=== PATIENT | female | born 1965 | race Hispanic/Latino ===

== ENCOUNTER 2017-06-15 01:28 | Emergency (ER) | payer SELFPAY ==
[2017-06-15] MEDS ORDERED: IBUPROFEN 400 MG TAB ONE (02:02)
[2017-06-15 02:29] LABS: Urine Bacteria >50 /HPF (<20); Urine Culture Reflex Order NOT NEEDED; Urine RBC TNTC /HPF (NONE SEEN)
--- NOTE | 2017-06-15 02:35 | EDPHYS ---
Physician Documentation [facility] Name: Aimee Quintana Age: 52 yrs Sex: Female : 1965 Arrival Date: 06/15/2017 Time: 01:32 Bed 13 Private MD: ED Physician Alverto Turner HPI: 06/15 02:31 This 52 yrs old Female presents to ER via Ambulatory with complaints of Pain ma2 With Urination. 02:31 Onset: The symptoms/episode began/occurred gradually, 1 day(s) ago. Severity of ma2 symptoms: At their worst the symptoms were moderate in the emergency department the symptoms are unchanged. The patient has experienced similar episodes in the past. The patient has not recently seen a physician. 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 - Social history:: Smoking status: Patient/guardian denies using tobacco. - Family history:: not pertinent. ROS: 02:31 Constitutional: Negative for fever, chills, and weight loss, Eyes: Negative for injury, ma2 pain, redness, and discharge, ENT: Negative for injury, pain, and discharge, Neck: Negative for injury, pain, and swelling, Cardiovascular: Negative for chest pain, palpitations, and edema, Respiratory: Negative for shortness of breath, cough, wheezing, and pleuritic chest pain, Back: Negative for injury and pain, MS/Extremity: Negative for injury and deformity, Skin: Negative for injury, rash, and discoloration, Neuro: Negative for headache, weakness, numbness, tingling, and seizure, Psych: Negative for depression, anxiety, suicide ideation, homicidal ideation, and hallucinations, Allergy/Immunology: Negative for hives, rash, and allergies, Endocrine: Negative for neck swelling, polydipsia, polyuria, polyphagia, and marked weight changes, Hematologic/Lymphatic: Negative for swollen nodes, abnormal bleeding, and unusual bruising. Exam: 02:31 Constitutional: This is a well developed, well nourished patient who is awake, alert, ma2 and in no acute distress. Head/Face: Normocephalic, atraumatic. Chest/axilla: Normal chest wall appearance and motion. Nontender with no deformity. No lesions are appreciated. Cardiovascular: Regular rate and rhythm with a normal S1 and S2. No gallops, murmurs, or rubs. Normal PMI, no JVD. No pulse deficits. Respiratory: Lungs have equal breath sounds bilaterally, clear to auscultation and percussion. No rales, rhonchi or wheezes noted. No increased work of breathing, no retractions or nasal flaring. Abdomen/GI: Soft, non-tender, with normal bowel sounds. No distension or tympany. No guarding or rebound. No evidence of tenderness throughout. Vital Signs: 01:56 BP 155 / 79; Pulse 67; Resp 18; Temp 97.6(O); Pulse Ox 97% on R/A; Weight 111.58 kg; tl2 Height 5 ft. 4 in. (162.56 cm); Pain 6/10; 02:34 BP 124 / 60; Pulse 63; Resp 18; Pulse Ox 98% on R/A; tl2 01:56 Body Mass Index 42.23 (111.58 kg, 162.56 cm) tl2 MDM: 01:41 Patient medically screened. ma2 02:31 Differential Diagnosis sepsis, UTI unlikely pyelonephritis. Data reviewed: vital signs, tx2 nurses notes, lab test result(s). Counseling: I had a detailed discussion with the patient and/or guardian regarding: the historical points, exam findings, and any diagnostic results supporting the discharge/admit diagnosis, the presence of at least one elevated blood pressure reading (>120/80) during this emergency department visit, the need for outpatient follow up. Response to treatment: the patient's symptoms have mildly improved after treatment. 06/15 02:00 Order name: Urine Microscopic Only; Complete Time: 02:33 tl2 06/15 02:00 Order name: Urine Culture 2 06/15 02:00 Order name: Urine Dipstick-Ancillary (obtain specimen); Complete Time: 02:03 tl2 06/15 02:15 Order name: Urine Dipstick--Ancillary (enter results) rg2 Administered Medications: 02:02 Drug: Ibuprofen 400 mg Route: PO; tl1 02:44 Follow up: Response: No adverse reaction; Pain is decreased tl2 02:44 Drug: Macrobid 100 mg Route: PO; tl2 02:44 Follow up: Response: No adverse reaction; Medication administered at discharge. tl2 Disposition: 06/15/17 02:34 Discharged to Home. Impression: Urinary tract infection, site not specified. - Condition is Stable. - Discharge Instructions: Urinary Tract Infection, [id number]. - Prescriptions for Tylenol- Codeine #3 300-30 mg Oral Tablet - take 2 tablet by ORAL route every 6 hours As needed; 30 tablet. Macrobid 100 mg Oral Capsule - take 1 capsule by ORAL route every 12 hours for 10 days; 20 capsule. - Medication Reconciliation Form, Thank You Letter, Antibiotic Education, Prescription Opioid Use form. - Follow up: Private Physician; When: Tomorrow; Reason: Continuance of care. - Problem is new. - Symptoms are unchanged. Signatures: Dispatcher [employer] EDMS Brittany Peña RN RN tl1 Yelitza Ramírez RN RN tl2 Alverto Turner MD MD tx2
--- NOTE | 2017-06-15 02:35 | ER ---
Nurse's Notes [facility] Name: Aimee Quintana Age: 52 yrs Sex: Female : 1965 Arrival Date: 06/15/2017 Time: 01:32 Bed 13 Private MD: Diagnosis: Urinary tract infection, site not specified Presentation: 06/15 01:53 Presenting complaint: Patient states: I started having burning with urination today and tl2 lower abdominal pain on and off. Reports nausea. Denies fever or vomiting. Transition of care: patient was not received from another setting of care. Onset of symptoms was June 15, 2017. Care prior to arrival: None. 01:53 Method Of Arrival: Ambulatory tl2 01:53 Acuity: TIANNA 4 tl2 Triage Assessment: 01:56 General: Appears in no apparent distress. uncomfortable, Behavior is calm, cooperative, tl2 appropriate for age. Pain: Complains of pain in suprapubic area Pain does not radiate. Pain currently is 6 out of 10 on a pain scale. Quality of pain is described as crampy, Pain began 1 day ago. Is intermittent. Neuro: Level of Consciousness is awake, alert, obeys commands, Oriented to person, place, time, situation. Cardiovascular: Denies chest pain. Respiratory: Airway is patent Respiratory effort is even, unlabored, Respiratory pattern is regular, symmetrical. GI: Reports nausea. : Reports burning with urination. Derm: Skin is pink, warm \T\ dry. 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 - Social history:: Smoking status: Patient/guardian denies using tobacco. - Family history:: not pertinent. Screenin:58 Abuse screen: Denies threats or abuse. Nutritional screening: No deficits noted. tl2 Tuberculosis screening: No symptoms or risk factors identified. Fall Risk None identified. Assessment: 01:58 General: see triage assessment. tl2 02:34 Reassessment: Patient appears in no apparent distress at this time. Patient and/or tl2 family updated on plan of care and expected duration. Pain level reassessed. Patient is alert, oriented x 3, equal unlabored respirations, skin warm/dry/pink. 02:45 Reassessment: Patient appears in no apparent distress at this time. Patient and/or tl2 family updated on plan of care and expected duration. Pain level reassessed. Patient is alert, oriented x 3, equal unlabored respirations, skin warm/dry/pink. pt verbalized understanding of discharge instructions, need for follow up and prescription usage. Vital Signs: 01:56 BP 155 / 79; Pulse 67; Resp 18; Temp 97.6(O); Pulse Ox 97% on R/A; Weight 111.58 kg; tl2 Height 5 ft. 4 in. (162.56 cm); Pain 6/10; 02:34 BP 124 / 60; Pulse 63; Resp 18; Pulse Ox 98% on R/A; tl2 01:56 Body Mass Index 42.23 (111.58 kg, 162.56 cm) tl2 ED Course: 01:32 Patient arrived in ED. do 01:41 Alverto Turner MD is Attending Physician. ma2 01:53 Yelitza Ramírez, KRISTY is Primary Nurse. tl2 01:54 Triage completed. tl2 01:56 Arm band placed on right wrist. tl2 01:58 Patient has correct armband on for positive identification. Bed in low position. Call tl2 light in reach. Side rails up X 1. 01:58 No provider procedures requiring assistance completed. tl2 02:45 Patient did not have IV access during this emergency room visit. tl2 Administered Medications: 02:02 Drug: Ibuprofen 400 mg Route: PO; tl1 02:44 Follow up: Response: No adverse reaction; Pain is decreased tl2 02:44 Drug: Macrobid 100 mg Route: PO; tl2 02:44 Follow up: Response: No adverse reaction; Medication administered at discharge. tl2 Outcome: 02:34 Discharge ordered by . ma2 02:45 Discharged to home ambulatory, with family. tl2 02:45 Condition: stable 02:45 Discharge instructions given to patient, Instructed on discharge instructions, follow up and referral plans. no driving heavy equipment, medication usage, Demonstrated understanding of instructions, follow-up care, medications, Prescriptions given X 2. 02:46 Patient left the ED. tl2 Signatures: Brittany Peña RN RN tl1 Maria Elena Ly Taylor, RN RN tl2 Alverto Turner MD MD ma2
[2017-06-15] MEDS ORDERED: NITROFURAN MACRO 100 MG CAP PO ONE (02:40)
[2017-06-15 02:58] VITALS: TEMP 97.6
[2017-06-15 02:59] VITALS: BP 124/60; O2SAT 98
[2017-06-15 04:49] LABS: Urine Blood 3+ (NEG); Urine Glucose NEGATIVE (NEG); Urine Protein 1+ (NEG); Urine Specific Gravity >1.030 (1.005-1.030); Urine pH 5.5 (5.0-7.0)
== END 2017-06-15 02:46 | disposition home or self-care (01) ==
LOC: ER 01:28
DX: N39.0 Urinary tract infection, site not specified (principal); I10 Essential (primary) hypertension; Z88.8 Allergy status to other drugs, medicaments and biological substances
CPT/HCPCS: 81003; 81015; 87077; 87086; 87088; 87186; 99283

== ENCOUNTER 2017-08-31 18:17 | Emergency (ER) | payer SELFPAY ==
--- NOTE | 2017-08-31 19:22 | RAD REPORT ---
EXAM DESCRIPTION: CT - Head Brain Wo Cont - 08/31/2017 7:09 pm CLINICAL HISTORY: Headache, blurred vision, near syncope COMPARISON: None. TECHNIQUE: Axial 5 mm thick images of the head were obtained without IV contrast. All CT scans are performed using dose optimization technique as appropriate and may include automated exposure control or mA/KV adjustment according to patient size. FINDINGS: No intracranial hemorrhage, mass, edema or shift of mid-line structures. No acute infarcti on changes seen. No abnormal extra-axial fluid collections. Ventricles are normal. Mastoid air cells and visualized portions of the paranasal sinuses are clear. No acute bony findings. IMPRESSION: Negative non-contrast CT head examination.
[2017-08-31 20:05] LABS: Absolute Lymphocytes (CBC) 3.5 K/uL (0.7-4.9); Absolute Monocytes 0.8 K/uL (0.1-1.3); Absolute Neutrophil 6.5 K/uL (1.8-8.0); Basophils % 0.9 % (0-1.3); Eosinophils % 1.7 % (0-4.4); Hematocrit 42.7 % (36.0-45.0); Lymphocytes % 31.4 % (15.3-44.8); MCH 28.3 pg (27.0-35.0); MCV 84.5 fL (80-100); MPV 8.4 fL (7.6-11.3); Monocytes % 7.4 % (3.3-12.3); RBC Red Blood Cell Count 5.05 M/uL (3.86-4.86)
[2017-08-31 20:18] LABS: BUN Blood Urea Nitrogen 12 mg/dL (7-18); Bicarbonate 31 mmol/L (21-32); Glucose Level 91 mg/dL (74-106); Potassium 3.9 mmol/L (3.5-5.1); Sodium Level 141 mmol/L (136-145)
[2017-08-31 20:29] LABS: Urine Blood NEGATIVE (NEG); Urine Glucose NEGATIVE (NEG); Urine Protein NEGATIVE (NEG)
--- NOTE | 2017-08-31 21:07 | RAD REPORT ---
EXAM DESCRIPTION: CT - Head angio - 08/31/2017 8:44 pm CLINICAL HISTORY: Blurred vision, nausea, headache COMPARISON: CT head August 31 TECHNIQUE: During dynamic enhancement using nonionic IV contrast, axial 1 millimeter thick images of the head were obtained. Sagittal and coronal reformatted images were performed using maximum intensi ty projection algorithm. FINDINGS: No aneurysm or vascular malformation is identified. No stenoses seen. Very little atherosc lerotic calcifications are present in the internal carotid arteries and no calcifications are seen ne ar the origin of the ophthalmic arteries. No vasculitis findings are evident. Patient has normal vari ant anatomy with very small or absent A1 segment of the anterior cerebral artery. Patient has persist ent origin supply to the right posterior cerebral artery from a dominant posterior communicatin g artery. No basilar stenosis. Major venous sinuses are patent. IMPRESSION: CT angiography shows no aneurysm, vascular malformation or significant vascular finding.
--- NOTE | 2017-08-31 21:20 | ER ---
Nurse's Notes [facility] Name: Aimee uQintana Age: 52 yrs Sex: Female : 1965 Arrival Date: 08/31/2017 Time: 18:20 Bed 16 Private MD: None, None Diagnosis: Acute Headache Presentation: 08/31 18:30 Presenting complaint: Patient states: "End of June I got a real bad headache just aj1 above my ear. Today I was in [facility] and I got another one, it was about 3:00. This time it made my eye blurry and I felt like I had to faint but I didn't. So I went home and I've been getting little pains there like a headache and then they go away. I just wanted to check and make sure everything is okay" Reports that she told her doctor about the headaches she got in June, but was told that it was nothing. Denies blurred vision and headache at this time states "my head just feels a little weird". Transition of care: patient was not received from another setting of care. Onset of symptoms was August 31, 2017 at 15:00. Risk Assessment: Do you want to hurt yourself or someone else? Patient reports no desire to harm self or others. Initial Sepsis Screen: Does the patient meet any 2 criteria? No. Patient's initial sepsis screen is negative. Does the patient have a suspected source of infection? No. Patient's initial sepsis screen is negative. Care prior to arrival: None. 18:30 Method Of Arrival: Ambulatory aj1 18:30 Acuity: TIANNA 3 aj1 Triage Assessment: 18:35 Headache History: Denies prior headaches. General: Appears in no apparent distress. aj1 uncomfortable, Behavior is calm, cooperative, agitated. Pain: Complains of pain in right occipital area Pain does not radiate. Pain currently is 0 out of 10 on a pain scale. at worst was 9 out of 10 on a pain scale. Pain began 4 hours ago. Also complains of dizziness. Neuro: Level of Consciousness is awake, alert, obeys commands, Oriented to person, place, time, situation, Moves all extremities. Full function Gait is steady, Speech is normal, Facial symmetry appears normal, Pupils are PERRLA, Reports blurred vision dizziness, headache. 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 - Social history:: Smoking status: Patient/guardian denies using tobacco. - Ebola Screening: : Patient denies travel to an Ebola-affected area in the 21 days before illness onset. Screenin:00 Abuse screen: Denies threats or abuse. Denies injuries from another. Nutritional rv screening: No deficits noted. Tuberculosis screening: No symptoms or risk factors identified. Fall Risk None identified. Assessment: 19:06 General: Appears in no apparent distress. comfortable, Behavior is calm, cooperative. rv Pain: Complains of pain in top of head, forehead, right druze and left druze. Neuro: Level of Consciousness is awake, alert, obeys commands, Oriented to person, place, time, situation. Cardiovascular: Capillary refill < 3 seconds. Respiratory: Airway is patent. GI: No signs and/or symptoms were reported involving the gastrointestinal system. : No signs and/or symptoms were reported regarding the genitourinary system. EENT: No signs and/or symptoms were reported regarding the EENT system. Derm: Skin is intact. 19:07 Reassessment: on the way to CT scan. rv 19:45 Reassessment: Patient appears in no apparent distress at this time. Patient and/or rv family updated on plan of care and expected duration. Pain level reassessed. Patient is alert, oriented x 3, equal unlabored respirations, skin warm/dry/pink. patient came back from CT scan. awaiting result. 21:43 Reassessment: PT D/C HOME AMBULATORY WITH FAMILY, DX WITH HEADACHE. rv Vital Signs: 18:35 BP 158 / 81; Pulse 61; Resp 18; Temp 97.8(O); Pulse Ox 100% on R/A; Weight 114.76 kg aj1 (R); Height 5 ft. 2 in. (157.48 cm); Pain 0/10; 21:05 BP 151 / 80; Pulse 70; Resp 16; Pulse Ox 98% on R/A; rv 21:30 BP 145 / 64; Pulse 65; Resp 16; Pulse Ox 99% ; rv 18:35 Body Mass Index 46.27 (114.76 kg, 157.48 cm) aj1 ED Course: 18:20 Patient arrived in ED. sb2 18:20 None, None is Private Physician. sb2 18:35 Triage completed. aj1 18:35 Arm band placed on. aj1 18:47 Floyd Peña PA is PHCP. jmm 18:47 Dennis Andrade MD is Attending Physician. jmm 19:00 Patient has correct armband on for positive identification. Bed in low position. Call rv light in reach. Side rails up X2. Adult w/ patient. 19:08 CT completed. Patient moved to CT via wheelchair. Patient moved back from CT. cw1 19:09 CT Head Brain wo Cont In Process Unspecified. EDMS 19:20 Jeff Armstrong, KRISTY is Primary Nurse. bp 19:45 Initial lab(s) drawn, by nc, sent to lab. Inserted saline lock: 20 gauge in right cc antecubital area, using aseptic technique. Blood collected. 19:50 Urine collected: clean catch specimen, clear. cc 20:01 Radiology exam delayed due to lab results not completed at this time. (BUN/Creatinine). sj 20:43 CT completed. Patient moved to CT via wheelchair. Patient moved back from CT. cw1 20:45 Head angio In Process Unspecified. EDMS 21:19 John Hui MD is Referral Physician. jmm 21:42 No provider procedures requiring assistance completed. IV discontinued, intact, rv bleeding controlled, No redness/swelling at site. Pressure dressing applied. Administered Medications: No medications were administered Outcome: 21:19 Discharge ordered by . jmm 21:44 Discharged to home ambulatory, with family. rv 21:44 Condition: stable 21:44 Discharge instructions given to patient, Instructed on discharge instructions, follow up and referral plans. Demonstrated understanding of instructions, follow-up care. 21:44 Patient left the ED. rv Signatures: Dispatcher [employer] EDMS Shasha Toribio RN RN aj MicFloyd smith PA PA jmm Jones, Susan sj Woodley, Crystal cw1 Rena Tomlinson Brian, KRISTY RN bp Kyra Irene sb2 Brian Christensen RN RN rv
--- NOTE | 2017-08-31 21:20 | EDPHYS ---
Physician Documentation [facility] Name: Aimee Quintana Age: 52 yrs Sex: Female : 1965 Arrival Date: 08/31/2017 Time: 18:20 Bed 16 Private MD: None, None ED Physician Dennis Andrade HPI: 08/31 18:57 This 52 yrs old Female presents to ER via Ambulatory with complaints of jmm Headache, Blurred Vision. 18:57 The patient complains of pain to the right temporal area. The patient describes the jmm headache as intermittent, throbbing. Onset: The symptoms/episode began/occurred acutely, 3.5 hour(s) ago. This is a 52 year old female with a history of htn that presents to the ED with right sided headache beginning at 3 pm today. The headache was acute onset. The patient states she had blurred vision to both eyes. Denies weakness. Patient now has mild intermittent episode of pain. Patient states she had a similar episode this past June. Patient denies fever or neck pain. 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 - Social history:: Smoking status: Patient/guardian denies using tobacco. - Ebola Screening: : Patient denies travel to an Ebola-affected area in the 21 days before illness onset. ROS: 18:57 Constitutional: Negative for fever. jmm 18:57 Neuro: Positive for headache, visual changes. 18:57 All other systems are negative. Exam: 18:57 Head/Face: atraumatic. jmm 18:57 Constitutional: The patient appears in no acute distress, alert, awake. 18:57 Cardiovascular: Rate: normal, Rhythm: regular. 18:57 Respiratory: the patient does not display signs of respiratory distress, Respirations: normal, Breath sounds: are clear throughout. 18:57 Musculoskeletal/extremity: ROM: intact in all extremities. 18:57 Skin: Appearance: Color: normal in color. 18:57 Neuro: Orientation: is normal, Mentation: is normal, Memory: is normal, Cranial nerves: extraocular movements are intact, Nystagmus is absent. Speech is clear and appropriate. Tongue strength is normal, Cerebellar function: normal finger to nose testing, Motor: is normal, Gait: is steady. 18:57 Psych: Behavior/mood is pleasant, cooperative. Vital Signs: 18:35 BP 158 / 81; Pulse 61; Resp 18; Temp 97.8(O); Pulse Ox 100% on R/A; Weight 114.76 kg aj1 (R); Height 5 ft. 2 in. (157.48 cm); Pain 0/10; 21:05 BP 151 / 80; Pulse 70; Resp 16; Pulse Ox 98% on R/A; rv 21:30 BP 145 / 64; Pulse 65; Resp 16; Pulse Ox 99% ; rv 18:35 Body Mass Index 46.27 (114.76 kg, 157.48 cm) aj1 MDM: 18:56 Patient medically screened. [facility] 21:17 Data reviewed: vital signs, nurses notes. Data reviewed: radiologic studies, CT scan. [facility] Counseling: I had a detailed discussion with the patient and/or guardian regarding: the historical points, exam findings, and any diagnostic results supporting the discharge/admit diagnosis, lab results, radiology results, the need for outpatient follow up, to return to the emergency department if symptoms worsen or persist or if there are any questions or concerns that arise at home. ED course: Care was discussed with Dr. Hernández. 21:18 ED course: Patient is alert and non toxic in appearance, no focal neuro deficits are [facility] appreciated on discharge. Patient is encouraged to follow up with Neurology for further evaluation. Family given strict return precautions. . 08/31 19:38 Order name: CBC with Diff; Complete Time: 20:12 [facility] 08/31 19:38 Order name: BMP; Complete Time: 20:30 [facility] 08/31 18:48 Order name: CT Head Brain wo Cont; Complete Time: 19:29 [facility] 08/31 19:46 Order name: Head angio; Complete Time: 21:11 [facility] 08/31 20:06 Order name: Urine Dipstick--Ancillary (enter results); Complete Time: 20:30 08/31 20:06 Order name: Urine --Ancillary (enter results); Complete Time: 20:30 08/31 19:38 Order name: Saline Lock; Complete Time: 20:01 [facility] 08/31 19:38 Order name: Urine Test (obtain specimen); Complete Time: 20: [facility] Administered Medications: No medications were administered Disposition: 08/31/17 21:19 Discharged to Home. Impression: Acute Headache. - Condition is Stable. - Discharge Instructions: General Headache Without Cause. - Medication Reconciliation Form, Thank You Letter, Antibiotic Education, Prescription Opioid Use form. - Follow up: John Hui MD; When: 2 - 3 days; Reason: Continuance of care. - Notes: Please follow up with Neurology for further evaluation of your headache. Return to the ED if you develop increased pain, weakness or any other concerning symptoms. Addendum: 09/04/2017 07:01 Co-signature as Attending Physician, Dennis Andrade MD. r n Signatures: Dispatcher [employer] EDMS Shasha Toribio RN RN aj1 Floyd Peña PA PA Dennis High MD MD rn Vicente, Ronaldo, RN RN rv Corrections: (The following items were deleted from the chart) 08/31 21:44 21:19 08/31/2017 21:19 Discharged to Home. Impression: Acute Headache. Condition is rv Stable. Forms are Medication Reconciliation Form, Thank You Letter, Antibiotic Education, Prescription Opioid Use. Follow up: John Hui; When: 2 - 3 days; Reason: Continuance of care. [facility]
[2017-08-31 21:48] VITALS: TEMP 97.8
[2017-08-31 21:50] VITALS: BP 145/64; O2SAT 99
== END 2017-08-31 21:44 | disposition home or self-care (01) ==
LOC: ER 18:17
DX: R51 Headache (principal); I10 Essential (primary) hypertension; Z88.8 Allergy status to other drugs, medicaments and biological substances
CPT/HCPCS: 36415; 70450; 70496; 80048; 81003; 81025; 85025; 99284; Q9967

== ENCOUNTER 2017-09-14 11:41 | Emergency (ER) | payer SELFPAY ==
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
[2017-09-14 14:10] VITALS: BP 148/92; TEMP 97.4; O2SAT 97
== END 2017-09-14 14:07 | disposition home or self-care (01) ==
LOC: ER 11:41
DX: M25.512 Pain in left shoulder (principal); I10 Essential (primary) hypertension; Z88.8 Allergy status to other drugs, medicaments and biological substances
CPT/HCPCS: 99283

== ENCOUNTER 2018-06-29 00:51 | Emergency (ER) | payer SELFPAY ==
[2018-06-29] MEDS ORDERED: DIPHENHYDRAMINE 25 MG TAB/CAP ONE (02:16)
[2018-06-29] MEDS ORDERED: FAMOTIDINE 20 MG TAB ONE (02:17)
[2018-06-29] MEDS ORDERED: predniSONE 20 MG TAB ONE (02:17)
--- NOTE | 2018-06-29 02:22 | EDPHYS ---
Physician Documentation [facility] Name: Aimee Quintana Age: 53 yrs Sex: Female : 1965 Arrival Date: 06/29/2018 Time: 00:54 Bed 15 Private MD: ED Physician Aamir Hernández HPI: 06/29 02:18 This 53 yrs old Female presents to ER via Ambulatory with complaints of Rash. pm1 02:18 The patient's rash thought to be caused by an unknown cause. The rash is located on the pm1 lower back and chin and lateral aspect of right thigh. The rash can be described as raised. Onset: The symptoms/episode began/occurred 2 day(s) ago. Associated signs and symptoms: Pertinent positives: itching, Pertinent negatives: burning sensation, difficulty breathing, fever, swelling of lips, swelling of throat, swelling of tongue, vomiting. Severity of symptoms: in the emergency department the symptoms are worse. Treatment given at home: none. The patient has not experienced similar symptoms in the past. The patient has not recently seen a physician. Historical: - Allergies: 00:56 Hydrochlorothiazide; la1 - Home Meds: 00:56 carvedilol 6.25 mg Oral tab 1 tab 2 times per day [Active]; enalapril maleate 20 mg la1 Oral tab 1 tab once daily [Active]; verapamil 120 mg Oral C24P 1 cap once daily [Active]; - PMHx: 00:56 Hypertension; la1 - PSHx: 00:56 Cholecystectomy; bladder lift; partial hysterectomy; la1 - Immunization history:: Adult Immunizations up to date. - Social history:: Smoking status: Patient/guardian denies using tobacco. - Ebola Screening: : No symptoms or risks identified at this time. ROS: 02:18 Constitutional: Negative for fever, chills, and weight loss, Eyes: Negative for injury, pm1 pain, redness, and discharge, ENT: Negative for injury, pain, and discharge, Neck: Negative for injury, pain, and swelling, Cardiovascular: Negative for chest pain, palpitations, and edema, Respiratory: Negative for shortness of breath, cough, wheezing, and pleuritic chest pain, Abdomen/GI: Negative for abdominal pain, nausea, vomiting, diarrhea, and constipation, Back: Negative for injury and pain, : Negative for injury, bleeding, discharge, and swelling, MS/Extremity: Negative for injury and deformity. 02:18 Neuro: Negative for headache, weakness, numbness, tingling, and seizure. 02:18 Skin: Positive for rash, of the chin and right leg and lumbar area. Exam: 02:18 Constitutional: This is a well developed, well nourished patient who is awake, alert, pm1 and in no acute distress. Head/Face: Normocephalic, atraumatic. Eyes: Pupils equal round and reactive to light, extra-ocular motions intact. Lids and lashes normal. Conjunctiva and sclera are non-icteric and not injected. Cornea within normal limits. Periorbital areas with no swelling, redness, or edema. ENT: Nares patent. No nasal discharge, no septal abnormalities noted. Tympanic membranes are normal and external auditory canals are clear. Oropharynx with no redness, swelling, or masses, exudates, or evidence of obstruction, uvula midline. Mucous membranes moist. Neck: Trachea midline, no thyromegaly or masses palpated, and no cervical lymphadenopathy. Supple, full range of motion without nuchal rigidity, or vertebral point tenderness. No Meningismus. Chest/axilla: Normal chest wall appearance and motion. Nontender with no deformity. No lesions are appreciated. Cardiovascular: Regular rate and rhythm with a normal S1 and S2. No gallops, murmurs, or rubs. Normal PMI, no JVD. No pulse deficits. Respiratory: Lungs have equal breath sounds bilaterally, clear to auscultation and percussion. No rales, rhonchi or wheezes noted. No increased work of breathing, no retractions or nasal flaring. Abdomen/GI: Soft, non-tender, with normal bowel sounds. No distension or tympany. No guarding or rebound. No evidence of tenderness throughout. Back: No spinal tenderness. No costovertebral tenderness. Full range of motion. 02:18 MS/ Extremity: Pulses equal, no cyanosis. Neurovascular intact. Full, normal range of motion. 02:18 Skin: Appearance: normal except for affected area, consistent with urticaria, on the chin and lateral aspect of right thigh and lumbar area. 02:18 Neuro: Orientation: is normal, Motor: is normal, moves all fours. Vital Signs: 00:57 BP 159 / 71; Pulse 55; Resp 14; Temp 97.5; Pulse Ox 100% on R/A; Weight 116.57 kg; la1 Height 5 ft. 4 in. (162.56 cm); 02:20 BP 145 / 86; Pulse 58; Resp 16; Temp 98.6(A); Pulse Ox 97% on R/A; oe 00:57 Body Mass Index 44.11 (116.57 kg, 162.56 cm) la1 MDM: 01:09 Patient medically screened. pavithra 02:09 Data reviewed: vital signs. Data interpreted: Pulse oximetry: on room air is 100 %. pm1 Interpretation: normal. Counseling: I had a detailed discussion with the patient and/or guardian regarding: the historical points, exam findings, and any diagnostic results supporting the discharge/admit diagnosis, the need for outpatient follow up, to return to the emergency department if symptoms worsen or persist or if there are any questions or concerns that arise at home. Administered Medications: 02:09 Drug: Benadryl 25 mg Route: PO; aa1 02:33 Follow up: Response: No adverse reaction; Medication administered at discharge. aa1 02:09 Drug: predniSONE 60 mg Route: PO; aa1 02:32 Follow up: Response: No adverse reaction; Medication administered at discharge. aa1 02:11 Drug: Pepcid 20 mg Route: PO; aa1 02:33 Follow up: Response: No adverse reaction; Medication administered at discharge. aa1 Disposition: 06/29/18 02:22 Discharged to Home. Impression: Rash and other nonspecific skin eruption. - Condition is Stable. - Discharge Instructions: Rash. - Prescriptions for Benadryl 25 mg Oral Capsule - take 1 capsule by ORAL route every 6 hours As needed; 30 tablet. Pepcid 20 mg Oral Tablet - take 1 tablet by ORAL route every 12 hours for 10 days; 20 tablet. Medrol (Ace) 4 mg Oral Tablets, Dose Pack - take 1 tablet by ORAL route as directed - follow package instructions; 1 packet. - Medication Reconciliation Form, Thank You Letter, Antibiotic Education, Prescription Opioid Use form. - Follow up: Emergency Department; When: As needed; Reason: Worsening of condition. Follow up: Private Physician; When: 2 - 3 days; Reason: Recheck today's complaints, Continuance of care, Re-evaluation by your physician. - Problem is new. - Symptoms have improved. Addendum: 07/01/2018 11:02 Co-signature as Attending Physician, Aamir Hernández MD I agree with the assessment and c mcduffie plan of care. Signatures: Angie Shannon, RN RN aa1 Aamir Hernández MD MD cha Attema, Lee RN RN la1 Keyon Diamond, SCROLL ASSEMBLER SCROLL ASSEMBLER pm1 Corrections: (The following items were deleted from the chart) 06/29 02:34 02:22 06/29/2018 02:22 Discharged to Home. Impression: Rash and other nonspecific skin aa1 eruption. Condition is Stable. Forms are Medication Reconciliation Form, Thank You Letter, Antibiotic Education, Prescription Opioid Use. Follow up: Emergency Department; When: As needed; Reason: Worsening of condition. Follow up: Private Physician; When: 2 - 3 days; Reason: Recheck today's complaints, Continuance of care, Re-evaluation by your physician. Problem is new. Symptoms have improved. pm1
--- NOTE | 2018-06-29 02:22 | ER ---
Nurse's Notes [facility] Name: Aimee Quintana Age: 53 yrs Sex: Female : 1965 Arrival Date: 06/29/2018 Time: 00:54 Bed 15 Private MD: Diagnosis: Rash and other nonspecific skin eruption Presentation: 06/29 00:56 Presenting complaint: Patient states: I have some bumps on my chin, legs, and lower la1 back. I think I scratched one on my leg too much and it might be infected. Transition of care: patient was not received from another setting of care. Onset of symptoms was June 29, 2018. Risk Assessment: Do you want to hurt yourself or someone else? Patient reports no desire to harm self or others. Initial Sepsis Screen: Does the patient meet any 2 criteria? No. Patient's initial sepsis screen is negative. Does the patient have a suspected source of infection? No. Patient's initial sepsis screen is negative. Care prior to arrival: None. 00:56 Method Of Arrival: Ambulatory la1 00:56 Acuity: TIANNA 5 la1 Historical: - Allergies: 00:56 Hydrochlorothiazide; la1 - Home Meds: 00:56 carvedilol 6.25 mg Oral tab 1 tab 2 times per day [Active]; enalapril maleate 20 mg la1 Oral tab 1 tab once daily [Active]; verapamil 120 mg Oral C24P 1 cap once daily [Active]; - PMHx: 00:56 Hypertension; la1 - PSHx: 00:56 Cholecystectomy; bladder lift; partial hysterectomy; la1 - Immunization history:: Adult Immunizations up to date. - Social history:: Smoking status: Patient/guardian denies using tobacco. - Ebola Screening: : No symptoms or risks identified at this time. Screenin:20 Abuse screen: Denies threats or abuse. Denies injuries from another. Nutritional aa1 screening: No deficits noted. Tuberculosis screening: No symptoms or risk factors identified. Fall Risk None identified. Assessment: 01:20 General: Appears in no apparent distress. comfortable, Behavior is calm, cooperative, aa1 appropriate for age. Pain: Denies pain. Neuro: Level of Consciousness is awake, alert, obeys commands, Oriented to person, place, time, situation, Moves all extremities. Full function Gait is steady. Respiratory: Airway is patent Respiratory effort is even, unlabored, Respiratory pattern is regular, symmetrical. GI: No signs and/or symptoms were reported involving the gastrointestinal system. : No signs and/or symptoms were reported regarding the genitourinary system. EENT: Derm: Skin is intact, is healthy with good turgor, Skin is pink, warm \T\ dry. Rash noted that is macular, itchy, red, on lumbar area and lateral aspect of right thigh. Musculoskeletal: Circulation, motion, and sensation intact. Capillary refill < 3 seconds. 02:33 Reassessment: Patient appears in no apparent distress at this time. Patient is alert, aa1 oriented x 3, equal unlabored respirations, skin warm/dry/pink. Discussed d/c \T\ f/u instructions with pt \T\ family. Denies questions or concerns at this time. Amb to lobby with steady gait. Vital Signs: 00:57 BP 159 / 71; Pulse 55; Resp 14; Temp 97.5; Pulse Ox 100% on R/A; Weight 116.57 kg; la1 Height 5 ft. 4 in. (162.56 cm); 02:20 BP 145 / 86; Pulse 58; Resp 16; Temp 98.6(A); Pulse Ox 97% on R/A; oe 00:57 Body Mass Index 44.11 (116.57 kg, 162.56 cm) la1 ED Course: 00:54 Patient arrived in ED. mr 00:56 Arm band placed on left wrist. la1 00:57 Triage completed. la1 01:04 Keyon Diamond NP is PHCP. pm1 01:04 Aamir Hernández MD is Attending Physician. pm1 01:20 Patient has correct armband on for positive identification. Bed in low position. Call aa1 light in reach. Pulse ox on. NIBP on. 01:20 No provider procedures requiring assistance completed. Patient did not have IV access aa1 during this emergency room visit. 02:09 Angie Shannon, KRISTY is Primary Nurse. aa1 Administered Medications: 02:09 Drug: Benadryl 25 mg Route: PO; aa1 02:33 Follow up: Response: No adverse reaction; Medication administered at discharge. aa1 02:09 Drug: predniSONE 60 mg Route: PO; aa1 02:32 Follow up: Response: No adverse reaction; Medication administered at discharge. aa1 02:11 Drug: Pepcid 20 mg Route: PO; aa1 02:33 Follow up: Response: No adverse reaction; Medication administered at discharge. aa1 Outcome: 02:22 Discharge ordered by MD. pm1 02:33 Discharged to home ambulatory, with family. aa1 02:33 Condition: good 02:33 Discharge instructions given to patient, family, Instructed on discharge instructions, follow up and referral plans. medication usage, Demonstrated understanding of instructions, follow-up care, medications, Prescriptions given X 3. 02:34 Patient left the ED. aa1 Signatures: Angie Shannon RN RN aa1 Gisel Stacy Lee, RN RN la1 Keyon Diamond, VINICIUS REAGENT TENDER pm1 Woody Bender
[2018-06-29 02:40] VITALS: BP 145/86; TEMP 98.6; O2SAT 97
== END 2018-06-29 02:34 | disposition home or self-care (01) ==
LOC: ER 00:51
DX: R21 Rash and other nonspecific skin eruption (principal); I10 Essential (primary) hypertension; Z88.8 Allergy status to other drugs, medicaments and biological substances
CPT/HCPCS: J7512

== ENCOUNTER 2019-01-20 14:37 | Emergency (ER) | payer SELFPAY ==
[2019-01-20] MEDS ORDERED: ALBUTEROL 2.5 MG/3 ML NEB SOL ONE (15:32)
[2019-01-20] MEDS ORDERED: CEFTRIAXONE 1000 MG/VIAL ONE (15:33)
[2019-01-20] MEDS ORDERED: WATER FOR INJ,STERILE 10 ML ONE (15:33)
[2019-01-20] MEDS ORDERED: HYDROCODONE/CHLORPHEN 5 ML/OSYR ONE (15:33)
--- NOTE | 2019-01-20 16:45 | EDPHYS ---
Physician Documentation [facility] Name: Aimee Quintana Age: 53 yrs Sex: Female : 1965 Arrival Date: 01/20/2019 Time: 14:41 Bed 27 Private MD: ED Physician Dennis Andrade HPI: 01/20 16:07 This 53 yrs old Female presents to ER via Ambulatory with complaints of Sore pm1 Throat, Cough, Congestion. 16:07 The patient presents with sore throat. The patient describes throat pain as constant, pm1 scratchy. 16:07 Onset: The symptoms/episode began/occurred 3 day(s) ago. Severity of symptoms: in the pm1 emergency department the symptoms are actually worse. Modifying factors: Patient's oral intake status: good The patient has had contact with sick grand son and daughter. Associated signs and symptoms: Pertinent positives: cough, earache, flu-like symptoms, Sore throat Pertinent negatives diarrhea, fever, shortness of breath, vomiting. The patient has not experienced similar symptoms in the past. The patient has not recently seen a physician. [facility]: 14:48 LMP N/A - Hysterectomy hb Historical: - Allergies: 14:50 Hydrochlorothiazide; hb - Home Meds: 14:50 carvedilol 6.25 mg Oral tab 1 tab 2 times per day [Active]; enalapril maleate 20 mg hb Oral tab 1 tab once daily [Active]; verapamil 120 mg Oral C24P 1 cap once daily [Active]; Vitamin D Oral [Active]; - PMHx: 14:50 Hypertension; hb - PSHx: 14:50 Cholecystectomy; bladder lift; partial hysterectomy; hb - Immunization history:: Adult Immunizations up to date. - Social history:: Smoking status: Patient/guardian denies using tobacco. - Ebola Screening: : No symptoms or risks identified at this time. ROS: 16:07 Constitutional: Negative for fever, chills, and weight loss, Eyes: Negative for injury, pm1 pain, redness, and discharge. 16:07 Neck: Negative for injury, pain, and swelling, Cardiovascular: Negative for chest pain, palpitations, and edema. 16:07 Abdomen/GI: Negative for abdominal pain, nausea, vomiting, diarrhea, and constipation, Back: Negative for injury and pain, MS/Extremity: Negative for injury and deformity, Skin: Negative for injury, rash, and discoloration, Neuro: Negative for headache, weakness, numbness, tingling, and seizure. 16:07 ENT: Positive for ear pain, sore throat, Negative for drainage from ear(s), difficulty swallowing, difficulty handling secretions, hoarseness. 16:07 Respiratory: Positive for cough, Negative for shortness of breath, sputum production, wheezing. Exam: 16:07 Constitutional: This is a well developed, well nourished patient who is awake, alert, pm1 and in no acute distress. Head/Face: Normocephalic, atraumatic. Eyes: Pupils equal round and reactive to light, extra-ocular motions intact. Lids and lashes normal. Conjunctiva and sclera are non-icteric and not injected. Cornea within normal limits. Periorbital areas with no swelling, redness, or edema. ENT: Nares patent. No nasal discharge, no septal abnormalities noted. Tympanic membranes are normal and external auditory canals are clear. Oropharynx with no redness, swelling, or masses, exudates, or evidence of obstruction, uvula midline. Mucous membranes moist. Neck: Trachea midline, no thyromegaly or masses palpated, and no cervical lymphadenopathy. Supple, full range of motion without nuchal rigidity, or vertebral point tenderness. No Meningismus. Chest/axilla: Normal chest wall appearance and motion. Nontender with no deformity. No lesions are appreciated. Cardiovascular: Regular rate and rhythm with a normal S1 and S2. No gallops, murmurs, or rubs. Normal PMI, no JVD. No pulse deficits. Respiratory: Lungs have equal breath sounds bilaterally, clear to auscultation and percussion. No rales, rhonchi or wheezes noted. No increased work of breathing, no retractions or nasal flaring. Abdomen/GI: Soft, non-tender, with normal bowel sounds. No distension or tympany. No guarding or rebound. No evidence of tenderness throughout. Back: No spinal tenderness. No costovertebral tenderness. Full range of motion. Skin: Warm, dry with normal turgor. Normal color with no rashes, no lesions, and no evidence of cellulitis. MS/ Extremity: Pulses equal, no cyanosis. Neurovascular intact. Full, normal range of motion. 16:07 Neuro: Orientation: is normal, Motor: is normal, moves all fours, Sensation: is normal, no obvious gross deficits. Vital Signs: 14:48 BP 166 / 74; Pulse 66; Resp 18; Temp 97.9(TE); Pulse Ox 97% on R/A; Weight 117.93 kg; hb Height 5 ft. 5 in. (165.10 cm); Pain 8/10; 16:12 BP 107 / 61; Pulse 87; Resp 17; Pulse Ox 99% on R/A; tw2 14:48 Body Mass Index 43.26 (117.93 kg, 165.10 cm) hb MDM: 15:05 Patient medically screened. pm1 16:42 Data reviewed: vital signs. Data interpreted: Pulse oximetry: on room air is 99 %. pm1 Interpretation: normal. Counseling: I had a detailed discussion with the patient and/or guardian regarding: the historical points, exam findings, and any diagnostic results supporting the discharge/admit diagnosis, lab results, radiology results, the need for outpatient follow up, to return to the emergency department if symptoms worsen or persist or if there are any questions or concerns that arise at home. 01/20 15:26 Order name: Flu; Complete Time: 16:41 pm1 01/20 15:26 Order name: Strep; Complete Time: 16:41 pm1 01/20 15:26 Order name: Chest Pa And Lat (2 Views) XRAY pm1 01/20 16:23 Order name: Throat Culture EDMS Administered Medications: 14:00 Drug: Albuterol 2.5 mg Route: Inhalation; tw2 14:02 Drug: Tussionex Pennkinetic ER 5 ml Route: PO; tw2 16:53 Follow up: Response: No adverse reaction tw2 14:03 Drug: Rocephin (cefTRIAXone) 1 grams Route: IM; Site: right deltoid; tw2 16:53 Follow up: Response: No adverse reaction tw2 Disposition: 21:23 Co-signature as Attending Physician, Dennis Andrade MD. rn Disposition: 01/20/19 16:44 Discharged to Home. Impression: Otitis media, unspecified, left ear, Acute pharyngitis. - Condition is Stable. - Discharge Instructions: Otitis Media, Adult, Pharyngitis, Cough, Adult. - Prescriptions for Zithromax Z- Ace 250 mg Oral Tablet - take 1 tablet by ORAL route as directed for 5 days Day 1 - take two (2) tablets one time. Day 2, 3, 4 , 5 take one (1) tablet once daily.; 6 tablet. Guaifenesin AC 10- 100 mg/5 mL Oral Liquid - take 10 milliliter by ORAL route every 4 hours As needed; 240 milliliter. - Medication Reconciliation Form, Thank You Letter, Antibiotic Education, Prescription Opioid Use, Work release form, Family Work Release form. - Follow up: Emergency Department; When: As needed; Reason: Worsening of condition. Follow up: Private Physician; When: 2 - 3 days; Reason: Recheck today's complaints, Continuance of care, Re-evaluation by your physician. - Problem is new. - Symptoms have improved. Signatures: Dispatcher [employer] EDMS Dennis Andrade MD MD rn Marinas, Patrick, DIAGNOSTIC RADIOLOGIC TECHNOLOGIST DIAGNOSTIC RADIOLOGIC TECHNOLOGIST pm1 Becky Nguyen RN RN Camila Roy RN RN tw2 Corrections: (The following items were deleted from the chart) 16:53 16:44 01/20/2019 16:44 Discharged to Home. Impression: Otitis media, unspecified, left tw2 ear; Acute pharyngitis. Condition is Stable. Forms are Medication Reconciliation Form, Thank You Letter, Antibiotic Education, Prescription Opioid Use. Follow up: Emergency Department; When: As needed; Reason: Worsening of condition. Follow up: Private Physician; When: 2 - 3 days; Reason: Recheck today's complaints, Continuance of care, Re-evaluation by your physician. Problem is new. Symptoms have improved. pm1
--- NOTE | 2019-01-20 16:45 | ER ---
Nurse's Notes [facility] Name: Aimee Quintana Age: 53 yrs Sex: Female : 1965 Arrival Date: 01/20/2019 Time: 14:41 Bed 27 Private MD: Diagnosis: Otitis media, unspecified, left ear;Acute pharyngitis Presentation: 01/20 14:47 Presenting complaint: Cough, body aches, sore throat, chills, and sinus congestion x 3 hb days. Transition of care: patient was not received from another setting of care. Onset of symptoms was January 18, 2019. Risk Assessment: Do you want to hurt yourself or someone else? Patient reports no desire to harm self or others. Initial Sepsis Screen: Does the patient meet any 2 criteria? No. Patient's initial sepsis screen is negative. Does the patient have a suspected source of infection? No. Patient's initial sepsis screen is negative. Care prior to arrival: None. 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 - Social history:: Smoking status: Patient/guardian denies using tobacco. - Ebola Screening: : No symptoms or risks identified at this time. Screenin:52 Abuse screen: Denies threats or abuse. Nutritional screening: No deficits noted. tw2 Tuberculosis screening: No symptoms or risk factors identified. Fall Risk None identified. Assessment: 14:52 General: Appears in no apparent distress. obese, Behavior is calm, cooperative, tw2 appropriate for age. Pain: Complains of pain in uvula, left aspect of posterior pharynx and right aspect of posterior pharynx. Neuro: Level of Consciousness is awake, alert, obeys commands, Oriented to person, place, time, situation. Cardiovascular: Patient's skin is warm and dry. Respiratory: Reports cough that is non-productive, Airway is patent Respiratory effort is even, unlabored, Respiratory pattern is regular, symmetrical, Breath sounds are clear bilaterally. GI: No signs and/or symptoms were reported involving the gastrointestinal system. : No signs and/or symptoms were reported regarding the genitourinary system. EENT: Throat is reddened. Derm: No signs and/or symptoms reported regarding the dermatologic system. Musculoskeletal: No signs and/or symptoms reported regarding the musculoskeletal system. Musculoskeletal: Range of motion: intact in all extremities. 16:12 Reassessment: Patient appears in no apparent distress at this time. No changes from tw2 previously documented assessment. Patient and/or family updated on plan of care and expected duration. Pain level reassessed. Patient is alert, oriented x 3, equal unlabored respirations, skin warm/dry/pink. 16:52 Reassessment: Patient appears in no apparent distress at this time. No changes from tw2 previously documented assessment. Patient and/or family updated on plan of care and expected duration. Pain level reassessed. Patient is alert, oriented x 3, equal unlabored respirations, skin warm/dry/pink. Vital Signs: 14:48 BP 166 / 74; Pulse 66; Resp 18; Temp 97.9(TE); Pulse Ox 97% on R/A; Weight 117.93 kg; hb Height 5 ft. 5 in. (165.10 cm); Pain 8/10; 16:12 BP 107 / 61; Pulse 87; Resp 17; Pulse Ox 99% on R/A; tw2 14:48 Body Mass Index 43.26 (117.93 kg, 165.10 cm) hb ED Course: 14:41 Patient arrived in ED. mr 14:48 Triage completed. hb 14:48 Arm band placed on. hb 14:51 Camila Roy, KRISTY is Primary Nurse. tw2 14:51 Bed in low position. tw2 15:05 Keyon Diamond NP is PHCP. pm1 15:05 Dennis Andrade MD is Attending Physician. pm1 15:40 Chest Pa And Lat (2 Views) XRAY In Process Unspecified. EDMS 16:52 No provider procedures requiring assistance completed. Patient did not have IV access tw2 during this emergency room visit. Administered Medications: 14:00 Drug: Albuterol 2.5 mg Route: Inhalation; tw2 14:02 Drug: Tussionex Pennkinetic ER 5 ml Route: PO; tw2 16:53 Follow up: Response: No adverse reaction tw2 14:03 Drug: Rocephin (cefTRIAXone) 1 grams Route: IM; Site: right deltoid; tw2 16:53 Follow up: Response: No adverse reaction tw2 Outcome: 16:44 Discharge ordered by MD. pm1 16:52 Discharged to home ambulatory, with family. tw2 16:52 Condition: stable 16:52 Discharge instructions given to patient, family, Instructed on discharge instructions, follow up and referral plans. medication usage, Demonstrated understanding of instructions, follow-up care, medications, Prescriptions given X 2. 16:53 Patient left the ED. tw2 Signatures: Dispatcher [employer] EDGisel ThompsonKeyon, TECHNICAL COORDINATOR TECHNICAL COORDINATOR pm1 Becky Nguyen RN RN Camila Roy RN RN tw2 Corrections: (The following items were deleted from the chart) 14:50 14:48 BP 180 / 74; Pulse 66bpm; Resp 18bpm; Pulse Ox 97% RA; Temp 97.9F Temporal; hb 117.93 kg; Height 5 ft. 5 in.; BMI: 43.2; Pain 8/10; hb
--- NOTE | 2019-01-20 16:59 | RAD REPORT ---
EXAM DESCRIPTION: RAD - Chest Pa And Lat (2 Views) - 01/20/2019 3:46 pm CLINICAL HISTORY: COUGH COMPARISON: November 2014 TECHNIQUE: PA and lateral views of the chest were obtained. FINDINGS: The lungs are clear. Heart size is normal and central vasculature is within normal limit s. No pleural effusion or pneumothorax seen. No acute bony finding noted. No aortic abnormality. IMPRESSION: No acute cardiopulmonary process. No significant change from comparison.
== END 2019-01-20 16:53 | disposition home or self-care (01) ==
LOC: ER 14:37
DX: H66.90 Otitis media, unspecified, unspecified ear (principal); J02.9 Acute pharyngitis, unspecified; Z88.8 Allergy status to other drugs, medicaments and biological substances; I10 Essential (primary) hypertension
CPT/HCPCS: 71046; 87070; 87081; 87804; 96372; 99284

== ENCOUNTER 2019-12-04 10:58 | Emergency (ER) | payer SELFPAY ==
[2019-12-04 12:04] LABS: Absolute Lymphocytes (CBC) 2.8 K/uL (0.7-4.9); Basophils % 1.2 % (0-1.3); Hematocrit 42.4 % (36.0-45.0); Lymphocytes % 33.7 % (15.3-44.8); MPV 8.8 fL (7.6-11.3); RBC Red Blood Cell Count 5.04 M/uL (3.86-4.86)
[2019-12-04 12:20] LABS: BUN Blood Urea Nitrogen 14 mg/dL (7-18); Bicarbonate 25 mmol/L (21-32); Glucose Level 102 mg/dL (74-106); NT PRO-BNP 81 pg/mL (<125); Sodium Level 142 mmol/L (136-145)
--- NOTE | 2019-12-04 12:25 | RAD REPORT ---
EXAM DESCRIPTION: RAD - Knee Left 3 View - 12/04/2019 12:00 pm CLINICAL HISTORY: PAIN COMPARISON: Knee Left 3 view dated 02/12/2015 FINDINGS: No fracture, dislocation or periosteal reaction.Trace amount of joint fluid present. Media l compartment is slightly narrowed similar to comparison. No soft tissue abnormality. IMPRESSION: Trace amount of joint effusion with no acute bone finding. Clinical concerns for internal derangement or occult bony injury could be further assessed with MR im aging.
--- NOTE | 2019-12-04 13:06 | ER ---
Nurse's Notes [facility] Name: Aimee Quintana Age: 54 yrs Sex: Female : 1965 Arrival Date: 12/04/2019 Time: 11:10 Bed 2 Private MD: Diagnosis: Pain in left knee Presentation: 12/03 11:29 Chief complaint: Patient states: left knee pain, swelling since October, was seen by her iw PCP started on ibuprofen and cyclobenzaprine and not getting better, swelling radiates up to thigh, also has swelling to right arm, intermittently. Coronavirus screen: At this time, the client does not indicate any symptoms associated with coronavirus-19. Ebola Screen: Patient negative for fever greater than or equal to 101.5 degrees Fahrenheit, and additional compatible Ebola Virus Disease symptoms Patient denies exposure to infectious person. Patient denies travel to an Ebola-affected area in the 21 days before illness onset. No symptoms or risks identified at this time. Initial Sepsis Screen: Does the patient meet any 2 criteria? No. Patient's initial sepsis screen is negative. Does the patient have a suspected source of infection? No. Patient's initial sepsis screen is negative. Risk Assessment: Do you want to hurt yourself or someone else? Patient reports no desire to harm self or others. 11:29 Method Of Arrival: Wheelchair 11:29 Acuity: TIANNA 3 iw Historical: - Allergies: 11:34 Hydrochlorothiazide; iw - Home Meds: 11:34 verapamil 120 mg Oral C24P 1 cap once daily [Active]; enalapril maleate 20 mg Oral tab iw 1 tab once daily [Active]; Vitamin D Oral daily [Active]; - PMHx: 11:34 Hypertension; iw - Family history:: not pertinent. - Hospitalizations: : No recent hospitalization is reported. Screenin:35 Abuse screen: Denies threats or abuse. Nutritional screening: No deficits noted. aa5 Tuberculosis screening: No symptoms or risk factors identified. Fall Risk None identified. Assessment: 11:35 General: Appears comfortable, Behavior is calm, cooperative. Pain: Complains of pain in aa5 left knee Pain currently is 9 out of 10 on a pain scale. Quality of pain is described as sharp, Is continuous, Aggravated by increased activity, weight bearing. Neuro: Level of Consciousness is awake, alert, obeys commands, Oriented to person, place, time, situation. Cardiovascular: Patient's skin is warm and dry. Respiratory: Airway is patent Respiratory effort is even, unlabored, Respiratory pattern is regular, symmetrical. GI: Abdomen is round. : No deficits noted. EENT: No deficits noted. Derm: Skin is pink, warm \T\ dry. Musculoskeletal: Range of motion: intact in all extremities, Reports pain in left knee. 11:45 Reassessment: Patient is alert, oriented x 3, equal unlabored respirations, skin aa5 warm/dry/pink. Awaiting US . 13:20 Reassessment: Patient is alert, oriented x 3, equal unlabored respirations, skin aa5 warm/dry/pink. Awaiting for Dr. Andrade to speak to pt before d/c home . 13:40 Reassessment: Patient is alert, oriented x 3, equal unlabored respirations, skin aa5 warm/dry/pink. Vital Signs: 11:29 Pulse 78; Resp 18; Temp 97.2; Pulse Ox 100% on R/A; Weight 117.93 kg; Height 5 ft. 3 iw in. (160.02 cm); Pain 9/10; 11:30 BP 130 / 90; aa5 11:45 BP 134 / 61; Pulse 70; Resp 16 S; Pulse Ox 99% on R/A; aa5 13:20 BP 122 / 70; Pulse 72; Resp 18 S; Pulse Ox 98% on R/A; Pain 8/10; aa5 11:29 Body Mass Index 46.06 (117.93 kg, 160.02 cm) ED Course: 11:10 Patient arrived in ED. ag5 11:22 Dennis Andrade MD is Attending Physician. rn 11:34 Triage completed. iw 11:34 Arm band placed on. iw 11:35 Patient has correct armband on for positive identification. Bed in low position. Call aa5 light in reach. Side rails up X 1. Pulse ox on. NIBP on. 11:46 Arely Schroeder, RN is Primary Nurse. [facility] 11:56 Basic Metabolic Panel Sent. 5 11:56 CBC with Automated Diff Sent. 5 11:56 Basic Metabolic Panel Sent. [facility] 11:56 CBC with Diff [address]. [facility] 11:56 Initial lab(s) drawn, by me, sent to lab. Inserted saline lock: 22 gauge in right mh5 forearm, using aseptic technique. Blood collected. 12:01 XRAY Knee LEFT 3 view In Process Unspecified. EDMS 12:59 Extremity Venous Uni Ltd US In Process Unspecified. EDMS 13:25 No provider procedures requiring assistance completed. aa5 13:34 IV discontinued, Pressure dressing applied. mh5 Administered Medications: No medications were administered Outcome: 13:06 Discharge ordered by . rn 13:40 Discharged to home ambulatory. aa5 13:40 Condition: stable 13:40 Discharge instructions given to patient, Instructed on discharge instructions, follow up and referral plans. Demonstrated understanding of instructions, follow-up care. 13:45 Patient left the ED. iw Signatures: Dispatcher [employer] Dianna Zepeda RN RN iw Nieto, Roman, MD MD rn Calderon, Audri, RN RN Jennifer Cabrera 5 Shay, Delmi 5
--- NOTE | 2019-12-04 13:06 | EDPHYS ---
Physician Documentation [facility] Name: Aimee Quintana Age: 54 yrs Sex: Female : 1965 Arrival Date: 12/04/2019 Time: 11:10 Bed 2 Private MD: ED Physician Dennis Andrade HPI: 12/03 12:40 This 54 yrs old Female presents to ER via Wheelchair with complaints of Leg rn Pain, Leg Swelling. 12:40 The patient presents with pain. The complaints affect the left knee. Onset: The rn symptoms/episode began/occurred 1 month(s) ago. Modifying factors: The symptoms are alleviated by nothing. the symptoms are aggravated by movement, weight bearing, bending knee. Severity of symptoms: At their worst the symptoms were moderate, in the emergency department the symptoms are unchanged. The patient has experienced similar episodes in the past. Reports left knee pain for atleast 1 month, no trauma, no fever, no redness or warmth. Seen by pcp today, patient did not agree with diagnosis of arthritis so came here for evaluation.. Historical: - Allergies: 11:34 Hydrochlorothiazide; iw - Home Meds: 11:34 verapamil 120 mg Oral C24P 1 cap once daily [Active]; enalapril maleate 20 mg Oral tab iw 1 tab once daily [Active]; Vitamin D Oral daily [Active]; - PMHx: 11:34 Hypertension; iw - Family history:: not pertinent. - Hospitalizations: : No recent hospitalization is reported. ROS: 12:40 Constitutional: Negative for fever, chills, and weight loss, Eyes: Negative for injury, rn pain, redness, and discharge, Neck: Negative for injury, pain, and swelling, Cardiovascular: Negative for chest pain, palpitations, and edema, Respiratory: Negative for shortness of breath, cough, wheezing, and pleuritic chest pain, Abdomen/GI: Negative for abdominal pain, nausea, vomiting, diarrhea, and constipation, MS/Extremity: Negative for deformity Skin: Negative for injury, rash, and discoloration, Neuro: Negative for headache, weakness, numbness, tingling, and seizure. Exam: 12:40 Constitutional: This is a well developed, well nourished patient who is awake, alert, rn and in no acute distress. Head/Face: Normocephalic, atraumatic. Cardiovascular: Regular rate and rhythm. No pulse deficits. Skin: Warm, dry MS/ Extremity: Pulses equal, no cyanosis. Neurovascular intact. Full, normal range of motion. No erythema/warmth around left knee. Neuro: Awake and alert, GCS 15 Vital Signs: 11:29 Pulse 78; Resp 18; Temp 97.2; Pulse Ox 100% on R/A; Weight 117.93 kg; Height 5 ft. 3 iw in. (160.02 cm); Pain 9/10; 11:30 BP 130 / 90; aa5 11:45 BP 134 / 61; Pulse 70; Resp 16 S; Pulse Ox 99% on R/A; aa5 13:20 BP 122 / 70; Pulse 72; Resp 18 S; Pulse Ox 98% on R/A; Pain 8/10; aa5 11:29 Body Mass Index 46.06 (117.93 kg, 160.02 cm) iw MDM: 11:22 Patient medically screened. rn 13:05 Differential diagnosis: arthritis, DVT, strain, internal derangement. Data reviewed: rn vital signs, nurses notes, lab test result(s), radiologic studies, plain films, ultrasound, and as a result, I will discharge patient. Counseling: I had a detailed discussion with the patient and/or guardian regarding: the historical points, exam findings, and any diagnostic results supporting the discharge/admit diagnosis, lab results, radiology results, the need for outpatient follow up, to return to the emergency department if symptoms worsen or persist or if there are any questions or concerns that arise at home. Special discussion: I discussed with the patient/guardian in detail that at this point there is no indication for admission to the hospital. It is understood, however, that if the symptoms persist or worsen the patient needs to return immediately for re-evaluation. Further emergent ED testing is not indicated at this point in time. I discussed with the patient/guardian in detail the need to arrange with the PCP or specialist further outpatient testing, MRI, rheumatology testing. 12/03 11:35 Order name: CBC with Diff rn 12/03 11:35 Order name: Basic Metabolic Panel rn 12/03 11:35 Order name: XRAY Knee LEFT 3 view; Complete Time: 13:03 rn 12/03 11:35 Order name: BNP; Complete Time: 13: rn 12/03 11:36 Order name: CBC with Automated Diff; Complete Time: 13:03 EDID 12/03 11:36 Order name: Basic Metabolic Panel; Complete Time: 13:03 EDID 12/03 11:35 Order name: Extremity Venous Uni Ltd US rn 12/03 11:35 Order name: IV Start; Complete Time: 11:56 rn Administered Medications: No medications were administered Disposition: 12/04/19 13:06 Discharged to Home. Impression: Pain in left knee. - Condition is Stable. - Discharge Instructions: Arthritis, Knee Pain. - Medication Reconciliation Form, Thank You Letter, Antibiotic Education, Prescription Opioid Use form. - Follow up: Private Physician; When: As needed; Reason: Recheck today's complaints, Re-evaluation by your physician. - Problem is an ongoing problem. - Symptoms are unchanged. Signatures: Dispatcher [employer] Dianna Zepeda RN RN iw Nieto, Roman, MD MD help desk intern: (The following items were deleted from the chart) 13:45 13:06 12/04/2019 13:06 Discharged to Home. Impression: Pain in left knee. Condition is iw Stable. Forms are Medication Reconciliation Form, Thank You Letter, Antibiotic Education, Prescription Opioid Use. Follow up: Private Physician; When: As needed; Reason: Recheck today's complaints, Re-evaluation by your physician. Problem is an ongoing problem. Symptoms are unchanged. rn
--- NOTE | 2019-12-04 13:15 | RAD REPORT ---
EXAM DESCRIPTION: USExtremity Venous Uni Ltd12/04/2019 12:58 pm CLINICAL HISTORY: left leg pain COMPARISON: 2009 FINDINGS: Left common femoral, superficial femoral, popliteal and posterior tibial veins are compre ssible and demonstrate augmentation. Doppler demonstrates good flow. IMPRESSION: No evidence of deep venous thrombosis involving the left lower extremity.
[2019-12-04 13:58] VITALS: TEMP 97.2; O2SAT 100
[2019-12-04 14:03] VITALS: BP 130/90
== END 2019-12-04 13:45 | disposition home or self-care (01) ==
LOC: ER 10:58
DX: M25.562 Pain in left knee (principal); I10 Essential (primary) hypertension; Z88.8 Allergy status to other drugs, medicaments and biological substances
CPT/HCPCS: 36415; 80048; 83880; 85025; 93971; 99284

== ENCOUNTER 2020-08-20 03:43 | Emergency (ER) | payer SELFPAY ==
[2020-08-20 05:36] LABS: Urine Blood Negative (Negative); Urine Glucose Negative (Negative); Urine Protein Negative (Negative)
--- NOTE | 2020-08-20 05:58 | EDPHYS ---
Physician Documentation [facility] Name: Aimee Quintana Age: 55 yrs Sex: Female : 1965 Arrival Date: 08/20/2020 Time: 03:52 Bed 2 Private MD: ED Physician Jagdish Edwards HPI: 08/20 05:37 This 55 yrs old Female presents to ER via Ambulatory with complaints of UTI mh7 Symptoms. 05:37 The patient presents with urinary symptoms, dysuria. mh7 05:38 Onset: The symptoms/episode began/occurred 3 day(s) ago. Modifying factors: The mh7 symptoms are alleviated by nothing, the symptoms are aggravated by nothing. Associated signs and symptoms: Pertinent positives: dysuria, vaginal discharge, Pertinent negatives: constipation, cramping, diarrhea, dyspareunia, fever, hematuria, nausea, urinary frequency, vaginal bleeding, vomiting. Severity of symptoms: At their worst the symptoms were mild, 2 day(s) ago, in the emergency department the symptoms are unchanged. The patient has experienced similar episodes in the past, multiple times. Historical: - Allergies: 04:18 Hydrochlorothiazide; bb - Home Meds: 04:18 carvedilol 6.25 mg Oral tab 1 tab 2 times per day [Active]; verapamil 120 mg Oral C24P bb 1 cap once daily [Active]; Metoprolol Tartrate Oral [Active]; - PMHx: 04:18 Hypertension; bb - PSHx: 04:18 Cholecystectomy; Hysterectomy; bb - Immunization history:: Adult Immunizations unknown. - Social history:: Smoking status: unknown Patient uses alcohol, but reports only rare drinking. ROS: 05:38 Constitutional: Negative for fever, chills, and weight loss, Eyes: Negative for injury, mh7 pain, redness, and discharge, ENT: Negative for injury, pain, and discharge, Neck: Negative for injury, pain, and swelling, Cardiovascular: Negative for chest pain, palpitations, and edema, Respiratory: Negative for shortness of breath, cough, wheezing, and pleuritic chest pain, Abdomen/GI: Negative for abdominal pain, nausea, vomiting, diarrhea, and constipation, Back: Negative for injury and pain, MS/Extremity: Negative for injury and deformity. 05:38 Neuro: Negative for headache, weakness, numbness, tingling, and seizure, Psych: Negative for depression, anxiety, suicide ideation, homicidal ideation, and hallucinations, Allergy/Immunology: Negative for hives, rash, and allergies, Endocrine: Negative for neck swelling, polydipsia, polyuria, polyphagia, and marked weight changes, Hematologic/Lymphatic: Negative for swollen nodes, abnormal bleeding, and unusual bruising. 05:38 Skin: Positive for itching. Exam: 05:38 Constitutional: This is a well developed, well nourished patient who is awake, alert, mh7 and in no acute distress. Head/Face: Normocephalic, atraumatic. Eyes: Pupils equal round and reactive to light, extra-ocular motions intact. Lids and lashes normal. Conjunctiva and sclera are non-icteric and not injected. Cornea within normal limits. Periorbital areas with no swelling, redness, or edema. Neck: Trachea midline, no thyromegaly or masses palpated, and no cervical lymphadenopathy. Supple, full range of motion without nuchal rigidity, or vertebral point tenderness. No Meningismus. Chest/axilla: Normal chest wall appearance and motion. Nontender with no deformity. No lesions are appreciated. Cardiovascular: Regular rate and rhythm with a normal S1 and S2. No gallops, murmurs, or rubs. Normal PMI, no JVD. No pulse deficits. Respiratory: Lungs have equal breath sounds bilaterally, clear to auscultation and percussion. No rales, rhonchi or wheezes noted. No increased work of breathing, no retractions or nasal flaring. Abdomen/GI: Soft, non-tender, with normal bowel sounds. No distension or tympany. No guarding or rebound. No evidence of tenderness throughout. Back: No spinal tenderness. No costovertebral tenderness. Full range of motion. Skin: Warm, dry with normal turgor. Normal color with no rashes, no lesions, and no evidence of cellulitis. MS/ Extremity: Pulses equal, no cyanosis. Neurovascular intact. Full, normal range of motion. Neuro: Awake and alert, GCS 15, oriented to person, place, time, and situation. Cranial nerves II-XII grossly intact. Motor strength 5/5 in all extremities. Sensory grossly intact. Cerebellar exam normal. Normal gait. Psych: Awake, alert, with orientation to person, place and time. Behavior, mood, and affect are within normal limits. 05:38 : CVA tenderness, is absent, Pelvic Exam: The exam is refused by the [facility] patient/guardian. The risks and consequences are understood by the patient, Bladder: is normal. Vital Signs: 04:11 BP 183 / 85; Pulse 70; Resp 20; Temp 97.8; Pulse Ox 98% on R/A; Weight 79.83 kg (R); tt3 Height 5 ft. 4 in. (162.56 cm) (R); Pain 8/10; 05:42 BP 154 / 83; Pulse 75; Resp 18; Pulse Ox 100% on R/A; ak2 04:11 Body Mass Index 30.21 (79.83 kg, 162.56 cm) tt3 MDM: 05:55 Differential diagnosis: urinary tract infection, vaginosis, Pruritis. Data reviewed: [facility] vital signs, nurses notes, lab test result(s), urinalysis. Data interpreted: Pulse oximetry: on room air is 100 %. Interpretation: normal. Counseling: I had a detailed discussion with the patient and/or guardian regarding: the historical points, exam findings, and any diagnostic results supporting the discharge/admit diagnosis, the presence of at least one elevated blood pressure reading (>120/80) during this emergency department visit, lab results, the need for outpatient follow up, to return to the emergency department if symptoms worsen or persist or if there are any questions or concerns that arise at home. Response to treatment: the patient's symptoms have markedly improved after treatment. 05:57 Patient medically screened. [facility] 08/20 05:35 Order name: Urine Dipstick-Ancillary; Complete Time: 05:41 EDIN 08/20 04:35 Order name: Urine Dipstick-Ancillary (obtain specimen) [facility] Administered Medications: No medications were administered Disposition: 08/20/20 05:57 Discharged to Home. Impression: Dysuria, Pruritus. - Condition is Stable. - Discharge Instructions: Dysuria, Pruritus. - Prescriptions for Benadryl 25 mg Oral Capsule - take 1 capsule by ORAL route every 6 hours As needed; 30 tablet. Pyridium 200 mg Oral Tablet - take 1 tablet by ORAL route every 8 hours for 2 days; 6 tablet. - Medication Reconciliation Form, Thank You Letter, Antibiotic Education, Prescription Opioid Use form. - Follow up: Private Physician; When: 1 - 2 days; Reason: Worsening of condition, Recheck today's complaints, Continuance of care, Re-evaluation by your physician. Follow up: Monie Dukes MD; When: 1 - 2 days; Reason: Worsening of condition, Recheck today's complaints. - Problem is an ongoing problem. - Symptoms have improved. Signatures: Dispatcher [employer] EDMS Suzi Kelley RN RN Jagdish Gonzalez MD MD 7 Keith Bryant ak2 Corrections: (The following items were deleted from the chart) 06:00 05:57 08/20/2020 05:57 Discharged to Home. Impression: Dysuria; Pruritus. Condition is ak2 Stable. Forms are Medication Reconciliation Form, Thank You Letter, Antibiotic Education, Prescription Opioid Use. Follow up: Private Physician; When: 1 - 2 days; Reason: Worsening of condition, Recheck today's complaints, Continuance of care, Re-evaluation by your physician. Follow up: Monie Dukes; When: 1 - 2 days; Reason: Worsening of condition, Recheck today's complaints. Problem is an ongoing problem. Symptoms have improved. mh7
--- NOTE | 2020-08-20 05:58 | ER ---
Nurse's Notes [facility] Name: Aimee Quintana Age: 55 yrs Sex: Female : 1965 Arrival Date: 08/20/2020 Time: 03:52 Bed 2 Private MD: Diagnosis: Dysuria;Pruritus Presentation: 08/20 04:15 Chief complaint: Patient states: her back is itching and she is still having symptoms bb of a UTI with burning and discharge. Coronavirus screen: At this time, the client does not indicate any symptoms associated with coronavirus-19. Ebola Screen: No symptoms or risks identified at this time. Initial Sepsis Screen: Does the patient meet any 2 criteria? No. Patient's initial sepsis screen is negative. Does the patient have a suspected source of infection? No. Patient's initial sepsis screen is negative. Risk Assessment: Do you want to hurt yourself or someone else? Patient reports no desire to harm self or others. Onset of symptoms was August 20, 2020. 04:15 Method Of Arrival: Ambulatory bb 04:15 Acuity: TIANNA 4 bb Triage Assessment: 04:46 General: Appears in no apparent distress. Behavior is calm, cooperative. Pain: Denies ak2 pain. Historical: - Allergies: 04:18 Hydrochlorothiazide; bb - Home Meds: 04:18 carvedilol 6.25 mg Oral tab 1 tab 2 times per day [Active]; verapamil 120 mg Oral C24P bb 1 cap once daily [Active]; Metoprolol Tartrate Oral [Active]; - PMHx: 04:18 Hypertension; bb - PSHx: 04:18 Cholecystectomy; Hysterectomy; bb - Immunization history:: Adult Immunizations unknown. - Social history:: Smoking status: unknown Patient uses alcohol, but reports only rare drinking. Screenin:46 Abuse screen: Denies threats or abuse. Denies injuries from another. Nutritional ak2 screening: No deficits noted. Tuberculosis screening: No symptoms or risk factors identified. Fall Risk None identified. Vital Signs: 04:11 BP 183 / 85; Pulse 70; Resp 20; Temp 97.8; Pulse Ox 98% on R/A; Weight 79.83 kg (R); tt3 Height 5 ft. 4 in. (162.56 cm) (R); Pain 8/10; 05:42 BP 154 / 83; Pulse 75; Resp 18; Pulse Ox 100% on R/A; ak2 04:11 Body Mass Index 30.21 (79.83 kg, 162.56 cm) tt3 ED Course: 03:52 Patient arrived in ED. bb 04:00 Jagdish Edwards MD is Attending Physician. [facility] 04:16 Triage completed. bb 04:18 Arm band placed on Patient placed in an exam room, on a stretcher, on pulse oximetry. bb 04:40 Keith Bryant is Primary Nurse. ak2 04:46 Patient has correct armband on for positive identification. ak2 04:46 No provider procedures requiring assistance completed. Patient did not have IV access ak2 during this emergency room visit. 05:56 Monie Dukes MD is Referral Physician. 7 Administered Medications: No medications were administered Outcome: 05:57 Discharge ordered by . 7 06:00 Discharged to home ambulatory. ak2 06:00 Condition: good 06:00 Discharge instructions given to patient, Prescriptions given X 06:00 Patient left the ED. ak2 Signatures: Suzi Kelley, RN RN Jagdish Gonzalez MD MD [facility] James Vazquez tt3 Keith Bryant ak2
[2020-08-20 06:10] VITALS: TEMP 97.8
[2020-08-20 06:12] VITALS: BP 154/83; O2SAT 100
== END 2020-08-20 06:00 | disposition home or self-care (01) ==
LOC: ER 03:43
DX: L29.9 Pruritus, unspecified (principal); I10 Essential (primary) hypertension; Z88.8 Allergy status to other drugs, medicaments and biological substances
CPT/HCPCS: 81003; 99283

== ENCOUNTER 2020-11-15 11:10 | Emergency (ER) | payer SELFPAY ==
--- NOTE | 2020-11-15 12:05 | ER ---
Nurse's Notes [facility] Name: Aimee Quintana Age: 55 yrs Sex: Female : 1965 Arrival Date: 11/15/2020 Time: 11:13 Bed Waiting Private MD: Diagnosis: Otalgia Presentation: 11/15 11:45 Chief complaint: Patient states: "I've been having left ear pain that goes all the way aa5 to my throat and up to my left congregation". Pt denies sore throat, denies cough. Pt reports she was prescribed ear drops using telemedicine. Coronavirus screen: At this time, the client does not indicate any symptoms associated with coronavirus-19. Ebola Screen: Patient negative for fever greater than or equal to 101.5 degrees Fahrenheit, and additional compatible Ebola Virus Disease symptoms. Initial Sepsis Screen: Does the patient meet any 2 criteria? No. Patient's initial sepsis screen is negative. Does the patient have a suspected source of infection? No. Patient's initial sepsis screen is negative. Risk Assessment: Do you want to hurt yourself or someone else? Patient reports no desire to harm self or others. 11:45 Method Of Arrival: Ambulatory aa5 11:45 Acuity: TIANNA 4 aa5 11:45 Onset of symptoms was November 2020. aa5 Historical: - Allergies: 11:47 hydrochlorothiazide; aa5 - Home Meds: 11:47 verapamil 120 mg Oral C24P 1 cap once daily [Active]; carvedilol 6.25 mg Oral tab 1 tab aa5 2 times per day [Active]; enalapril maleate 20 mg Oral tab 1 tab once daily [Active]; Vitamin C Oral [Active]; - PMHx: 11:47 Hypertension; aa5 - Immunization history:: Client reports having NOT received the Covid vaccine. - Social history:: Smoking status: Patient denies any tobacco usage or history of. Vital Signs: 11:45 BP 157 / 72; Pulse 72; Resp 18 S; Temp 97.2(TE); Pulse Ox 97% on R/A; Weight 122.47 kg aa5 (R); Height 5 ft. 6 in. (167.64 cm) (R); 11:45 Body Mass Index 43.58 (122.47 kg, 167.64 cm) aa5 ED Course: 11:13 Patient arrived in ED. as 11:45 Arm band placed on. aa5 11:46 Triage completed. aa5 11:52 Ranjeet Bauman PA is PHCP. jr8 11:52 Aamir Hernández MD is Attending Physician. jr8 Administered Medications: No medications were administered Outcome: 12:05 Discharge ordered by . jr8 13:14 Patient left the ED. aa5 Signatures: Vicky Bertrand Audri, RN RN aa5 Ranjeet Bauman PA PA jr8
--- NOTE | 2020-11-15 12:05 | EDPHYS ---
Physician Documentation [facility] Name: Aimee Quintana Age: 55 yrs Sex: Female : 1965 Arrival Date: 11/15/2020 Time: 11:13 Bed Waiting Private MD: Aamir Trujillo HPI: 11/15 11:59 This 55 yrs old Female presents to ER via Ambulatory with complaints of Ear jr8 Pain. 11:59 The patient presents with pain. The complaints affect the left ear and left jaw. Onset: jr8 The symptoms/episode began/occurred gradually, 1 week(s) ago. Modifying factors: The symptoms are alleviated by nothing, the symptoms are aggravated by nothing. Associated signs and symptoms: The patient has no apparent associated signs or symptoms. Severity of symptoms: At their worst the symptoms were moderate in the emergency department the symptoms are unchanged. The patient has not experienced similar symptoms in the past. The patient has been recently seen by a physician:. 55-year-old female presented emergency room for follow-up for further continuation of your pain on the left side. Stated that it radiates to the jaw and preauricular region. Is been going on for a week. Had a telemedicine consult and was given eardrops last week. Still continues with pain but denies any other symptoms at this time.. Historical: - Allergies: 11:47 hydrochlorothiazide; aa5 - Home Meds: 11:47 verapamil 120 mg Oral C24P 1 cap once daily [Active]; carvedilol 6.25 mg Oral tab 1 tab aa5 2 times per day [Active]; enalapril maleate 20 mg Oral tab 1 tab once daily [Active]; Vitamin C Oral [Active]; - PMHx: 11:47 Hypertension; aa5 - Immunization history:: Client reports having NOT received the Covid vaccine. - Social history:: Smoking status: Patient denies any tobacco usage or history of. ROS: 11:59 Eyes: Negative for injury, pain, redness, and discharge, Neck: Negative for injury, jr8 pain, and swelling, Cardiovascular: Negative for chest pain, palpitations, and edema, Respiratory: Negative for shortness of breath, cough, wheezing, and pleuritic chest pain, Abdomen/GI: Negative for abdominal pain, nausea, vomiting, diarrhea, and constipation, Back: Negative for injury and pain, MS/Extremity: Negative for injury and deformity, Skin: Negative for injury, rash, and discoloration, Neuro: Negative for headache, weakness, numbness, tingling, and seizure. 11:59 ENT: Positive for ear pain. Exam: 11:59 Constitutional: This is a well developed, well nourished patient who is awake, alert, jr8 and in no acute distress. Head/Face: Normocephalic, atraumatic. Eyes: Pupils equal round and reactive to light, extra-ocular motions intact. Lids and lashes normal. Conjunctiva and sclera are non-icteric and not injected. Cornea within normal limits. Periorbital areas with no swelling, redness, or edema. Neck: Trachea midline, no thyromegaly or masses palpated, and no cervical lymphadenopathy. Supple, full range of motion without nuchal rigidity, or vertebral point tenderness. No Meningismus. Cardiovascular: Regular rate and rhythm with a normal S1 and S2. No gallops, murmurs, or rubs. Normal PMI, no JVD. No pulse deficits. Respiratory: Lungs have equal breath sounds bilaterally, clear to auscultation and percussion. No rales, rhonchi or wheezes noted. No increased work of breathing, no retractions or nasal flaring. Abdomen/GI: Soft, non-tender, with normal bowel sounds. No distension or tympany. No guarding or rebound. No evidence of tenderness throughout. Skin: Warm, dry with normal turgor. Normal color with no rashes, no lesions, and no evidence of cellulitis. MS/ Extremity: Pulses equal, no cyanosis. Neurovascular intact. Full, normal range of motion. Neuro: Awake and alert, GCS 15, oriented to person, place, time, and situation. Cranial nerves II-XII grossly intact. Motor strength 5/5 in all extremities. Sensory grossly intact. Cerebellar exam normal. Normal gait. 11:59 ENT: External ear(s): are unremarkable, Ear canal(s): are normal, clear, TM's: are normal, no evidence of bulging, no dullness, no erythema, no fluid levels, no hemotympanum, no rupture, normal bony landmarks, normal mobility, Nose: External nose: no obvious acute abnormality, Nasal septum: is midline, Nasal mucosa: moist, Turbinates: are normal, Mouth: Lips: moist, Oral mucosa: pink and intact, moist, Gums: pink, Tongue: is moist, Posterior pharynx: Airway: patent, Tonsils: are normal in appearance, Uvula: midline, non-edematous, no erythema, swelling, is not appreciated, erythema, is not appreciated. Vital Signs: 11:45 BP 157 / 72; Pulse 72; Resp 18 S; Temp 97.2(TE); Pulse Ox 97% on R/A; Weight 122.47 kg aa5 (R); Height 5 ft. 6 in. (167.64 cm) (R); 11:45 Body Mass Index 43.58 (122.47 kg, 167.64 cm) aa5 MDM: 11:59 Data reviewed: vital signs, nurses notes, and as a result, I will discharge patient. jr8 Data interpreted: Pulse oximetry: on room air is 97 %. Interpretation: normal. Counseling: I had a detailed discussion with the patient and/or guardian regarding: the historical points, exam findings, and any diagnostic results supporting the discharge/admit diagnosis, the need for outpatient follow up, a family practitioner, to return to the emergency department if symptoms worsen or persist or if there are any questions or concerns that arise at home. 12:05 Patient medically screened. jr8 Administered Medications: No medications were administered Disposition: 11/16 06:39 Co-signature as Attending Physician, Aamir Hernández MD I agree with the assessment and pavithra plan of care. Disposition Summary: 11/15/20 12:05 Discharge Ordered Location: Home jr Problem: new jr8 Symptoms: are unchanged jr8 Condition: Stable jr8 Diagnosis - Otalgia jr8 Followup: jr8 - With: Private Physician - When: 2 - 3 days - Reason: Recheck today's complaints, Continuance of care, Re-evaluation by your physician Discharge Instructions: - Discharge Summary Sheet jr8 - Acute Pain, Adult jr8 Forms: - Medication Reconciliation Form jr8 - Thank You Letter jr8 - Antibiotic Education jr8 - Prescription Opioid Use jr8 Prescriptions: - Ibuprofen 800 mg Oral Tablet - take 1 tablet by ORAL route every 12 hours As needed take with food; 20 tablet; jr8 Refills: 0, Product Selection Permitted - Medrol (Ace) 4 mg Oral Tablets, Dose Pack - take 1 tablet by ORAL route as directed - follow package instructions; 1 jr8 packet; Refills: 0, Product Selection Permitted Signatures: Aamir Hernández MD MD cha Calderon, Audri, RN RN aa5 Ranjeet Bauman PA PA jr8
[2020-11-15 13:17] VITALS: BP 157/72; TEMP 97.2; O2SAT 97
== END 2020-11-15 13:14 | disposition home or self-care (01) ==
LOC: ER 11:10
DX: H92.02 Otalgia, left ear (principal); I10 Essential (primary) hypertension; Z88.8 Allergy status to other drugs, medicaments and biological substances
CPT/HCPCS: 99281

== ENCOUNTER 2021-08-21 23:33 | Emergency (ER) | payer SELFPAY ==
--- OUTSIDE RECORDS SUMMARY | 2021-08-21 23:36 | XMS REPORT | Continuity of Care Document ---
:1965 Author Organization [facility] t Address [address] [place] [id number] Care Team Providers Name Role Phone Unavailable Unavailable Unavailable Problems This patient has no known problems. Allergies, Adverse Reactions, Alerts This patient has no known allergies or adverse reactions. Medications This patient has no known medications. Procedures This patient has no known procedures. Results Test Description Test Time Test Comments Results Result Comments Source COMPREHENSIVE METABOLIC PANEL 2021-07-24 00:00:23 Test Item Value Reference Range Interpretation Comme nts GLUCOSE (test code = 2217) 95 MG/DL 70-99 BUN (test code = 2208) 10 MG/DL 6-20 CREATININE (test code = 0.48 MG/DL 0.60-1.30 L 2213) eGFR (2020 CKD-EPI) (test 110 ML/MIN/1.73 >60 code = 73270) CALC BUN/CREAT (test code = 21 RATIO 6-28 2234) SODIUM (test code = 2231) 143 MEQ/L 133-146 POTASSIUM (test code = 4.8 MEQ/L 3.5-5.4 2227) CHLORIDE (test code = 2215) 108 MEQ/L 95-107 H CARBON DIOXIDE (test code = 23 MEQ/L 19-31 2205) CALCIUM (test code = 2209) 9.3 MG/DL 8.5-10.5 PROTEIN, TOTAL (test code = 7.1 G/DL 6.1-8.3 2228) ALBUMIN (test code = 2201) 4.4 G/DL 3.5-5.2 CALC GLOBULIN (test code = 2.7 G/DL 1.9-3.7 2239) CALC A/G RATIO (test code = 1.6 RATIO 1.0-2.6 2233) BILIRUBIN, TOTAL (test code 0.2 MG/DL See_Comment [Automated message] The = 2206) system which ge nerated this result transmit laury reference range: <=1.2. T he reference range was not u sed to interpret this result as normal/abnormal . ALKALINE PHOSPHATASE (test 131 U/L 40-136 code = 2204) AST (test code = 2218) 30 U/L 9-40 ALT (test code = 2219) 43 U/L 5-40 H UNLESS OTHERWISE INDICATED, ALL TESTING PERFORMED [facility]. [address] [place] [id number] DIRECTOR CAREER SERVICES: KRISTINE MIR M.D. CLIA NUMBER [id number] [facility] ACCREDITATION N O. [id number] COMPREHENSIVE METABOLIC [id number] 06:31:28 Test Item Value Reference Range Interpretation Comments GLUCOSE (test code = 106 MG/DL 70-99 H 2216) BUN (test code = 16 MG/DL 6-20 2207) CREATININE (test 0.57 MG/DL 0.60-1.30 L code = 221) eGFR (2020 CKD-EPI) 106 >60 (test code = 57060) ML/MIN/1.73 CALC BUN/CREAT (test 28 RATIO 6-28 code = 2235) SODIUM (test code = 140 MEQ/L 916-130 4430) POTASSIUM (test code 4.7 MEQ/L 3.5-5.4 = 2227) CHLORIDE (test code 104 MEQ/L 95-107 = 2214) CARBON DIOXIDE (test 24 MEQ/L 19-31 code = 2206) CALCIUM (test code = 9.9 MG/DL 8.5-10.5 2208) PROTEIN, TOTAL (test 7.5 G/DL 6.1-8.3 code = 2229) ALBUMIN (test code = 4.6 G/DL 3.5-5.2 2200) CALC GLOBULIN (test 2.9 G/DL 1.9-3.7 code = 2240) CALC A/G RATIO (test 1.6 RATIO 1.0-2.6 code = 2234) BILIRUBIN, TOTAL 0.3 MG/DL See_Comment [Automated message] (test code = 2207) The syste m which generated this result transmitted ref erence range: <=1.2. T he reference range was not used to int erpret this result as normal/abnormal . ALKALINE PHOSPHATASE 126 U/L 40-136 (test code = 2204) AST (test code = 36 U/L 2217) ALT (test code = 46 U/L 5-40 H UNLE SS 2218) OTHERWISE INDIC ATED, ALL TESTING PER [facility] [place] [address] [place] [address] LABORATORY DIRE CTOR: KRISTINE LOGAN M.D. CLIA NUMBER [id number] [employer] ACCREDITATION N O. [id number]
[2021-08-22] MEDS ORDERED: METHYLPREDNISOLONE 125 MG INJ ONE (01:52)
[2021-08-22] MEDS ORDERED: levoFLOXacin 250 MG TAB ONE (01:53)
[2021-08-22] MEDS ORDERED: ONDANSETRON 4 MG/2 ML VIAL ONE (01:53)
[2021-08-22] MEDS ORDERED: MORPHINE 4 MG/ML SYR ONE (01:53)
[2021-08-22 04:17] LABS: Absolute Lymphocytes (CBC) 2.1 K/uL (0.7-4.9); Hematocrit 40.9 % (36.0-45.0); Lymphocytes % 27.5 % (15.3-44.8); MPV 8.3 fL (7.6-11.3); RBC Red Blood Cell Count 4.78 M/uL (3.86-4.86)
[2021-08-22 04:41] LABS: Potassium 4.2 mmol/L (3.5-5.1)
--- NOTE | 2021-08-22 05:52 | EDPHYS ---
Physician Documentation [facility] Name: Aimee Quintana Age: 56 yrs Sex: Female : 1965 Arrival Date: 08/21/2021 Time: 23:35 Bed 8 Private MD: ED Physician Stephen Mas HPI: 08/22 23:49 This 56 yrs old Female presents to ER via Ambulatory with complaints of kdr Allergic Reaction. 23:50 Patient has pain and swelling to the left side of her face for the last few days. She kdr was seen by another physician who prescribed eardrops and antibiotics (amoxicillin). Patient is concerned that she may be having allergic reaction to the amoxicillin as the swelling seems to have increased.. Onset: The symptoms/episode began/occurred gradually, 3 day(s) ago. Severity of symptoms: At their worst the symptoms were mild moderate just prior to arrival, in the emergency department the symptoms are unchanged. The patient has not experienced similar symptoms in the past. The patient has been recently seen by a physician: the patient's primary care provider. Historical: - Allergies: 08/21 23:44 hydrochlorothiazide; ld1 - PMHx: 23:44 Hypertension; ld1 - PSHx: 23:44 None; ld1 - Immunization history:: Adult Immunizations up to date, Client reports having NOT received the Covid vaccine. - Social history:: Smoking status: Patient denies any tobacco usage or history of. Patient/guardian denies using alcohol. ROS: 08/22 23:50 Constitutional: Negative for fever, chills, and weight loss, Eyes: Negative for injury, kdr pain, redness, and discharge, Neck: Negative for injury, pain, and swelling, Cardiovascular: Negative for chest pain, palpitations, and edema, Respiratory: Negative for shortness of breath, cough, wheezing, and pleuritic chest pain, Abdomen/GI: Negative for abdominal pain, nausea, vomiting, diarrhea, and constipation, Back: Negative for injury and pain, : Negative for injury, bleeding, discharge, and swelling, MS/Extremity: Negative for injury and deformity, Skin: Negative for injury, rash, and discoloration, Neuro: Negative for headache, weakness, numbness, tingling, and seizure activity. Psych: Negative for depression, anxiety, suicide ideation, homicidal ideation, and hallucinations, Allergy/Immunology: Negative for hives, rash, and allergies, Endocrine: Negative for neck swelling, polydipsia, polyuria, polyphagia, and marked weight changes, Hematologic/Lymphatic: Negative for swollen nodes, abnormal bleeding, and unusual bruising. ENT: Positive for Lower facial pain and swelling. Exam: 23:50 Constitutional: This is a well developed, well nourished patient who is awake, alert, kdr and in no acute distress. Eyes: Pupils equal round and reactive to light, extra-ocular motions intact. Lids and lashes normal. Conjunctiva and sclera are non-icteric and not injected. Cornea within normal limits. Periorbital areas with no swelling, redness, or edema. Neck: Trachea midline, no thyromegaly or masses palpated, and no cervical lymphadenopathy. Supple, full range of motion without nuchal rigidity, or vertebral point tenderness. No Meningismus. Chest/axilla: Normal chest wall appearance and motion. Nontender with no deformity. No lesions are appreciated. Cardiovascular: Regular rate and rhythm with a normal S1 and S2. No gallops, murmurs, or rubs. Normal PMI, no JVD. No pulse deficits. Respiratory: Lungs have equal breath sounds bilaterally, clear to auscultation and percussion. No rales, rhonchi or wheezes noted. No increased work of breathing, no retractions or nasal flaring. Abdomen/GI: Soft, non-tender, with normal bowel sounds. No distension or tympany. No guarding or rebound. No evidence of tenderness throughout. Back: No spinal tenderness. No costovertebral tenderness. Full range of motion. MS/ Extremity: Pulses equal, no cyanosis. Neurovascular intact. Full, normal range of motion. Neuro: Awake and alert, GCS 15, oriented to person, place, time, and situation. Cranial nerves II-XII grossly intact. Motor strength 5/5 in all extremities. Sensory grossly intact. Cerebellar exam normal. Normal gait. Psych: Awake, alert, with orientation to person, place and time. Behavior, mood, and affect are within normal limits. 23:50 ENT: Patient had pain and swelling to her left lateral mandibular gum area. Several small pointing fluctuant abscesses were noted to the lateral aspect of her gums. These were released with some pus material flowing from them and blood there. It would appear from exam that the patient likely has several periodontal abscesses. Vital Signs: 08/21 23:41 BP 178 / 95; Pulse 63; Resp 18; Temp 98.2(TE); Pulse Ox 100% on R/A; Weight 122.47 kg; ld1 Height 5 ft. 4 in. (162.56 cm); Pain 10/10; 08/22 02:45 BP 173 / 74; Pulse 63; Resp 17; Pulse Ox 100% on R/A; ll3 04:30 BP 143 / 68; Pulse 69; Pulse Ox 97% ; ll3 05:45 BP 139 / 73; Pulse 66; Resp 17; Pulse Ox 100% ; ll3 08/21 23:41 Body Mass Index 46.34 (122.47 kg, 162.56 cm) ld1 MDM: 05:51 Patient medically screened. kdr 23:50 Data reviewed: vital signs, lab test result(s), radiologic studies. Counseling: I had a kdr detailed discussion with the patient and/or guardian regarding: the historical points, exam findings, and any diagnostic results supporting the discharge/admit diagnosis, lab results, radiology results, the need for outpatient follow up. 08/22 01:27 Order name: CBC with Diff; Complete Time: 05:49 kdr 08/22 01:27 Order name: Chem 7; Complete Time: 05:49 kdr 08/22 01:27 Order name: CT Soft Tissue Neck W/contr kdr 08/22 04:34 Order name: CREATININE WHOLE BLOOD; Complete Time: 05:49 EDMS Administered Medications: 02:00 Drug: LevaQUIN (levofloxacin) 500 mg Route: PO; ll3 02:35 Follow up: Response: No adverse reaction ll3 02:30 Drug: Zofran (Ondansetron) 4 mg Route: IVP; Site: left wrist; ll3 06:30 Follow up: Response: No adverse reaction ll3 02:33 Drug: morphine 4 mg Route: IVP; Infused Over: 4 mins; Site: left wrist; ll3 06:30 Follow up: Response: No adverse reaction ll3 02:36 Drug: SOLU-Medrol (methylPrednisoLONE) 125 mg Route: IVP; Site: left wrist; ll3 06:30 Follow up: Response: No adverse reaction ll3 06:30 Drug: Clindamycin 300 mg Route: PO; ll3 06:30 Follow up: Response: Medication administered at discharge. ll3 Disposition Summary: 08/22/21 05:51 Discharge Ordered Location: Home kdr Problem: an ongoing problem kdr Symptoms: have improved kdr Condition: Stable kdr Diagnosis - Dental Abscess kdr Followup: kdr - With: Private Physician - When: 2 - 3 days - Reason: If symptoms return, Further diagnostic work-up, Recheck today's complaints, Continuance of care, Re-evaluation by your physician Discharge Instructions: - Discharge Summary Sheet kdr - Dental Abscess, [id number] kdr Forms: - Medication Reconciliation Form kdr - Thank You Letter kdr - Antibiotic Education kdr Prescriptions: - Clindamycin HCl 300 mg Oral Capsule - take 1 capsule by ORAL route every 6 hours for 10 days; 40 capsule; Refills: 0, kdr Product Selection Permitted - Tylenol-Codeine #3 300 mg-30 mg Oral - take 1 tablet by ORAL route every 4-6 hours As needed; 12 tablet; Refills: 0, kdr Product Selection Permitted Signatures: Dispatcher [employer] Stephen Estrella MD MD kdr Oanh Armstrong RN RN ld1 Santhosh Sanders RN RN ll3 Corrections: (The following items were deleted from the chart) 08/21 23:44 23:44 PSHx: Unable to Obtain; ld1 ld1
--- NOTE | 2021-08-22 05:52 | ER ---
Nurse's Notes [facility] Name: Aimee Quintana Age: 56 yrs Sex: Female : 1965 Arrival Date: 08/21/2021 Time: 23:35 Bed 8 Private MD: Diagnosis: Dental Abscess Presentation: 08/21 23:41 Chief complaint: Patient states: Trouble swallowing, SpO2 100% RA. Left sided facial ld1 pain, swollen gums. Pt reports possible allergic reaction to amoxicillin for left sided ear infection. Coronavirus screen: At this time, the client does not indicate any symptoms associated with coronavirus-19. Ebola Screen: No symptoms or risks identified at this time. Onset: The symptoms/episode began/occurred gradually. Anaphylaxis evaluation, no signs or symptoms of anaphylaxis were noted. Initial Sepsis Screen: Does the patient meet any 2 criteria? No. Patient's initial sepsis screen is negative. Does the patient have a suspected source of infection? No. Patient's initial sepsis screen is negative. Risk Assessment: Do you want to hurt yourself or someone else? Patient reports no desire to harm self or others. Onset of symptoms was August 21, 2021. 23:41 Method Of Arrival: Ambulatory ld1 23:41 Acuity: TIANNA 3 ld1 Triage Assessment: 23:44 General: Appears in no apparent distress. uncomfortable, Behavior is calm, cooperative, ld1 appropriate for age. Pain: Complains of pain in left ear, left cheek and left jaw Pain does not radiate. Pain currently is 10 out of 10 on a pain scale. EENT: Throat is clear Reports difficulty swallowing since this morning. Neuro: Level of Consciousness is awake, alert, obeys commands, Oriented to person, place, time, situation. Cardiovascular: Capillary refill < 3 seconds Patient's skin is warm and dry. Respiratory: Airway is patent Respiratory effort is even, unlabored. GI: Abdomen is round obese. Historical: - Allergies: 23:44 hydrochlorothiazide; ld1 - PMHx: 23:44 Hypertension; ld1 - PSHx: 23:44 None; ld1 - Immunization history:: Adult Immunizations up to date, Client reports having NOT received the Covid vaccine. - Social history:: Smoking status: Patient denies any tobacco usage or history of. Patient/guardian denies using alcohol. Screenin/21 04:50 Abuse screen: Denies threats or abuse. Nutritional screening: No deficits noted. ll3 Tuberculosis screening: No symptoms or risk factors identified. Fall Risk No fall in past 12 months (0 pts). No secondary diagnosis (0 pts). IV access (20 points). Ambulatory Aid- None/Bed Rest/Nurse Assist (0 pts). Gait- Normal/Bed Rest/Wheelchair (0 pts) Mental Status- Oriented to own ability (0 pts). Total Angulo Fall Scale indicates No Risk (0-24 pts). Assessment: 00:44 General: Appears uncomfortable, Behavior is calm, cooperative. Pain: Complains of pain ll3 in face and left jaw and left cheek and left ear Pain currently is 10 out of 10 on a pain scale. Neuro: Level of Consciousness is awake, alert, obeys commands, Oriented to person, place, time, situation. Respiratory: Airway is patent Breath sounds are clear bilaterally. EENT: Reports pain in face and left jaw and left cheek and left ear. Derm: Skin is pink, warm \T\ dry. 02:46 Reassessment: Patient and/or family updated on plan of care and expected duration. Pain ll3 level reassessed. Patient is alert, oriented x 3, equal unlabored respirations, skin warm/dry/pink. 04:48 Reassessment: No changes from previously documented assessment. Patient and/or family ll3 updated on plan of care and expected duration. Pain level reassessed. Patient is alert, oriented x 3, equal unlabored respirations, skin warm/dry/pink. 05:45 Reassessment: No changes from previously documented assessment. Patient and/or family ll3 updated on plan of care and expected duration. Pain level reassessed. Patient is alert, oriented x 3, equal unlabored respirations, skin warm/dry/pink. Vital Signs: 08/21 23:41 BP 178 / 95; Pulse 63; Resp 18; Temp 98.2(TE); Pulse Ox 100% on R/A; Weight 122.47 kg; ld1 Height 5 ft. 4 in. (162.56 cm); Pain 12/11; 08/22 02:45 BP 173 / 74; Pulse 63; Resp 17; Pulse Ox 100% on R/A; ll3 04:30 BP 143 / 68; Pulse 69; Pulse Ox 97% ; ll3 05:45 BP 139 / 73; Pulse 66; Resp 17; Pulse Ox 100% ; ll3 08/21 23:41 Body Mass Index 46.34 (122.47 kg, 162.56 cm) ld1 ED Course: 08/21 23:35 Patient arrived in ED. ag3 23:44 Triage completed. ld1 23:44 Arm band placed on right wrist. ld1 08/22 01:01 Stephen Mas MD is Attending Physician. kdr 02:24 Inserted saline lock: 22 gauge in left wrist, using aseptic technique. Blood collected. oe 02:45 Santhosh Sanders, RN is Primary Nurse. ll3 04:24 CT Soft Tissue Neck W/contr In Process Unspecified. EDMS 04:50 Patient has correct armband on for positive identification. Bed in low position. Call ll3 light in reach. Side rails up X 1. 06:31 No provider procedures requiring assistance completed. IV discontinued, intact, ll3 bleeding controlled, No redness/swelling at site. Pressure dressing applied. Administered Medications: 02:00 Drug: LevaQUIN (levofloxacin) 500 mg Route: PO; ll3 02:35 Follow up: Response: No adverse reaction ll3 02:30 Drug: Zofran (Ondansetron) 4 mg Route: IVP; Site: left wrist; ll3 06:30 Follow up: Response: No adverse reaction ll3 02:33 Drug: morphine 4 mg Route: IVP; Infused Over: 4 mins; Site: left wrist; ll3 06:30 Follow up: Response: No adverse reaction ll3 02:36 Drug: SOLU-Medrol (methylPrednisoLONE) 125 mg Route: IVP; Site: left wrist; ll3 06:30 Follow up: Response: No adverse reaction ll3 06:30 Drug: Clindamycin 300 mg Route: PO; ll3 06:30 Follow up: Response: Medication administered at discharge. ll3 Medication: 04:50 VIS not applicable for this client. ll3 Outcome: 05:51 Discharge ordered by . kdr 06:31 Discharged to home ambulatory, with family. ll3 06:31 Condition: stable 06:31 Discharge instructions given to patient, family, Instructed on discharge instructions, follow up and referral plans. medication usage, Demonstrated understanding of instructions, follow-up care, medications, Prescriptions given X 2. 06:31 Patient left the ED. ll3 Signatures: Dispatcher [employer] EDMS Stephen Mas MD MD kdr Espinosa, Orlando oe Gomez, Alice 3 Oanh Armstrogn RN RN ld1 Santhosh Sanders RN RN ll3 Corrections: (The following items were deleted from the chart) 08/21 23:44 23:44 PSHx: Unable to Obtain; ld1 ld1
[2021-08-22 06:38] VITALS: TEMP 98.2
[2021-08-22 06:46] VITALS: BP 139/73; O2SAT 100
--- NOTE | 2021-08-22 14:01 | RAD REPORT ---
EXAM DESCRIPTION: CT - Soft Tissue Neck W/Contr - 08/22/2021 6:38 am COMPARISON: None. CLINICAL HISTORY: HS MAIN Soft tissue swelling, infection suspected, neck xray done TECHNIQUE: Axial CT images are obtained from the skull base through the thoracic inlet with intraven ous contrast. Multiplanar reformats were performed. Automated exposure control was utilized on the ex am as a dose lowering technique. FINDINGS: Larynx, supraglottic, glottic, infraglottic airways: The larynx and the entire cervical ai rway are unremarkable. Nasopharynx, oropharynx, parotid glands, submandibular glands and tongue: The soft tissues of the kristy opharynx and oropharynx are normal. The parotid and both submandibular glands are normal. Inherent mu scles of the tongue and lingual tonsils are normal. Lymph nodes: No pathologically enlarged lymph nodes. Thyroid: Normal. Vascular: Unremarkable. Cervical esophagus: Normal. Musculoskeletal: Periapical lucencies are present at the right frontal incisor and left second premol ar. Visualized upper thorax and mediastinum: The visualized portions of the lung apices and upper mediast inum are normal. Visualized structures of the skull base: Visualized portions of the skull base, mastoid air cells, mi ddle ear, and paranasal sinuses are normal. IMPRESSION: 1. No acute findings of the neck. 2. 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 Electronically signed by: Kar Nelson MD 08/22/2021 5:43 AM CDT Due to temporary technical issues with the PACS/Fluency reporting system, reports are being signed by the in house radiologists without. review as a courtesy to insure prompt reporting. The interpreting radiologist is fully responsible for the content of the report
== END 2021-08-22 06:31 | disposition home or self-care (01) ==
LOC: ER 23:33
DX: K04.7 Periapical abscess without sinus (principal); I10 Essential (primary) hypertension; Z88.8 Allergy status to other drugs, medicaments and biological substances
CPT/HCPCS: 36415; 70491; 80048; 82565; 85025; 96374; 96375; 99284; J2405; J2930; Q9967

== ENCOUNTER 2023-06-21 17:51 | Emergency (ER) | payer SELFPAY ==
--- OUTSIDE RECORDS SUMMARY | 2023-06-21 17:56 | XMS REPORT | Continuity of Care Document ---
Author Name Unknown Address [address] [facility] [address] [place] [address] [facility] Address [address] [facility] [address] [place] [address] Care Team Providers Care Print Controller Name Role Phone Eden Ferris Primary Care Physician [phone] AP BARAJAS Attending Clinician Unavailable Payers Payer Name Policy Type Policy Number Effective Date Expirati on Date Source [employer] [facility]: JAY O ATT[employer]NEY [employer]ER 94 ON 9 [id number] 2022 00:00:00 Allergies, Adverse Reactions, Alerts Allergy Name Allergy Type Status Severity Reaction(s) Onset Date Inactive Date Treating Clinician Comments Source [place] - Intraven ous Propensi ty to adverse reaction to drug Active -17 00:00: 00 n Propensi ty to adverse reaction to drug Active 5-16 00:00: 00 hydroCHL OROthiaz sridhar - Oral Propensi ty to adverse reaction to drug Active -19 00:00: 00 Predniso ne Propensi ty to adverse reaction to drug Active 6-30 00:00: 00 Hydrochl orothiaz sridhar Propensi ty to adverse reaction to drug Active 06-01 00:00: 00 Medications Ordered Medication Name Filled Medication Name Start Date Stop Date Current Medication? Ordering Clinician Indication Dosage Frequency Signature (SIG) Comments Components Source TAKE ONE (1) TABLET(S) BY MOUTH ONCE A DAY. 9-28 00:00: 00 No TAKE ONE (1) TABLET(S) BY MOUTH ONCE A DAY. 8-17 00:00: 00 No 10 ofloxacin 0.3 % ear drops 0 6-17 00:00: 00 No 4% amoxicillin 875 mg-michaelvinicioarchie m clavulanate 125 mg tablet -17 00:00: 00 No 1mg carvedilol 12.5 mg tablet 0 5-16 00:00: 00 No 1mg Dose Unknown 5-16 00:00: 00 No verapamil ER (SR) 120 mg tablet,exte nded release -16 00:00: 00 No 1mg verapamil ER (SR) 120 mg tablet,exte nded release 4-15 00:00: 00 No 1mg enalapril maleate 20 mg tablet 4-15 00:00: 00 No 1mg carvedilol 12.5 mg tablet 4-15 00:00: 00 No 1mg carvedilol 12.5 mg tablet 0 1-20 00:00: 00 No 1mg Dose Unknown 1-20 00:00: 00 No verapamil ER (SR) 120 mg tablet,exte nded release 1-20 00:00: 00 No 1mg carvedilol 12.5 mg tablet 2020-03 0-19 00:00: 00 No 1mg verapamil ER (SR) 120 mg tablet,exte nded release 2020-03 0-19 00:00: 00 No 1mg enalapril maleate 20 mg tablet 2020-03 0-19 00:00: 00 No 1mg Singulair 10 mg tablet -20 00:00: 00 No 1mg carvedilol 12.5 mg tablet -20 00:00: 00 No 1mg ibuprofen 600 mg tablet -20 00:00: 00 No 1mg verapamil ER (SR) 120 mg tablet,exte nded release -20 00:00: 00 No 1mg enalapril maleate 20 mg tablet -20 00:00: 00 No 1mg neomycin-po lymyxin-hyd rocort 3.5 mg-10,000 unit/mL-1 % ear drops,susp - 00:00: 00 No 4mg/mL- unit/mL -% carvedilol 12.5 mg tablet 8 00:00: 00 No 1mg enalapril maleate 20 mg tablet 8 00:00: 00 No 1mg verapamil ER (SR) 120 mg tablet,exte nded release 8 00:00: 00 No 1mg Bactrim DS 800 mg-160 mg tablet 5-07 00:00: 00 No 1mg Augmentin 875 mg-125 mg tablet 4-04 00:00: 00 No 1mg Macrobid 100 mg capsule 3-30 00:00: 00 No 1mg carvedilol 12.5 mg tablet 2 00:00: 00 No 1mg verapamil ER (SR) 120 mg tablet,exte nded release 2 00:00: 00 No 1mg enalapril maleate 20 mg tablet 2 00:00: 00 No 1mg Bactrim DS 800 mg-160 mg tablet 1-19 00:00: 00 No 1mg ibuprofen 600 mg tablet 11-01 00:00: 00 No 1mg cyclobenzap rine 10 mg tablet 11-01 00:00: 00 No 1mg carvedilol 12.5 mg tablet 10-26 00:00: 00 No 1mg verapamil ER (SR) 120 mg tablet,exte nded release 8 00:00: 00 No 1mg enalapril maleate 20 mg tablet 10-26 00:00: 00 No 1mg permethrin 5 % topical cream 2 00:00: 00 No 1% carvedilol 12.5 mg tablet 2 00:00: 00 No 1mg verapamil ER (SR) 120 mg tablet,exte nded release 2 00:00: 00 No 1mg enalapril maleate 20 mg tablet 2 00:00: 00 No 1mg carvedilol 12.5 mg tablet 8- 00:00: 00 No 1mg enalapril maleate 20 mg tablet 10-27 00:00: 00 No 1mg verapamil ER (SR) 120 mg tablet,exte nded release 10-27 00:00: 00 No 1mg amoxicillin 875 mg-potassiu m clavulanate 125 mg tablet 10-02 00:00: 00 No 1mg promethazin e-DM 6.25 mg-15 mg/5 mL oral syrup 10-02 00:00: 00 No 10mg/5 mL carvedilol 12.5 mg tablet 09-29 00:00: 00 No 1mg enalapril maleate 20 mg tablet 09-29 00:00: 00 No 1mg verapamil ER (SR) 120 mg tablet,exte nded release 09-29 00:00: 00 No 1mg carvedilol 12.5 mg tablet 08-26 00:00: 00 No 1mg verapamil ER (SR) 120 mg tablet,exte nded release 08-26 00:00: 00 No 1mg enalapril maleate 20 mg tablet 08-26 00:00: 00 No 1mg carvedilol 12.5 mg tablet 2017-03 00:00: 00 No 1mg verapamil ER (SR) 120 mg tablet,exte nded release 2017-03 00:00: 00 No 1mg enalapril maleate 20 mg tablet 2017-03 00:00: 00 No 1mg carvedilol 12.5 mg tablet 2017-03 00:00: 00 No 1mg verapamil ER (SR) 120 mg tablet,exte nded release 2017-03 00:00: 00 No 1mg enalapril maleate 20 mg tablet 2017-03 00:00: 00 No 1mg carvedilol 6.25 mg tablet 11-26 00:00: 00 No 1mg enalapril maleate 20 mg tablet 11-26 00:00: 00 No 1mg verapamil ER (SR) 120 mg tablet,exte nded release 11-26 00:00: 00 No 1mg carvedilol 6.25 mg tablet 10-28 00:00: 00 No 1mg enalapril maleate 20 mg tablet 10-28 00:00: 00 No 1mg verapamil ER (SR) 120 mg tablet,exte nded release 10-28 00:00: 00 No 1mg carvedilol 6.25 mg tablet 09-02 00:00: 00 No 1mg verapamil ER (SR) 120 mg tablet,exte nded release 09-02 00:00: 00 No 1mg enalapril maleate 20 mg tablet 09-02 00:00: 00 No 1mg carvedilol 6.25 mg tablet 07-31 00:00: 00 No 1mg enalapril maleate 20 mg tablet 07-31 00:00: 00 No 1mg verapamil ER (SR) 120 mg tablet,exte nded release 07-31 00:00: 00 No 1mg cyclobenzap rine 5 mg tablet 07-10 00:00: 00 No 12mg carvedilol 6.25 mg tablet 06-24 00:00: 00 No 1mg verapamil ER (SR) 120 mg tablet,exte nded release 06-24 00:00: 00 No 1mg enalapril maleate 20 mg tablet 06-24 00:00: 00 No 1mg amoxicillin 875 mg tablet 06-14 00:00: 00 No 1mg carvedilol 6.25 mg tablet 04-01 00:00: 00 No 1mg enalapril maleate 20 mg tablet 04-01 00:00: 00 No 1mg verapamil ER (SR) 120 mg tablet,exte nded release 04-01 00:00: 00 No 1mg fluticasone 50 mcg/actuati on nasal spray,suspe nsion 2016-03 00:00: 00 No 2mcg/ac tuation azithromyci n 250 mg tablet 2016-03 00:00: 00 No mg carvedilol 6.25 mg tablet 2016-03 00:00: 00 No 1mg enalapril maleate 20 mg tablet 2016-03 00:00: 00 No 1mg verapamil ER (SR) 120 mg tablet,exte nded release 2016-03 00:00: 00 No 1mg naproxen 500 mg tablet 2016-03 00:00: 00 No 1mg Robaxin 500 mg tablet 2016-03 00:00: 00 No 1mg Caladryl 1 %-8 % lotion 09-06 00:00: 00 No 1% Caladryl 1 %-8 % lotion 08-31 00:00: 00 No 1% carvedilol 6.25 mg tablet 08-31 00:00: 00 No 1mg verapamil ER (SR) 120 mg tablet,exte nded release 08-31 00:00: 00 No 1mg enalapril maleate 20 mg tablet 08-31 00:00: 00 No 1mg Vistaril 25 mg capsule 08-31 00:00: 00 No 1mg ciprofloxac in 500 mg tablet 07-09 00:00: 00 No 1mg cyclobenzap rine 10 mg tablet 07-09 00:00: 00 No 1mg enalapril maleate 20 mg tablet 06-01 00:00: 00 No 1mg verapamil ER (SR) 120 mg tablet,exte nded release 06-01 00:00: 00 No 1mg carvedilol 6.25 mg tablet 06-01 00:00: 00 No 1mg Vital Signs Vital Name Observation Time Observation Value Comments S ource BP Systolic 2021-08-18 15:40:00 138 mm[Hg] BP Diastolic 2021-08-18 15:40:00 83 mm[Hg] Weight Measured 2021-08-18 15:40:00 268.60 pounds Height Measured 2021-08-18 15:40:00 64.00 inches Body Temperature 2021-08-18 15:40:00 98.30 degrees Heart Rate 2021-08-18 15:40:00 58.00 /min Respiratory Rate 2021-08-18 15:40:00 18.00 /min BP Systolic 2021-07-17 10:37:00 142 mm[Hg] BP Diastolic 2021-07-17 10:37:00 84 mm[Hg] Weight Measured 2021-07-17 10:37:00 274.00 pounds Height Measured 2021-07-17 10:37:00 64.00 inches Body Temperature 2021-07-17 10:37:00 98.30 degrees Heart Rate 2021-07-17 10:37:00 62.00 /min Respiratory Rate 2021-07-17 10:37:00 18.00 /min BP Systolic 2021-03-23 10:22:00 208 mm[Hg] BP Diastolic 2021-03-23 10:22:00 98 mm[Hg] Weight Measured 2021-03-23 10:22:00 272.60 pounds Height Measured 2021-03-23 10:22:00 64.00 inches Body Temperature 2021-03-23 10:22:00 98.30 degrees Heart Rate 2021-03-23 10:22:00 70.00 /min Respiratory Rate 2021-03-23 10:22:00 BP Systolic 2020-12-15 15:16:00 140 mm[Hg] BP Diastolic 2020-12-15 15:16:00 66 mm[Hg] Weight Measured 2020-12-15 15:16:00 274.00 pounds Height Measured 2020-12-15 15:16:00 64.00 inches Body Temperature 2020-12-15 15:16:00 Heart Rate 2020-12-15 15:16:00 Respiratory Rate 2020-12-15 15:16:00 BP Systolic 2020-11-21 13:28:00 140 mm[Hg] BP Diastolic 2020-11-21 13:28:00 89 mm[Hg] Weight Measured 2020-11-21 13:28:00 272.60 pounds Height Measured 2020-11-21 13:28:00 64.00 inches Body Temperature 2020-11-21 13:28:00 98.20 degrees Heart Rate 2020-11-21 13:28:00 70.00 /min Respiratory Rate 2020-11-21 13:28:00 BP Systolic 2020-07-08 15:40:00 124 mm[Hg] BP Diastolic 2020-07-08 15:40:00 76 mm[Hg] Weight Measured 2020-07-08 15:40:00 268.60 pounds Height Measured 2020-07-08 15:40:00 64.00 inches Body Temperature 2020-07-08 15:40:00 98.20 degrees Heart Rate 2020-07-08 15:40:00 70.00 /min Respiratory Rate 2020-07-08 15:40:00 17.00 /min BP Systolic 2020-05-31 16:07:00 143 mm[Hg] BP Diastolic 2020-05-31 16:07:00 79 mm[Hg] Weight Measured 2020-05-31 16:07:00 264.60 pounds Height Measured 2020-05-31 16:07:00 64.00 inches Body Temperature 2020-05-31 16:07:00 98.70 degrees Heart Rate 2020-05-31 16:07:00 79.00 /min Respiratory Rate 2020-05-31 16:07:00 16.00 /min BP Systolic 2020-04-25 09:29:00 136 mm[Hg] BP Diastolic 2020-04-25 09:29:00 76 mm[Hg] Weight Measured 2020-04-25 09:29:00 268.00 pounds Height Measured 2020-04-25 09:29:00 64.00 inches Body Temperature 2020-04-25 09:29:00 98.10 degrees Heart Rate 2020-04-25 09:29:00 67.00 /min Respiratory Rate 2020-04-25 09:29:00 16.00 /min BP Systolic 2019-11-03 16:58:00 139 mm[Hg] BP Diastolic 2019-11-03 16:58:00 80 mm[Hg] Weight Measured 2019-11-03 16:58:00 267.20 pounds Height Measured 2019-11-03 16:58:00 64.00 inches Body Temperature 2019-11-03 16:58:00 97.00 degrees Heart Rate 2019-11-03 16:58:00 62.00 /min Respiratory Rate 2019-11-03 16:58:00 16.00 /min BP Systolic 2019-11-02 10:17:00 BP Diastolic 2019-11-02 10:17:00 Weight Measured 2019-11-02 10:17:00 256.60 pounds Height Measured 2019-11-02 10:17:00 64.00 inches Body Temperature 2019-11-02 10:17:00 Heart Rate 2019-11-02 10:17:00 Respiratory Rate 2019-11-02 10:17:00 Plan of Care Planned Activity Planned Date Details Comments Source Goal Plan of Care Note [code = 83505-0] Goal Plan of Care Note [code = 66275-3] Goal Plan of Care Note [code = 54864-3] Goal Plan of Care Note [code = 30404-3] Goal Plan of Care Note [code = 41612-3] Goal Plan of Care Note [code = 36364-8] Goal Plan of Care Note [code = 02994-4] Goal Plan of Care Note [code = 84939-4] Goal Plan of Care Note [code = 12360-2] Goal Plan of Care Note [code = 91310-9] Goal Plan of Care Note [code = 38409-9] Goal Plan of Care Note [code = 35851-0] Goal Plan of Care Note [code = 60778-1] Goal Plan of Care Note [code = 90763-2] Goal Plan of Care Note [code = 43638-8] Goal Plan of Care Note [code = 27406-7] Goal Plan of Care Note [code = 69498-0] Goal Plan of Care Note [code = 96559-3] Goal Plan of Care Note [code = 04031-2] Encounters Start Date/Time End Date/Time Encounter Type Admission Type Attending [facility] Facility Care Department Encounter ID Source 2023-04-19 16:40:16 2023-04-19 16:40:16 Outpatient SFA SFA [id number] Daren F Vipin 2023-01-14 14:33:09 2023-01-14 14:33:09 Outpatient SFA SFA [id number] Daren Gwendolyn Vipin 2022-12-11 14:59:37 2022-12-11 14:59:37 Outpatient SFA SFA [id number] Daren Gwendolyn Vipin 2022-11-08 14:00:00 2022-11-08 14:00:00 Outpatient AP BARAJAS [id number] Norma Grimes 2022-10-15 15:59:45 2022-10-15 15:59:45 Outpatient SFA SFA [id number] Daren Lew 2022-07-26 14:50:34 2022-07-26 14:50:34 Outpatient SFA SFA 0525 Daren Lew 2022-07-12 16:21:33 2022-07-12 16:21:33 Outpatient SFA SFA 0511 Daren Lew 2022-05-11 09:13:08 2022-05-11 09:13:08 Outpatient SFA SFA [id number] Daren Lew 2022-01-15 17:07:22 2022-01-15 17:07:22 Outpatient SFA SFA [id number] Daren Lew 2021-10-20 00:00:00 2021-10-20 00:00:00 Outpatient Visit [id number] Results Test Description Test Time Test Comments Results Result Co mments Source LIPID [id number] 04:55:15* Test Item Value Reference Range Interpretation Comme nts CHOLESTEROL (test code = 2210) 192 MG/DL <200 TRIGLYCERIDES (test code = 2232) 352 MG/DL <150 H HDL CHOLESTEROL (test code = 2220) 50 MG/DL >39 CALC LDL CHOL (test code = 2237) 95 MG/DL <100 NOTE: CALCULATED LDL IS BASED ON HORACE-LAGNE METHOD WHICHINCLUDES ADJUSTABLE TRIGLYCERIDE:VLDL CHOLESTEROL RATIO.THIS FACTOR VARIES BY MEASURED TRIGLYCERIDE AND NON-HDLCHOLESTEROL CONCENTRATIONS WITH INCREASED CALCULATED LDL SEENIN HIGHER TRIGLYCERIDE OR LOWER NON-HDL SPECIMENS. FOR MOREINFORMATION, SEE CLIENT ANNOUNCEMENT AT [email or web address] RISK RATIO LDL/HDL (test code = 2238) 1.90 RATIO <3.22 HEMOGLOBIN [id number] 03:34:22* Test Item Value Reference Range Interpretation Comme nts HEMOGLOBIN A1c (test code = 05267) 6.2 % 4.2-5.6 H [employer] GUIDELINES FOR HGB A1C: PREDIABETES/INCREASED RISK . . . . . . . 5.7-6.4% DIAGNOSIS OF DIABETES . . . . . . . . . >=6.5% WITH CONFIRMATION OR APPROPRIATE SYMPTOMS NOTE: ASSAY MAY BE AFFECTED BY HEMOGLOBINOPATHIES (SICKLE CELL ANEMIA, S-C DISEASE, OTHERS) OR ARTIFICIALLY LOWERED BY DECREASED RED CELL SURVIVAL (HEMOLYTIC ANEMIAS, BLOOD LOSS, ETC.). CONSIDER ALTERNATE TESTING OR LABORATORY CONSULTATION. UNLESS OTHERWISE INDICATED, ALL TESTING PERFORMED AT [facility] [address] [place] [address] [employer] OBJECTS DEVELOPER: CASSANDRA GUERRA M.D. [facility] NUMBER [id number] [facility] [place]. [id number] COMPREHENSIVE METABOLIC [id number] 00:00:23* Test Item Value Reference Range Interpretation Comme nts GLUCOSE (test code = 2217) 95 MG/DL 70-99 BUN (test code = 2207) 10 MG/DL 6-20 CREATININE (test code = 2214) 0.48 MG/DL 0.60-1.30 L eGFR (2020 CKD-EPI) (test code = 91509) 110 ML/MIN/1.73 >60 CALC BUN/CREAT (test code = 2235) 21 RATIO 6-28 SODIUM (test code = 2231) 143 MEQ/L 133-146 POTASSIUM (test code = 2228) 4.8 MEQ/L 3.5-5.4 CHLORIDE (test code = 2215) 108 MEQ/L 95-107 H CARBON DIOXIDE (test code = 2206) 23 MEQ/L 19-31 CALCIUM (test code = 2209) 9.3 MG/DL 8.5-10.5 PROTEIN, TOTAL (test code = 222) 7.1 G/DL 6.1-8.3 ALBUMIN (test code = 2201) 4.4 G/DL 3.5-5.2 CALC GLOBULIN (test code = 2240) 2.7 G/DL 1.9-3.7 CALC A/G RATIO (test code = 2234) 1.6 RATIO 1.0-2.6 BILIRUBIN, TOTAL (test code = 2207) 0.2 MG/DL See_Comment [Automated me ssage] The system which generated this result transmitted reference range: <=1.2. The reference range was not used to interpret this result as normal/abnormal. ALKALINE PHOSPHATASE (test code = 2204) 131 U/L 40-136 AST (test code = 2218) 30 U/L 9-40 ALT (test code = 2219) 43 U/L 5-40 H UNLESS OTHERWISE INDICATED, ALL TESTING PERFORMED [facility] [address] [place] [address] BUSINESS OBJECTS DEVELOPER: Veena CHENGIA NUMBER [id number] [facility] [place]. [id number] COMPREHENSIVE METABOLIC [id number] 00:00:00* Test Item Value Reference Range Interpretation Comme nts GLUCOSE (test code = 2217) 95 MG/DL BUN (test code = 2208) 10 MG/DL CREATININE (test code = 2214) 0.48 MG/DL eGFR (2020 CKD-EPI) (test code = 42924) 110 ML/MIN/1.73 CALC BUN/CREAT (test code = 2235) 21 RATIO SODIUM (test code = 2231) 143 MEQ/L POTASSIUM (test code = 2228) 4.8 MEQ/L CHLORIDE (test code = 2215) 108 MEQ/L CARBON DIOXIDE (test code = 2206) 23 MEQ/L CALCIUM (test code = 2209) 9.3 MG/DL PROTEIN, TOTAL (test code = 2229) 7.1 G/DL ALBUMIN (test code = 2201) 4.4 G/DL CALC GLOBULIN (test code = 2240) 2.7 G/DL CALC A/G RATIO (test code = 2234) 1.6 RATIO BILIRUBIN, TOTAL (test code = 2207) 0.2 MG/DL ALKALINE PHOSPHATASE (test code = 2204) 131 U/L AST (test code = 2218) 30 U/L ALT (test code = 2219) 43 U/L COMPREHENSIVE METABOLIC [id number] 00:00:00* Test Item Value Reference Range Interpretation Comme nts GLUCOSE (test code = 2217) 95 MG/DL BUN (test code = 2208) 10 MG/DL CREATININE (test code = 2214) 0.48 MG/DL eGFR (2020 CKD-EPI) (test code = 93577) 110 ML/MIN/1.73 CALC BUN/CREAT (test code = 2235) 21 RATIO SODIUM (test code = 2231) 143 MEQ/L POTASSIUM (test code = 2228) 4.8 MEQ/L CHLORIDE (test code = 2215) 108 MEQ/L CARBON DIOXIDE (test code = 2206) 23 MEQ/L CALCIUM (test code = 2209) 9.3 MG/DL PROTEIN, TOTAL (test code = 2229) 7.1 G/DL ALBUMIN (test code = 2201) 4.4 G/DL CALC GLOBULIN (test code = 2240) 2.7 G/DL CALC A/G RATIO (test code = 2234) 1.6 RATIO BILIRUBIN, TOTAL (test code = 2207) 0.2 MG/DL ALKALINE PHOSPHATASE (test code = 220) 131 U/L AST (test code = 2218) 30 U/L ALT (test code = 2219) 43 U/L COMPREHENSIVE METABOLIC [id number] 06:31:28* Test Item Value Reference Range Interpretation Comme nts GLUCOSE (test code = 221) 106 MG/DL 70-99 H BUN (test code = 2207) 16 MG/DL 6-20 CREATININE (test code = 221) 0.57 MG/DL 0.60-1.30 L eGFR (2020 CKD-EPI) (test code = 86480) 106 ML/MIN/1.73 >60 CALC BUN/CREAT (test code = 2235) 28 RATIO 6-28 SODIUM (test code = 2231) 140 MEQ/L 133-146 POTASSIUM (test code = 2228) 4.7 MEQ/L 3.5-5.4 CHLORIDE (test code = 2215) 104 MEQ/L 95-107 CARBON DIOXIDE (test code = 2206) 24 MEQ/L 19-31 CALCIUM (test code = 2209) 9.9 MG/DL 8.5-10.5 PROTEIN, TOTAL (test code = 222) 7.5 G/DL 6.1-8.3 ALBUMIN (test code = 2201) 4.6 G/DL 3.5-5.2 CALC GLOBULIN (test code = 2240) 2.9 G/DL 1.9-3.7 CALC A/G RATIO (test code = 2234) 1.6 RATIO 1.0-2.6 BILIRUBIN, TOTAL (test code = 2207) 0.3 MG/DL See_Comment [Automated me ssage] The system which generated this result transmitted reference range: <=1.2. The reference range was not used to interpret this result as normal/abnormal. ALKALINE PHOSPHATASE (test code = 2204) 126 U/L 40-136 AST (test code = 2218) 36 U/L 9-40 ALT (test code = 2219) 46 U/L 5-40 H UNLESS OTHERWISE INDICATED, ALL TESTING PERFORMED [facility] [address] [place] [address] BUSINESS OBJECTS DEVELOPER: KRISTINE MIR M.D. CLIA NUMBER [id number] [facility] [place]. [id number] COMPREHENSIVE METABOLIC [id number] 00:00:00* Test Item Value Reference Range Interpretation Comme nts GLUCOSE (test code = 2217) 106 MG/DL BUN (test code = 2208) 16 MG/DL CREATININE (test code = 2214) 0.57 MG/DL eGFR (2020 CKD-EPI) (test code = 10285) 106 ML/MIN/1.73 CALC BUN/CREAT (test code = 2235) 28 RATIO SODIUM (test code = 2231) 140 MEQ/L POTASSIUM (test code = 2228) 4.7 MEQ/L CHLORIDE (test code = 2215) 104 MEQ/L CARBON DIOXIDE (test code = 2206) 24 MEQ/L CALCIUM (test code = 2209) 9.9 MG/DL PROTEIN, TOTAL (test code = 2229) 7.5 G/DL ALBUMIN (test code = 2201) 4.6 G/DL CALC GLOBULIN (test code = 2240) 2.9 G/DL CALC A/G RATIO (test code = 2234) 1.6 RATIO BILIRUBIN, TOTAL (test code = 2207) 0.3 MG/DL ALKALINE PHOSPHATASE (test code = 2204) 126 U/L AST (test code = 2218) 36 U/L ALT (test code = 2219) 46 U/L COMPREHENSIVE METABOLIC [id number] 00:00:00* Test Item Value Reference Range Interpretation Comme nts GLUCOSE (test code = 2217) 106 MG/DL BUN (test code = 2208) 16 MG/DL CREATININE (test code = 2214) 0.57 MG/DL eGFR (2020 CKD-EPI) (test code = 14002) 106 ML/MIN/1.73 CALC BUN/CREAT (test code = 2235) 28 RATIO SODIUM (test code = 2231) 140 MEQ/L POTASSIUM (test code = 2228) 4.7 MEQ/L CHLORIDE (test code = 2215) 104 MEQ/L CARBON DIOXIDE (test code = 2206) 24 MEQ/L CALCIUM (test code = 2209) 9.9 MG/DL PROTEIN, TOTAL (test code = 2229) 7.5 G/DL ALBUMIN (test code = 2201) 4.6 G/DL CALC GLOBULIN (test code = 2240) 2.9 G/DL CALC A/G RATIO (test code = 2234) 1.6 RATIO BILIRUBIN, TOTAL (test code = 2207) 0.3 MG/DL ALKALINE PHOSPHATASE (test code = 2204) 126 U/L AST (test code = 2218) 36 U/L ALT (test code = 2219) 46 U/L CBC W/AUTO [id number] 00:00:00* Test Item Value Reference Range Interpretation Comme nts WBC (test code = 1001) 8.2 K/UL RBC (test code = 1002) 5.02 M/UL HEMOGLOBIN (test code = 1003) 14.3 G/DL HEMATOCRIT (test code = 1004) 42.4 % MCV (test code = 1005) 84.5 fL MCH (test code = 1006) 28.5 PG MCHC (test code = 1007) 33.7 G/DL RDW (test code = 1038) 13.0 % NEUTROPHILS (test code = 1008) 55.2 % LYMPHOCYTES (test code = 1010) 33.9 % MONOCYTES (test code = 1011) 7.7 % EOSINOPHILS (test code = 1012) 2.1 % BASOPHILS (test code = 1013) 0.7 % IMMATURE GRANULOCYTES (test code = 1036) 0.4 % NUCLEATED RBCS (test code = 1065) 0.0 /100WBC'S PLATELET COUNT (test code = 1015) 239 K/UL ABSOLUTE NEUTROPHILS (test c ode = 1066) 4.51 K/UL ABSOLUTE LYMPHOCYTES (test c ode = 1067) 2.77 K/UL ABSOLUTE MONOCYTES (test cod e = 1068) 0.63 K/UL ABSOLUTE EOSINOPHILS (test c ode = 1040) 0.17 K/UL ABSOLUTE BASOPHILS (test cod e = 1069) 0.06 K/UL ABS IMMATURE GRANULOCYTES (t est code = 1020) 0.03 K/UL ABS NUCLEATED RBCS (test cod e = 81948) 0.00 K/UL CBC W/AUTO [id number] 00:00:00* Test Item Value Reference Range Interpretation Comme nts WBC (test code = 1001) 8.2 K/UL RBC (test code = 1002) 5.02 M/UL HEMOGLOBIN (test code = 1003) 14.3 G/DL HEMATOCRIT (test code = 1004) 42.4 % MCV (test code = 1005) 84.5 fL MCH (test code = 1006) 28.5 PG MCHC (test code = 1007) 33.7 G/DL RDW (test code = 1038) 13.0 % NEUTROPHILS (test code = 1008) 55.2 % LYMPHOCYTES (test code = 1010) 33.9 % MONOCYTES (test code = 1011) 7.7 % EOSINOPHILS (test code = 1012) 2.1 % BASOPHILS (test code = 1013) 0.7 % IMMATURE GRANULOCYTES (test code = 1036) 0.4 % NUCLEATED RBCS (test code = 1065) 0.0 /100WBC'S PLATELET COUNT (test code = 1015) 239 K/UL ABSOLUTE NEUTROPHILS (test c ode = 1066) 4.51 K/UL ABSOLUTE LYMPHOCYTES (test c ode = 1067) 2.77 K/UL ABSOLUTE MONOCYTES (test cod e = 1068) 0.63 K/UL ABSOLUTE EOSINOPHILS (test c ode = 1040) 0.17 K/UL ABSOLUTE BASOPHILS (test cod e = 1069) 0.06 K/UL ABS IMMATURE GRANULOCYTES (t est code = 1020) 0.03 K/UL ABS NUCLEATED RBCS (test cod e = 72134) 0.00 K/UL CBC W/AUTO [id number] 00:00:00* Test Item Value Reference Range Interpretation Comme nts WBC (test code = 1001) 8.2 K/UL RBC (test code = 1002) 5.02 M/UL HEMOGLOBIN (test code = 1003) 14.3 G/DL HEMATOCRIT (test code = 1004) 42.4 % MCV (test code = 1005) 84.5 fL MCH (test code = 1006) 28.5 PG MCHC (test code = 1007) 33.7 G/DL RDW (test code = 1038) 13.0 % NEUTROPHILS (test code = 1008) 55.2 % LYMPHOCYTES (test code = 1010) 33.9 % MONOCYTES (test code = 1011) 7.7 % EOSINOPHILS (test code = 1012) 2.1 % BASOPHILS (test code = 1013) 0.7 % IMMATURE GRANULOCYTES (test code = 1036) 0.4 % NUCLEATED RBCS (test code = 1065) 0.0 /100WBC'S PLATELET COUNT (test code = 1015) 239 K/UL ABSOLUTE NEUTROPHILS (test c ode = 1066) 4.51 K/UL ABSOLUTE LYMPHOCYTES (test c ode = 1067) 2.77 K/UL ABSOLUTE MONOCYTES (test cod e = 1068) 0.63 K/UL ABSOLUTE EOSINOPHILS (test c ode = 1040) 0.17 K/UL ABSOLUTE BASOPHILS (test cod e = 1069) 0.06 K/UL ABS IMMATURE GRANULOCYTES (t est code = 1020) 0.03 K/UL ABS NUCLEATED RBCS (test cod e = 55576) 0.00 K/UL COMPREHENSIVE METABOLIC [id number] 00:00:00* Test Item Value Reference Range Interpretation Comme nts GLUCOSE (test code = 2217) 102 MG/DL BUN (test code = 2208) 14 MG/DL CREATININE (test code = 2214) 0.60 MG/DL eGFR AMER. (test cod e = 31774) 118 ML/MIN/1.73 eGFR NON- AMER. (test code = 34582) 102 ML/MIN/1.73 CALC BUN/CREAT (test code = 2235) 23 RATIO SODIUM (test code = 2231) 141 MEQ/L POTASSIUM (test code = 2228) 4.1 MEQ/L CHLORIDE (test code = 2215) 105 MEQ/L CARBON DIOXIDE (test code = 2206) 23 MEQ/L CALCIUM (test code = 2209) 10.2 MG/DL PROTEIN, TOTAL (test code = 2229) 7.2 G/DL ALBUMIN (test code = 2201) 4.5 G/DL CALC GLOBULIN (test code = 2240) 2.7 G/DL CALC A/G RATIO (test code = 2234) 1.7 RATIO BILIRUBIN, TOTAL (test code = 2207) 0.2 MG/DL ALKALINE PHOSPHATASE (test code = 2204) 125 U/L AST (test code = 2218) 30 U/L ALT (test code = 2219) 38 U/L COMPREHENSIVE METABOLIC [id number] 00:00:00* Test Item Value Reference Range Interpretation Comme nts GLUCOSE (test code = 2217) 102 MG/DL BUN (test code = 2208) 14 MG/DL CREATININE (test code = 2214) 0.60 MG/DL eGFR AMER. (test cod e = 06458) 118 ML/MIN/1.73 eGFR NON- AMER. (test code = 20891) 102 ML/MIN/1.73 CALC BUN/CREAT (test code = 2235) 23 RATIO SODIUM (test code = 2231) 141 MEQ/L POTASSIUM (test code = 2228) 4.1 MEQ/L CHLORIDE (test code = 2215) 105 MEQ/L CARBON DIOXIDE (test code = 2206) 23 MEQ/L CALCIUM (test code = 2209) 10.2 MG/DL PROTEIN, TOTAL (test code = 2229) 7.2 G/DL ALBUMIN (test code = 2201) 4.5 G/DL CALC GLOBULIN (test code = 2240) 2.7 G/DL CALC A/G RATIO (test code = 2234) 1.7 RATIO BILIRUBIN, TOTAL (test code = 2207) 0.2 MG/DL ALKALINE PHOSPHATASE (test code = 2204) 125 U/L AST (test code = 2218) 30 U/L ALT (test code = 2219) 38 U/L CULTURE, [id number] 00:00:00* Test Item Value Reference Range Interpretation Comme nts CULTURE, URINE (test code = 14879) SPECIMEN NUMBER: [id number] CULTURE, [id number] 00:00:00* Test Item Value Reference Range Interpretation Comme nts CULTURE, URINE (test code = 69561) SPECIMEN NUMBER: [id number] VAGINAL PATHOGENS DNA [id number] 00:00:00* Test Item Value Reference Range Interpretation Comme nts SPENCER SPECIES (test code = ) NEGATIVE G. VAGINALIS (test code = 69832) NEGATIVE T. VAGINALIS (test code = 04581) NEGATIVE VAGINAL PATHOGENS DNA [id number] 00:00:00* Test Item Value Reference Range Interpretation Comme nts SPENCER SPECIES (test code = 68841) NEGATIVE G. VAGINALIS (test code = 56200) NEGATIVE T. VAGINALIS (test code = 85657) NEGATIVE COMPREHENSIVE METABOLIC [id number] 00:00:00* Test Item Value Reference Range Interpretation Comme nts GLUCOSE (test code = 2217) 106 MG/DL BUN (test code = 2208) 16 MG/DL CREATININE (test code = 2214) 0.62 MG/DL eGFR AMER. (test cod e = 05622) 118 ML/MIN/1.73 eGFR NON- AMER. (test code = 41938) 102 ML/MIN/1.73 CALC BUN/CREAT (test code = 2235) 26 RATIO SODIUM (test code = 2231) 139 MEQ/L POTASSIUM (test code = 2228) 4.7 MEQ/L CHLORIDE (test code = 2215) 105 MEQ/L CARBON DIOXIDE (test code = 2206) 25 MEQ/L CALCIUM (test code = 2209) 9.6 MG/DL PROTEIN, TOTAL (test code = 2229) 7.2 G/DL ALBUMIN (test code = 2201) 4.3 G/DL CALC GLOBULIN (test code = 2240) 2.9 G/DL CALC A/G RATIO (test code = 2234) 1.5 RATIO BILIRUBIN, TOTAL (test code = 2207) 0.3 MG/DL ALKALINE PHOSPHATASE (test code = 2204) 110 U/L AST (test code = 2218) 35 U/L ALT (test code = 2219) 44 U/L COMPREHENSIVE METABOLIC [id number] 00:00:00* Test Item Value Reference Range Interpretation Comme nts GLUCOSE (test code = 2217) 106 MG/DL BUN (test code = 2208) 16 MG/DL CREATININE (test code = 2214) 0.62 MG/DL eGFR AMER. (test cod e = 32241) 118 ML/MIN/1.73 eGFR NON- AMER. (test code = 95523) 102 ML/MIN/1.73 CALC BUN/CREAT (test code = 2235) 26 RATIO SODIUM (test code = 2231) 139 MEQ/L POTASSIUM (test code = 2228) 4.7 MEQ/L CHLORIDE (test code = 2215) 105 MEQ/L CARBON DIOXIDE (test code = 2206) 25 MEQ/L CALCIUM (test code = 2209) 9.6 MG/DL PROTEIN, TOTAL (test code = 2229) 7.2 G/DL ALBUMIN (test code = 2201) 4.3 G/DL CALC GLOBULIN (test code = 2240) 2.9 G/DL CALC A/G RATIO (test code = 2234) 1.5 RATIO BILIRUBIN, TOTAL (test code = 2207) 0.3 MG/DL ALKALINE PHOSPHATASE (test code = 2204) 110 U/L AST (test code = 2218) 35 U/L ALT (test code = 2219) 44 U/L LIPID [id number] 00:00:00* Test Item Value Reference Range Interpretation Comme nts CHOLESTEROL (test code = 2210) 169 MG/DL TRIGLYCERIDES (test code = 2232) 136 MG/DL HDL CHOLESTEROL (test code = 2220) 59 MG/DL CALC LDL CHOL (test code = 2237) 87 MG/DL RISK RATIO LDL/HDL (test cod e = 2238) 1.47 RATIO LIPID [id number] 00:00:00* Test Item Value Reference Range Interpretation Comme nts CHOLESTEROL (test code = 2210) 169 MG/DL TRIGLYCERIDES (test code = 2232) 136 MG/DL HDL CHOLESTEROL (test code = 2220) 59 MG/DL CALC LDL CHOL (test code = 2237) 87 MG/DL RISK RATIO LDL/HDL (test cod e = 2238) 1.47 RATIO HEMOGLOBIN [id number] 00:00:00* Test Item Value Reference Range Interpretation Comme nts HEMOGLOBIN A1c (test code = 94128) 6.0 % HEMOGLOBIN [id number] 00:00:00* Test Item Value Reference Range Interpretation Comme nts HEMOGLOBIN A1c (test code = 69175) 6.0 % HEMOGLOBIN [id number] 00:00:00* Test Item Value Reference Range Interpretation Comme nts HEMOGLOBIN A1c (test code = 86458) 6.0 % HEMOGLOBIN [id number] 00:00:00* Test Item Value Reference Range Interpretation Comme nts HEMOGLOBIN A1c (test code = 24237) 5.8 % HEMOGLOBIN [id number] 00:00:00* Test Item Value Reference Range Interpretation Comme nts HEMOGLOBIN A1c (test code = 72542) 5.8 % HEMOGLOBIN [id number] 00:00:00* Test Item Value Reference Range Interpretation Comme nts HEMOGLOBIN A1c (test code = 71587) 5.8 % LIPID [id number] 00:00:00* Test Item Value Reference Range Interpretation Comme nts CHOLESTEROL (test code = 2210) 175 MG/DL TRIGLYCERIDES (test code = 2232) 135 MG/DL HDL CHOLESTEROL (test code = 2220) 54 MG/DL CALC LDL CHOL (test code = 2237) 94 MG/DL RISK RATIO LDL/HDL (test cod e = 2238) 1.74 RATIO LIPID [id number] 00:00:00* Test Item Value Reference Range Interpretation Comme nts CHOLESTEROL (test code = 2210) 175 MG/DL TRIGLYCERIDES (test code = 2232) 135 MG/DL HDL CHOLESTEROL (test code = 2220) 54 MG/DL CALC LDL CHOL (test code = 2237) 94 MG/DL RISK RATIO LDL/HDL (test cod e = 2238) 1.74 RATIO COMPREHENSIVE METABOLIC [id number] 00:00:00* Test Item Value Reference Range Interpretation Comme nts GLUCOSE (test code = 2217) 140 MG/DL BUN (test code = 2208) 14 MG/DL CREATININE (test code = 2214) 0.62 MG/DL eGFR AMER. (test cod e = 07415) 118 ML/MIN/1.73 eGFR NON- AMER. (test code = 29147) 102 ML/MIN/1.73 CALC BUN/CREAT (test code = 2235) 23 RATIO SODIUM (test code = 2231) 140 MEQ/L POTASSIUM (test code = 2228) 4.2 MEQ/L CHLORIDE (test code = 2215) 103 MEQ/L CARBON DIOXIDE (test code = 2206) 26 MEQ/L CALCIUM (test code = 2209) 9.2 MG/DL PROTEIN, TOTAL (test code = 2229) 7.0 G/DL ALBUMIN (test code = 2201) 4.4 G/DL CALC GLOBULIN (test code = 2240) 2.6 G/DL CALC A/G RATIO (test code = 2234) 1.7 RATIO BILIRUBIN, TOTAL (test code = 2207) 0.3 MG/DL ALKALINE PHOSPHATASE (test code = 2204) 113 U/L AST (test code = 2218) 22 U/L ALT (test code = 2219) 27 U/L COMPREHENSIVE METABOLIC [id number] 00:00:00* Test Item Value Reference Range Interpretation Comme nts GLUCOSE (test code = 2217) 140 MG/DL BUN (test code = 2208) 14 MG/DL CREATININE (test code = 2214) 0.62 MG/DL eGFR AMER. (test cod e = 24643) 118 ML/MIN/1.73 eGFR NON- AMER. (test code = 54262) 102 ML/MIN/1.73 CALC BUN/CREAT (test code = 2235) 23 RATIO SODIUM (test code = 2231) 140 MEQ/L POTASSIUM (test code = 2228) 4.2 MEQ/L CHLORIDE (test code = 2215) 103 MEQ/L CARBON DIOXIDE (test code = 2206) 26 MEQ/L CALCIUM (test code = 2209) 9.2 MG/DL PROTEIN, TOTAL (test code = 2229) 7.0 G/DL ALBUMIN (test code = 2201) 4.4 G/DL CALC GLOBULIN (test code = 2240) 2.6 G/DL CALC A/G RATIO (test code = 2234) 1.7 RATIO BILIRUBIN, TOTAL (test code = 2207) 0.3 MG/DL ALKALINE PHOSPHATASE (test code = 2204) 113 U/L AST (test code = 2218) 22 U/L ALT (test code = 2219) 27 U/L COMPREHENSIVE METABOLIC [id number] 00:00:00* Test Item Value Reference Range Interpretation Comme nts GLUCOSE (test code = 2217) 126 MG/DL BUN (test code = 2208) 12 MG/DL CREATININE (test code = 2214) 0.56 MG/DL eGFR AMER. (test cod e = 42747) 123 ML/MIN/1.73 eGFR NON- AMER. (test code = 99897) 106 ML/MIN/1.73 CALC BUN/CREAT (test code = 2235) 21 RATIO SODIUM (test code = 2231) 143 MEQ/L POTASSIUM (test code = 2228) 4.9 MEQ/L CHLORIDE (test code = 2215) 103 MEQ/L CARBON DIOXIDE (test code = 2206) 30 MEQ/L CALCIUM (test code = 2209) 9.9 MG/DL PROTEIN, TOTAL (test code = 2229) 7.6 G/DL ALBUMIN (test code = 2201) 4.4 G/DL CALC GLOBULIN (test code = 2240) 3.2 G/DL CALC A/G RATIO (test code = 2234) 1.4 RATIO BILIRUBIN, TOTAL (test code = 2207) 0.3 MG/DL ALKALINE PHOSPHATASE (test code = 2204) 101 U/L AST (test code = 2218) 27 U/L ALT (test code = 2219) 37 U/L COMPREHENSIVE METABOLIC [id number] 00:00:00* Test Item Value Reference Range Interpretation Comme nts GLUCOSE (test code = 2217) 126 MG/DL BUN (test code = 2208) 12 MG/DL CREATININE (test code = 2214) 0.56 MG/DL eGFR AMER. (test cod e = 15316) 123 ML/MIN/1.73 eGFR NON- AMER. (test code = 94915) 106 ML/MIN/1.73 CALC BUN/CREAT (test code = 2235) 21 RATIO SODIUM (test code = 2231) 143 MEQ/L POTASSIUM (test code = 2228) 4.9 MEQ/L CHLORIDE (test code = 2215) 103 MEQ/L CARBON DIOXIDE (test code = 2206) 30 MEQ/L CALCIUM (test code = 2209) 9.9 MG/DL PROTEIN, TOTAL (test code = 2229) 7.6 G/DL ALBUMIN (test code = 2201) 4.4 G/DL CALC GLOBULIN (test code = 2240) 3.2 G/DL CALC A/G RATIO (test code = 2234) 1.4 RATIO BILIRUBIN, TOTAL (test code = 2207) 0.3 MG/DL ALKALINE PHOSPHATASE (test code = 2204) 101 U/L AST (test code = 2218) 27 U/L ALT (test code = 2219) 37 U/L LIPID [id number] 00:00:00* Test Item Value Reference Range Interpretation Comme nts CHOLESTEROL (test code = 2210) 185 MG/DL TRIGLYCERIDES (test code = 2232) 228 MG/DL HDL CHOLESTEROL (test code = 2220) 58 MG/DL CALC LDL CHOL (test code = 2237) 81 MG/DL RISK RATIO LDL/HDL (test cod e = 2238) 1.40 RATIO LIPID [id number] 00:00:00* Test Item Value Reference Range Interpretation Comme nts CHOLESTEROL (test code = 2210) 185 MG/DL TRIGLYCERIDES (test code = 2232) 228 MG/DL HDL CHOLESTEROL (test code = 2220) 58 MG/DL CALC LDL CHOL (test code = 2237) 81 MG/DL RISK RATIO LDL/HDL (test cod e = 2238) 1.40 RATIO COMPREHENSIVE METABOLIC [id number] 00:00:00* Test Item Value Reference Range Interpretation Comme nts GLUCOSE (test code = 2217) 98 MG/DL BUN (test code = 2208) 13 MG/DL CREATININE (test code = 2214) 0.69 MG/DL eGFR AMER. (test cod e = 05500) 116 ML/MIN/1.73 eGFR NON- AMER. (test code = 21186) 100 ML/MIN/1.73 CALC BUN/CREAT (test code = 2235) 19 RATIO SODIUM (test code = 2231) 141 MEQ/L POTASSIUM (test code = 2228) 4.3 MEQ/L CHLORIDE (test code = 2215) 103 MEQ/L CARBON DIOXIDE (test code = 2206) 24 MEQ/L CALCIUM (test code = 2209) 9.6 MG/DL PROTEIN, TOTAL (test code = 2229) 7.3 G/DL ALBUMIN (test code = 2201) 4.5 G/DL CALC GLOBULIN (test code = 2240) 2.8 G/DL CALC A/G RATIO (test code = 2234) 1.6 RATIO BILIRUBIN, TOTAL (test code = 2207) 0.2 MG/DL ALKALINE PHOSPHATASE (test code = 2204) 97 U/L AST (test code = 2218) 39 U/L ALT (test code = 2219) 44 U/L COMPREHENSIVE METABOLIC [id number] 00:00:00* Test Item Value Reference Range Interpretation Comme nts GLUCOSE (test code = 2217) 98 MG/DL BUN (test code = 2208) 13 MG/DL CREATININE (test code = 2214) 0.69 MG/DL eGFR AMER. (test cod e = 98200) 116 ML/MIN/1.73 eGFR NON- AMER. (test code = 14056) 100 ML/MIN/1.73 CALC BUN/CREAT (test code = 2235) 19 RATIO SODIUM (test code = 2231) 141 MEQ/L POTASSIUM (test code = 2228) 4.3 MEQ/L CHLORIDE (test code = 2215) 103 MEQ/L CARBON DIOXIDE (test code = 2206) 24 MEQ/L CALCIUM (test code = 2209) 9.6 MG/DL PROTEIN, TOTAL (test code = 2229) 7.3 G/DL ALBUMIN (test code = 2201) 4.5 G/DL CALC GLOBULIN (test code = 2240) 2.8 G/DL CALC A/G RATIO (test code = 2234) 1.6 RATIO BILIRUBIN, TOTAL (test code = 2207) 0.2 MG/DL ALKALINE PHOSPHATASE (test code = 2204) 97 U/L AST (test code = 2218) 39 U/L ALT (test code = 2219) 44 U/L COMPREHENSIVE METABOLIC [id number] 00:00:00* Test Item Value Reference Range Interpretation Comme nts GLUCOSE (test code = 2217) 113 MG/DL BUN (test code = 2208) 14 MG/DL CREATININE (test code = 2214) 0.63 MG/DL eGFR AMER. (test cod e = 23450) 120 ML/MIN/1.73 eGFR NON- AMER. (test code = 78302) 103 ML/MIN/1.73 CALC BUN/CREAT (test code = 2235) 22 RATIO SODIUM (test code = 2231) 143 MEQ/L POTASSIUM (test code = 2228) 4.2 MEQ/L CHLORIDE (test code = 2215) 104 MEQ/L CARBON DIOXIDE (test code = 2206) 24 MEQ/L CALCIUM (test code = 2209) 9.7 MG/DL PROTEIN, TOTAL (test code = 2229) 6.8 G/DL ALBUMIN (test code = 2201) 4.3 G/DL CALC GLOBULIN (test code = 2240) 2.5 G/DL CALC A/G RATIO (test code = 2234) 1.7 RATIO BILIRUBIN, TOTAL (test code = 2207) 0.3 MG/DL ALKALINE PHOSPHATASE (test code = 2204) 90 U/L AST (test code = 2218) 43 U/L ALT (test code = 2219) 69 U/L COMPREHENSIVE METABOLIC [id number] 00:00:00* Test Item Value Reference Range Interpretation Comme nts GLUCOSE (test code = 2217) 113 MG/DL BUN (test code = 2208) 14 MG/DL CREATININE (test code = 2214) 0.63 MG/DL eGFR AMER. (test cod e = 89011) 120 ML/MIN/1.73 eGFR NON- AMER. (test code = 42962) 103 ML/MIN/1.73 CALC BUN/CREAT (test code = 2235) 22 RATIO SODIUM (test code = 2231) 143 MEQ/L POTASSIUM (test code = 2228) 4.2 MEQ/L CHLORIDE (test code = 2215) 104 MEQ/L CARBON DIOXIDE (test code = 2206) 24 MEQ/L CALCIUM (test code = 2209) 9.7 MG/DL PROTEIN, TOTAL (test code = 2229) 6.8 G/DL ALBUMIN (test code = 2201) 4.3 G/DL CALC GLOBULIN (test code = 2240) 2.5 G/DL CALC A/G RATIO (test code = 2234) 1.7 RATIO BILIRUBIN, TOTAL (test code = 2207) 0.3 MG/DL ALKALINE PHOSPHATASE (test code = 2204) 90 U/L AST (test code = 2218) 43 U/L ALT (test code = 2219) 69 U/L VITAMIN D, 25 [id number] 00:00:00* Test Item Value Reference Range Interpretation Comme [facility] VITAMIN D, 25 OH (test code = 4958) 11 NG/ML VITAMIN D, 25 [id number] 00:00:00* Test Item Value Reference Range Interpretation Comme [facility] VITAMIN D, 25 OH (test code = 4958) 11 NG/ML HEMOGLOBIN [id number] 00:00:00* Test Item Value Reference Range Interpretation Comme [facility] HEMOGLOBIN A1c (test code = 99059) 6.0 % HEMOGLOBIN [id number] 00:00:00* Test Item Value Reference Range Interpretation Comme [facility] HEMOGLOBIN A1c (test code = 63432) 6.0 % HEMOGLOBIN [id number] 00:00:00* Test Item Value Reference Range Interpretation Comme [facility] HEMOGLOBIN A1c (test code = 43983) 6.0 % VITAMIN [id number] 00:00:00* Test Item Value Reference Range Interpretation Comme [facility] VITAMIN B-12 (test code = 2840) 288 PG/ML COMPREHENSIVE METABOLIC [id number] 00:00:00* Test Item Value Reference Range Interpretation Comme nts GLUCOSE (test code = 7) 97 MG/DL BUN (test code = 2208) 12 MG/DL CREATININE (test code = 2214) 0.57 MG/DL eGFR AMER. (test cod e = 55346) 124 ML/MIN/1.73 eGFR NON- AMER. (test code = 62054) 107 ML/MIN/1.73 CALC BUN/CREAT (test code = 2235) 21 RATIO SODIUM (test code = 2231) 140 MEQ/L POTASSIUM (test code = 2228) 4.7 MEQ/L CHLORIDE (test code = 2215) 98 MEQ/L CARBON DIOXIDE (test code = 2206) 17 MEQ/L CALCIUM (test code = 2209) 10.0 MG/DL PROTEIN, TOTAL (test code = 2229) 7.4 G/DL ALBUMIN (test code = 2201) 4.8 G/DL CALC GLOBULIN (test code = 2240) 2.6 G/DL CALC A/G RATIO (test code = 2234) 1.8 RATIO BILIRUBIN, TOTAL (test code = 2207) 0.3 MG/DL ALKALINE PHOSPHATASE (test code = 2204) 114 U/L AST (test code = 2218) 30 U/L ALT (test code = 2219) 34 U/L COMPREHENSIVE METABOLIC [id number] 00:00:00* Test Item Value Reference Range Interpretation Comme nts GLUCOSE (test code = 2217) 97 MG/DL BUN (test code = 2208) 12 MG/DL CREATININE (test code = 2214) 0.57 MG/DL eGFR AMER. (test cod e = 60803) 124 ML/MIN/1.73 eGFR NON- AMER. (test code = 67249) 107 ML/MIN/1.73 CALC BUN/CREAT (test code = 2235) 21 RATIO SODIUM (test code = 2231) 140 MEQ/L POTASSIUM (test code = 2228) 4.7 MEQ/L CHLORIDE (test code = 2215) 98 MEQ/L CARBON DIOXIDE (test code = 2206) 17 MEQ/L CALCIUM (test code = 2209) 10.0 MG/DL PROTEIN, TOTAL (test code = 2229) 7.4 G/DL ALBUMIN (test code = 2201) 4.8 G/DL CALC GLOBULIN (test code = 2240) 2.6 G/DL CALC A/G RATIO (test code = 2234) 1.8 RATIO BILIRUBIN, TOTAL (test code = 2207) 0.3 MG/DL ALKALINE PHOSPHATASE (test code = 2204) 114 U/L AST (test code = 2218) 30 U/L ALT (test code = 2219) 34 U/L LIPID [id number] 00:00:00* Test Item Value Reference Range Interpretation Comme nts CHOLESTEROL (test code = 2210) 183 MG/DL TRIGLYCERIDES (test code = 2232) 151 MG/DL HDL CHOLESTEROL (test code = 2220) 56 MG/DL CALC LDL CHOL (test code = 2237) 97 MG/DL RISK RATIO LDL/HDL (test cod e = 2238) 1.73 RATIO LIPID [id number] 00:00:00* Test Item Value Reference Range Interpretation Comme nts CHOLESTEROL (test code = 2210) 183 MG/DL TRIGLYCERIDES (test code = 2232) 151 MG/DL HDL CHOLESTEROL (test code = 2220) 56 MG/DL CALC LDL CHOL (test code = 2237) 97 MG/DL RISK RATIO LDL/HDL (test cod e = 2238) 1.73 RATIO [id number] 00:00:00* Test Item Value Reference Range Interpretation Comme nts TSH (test code = 2821) 1.16 UIU/ML [id number] 00:00:00* Test Item Value Reference Range Interpretation Comme nts TSH (test code = 2821) 1.16 UIU/ML [id number] 00:00:00* Test Item Value Reference Range Interpretation Comme nts TSH (test code = 2821) 1.16 UIU/ML VITAMIN [id number] 00:00:00* Test Item Value Reference Range Interpretation Comme nts VITAMIN B-12 (test code = 2840) 288 PG/ML VITAMIN [id number] 00:00:00* Test Item Value Reference Range Interpretation Comme nts VITAMIN B-12 (test code = 2840) 288 PG/ML CBC W/AUTO [id number] 00:00:00* Test Item Value Reference Range Interpretation Comme nts WBC (test code = 1001) 7.9 K/UL RBC (test code = 1002) 4.92 M/UL HEMOGLOBIN (test code = 1003) 13.8 G/DL HEMATOCRIT (test code = 1004) 41.2 % MCV (test code = 1005) 83.7 fL MCH (test code = 1006) 28.0 PG MCHC (test code = 1007) 33.5 G/DL RDW (test code = 1038) 13.8 % NEUTROPHILS (test code = 1008) 48.0 % LYMPHOCYTES (test code = 1010) 40.8 % MONOCYTES (test code = 1011) 8.6 % EOSINOPHILS (test code = 1012) 1.6 % BASOPHILS (test code = 1013) 1.0 % PLATELET COUNT (test code = 1015) 319 K/UL CBC W/AUTO [id number] 00:00:00* Test Item Value Reference Range Interpretation Comme nts WBC (test code = 1001) 7.9 K/UL RBC (test code = 1002) 4.92 M/UL HEMOGLOBIN (test code = 1003) 13.8 G/DL HEMATOCRIT (test code = 1004) 41.2 % MCV (test code = 1005) 83.7 fL MCH (test code = 1006) 28.0 PG MCHC (test code = 1007) 33.5 G/DL RDW (test code = 1038) 13.8 % NEUTROPHILS (test code = 1008) 48.0 % LYMPHOCYTES (test code = 1010) 40.8 % MONOCYTES (test code = 1011) 8.6 % EOSINOPHILS (test code = 1012) 1.6 % BASOPHILS (test code = 1013) 1.0 % PLATELET COUNT (test code = 1015) 319 K/UL CBC W/AUTO [id number] 00:00:00* Test Item Value Reference Range Interpretation Comme nts WBC (test code = 1001) 7.9 K/UL RBC (test code = 1002) 4.92 M/UL HEMOGLOBIN (test code = 1003) 13.8 G/DL HEMATOCRIT (test code = 1004) 41.2 % MCV (test code = 1005) 83.7 fL MCH (test code = 1006) 28.0 PG MCHC (test code = 1007) 33.5 G/DL RDW (test code = 1038) 13.8 % NEUTROPHILS (test code = 1008) 48.0 % LYMPHOCYTES (test code = 1010) 40.8 % MONOCYTES (test code = 1011) 8.6 % EOSINOPHILS (test code = 1012) 1.6 % BASOPHILS (test code = 1013) 1.0 % PLATELET COUNT (test code = 1015) 319 K/UL
[2023-06-21] MEDS ORDERED: KETOROLAC 30 MG/ML INJ ONE (18:28)
--- NOTE | 2023-06-21 19:11 | RAD REPORT ---
EXAM DESCRIPTION: RAD - Foot Left 3 View - 06/21/2023 6:53 pm CLINICAL HISTORY: Left Foot pain FINDINGS: No fracture or dislocation is seen. Hallux valgus and hammertoe deformities. Large plantar calcaneal spur
--- NOTE | 2023-06-21 19:19 | ER ---
Nurse's Notes [facility] Name: Aimee Quintana Age: 58 yrs Sex: Female : 1965 Arrival Date: 06/21/2023 Time: 17:51 Bed DX1 Private MD: Diagnosis: Pain in left foot;Calcaneal spur, left foot Presentation: 06/20 17:59 Chief complaint: Patient states: L foot pain and swelling for 1 week. No trauma or ll1 falls. New job for 2 weeks. Coronavirus screen: Client denies travel out of the [place] in the last 14 days. At this time, the client does not indicate any symptoms associated with coronavirus-19. Ebola Screen: Patient denies travel to an Ebola-affected area in the 21 days before illness onset. Initial Sepsis Screen: Does the patient meet any 2 criteria? No. Patient's initial sepsis screen is negative. Does the patient have a suspected source of infection? No. Patient's initial sepsis screen is negative. Risk Assessment: Do you want to hurt yourself or someone else? Patient reports no desire to harm self or others. Onset of symptoms was June 14, 2023. 17:59 Method Of Arrival: Ambulatory ll1 17:59 Acuity: TIANNA 4 ll1 Triage Assessment: 18:00 General: Appears uncomfortable, Behavior is calm, cooperative, appropriate for age. ll1 Pain: Complains of pain in left foot Pain currently is 9 out of 10 on a pain scale. Quality of pain is described as aching. Musculoskeletal: Circulation, motion, and sensation intact. Capillary refill < 3 seconds, Reports pain in left foot. Historical: - Allergies: 17:53 hydrochlorothiazide; ll1 - PMHx: 17:53 Hypertension; ll1 - Immunization history:: Adult Immunizations up to date. - Infectious Disease History:: Denies. - Social history:: Smoking status: Patient denies any tobacco usage or history of. - Family history:: not pertinent. Screenin:31 [facility] ED Fall Risk Assessment (Adult) History of falling in the last 3 months, me1 including since admission No falls in past 3 months (0 pts) Confusion or Disorientation No (0 pts) Intoxicated or Sedated No (0 pts) Impaired Gait No (0 pts) Mobility Assist Device Used No (0 pt) Altered Elimination No (0 pt) Score/Fall Risk Level 0 - 2 = Low Risk Maintained a safe environment, Provided non-skid footwear, Hourly rounding (assess needs \T\ fall precautionary measures) done. Abuse screen: Denies threats or abuse. Nutritional screening: No deficits noted. Tuberculosis screening: No symptoms or risk factors identified. Assessment: 18:31 General: Appears uncomfortable, well groomed, well developed, well nourished, Behavior me1 is calm, cooperative, appropriate for age, Reports c/o left lateral foot pain and swelling for one week. Pain is worse today. Started a new job where she is on her feet 2 weeks ago. Pain: Complains of pain in left foot Pain does not radiate. Pain currently is 8 out of 10 on a pain scale. Quality of pain is described as sharp, Pain began 1 week ago Is continuous. Neuro: Level of Consciousness is awake, alert, obeys commands, Oriented to person, place, time, situation, Appropriate for age. Cardiovascular: Capillary refill < 3 seconds Patient's skin is warm and dry. Respiratory: Airway is patent Respiratory effort is even, unlabored, Respiratory pattern is regular, symmetrical. GI: No signs and/or symptoms were reported involving the gastrointestinal system. : No signs and/or symptoms were reported regarding the genitourinary system. EENT: No signs and/or symptoms were reported regarding the EENT system. Derm: Skin is intact, is healthy with good turgor, Skin is pink, warm \T\ dry. Musculoskeletal: Reports pain in left foot since one week ago. Vital Signs: 17:59 BP 164 / 72; Pulse 72; Resp 18; Temp 97.4; Pulse Ox 98% ; Weight 112.49 kg; Height 5 ll1 ft. 5 in. ; Pain 9/10; 18:50 Pain 2/10; me1 19:28 BP 154 / 68; Pulse 69; Resp 17; Temp 98.4; Pulse Ox 98% ; Pain 2/10; me1 17:59 Body Mass Index 41.27 (112.49 kg, 165.1 cm) ll1 17:59 Pain Scale: Adult ll1 18:50 Pain Scale: Adult me1 19:28 Pain Scale: Adult me1 ED Course: 17:52 Patient arrived in ED. rg4 17:53 Arm band placed on. ll1 17:55 Kieran Palmer MD is Attending Physician. rt 18:00 Triage completed. ll1 18:27 Lisa Rodríguez, RN is Primary Nurse. me1 18:31 Patient has correct armband on for positive identification. Bed in low position. Call me1 light in reach. Side rails up X2. Provided Education on: POC. Verbalized understanding. . 18:31 No provider procedures requiring assistance completed. me1 18:55 Foot Left 3 View XRAY In Process Unspecified. EDMS 19:29 IV discontinued, intact, bleeding controlled, No redness/swelling at site. Pressure me1 dressing applied. Administered Medications: 18:31 Drug: Ketorolac IM 15 mg IM once Route: IM; Site: left deltoid; me1 18:50 Follow up: Pain 2/10 Adult; Response: No adverse reaction; Pain is decreased me1 Medication: 18:31 VIS not applicable for this client. me1 Outcome: 19:18 Discharge ordered by MD. rt 19:29 Discharged to home ambulatory, me1 19:29 Condition: stable 19:29 Discharge instructions given to patient, Instructed on discharge instructions, follow up and referral plans. Demonstrated understanding of instructions, follow-up care, 19:30 Patient left the ED. me1 Signatures: Dispatcher [employer] Nuvia Momin rg4 Saud Ramos, RN RN 1 Kieran Palmer MD MD rt Lisa Rodríguez, RN RN me1
--- NOTE | 2023-06-21 19:19 | EDPHYS ---
Physician Documentation [facility] Name: Aimee Quintana Age: 58 yrs Sex: Female : 1965 Arrival Date: 06/21/2023 Time: 17:51 Bed DX1 Private MD: ED Physician Kieran Palmer HPI: 06/20 19:20 This 58 yrs old Female presents to ER via Ambulatory with complaints of Foot rt Pain. 19:20 Patient presents to the ED with left foot pain, swelling for about 1 week. 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 She states that she has some pain that radiates proximally but denies any other leg swelling. Denies other acute complaints at this time, symptoms are mild in severity, aching nature, no other aggravating or alleviating factors.. Historical: - Allergies: 17:53 hydrochlorothiazide; ll1 - PMHx: 17:53 Hypertension; ll1 - Immunization history:: Adult Immunizations up to date. - Infectious Disease History:: Denies. - Social history:: Smoking status: Patient denies any tobacco usage or history of. - Family history:: not pertinent. ROS: 19:20 Constitutional: Negative for fever, chills, and weight loss, Cardiovascular: Negative rt for chest pain, palpitations, and edema, Respiratory: Negative for shortness of breath, cough, wheezing, and pleuritic chest pain, Abdomen/GI: Negative for abdominal pain, nausea, vomiting, diarrhea, and constipation, Skin: Negative for injury, rash, and discoloration, Neuro: Negative for headache, weakness, numbness, tingling, and seizure, 19:20 MS/extremity: Positive for pain, swelling, Exam: 19:20 Constitutional: This is a well developed, well nourished patient who is awake, alert, rt and in no acute distress. Head/Face: Normocephalic, atraumatic. Chest/axilla: Normal chest wall appearance and motion. Nontender with no deformity. No lesions are appreciated. Cardiovascular: Regular rate and rhythm with a normal S1 and S2. No gallops, murmurs, or rubs. Normal PMI, no JVD. No pulse deficits. Respiratory: Lungs have equal breath sounds bilaterally, clear to auscultation and percussion. No rales, rhonchi or wheezes noted. No increased work of breathing, no retractions or nasal flaring. Abdomen/GI: Soft, non-tender, with normal bowel sounds. No distension or tympany. No guarding or rebound. No evidence of tenderness throughout. Neuro: Awake and alert, GCS 15, oriented to person, place, time, and situation. Cranial nerves II-XII grossly intact. Motor strength 5/5 in all extremities. Sensory grossly intact. Cerebellar exam normal. Normal gait. 19:20 Musculoskeletal/extremity: Mild tenderness and swelling overlying the fourth metatarsal, no proximal swelling, no overlying skin changes, pulses, motor, sensation intact. Vital Signs: 17:59 BP 164 / 72; Pulse 72; Resp 18; Temp 97.4; Pulse Ox 98% ; Weight 112.49 kg; Height 5 ll1 ft. 5 in. ; Pain 9/10; 18:50 Pain 2/10; me1 19:28 BP 154 / 68; Pulse 69; Resp 17; Temp 98.4; Pulse Ox 98% ; Pain 2/10; me1 17:59 Body Mass Index 41.27 (112.49 kg, 165.1 cm) ll1 17:59 Pain Scale: Adult ll1 18:50 Pain Scale: Adult me1 19:28 Pain Scale: Adult me1 MDM: 17:59 Patient medically screened. rt 19:20 Differential diagnosis: Bone spurs, fracture, plantar fasciitis, musculoskeletal pain. rt Data reviewed: vital signs, nurses notes, radiologic studies. I considered the following discharge prescriptions or medication management in the emergency department Medications were administered in the Emergency Department. See MAR. Test considered but Not performed: Ultrasound DVT considered, patient has no calf tenderness, popliteal fossa tenderness, no proximal swelling. Clinically, do not suspect that the patient has a DVT and ultrasound is not needed. Discussed this with patient who is in agreement.. Care significantly affected by the following chronic conditions: Hypertension. Counseling: I had a detailed discussion with the patient and/or guardian regarding the historical points, exam findings, and any diagnostic results supporting the discharge/admit diagnosis, radiology results, the need for outpatient follow up, to return to the emergency department if symptoms worsen or persist or if there are any questions or concerns that arise at home. Response to treatment: the patient's symptoms have markedly improved after treatment. 06/20 18:03 Order name: Foot Left 3 View XRAY; Complete Time: 19:11 rt 06/20 19:17 Order name: Orthopedic shoe; Complete Time: 19:29 rt Administered Medications: 18:31 Drug: Ketorolac IM 15 mg IM once Route: IM; Site: left deltoid; me1 18:50 Follow up: Pain 04/13 Adult; Response: No adverse reaction; Pain is decreased me1 Disposition Summary: 06/21/23 19:18 Discharge Ordered Notes: Location: Home rt Problem: new rt Symptoms: have improved rt Condition: Stable rt Diagnosis - Pain in left foot rt - Calcaneal spur, left foot rt Followup: rt - With: Private Physician - When: 5 - 6 days - Reason: Discharge Instructions: - Discharge Summary Sheet rt - Heel Spur rt - Foot Pain rt Forms: - Medication Reconciliation Form rt - Thank You Letter rt - Antibiotic Education rt - Prescription Opioid Use rt - Patient Portal Instructions rt - Leadership Thank You Letter rt Signatures: Dispatcher [employer] Saud Abdi RN RN ll1 Kieran Palmer MD MD rt Lisa Rodríguez RN RN me1
[2023-06-21 19:57] VITALS: BP 154/68; TEMP 98.4; O2SAT 98
== END 2023-06-21 19:30 | disposition home or self-care (01) ==
LOC: ER 17:51
DX: M77.32 Calcaneal spur, left foot (principal)
CPT/HCPCS: 96372; 99284

== ENCOUNTER 2024-02-04 09:24 | Emergency (ER) | payer SELFPAY ==
--- OUTSIDE RECORDS SUMMARY | 2024-02-04 09:33 | XMS REPORT | Continuity of Care Document ---
Author Name Unknown Address [address] [facility] [place] [address] [facility] thconnect Address [address] [facility] [place] [address] Care Team Providers Care Resist Coater Developer Name Role Phone DAREN Snow [facility], [facility] Physician Unavailable TAWANA JARA Attending Clinician UnavailJOSEPH Coreas Attending Clinician Unavailable JOSEPH MARIN Attending Clinician Unavailable JARROD GONZALEZ Attending Clinician UnavailJARROD Allen Attending Clinician UnavailJANI Santana Attending Clinician UnavailJANI Boles Attending Clinician PHYLLIS Bermudez Attending Clinician Unavailable PHYLLIS FARAH Attending Clinician Unavailable Phyllis Willson Attending Clinician [phone] Joseph Marin MD Attending Clinician [phone] Tawana Jara MD K.HYaakov Attending Clinician [phone] AP BARAJAS Attending Clinician Unavailable TAWANA JARA Admitting Clinician Mulugeta rashid Payers Payer Name Policy Type Policy Number Effective Date Expirati on Date Source [facility] [id number] 2023 00:00:00 [employer] [employer] 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 Morbid obesity Morbid obesity Disease Active 07-17 00:00: 00 [facility] Essential hypertensi on, benign Essential hypertensi on, benign Disease Active 07-17 00:00: 00 [facility] 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 Had hyst [facility] Depression Depression Disease Resolve d 07-17 00:00: 00 2014-12-27 00:00:00 2014-12-27 12:29:23 [facility] Excessive or frequent menstruati on Excessive or frequent menstruati on Disease Resolve d 10-11 00:00: 00 2014-12-27 00:00:00 2014-12-27 12:28:58 [facility] Allergies, Adverse Reactions, Alerts Allergy Name Allergy Type Status Severity Reaction(s) Onset Date Inactive Date Treating Clinician Comments Source [place] - Intraven ous Propensi ty to adverse reaction to drug Active 07-18 00:00: 00 Daren Lew n Propensi ty to adverse reaction to drug Active 07-17 00:00: 00 Daren Lew hydroCHL OROthiaz mitzi - Oral Propensi ty to adverse reaction to drug Active -19 00:00: 00 Daren Lew Predniso ne Propensi ty to adverse reaction to drug Inactiv e 08-31 00:00: 00 Daren Lew Hydrochl orothiaz mitzi Propensi ty to adverse reaction to drug Inactiv e 06-01 00:00: 00 Daren Lew Hydrochl orothiaz mitzi Propensi ty to adverse reaction s Active Swelling 07-14 00:00: 00 [facility] HYDROCHL OROTHIAZ MITZI DRUG INGREDI Active SOB 07-14 00:00: 00 [facility] Social History Social Habit Start Date Stop Date Quantity Comments [facility] intake 2023-11-14 00:00:00 2023-11-14 00:00:00 Current non-drinker of alcohol (finding) [facility] History of Social function 2023-11-14 00:00:00 2023-11-14 00:00:00 [facility] Tobacco use and exposure 2013-07-14 00:00:00 2013-07-14 00:00:00 Smokeless tobacco non-user [facility] Sex assigned at 1965 00:00:00 1965 00:00:00 [facility] Smoking Status Start Date Stop Date Source Never smoked tobacco [facility] Medications Ordered Medication Name Filled Medication Name Start Date Stop Date Current Medication? Ordering Clinician Indication Dosage Frequency Signature (SIG) Comments Components Source methocarbam oL (ROBAXIN) tablet 500 mg 2023-03 01:45: 00 01-23 03:09 :00 No 500mg 500 mg, Oral, ONCE, 1 dose, On [facility] 01/23/24 at 1945, [facility] HYDROcodone -acetaminop hen (NORCO 5) tablet 1 tablet 2023-03 01:45: 00 01-23 03:08 :00 No 1{tbl} 1 tablet, Oral, ONCE, 1 dose, On [facility] 01/23/24 at 1945, [facility] predniSONE (DELTASONE) tablet 10 mg 2023-03 01:45: 00 01-23 03:09 :00 No 10mg 10 mg, Oral, ONCE, 1 dose, On [facility] 01/23/24 at 1945, [facility] methocarbam oL 500 mg tablet 2023-03 00:00: 00 Yes [id number] 1000mg Take 2 tablets by mouth 2 (two) times daily as needed (muscle spasms). [facility] traMADoL 50 mg tablet 2023-03 00:00: 00 01-30 05:59 :00 Yes [id number] 100mg Take 2 tablets by mouth every 8 (eight) hours as needed for Pain (scale 7-10) for up to 7 days. Indication s: acute pain [facility] predniSONE 50 mg tablet 2023-03 00:00: 00 01-28 05:59 :00 Yes [id number] 50mg Take 1 tablet by mouth in the morning for [address] [facility] apixaban (ELIQUIS) 5 mg tablet 2023-03 00:00: 00 04-29 05:59 :00 Yes 1358 5mg Take 1 tablet by mouth in the morning and 1 tablet in the evening. Do all this for 120 days. Indication s: atrial fibrillati on [facility] rivaroxaban (XARELTO) 15 mg tablet 2023-03 00:00: 00 12-29 00:00 :00 No 1358 15mg Take 1 tablet by mouth in the morning. Indication s: atrial fibrillati on [facility] carvediloL 12.5 mg tablet 11-27 00:00: 00 Yes 12.5mg Take 1 tablet by mouth in the morning and 1 tablet in the evening. Take with meals. [facility] fish,bora,f lax oils-om3,6, 9no1 (OMEGA 3-6-9) 1,200 mg Cap 11-13 15:26: 05 Yes 500mg Take [address] [facility] cetirizine HCl (CETIRIZINE ORAL) 11-13 15:22: 37 Yes 120mg Take by mouth. [facility] enalapril (VASOTEC) 5 mg tablet 11-13 15:22: 37 Yes 20mg Take 4 tablets by mouth in the morning. [facility] carvedilol (COREG) 6.25 mg tablet 11-13 15:10: 38 11-27 00:00 :00 No 6.25mg Take 1 tablet by mouth in the morning and 1 tablet in the evening. Take with meals. [facility] Vitamin D3 25 mcg (1,000 unit) tablet 2024-0 6-20 00:00: 00 Yes 1(1,000 unit) Daren Lew diclofenac 1 % topical gel 08-18 00:00: 00 Yes 1% Daren Lew verapamil ER (SR) 120 mg tablet,exte nded release 08-18 00:00: 00 Yes 1mg Daren Lew carvedilol 6.25 mg tablet 08-18 00:00: 00 Yes 1mg Daren Lew enalapril maleate 20 mg tablet 08-18 00:00: 00 Yes 1mg Daren Lew verapamil ER (SR) 120 mg tablet,exte nded release 07-04 00:00: 00 Yes 1mg Daren Lew carvedilol 6.25 mg tablet - 00:00: 00 Yes 1mg Daren Lew enalapril maleate 20 mg tablet 07-04 00:00: 00 Yes 1mg Daren Lew TAKE 1 TABLET BY MOUTH DAILY. -18 00:00: 00 Yes 625 Daren Lew 1 CAP EVERY 8 HOURS NEEDED FOR COUGH -16 00:00: 00 07-07 00:00 :00 No 200 Daren Lew TAKE 1 TABLET DAILY. -16 00:00: 00 07-07 00:00 :00 No 625 Daren Lew TAKE 10 ML EVERY 4-6 HOURS NEEDED -16 00:00: 00 07-07 00:00 :00 No [id number] Daren Lew VERAPAMIL ER [id number] -12 00:00: 00 Yes 120 Daren Lew VERAPAMIL ER [id number] 2022-03- 00:00: 00 Yes 120 Daren Lew ENALAPRIL 20MG 2022-03- 00:00: 00 Yes [id number] Daren Lew CARVEDILOL 12.5MG 2022-03 00:00: 00 Yes [id number] Daren Lew TAKE 1 TABLET DAILY. 2022-03 00:00: 00 07-07 00:00 :00 No 10 Daren Lew TAKE 1 TABLET DAILY. 2023-1 1-13 00:00: 00 07-07 00:00 :00 No 75 Daren Lew TAKE 1 CAPSULE EVERY 6 HOURS DAILY. 2022-03 0- 00:00: 00 07-07 00:00 :00 No 300 Daren Lew TAKE 1 TABLET 3 TIMES DAILY WITH FOOD NEEDED. 2022-03 0- 00:00: 00 07-07 00:00 :00 No 800 Daren Lew AMOXICILLIN 875MG 11-26 00:00: 00 Yes Daren Lew TRAMADOL HCL 50MG 11-26 00:00: 00 Yes Daren Lew TAKE ONE (1) TABLET(S) BY MOUTH EVERY EIGHT HOURS NEEDED. 11-25 00:00: 00 Yes Daren Lew TAKE ONE (1) TABLET(S) BY MOUTH EVERY TWELVE HOURS FOR 10 DAYS. 11-25 00:00: 00 Yes Daren Lew CARVEDILOL 12.5MG 10-15 00:00: 00 Yes Daren Lew VERAPAMIL ER [id number] 10-15 00:00: 00 Yes [id number] Daren Lew ENALAPRIL 20MG 10-15 00:00: 00 Yes Daren Lew APPLY SPARINGLY TO AFFECTED AREA(S) TWICE DAILY 07-26 00:00: 00 07-07 00:00 :00 No 2 Daren Lew TAKE 1 TABLET TWICE DAILY. 07-12 00:00: 00 07-07 00:00 :00 No 125 Daren Lew TAKE 1 TABLET TWICE DAILY WITH FOOD. - 00:00: 00 07-07 00:00 :00 No [id number] Daren Lew TAKE 1 TABLET BID NEEDED 3- 00:00: 00 07-07 00:00 :00 No 600 Daren Lew TAKE ONE (1) TABLET(S) BY MOUTH ONCE A DAY. 2-15 00:00: 00 Yes Daren Lew TAKE ONE (1) TABLET(S) BY MOUTH EVERY MORNING. 2-15 00:00: 00 Yes Daren Lew TAKE ONE (1) TABLET(S) BY MOUTH TWICE A DAY. 2021-03 00:00: 00 Yes Daren Lew TAKE ONE (1) TABLET(S) BY MOUTH DAILY IN THE MORNING. 2021-03 00:00: 00 Yes 20 Daren Lew TAKE 1 TABLET DAILY. 2021-03 00:00: 00 07-07 00:00 :00 No 120 Daren Lew TAKE ONE (1) TABLET(S) BY MOUTH TWICE A DAY. 2021-03 00:00: 00 Yes Daren Lew TAKE ONE (1) TABLET(S) BY MOUTH EVERY EIGHT HOURS NEEDED. 2021-03 00:00: 00 Yes Daren Lew TAKE ONE (1) TABLET(S) BY MOUTH ONCE A DAY. 11-29 00:00: 00 Yes Daren Lew TAKE ONE (1) TABLET(S) BY MOUTH ONCE A DAY. 11-29 00:00: 00 No TAKE ONE (1) TABLET(S) BY MOUTH ONCE A DAY. 10-18 00:00: 00 Yes 10 Daren Lew TAKE ONE (1) TABLET(S) BY MOUTH ONCE A DAY. 10-18 00:00: 00 No 10 TAKE ONE (1) TABLET(S) BY MOUTH EVERY FOUR TO SIX HOURS NEEDED FOR PAIN. 08-22 00:00: 00 Yes Daren Lew TAKE ONE (1) CAPSULE(S) BY MOUTH EVERY SIX HOURS FOR 10 DAYS. 08-22 00:00: 00 Yes Daren Lew ofloxacin 0.3 % ear drops 08-18 00:00: 00 Yes 4% Daren Lew amoxicillin 875 mg-potassiu m clavulanate 125 mg tablet 08-18 00:00: 00 Yes 1mg Daren Lew ofloxacin 0.3 % ear drops 08-18 00:00: 00 No 4% amoxicillin 875 mg-potassiu m clavulanate 125 mg tablet 17 00:00: 00 No 1mg carvedilol 12.5 mg tablet 5-16 00:00: 00 Yes 1mg Daren Lew enalapril maleate 20 mg tablet 0 5-16 00:00: 00 Yes 1mg Daren Lew verapamil ER (SR) 120 mg tablet,exte nded release 0 -16 00:00: 00 Yes 1mg Daren Lew carvedilol 12.5 mg tablet 0 5-16 00:00: 00 No 1mg Dose Unknown 0 -16 00:00: 00 No verapamil ER (SR) 120 mg tablet,exte nded release 0 -16 00:00: 00 No 1mg carvedilol 12.5 mg tablet 0 -15 00:00: 00 Yes 1mg Daren Lew verapamil ER (SR) 120 mg tablet,exte nded release 0 -15 00:00: 00 Yes 1mg Daren Lew enalapril maleate 20 mg tablet 0 -15 00:00: 00 Yes 1mg Daren Lew verapamil ER (SR) 120 mg tablet,exte nded release 0 4-15 00:00: 00 No 1mg enalapril maleate 20 mg tablet 0 4-15 00:00: 00 No 1mg carvedilol 12.5 mg tablet 0 4-15 00:00: 00 No 1mg carvedilol 12.5 mg tablet 0 1-20 00:00: 00 Yes 1mg Daren Lew enalapril maleate 20 mg tablet 0 1-20 00:00: 00 Yes 1mg Daren Lew verapamil ER (SR) 120 mg tablet,exte nded release 0 1-20 00:00: 00 Yes 1mg Daren Lew carvedilol 12.5 mg tablet 0 1-20 00:00: 00 No 1mg Dose Unknown 0 1-20 00:00: 00 No verapamil ER (SR) 120 mg tablet,exte nded release 0 1-20 00:00: 00 No 1mg carvedilol 12.5 mg tablet 1 0-19 00:00: 00 Yes 1mg Daren Lew verapamil ER (SR) 120 mg tablet,exte nded release 2020-03 00:00: 00 Yes 1mg Daren eLw enalapril maleate 20 mg tablet 2020-03 00:00: 00 Yes 1mg Daren Lew carvedilol 12.5 mg tablet 2020-03 00:00: 00 No 1mg verapamil ER (SR) 120 mg tablet,exte nded release 2020-03 00:00: 00 No 1mg enalapril maleate 20 mg tablet 2020-03 00:00: 00 No 1mg Singulair 10 mg tablet 11-21 00:00: 00 Yes 1mg Daren Lew carvedilol 12.5 mg tablet 11-21 00:00: 00 Yes 1mg Daren Lew ibuprofen 600 mg tablet 11-21 00:00: 00 Yes 1mg Daren Lew verapamil ER (SR) 120 mg tablet,exte nded release 11-21 00:00: 00 Yes 1mg Daren Lew enalapril maleate 20 mg tablet 11-21 00:00: 00 Yes 1mg Daren Lew Singulair 10 mg tablet 11-21 00:00: 00 No 1mg carvedilol 12.5 mg tablet 11-21 00:00: 00 No 1mg ibuprofen 600 mg tablet 11-21 00:00: 00 No 1mg verapamil ER (SR) 120 mg tablet,exte nded release 11-21 00:00: 00 No 1mg enalapril maleate 20 mg tablet 11-21 00:00: 00 No 1mg neomycin-po lymyxin-hyd rocort 3.5 mg-10,000 unit/mL-1 % ear drops,susp 11-11 00:00: 00 Yes 4mg/mL- unit/mL -% Daren Lew neomycin-po lymyxin-hyd rocort 3.5 mg-10,000 unit/mL-1 % ear drops,susp 11-11 00:00: 00 No 4mg/mL- unit/mL -% carvedilol 12.5 mg tablet 10-26 00:00: 00 Yes 1mg Daren Lew enalapril maleate 20 mg tablet 0 8 00:00: 00 Yes 1mg Daren Lew verapamil ER (SR) 120 mg tablet,exte nded release 8 00:00: 00 Yes 1mg Daren Lew carvedilol 12.5 mg tablet 8 00:00: 00 No 1mg enalapril maleate 20 mg tablet 8 00:00: 00 No 1mg verapamil ER (SR) 120 mg tablet,exte nded release 8 00:00: 00 No 1mg Bactrim DS 800 mg-160 mg tablet 5 00:00: 00 Yes 1mg Daren Lew Bactrim DS 800 mg-160 mg tablet 5 00:00: 00 No 1mg Augmentin 875 mg-125 mg tablet 4- 00:00: 00 Yes 1mg Daren Lew Augmentin 875 mg-125 mg tablet 4- 00:00: 00 No 1mg Macrobid 100 mg capsule 3-30 00:00: 00 Yes 1mg Daren Lew Macrobid 100 mg capsule 3-30 00:00: 00 No 1mg carvedilol 12.5 mg tablet 2- 00:00: 00 Yes 1mg Daren Lew verapamil ER (SR) 120 mg tablet,exte nded release 2- 00:00: 00 Yes 1mg Daren Lew enalapril maleate 20 mg tablet 2- 00:00: 00 Yes 1mg Daren Lew carvedilol 12.5 mg tablet 2- 00:00: 00 No 1mg verapamil ER (SR) 120 mg tablet,exte nded release 2- 00:00: 00 No 1mg enalapril maleate 20 mg tablet 0 2-22 00:00: 00 No 1mg Bactrim DS 800 mg-160 mg tablet 0 1-19 00:00: 00 Yes 1mg Daren Lew Bactrim DS 800 mg-160 mg tablet 1 00:00: 00 No 1mg ibuprofen 600 mg tablet 11-01 00:00: 00 Yes 1mg Daren Lew cyclobenzap rine 10 mg tablet 11-01 00:00: 00 Yes 1mg Daren Lew ibuprofen 600 mg tablet 11-01 00:00: 00 No 1mg cyclobenzap rine 10 mg tablet 11-01 00:00: 00 No 1mg carvedilol 12.5 mg tablet 10-26 00:00: 00 Yes 1mg Daren Lew verapamil ER (SR) 120 mg tablet,exte nded release 10-26 00:00: 00 Yes 1mg Daren Lew enalapril maleate 20 mg tablet 10-26 00:00: 00 Yes 1mg Daren Lew carvedilol 12.5 mg tablet 10-26 00:00: 00 No 1mg verapamil ER (SR) 120 mg tablet,exte nded release 10-26 00:00: 00 No 1mg enalapril maleate 20 mg tablet 10-26 00:00: 00 No 1mg permethrin 5 % topical cream 2 00:00: 00 Yes 1% Daren Lew carvedilol 12.5 mg tablet 2 00:00: 00 Yes 1mg Daren Lew verapamil ER (SR) 120 mg tablet,exte nded release 2 00:00: 00 Yes 1mg Daren Lew enalapril maleate 20 mg tablet 2 00:00: 00 Yes 1mg Daren Lew permethrin 5 % topical cream 217 00:00: 00 No 1% carvedilol 12.5 mg tablet 2 00:00: 00 No 1mg verapamil ER (SR) 120 mg tablet,exte nded release 2 00:00: 00 No 1mg enalapril maleate 20 mg tablet 217 00:00: 00 No 1mg carvedilol 12.5 mg tablet 10-27 00:00: 00 Yes 1mg Daren Lew enalapril maleate 20 mg tablet 10-27 00:00: 00 Yes 1mg Daren Lew verapamil ER (SR) 120 mg tablet,exte nded release 10-27 00:00: 00 Yes 1mg Daren Lew carvedilol 12.5 mg tablet 10-27 00:00: 00 No 1mg enalapril maleate 20 mg tablet 10-27 00:00: 00 No 1mg verapamil ER (SR) 120 mg tablet,exte nded release 10-27 00:00: 00 No 1mg amoxicillin 875 mg-potassiu m clavulanate 125 mg tablet 10-02 00:00: 00 Yes 1mg Daren Lew promethazin e-DM 6.25 mg-15 mg/5 mL oral syrup 10-02 00:00: 00 Yes 10mg/5 mL Daren Lew amoxicillin 875 mg-potassiu m clavulanate 125 mg tablet 10-02 00:00: 00 No 1mg promethazin e-DM 6.25 mg-15 mg/5 mL oral syrup 10-02 00:00: 00 No 10mg/5 mL carvedilol 12.5 mg tablet 09-29 00:00: 00 Yes 1mg Daren Lew enalapril maleate 20 mg tablet 09-29 00:00: 00 Yes 1mg Daren Lew verapamil ER (SR) 120 mg tablet,exte nded release 09-29 00:00: 00 Yes 1mg Daren Lew carvedilol 12.5 mg tablet 09-29 00:00: 00 No 1mg enalapril maleate 20 mg tablet 09-29 00:00: 00 No 1mg verapamil ER (SR) 120 mg tablet,exte nded release 09-29 00:00: 00 No 1mg carvedilol 12.5 mg tablet 08-26 00:00: 00 Yes 1mg Daren Lew verapamil ER (SR) 120 mg tablet,exte nded release 08-26 00:00: 00 Yes 1mg Daren Lew enalapril maleate 20 mg tablet 08-26 00:00: 00 Yes 1mg Daren Lew carvedilol 12.5 mg tablet 08-26 00:00: 00 No 1mg verapamil ER (SR) 120 mg tablet,exte nded release 08-26 00:00: 00 No 1mg enalapril maleate 20 mg tablet 08-26 00:00: 00 No 1mg carvedilol 12.5 mg tablet 2017-03 00:00: 00 Yes 1mg Daren Lew verapamil ER (SR) 120 mg tablet,exte nded release 2017-03 00:00: 00 Yes 1mg Daren Lew enalapril maleate 20 mg tablet 2017-03 00:00: 00 Yes 1mg Daren Lew carvedilol 12.5 mg tablet 2017-03 00:00: 00 No 1mg verapamil ER (SR) 120 mg tablet,exte nded release 2017-03 00:00: 00 No 1mg enalapril maleate 20 mg tablet 2017-03 00:00: 00 No 1mg carvedilol 12.5 mg tablet 2017-03 00:00: 00 Yes 1mg Daren Lew verapamil ER (SR) 120 mg tablet,exte nded release 2017-03 00:00: 00 Yes 1mg Daren Lew enalapril maleate 20 mg tablet 2017-03 00:00: 00 Yes 1mg Daren Lew carvedilol 12.5 mg tablet 2017-03 00:00: 00 No 1mg verapamil ER (SR) 120 mg tablet,exte nded release 2017-03 00:00: 00 No 1mg enalapril maleate 20 mg tablet 2017-03 00:00: 00 No 1mg carvedilol 6.25 mg tablet 11-26 00:00: 00 Yes 1mg Daren Lew enalapril maleate 20 mg tablet 11-26 00:00: 00 Yes 1mg Daren Lew verapamil ER (SR) 120 mg tablet,exte nded release 11-26 00:00: 00 Yes 1mg Daren Lew carvedilol 6.25 mg tablet 11-26 00:00: 00 No 1mg enalapril maleate 20 mg tablet 11-26 00:00: 00 No 1mg verapamil ER (SR) 120 mg tablet,exte nded release 11-26 00:00: 00 No 1mg carvedilol 6.25 mg tablet 10-28 00:00: 00 Yes 1mg Daren Lew enalapril maleate 20 mg tablet 10-28 00:00: 00 Yes 1mg Daren Lew verapamil ER (SR) 120 mg tablet,exte nded release 10-28 00:00: 00 Yes 1mg Daren Lew carvedilol 6.25 mg tablet 10-28 00:00: 00 No 1mg enalapril maleate 20 mg tablet 10-28 00:00: 00 No 1mg verapamil ER (SR) 120 mg tablet,exte nded release 10-28 00:00: 00 No 1mg carvedilol 6.25 mg tablet 09-02 00:00: 00 Yes 1mg Daren Lew verapamil ER (SR) 120 mg tablet,exte nded release 09-02 00:00: 00 Yes 1mg Daren Lew enalapril maleate 20 mg tablet 09-02 00:00: 00 Yes 1mg Daren Lew carvedilol 6.25 mg tablet 09-02 00:00: 00 No 1mg verapamil ER (SR) 120 mg tablet,exte nded release 09-02 00:00: 00 No 1mg enalapril maleate 20 mg tablet 09-02 00:00: 00 No 1mg carvedilol 6.25 mg tablet 07-31 00:00: 00 Yes 1mg Daren Lew enalapril maleate 20 mg tablet 07-31 00:00: 00 Yes 1mg Daren Lew verapamil ER (SR) 120 mg tablet,exte nded release 07-31 00:00: 00 Yes 1mg Daren Lew carvedilol 6.25 mg tablet 07-31 00:00: 00 No 1mg enalapril maleate 20 mg tablet 07-31 00:00: 00 No 1mg verapamil ER (SR) 120 mg tablet,exte nded release 07-31 00:00: 00 No 1mg cyclobenzap rine 5 mg tablet 07-10 00:00: 00 Yes 12mg Daren Lew cyclobenzap rine 5 mg tablet 07-10 00:00: 00 No 12mg carvedilol 6.25 mg tablet 06-24 00:00: 00 Yes 1mg Daren Lew verapamil ER (SR) 120 mg tablet,exte nded release 06-24 00:00: 00 Yes 1mg Daren Lew enalapril maleate 20 mg tablet 06-24 00:00: 00 Yes 1mg Daren Lew carvedilol 6.25 mg tablet 06-24 00:00: 00 No 1mg verapamil ER (SR) 120 mg tablet,exte nded release 06-24 00:00: 00 No 1mg enalapril maleate 20 mg tablet 06-24 00:00: 00 No 1mg amoxicillin 875 mg tablet 06-14 00:00: 00 Yes 1mg Daren Lew amoxicillin 875 mg tablet 06-14 00:00: 00 No 1mg carvedilol 6.25 mg tablet 04-01 00:00: 00 Yes 1mg Daren Lew enalapril maleate 20 mg tablet 04-01 00:00: 00 Yes 1mg Daren Lew verapamil ER (SR) 120 mg tablet,exte nded release 04-01 00:00: 00 Yes 1mg Daren Lew carvedilol 6.25 mg tablet 04-01 00:00: 00 No 1mg enalapril maleate 20 mg tablet 04-01 00:00: 00 No 1mg verapamil ER (SR) 120 mg tablet,exte nded release 04-01 00:00: 00 No 1mg fluticasone 50 mcg/actuati on nasal spray,suspe nsion 2016-03 00:00: 00 Yes 2mcg/ac tuation Daren Lew fluticasone 50 mcg/actuati on nasal spray,suspe nsion 2016-03 00:00: 00 No 2mcg/ac tuation azithromyci n 250 mg tablet 2016-03 00:00: 00 Yes mg Daren Lew azithromyci n 250 mg tablet 2016-03 00:00: 00 No mg carvedilol 6.25 mg tablet 2016-03 00:00: 00 Yes 1mg Daren Lew enalapril maleate 20 mg tablet 2016-03 00:00: 00 Yes 1mg Daren Lew verapamil ER (SR) 120 mg tablet,exte nded release 2016-03 00:00: 00 Yes 1mg Daren Lew carvedilol 6.25 mg tablet 2016-03 00:00: 00 No 1mg enalapril maleate 20 mg tablet 2016-03 00:00: 00 No 1mg verapamil ER (SR) 120 mg tablet,exte nded release 2016-03 00:00: 00 No 1mg naproxen 500 mg tablet 2016-03 00:00: 00 Yes 1mg Daren Lew Robaxin 500 mg tablet 2016-03 00:00: 00 Yes 1mg Daren Lew naproxen 500 mg tablet 2016-03 00:00: 00 No 1mg Robaxin 500 mg tablet 2016-03 00:00: 00 No 1mg Caladryl 1 %-8 % lotion 09-06 00:00: 00 Yes 1% Daren Lew Caladryl 1 %-8 % lotion 09-06 00:00: 00 No 1% Caladryl 1 %-8 % lotion 08-31 00:00: 00 Yes 1% Daren Lew carvedilol 6.25 mg tablet 08-31 00:00: 00 Yes 1mg Daren Lew verapamil ER (SR) 120 mg tablet,exte nded release 08-31 00:00: 00 Yes 1mg Daren Lew enalapril maleate 20 mg tablet 08-31 00:00: 00 Yes 1mg Daren Lew Vistaril 25 mg capsule 08-31 00:00: 00 Yes 1mg Daren Lew Caladryl 1 %-8 % lotion 08-31 00:00: 00 No 1% carvedilol 6.25 mg tablet 08-31 00:00: 00 No 1mg verapamil ER (SR) 120 mg tablet,exte nded release 08-31 00:00: 00 No 1mg enalapril maleate 20 mg tablet 08-31 00:00: 00 No 1mg Vistaril 25 mg capsule 08-31 00:00: 00 No 1mg predniSONE 20 mg tablet 08-22 00:00: 00 Yes 40 mg PO QD x 5 days, then20 mg PO QD x 5 days, then10 mg PO QD x [address] [facility] diphenhydrA MINE (BENADRYL) 25 mg capsule 08-22 00:00: 00 12-03 00:00 :00 No 25mg Take 1 capsule by mouth every 6 (six) hours as needed for Itching or Allergies for up to [address] [facility] ciprofloxac in 500 mg tablet 07-09 00:00: 00 Yes 1mg Daren Lew cyclobenzap rine 10 mg tablet 07-09 00:00: 00 Yes 1mg Daren Lew ciprofloxac in 500 mg tablet 07-09 00:00: 00 No 1mg cyclobenzap rine 10 mg tablet 07-09 00:00: 00 No 1mg carvedilol 6.25 mg tablet 06-01 00:00: 00 Yes 1mg Daren Lew enalapril maleate 20 mg tablet 06-01 00:00: 00 Yes 1mg Daren Lew verapamil ER (SR) 120 mg tablet,exte nded release 06-01 00:00: 00 Yes 1mg Daren Lew enalapril maleate 20 mg tablet 06-01 00:00: 00 No 1mg verapamil ER (SR) 120 mg tablet,exte nded release 06-01 00:00: 00 No 1mg carvedilol 6.25 mg tablet 2016-0 06-01 00:00: 00 No 1mg Immunizations Ordered Immunization Name Filled Immunization Name Date Status Comments Source TDAP 2013-07-14 00:00:00 Completed [facility] TDAP 2013-07-14 00:00:00 Completed [facility] TDAP Unknown Completed [facility] TDAP Unknown Completed [facility] TDAP Unknown Completed [facility] TDAP Unknown Completed [facility] Vital Signs Vital Name Observation Time Observation Value Comments S ource Systolic blood pressure 2024-01-24 03:10:00 154 mm[Hg] [facility] Diastolic blood pressure 2024-01-24 03:10:00 89 mm[Hg] [facility] Heart rate 2024-01-24 03:10:00 65 /min Unive [facility] Body temperature 2024-01-24 03:10:00 36.56 Day [facility] Respiratory rate 2024-01-24 03:10:00 18 /min [facility] Oxygen saturation in Arterial blood by Pulse oximetry 2024-01-24 03:10:00 98 /min [facility] Body height 2024-01-24 01:04:00 165.1 cm [facility] Body weight 2024-01-24 01:04:00 113.399 kg [facility] BMI 2024-01-24 01:04:00 41.60 kg/m2 [facility] Systolic blood pressure 2023-12-04 13:38:00 148 mm[Hg] [facility] Diastolic blood pressure 2023-12-04 13:38:00 79 mm[Hg] [facility] Heart rate 2023-12-04 13:38:00 62 /min Unive [facility] Oxygen saturation in Arterial blood by Pulse oximetry 2023-12-04 13:38:00 95 /min [facility] Body temperature 2023-12-04 13:32:00 36.17 Day [facility] Respiratory rate 2023-12-04 13:32:00 20 /min [facility] Body height 2023-12-04 13:32:00 165.1 cm [facility] Body weight 2023-12-04 13:32:00 111.585 kg [facility] BMI 2023-12-04 13:32:00 40.94 kg/m2 [facility] Systolic blood pressure 2023-11-14 20:26:00 128 mm[Hg] [place] [facility] Diastolic blood pressure 2023-11-14 20:26:00 69 mm[Hg] [place] [facility] Heart rate 2023-11-14 20:26:00 67 /min [place] [facility] Res[facility] rate 2023-11-14 20:26:00 18 /min [facility] Body height 2023-11-14 20:26:00 165.1 cm [facility] Body weight 2023-11-14 20:26:00 110.859 kg [facility] BMI 2023-11-14 20:26:00 40.67 kg/m2 [facility] Oxygen saturation in Arterial blood by Pulse oximetry 2023-11-14 20:26:00 91 /min [place] [facility] BP Systolic 2023-10-15 10:51:00 145 mm[Hg] Step hen F Vipin BP Diastolic 2023-10-15 10:51:00 73 mm[Hg] Deangelo phen F Vipin Weight Measured 2023-10-15 10:51:00 Daren F Vipin Height Measured 2023-10-15 10:51:00 64.00 inches Daren F Vipin Body Temperature 2023-10-15 10:51:00 Daren F Vipin Heart Rate 2023-10-15 10:51:00 Sangeeta en F Vipin Respiratory Rate 2023-10-15 10:51:00 Daren F Vipin BP Systolic 2023-08-19 11:47:00 141 mm[Hg] Step hen F Vipin BP Diastolic 2023-08-19 11:47:00 67 mm[Hg] Deangelo phen F Vipin Weight Measured 2023-08-19 11:47:00 245.40 pounds Daren F Vipin Height Measured 2023-08-19 11:47:00 64.00 inches Daren F Vipin Body Temperature 2023-08-19 11:47:00 97.90 degrees Daren F Vipin Heart Rate 2023-08-19 11:47:00 59.00 /min Sange[place] en F Vipin Respiratory Rate 2023-08-19 11:47:00 16.00 /min Daren F Vipin BP Systolic 2023-04-19 16:45:00 128 mm[Hg] Step hen F Vipin BP Diastolic 2023-04-19 16:45:00 81 mm[Hg] Deangelo phen F Vipin Weight Measured 2023-04-19 16:45:00 253.00 pounds Daren F Vipin Height Measured 2023-04-19 16:45:00 64.00 inches Daren F Vipin Body Temperature 2023-04-19 16:45:00 98.10 degrees Daren F Vipin Heart Rate 2023-04-19 16:45:00 55.00 /min Sange[place] en F Vipin Respiratory Rate 2023-04-19 16:45:00 18.00 /min Daren F Vipin BP Systolic 2023-01-14 14:36:00 149 mm[Hg] Step hen F Vipin BP Diastolic 2023-01-14 14:36:00 84 mm[Hg] Deangelo phen F Vipin Weight Measured 2023-01-14 14:36:00 254.00 pounds Daren F Vipin Height Measured 2023-01-14 14:36:00 64.00 inches Daren F Vipin Body Temperature 2023-01-14 14:36:00 98.00 degrees Daren F Vipin Heart Rate 2023-01-14 14:36:00 65.00 /min S[place] en F Vipin Respiratory Rate 2023-01-14 14:36:00 18.00 /min Daren F Vipin BP Systolic 2022-10-15 16:21:00 140 mm[Hg] Step hen F Vipin BP Diastolic 2022-10-15 16:21:00 84 mm[Hg] Deangelo phen F Vipin Weight Measured 2022-10-15 16:21:00 258.00 pounds Daren F Vipin Height Measured 2022-10-15 16:21:00 64.00 inches Daren F Vipin Body Temperature 2022-10-15 16:21:00 98.00 degrees Daren F Vipin Heart Rate 2022-10-15 16:21:00 54.00 /min Sange[place] en F Vipin Respiratory Rate 2022-10-15 16:21:00 16.00 /min Daren F Vipin BP Systolic 2022-07-26 14:53:00 130 mm[Hg] Step hen F Vipin BP Diastolic 2022-07-26 14:53:00 80 mm[Hg] Deangelo phen F Vipin Weight Measured 2022-07-26 14:53:00 264.20 pounds Daren F Vipin Height Measured 2022-07-26 14:53:00 64.00 inches Daren F Vipin Body Temperature 2022-07-26 14:53:00 97.80 degrees Daren F Vipin Heart Rate 2022-07-26 14:53:00 55.00 /min S[place] en F Vipin Respiratory Rate 2022-07-26 14:53:00 Daren F Vipin BP Systolic 2022-07-12 16:30:00 125 mm[Hg] Step hen F Vipin BP Diastolic 2022-07-12 16:30:00 73 mm[Hg] Deangelo phen F Vipin Weight Measured 2022-07-12 16:30:00 267.40 pounds Daren F Vipin Height Measured 2022-07-12 16:30:00 64.00 inches Daren F Vipin Body Temperature 2022-07-12 16:30:00 98.10 degrees Daren F Vipin Heart Rate 2022-07-12 16:30:00 54.00 /min Sange[place] en F Vipin Respiratory Rate 2022-07-12 16:30:00 Daren F Vipin BP Systolic 2022-05-11 09:21:00 180 mm[Hg] Step hen F Vipin BP Diastolic 2022-05-11 09:21:00 94 mm[Hg] Deangelo phen F Vipin Weight Measured 2022-05-11 09:21:00 266.60 pounds Daren F Vipin Height Measured 2022-05-11 09:21:00 64.00 inches Daren F Vipin Body Temperature 2022-05-11 09:21:00 98.30 degrees Daren F Vipin Heart Rate 2022-05-11 09:21:00 71.00 /min [place]ange[place] en F Vipin Respiratory Rate 2022-05-11 09:21:00 18.00 /min Daren F Vipin BP Systolic 2022-01-15 17:15:00 142 mm[Hg] Step hen F Vipin BP Diastolic 2022-01-15 17:15:00 81 mm[Hg] Deangelo phen F Vipin Weight Measured 2022-01-15 17:15:00 262.60 pounds Daren F Vipin Height Measured 2022-01-15 17:15:00 64.00 inches Daren F Vipin Body Temperature 2022-01-15 17:15:00 98.20 degrees Daren F Vipin Heart Rate 2022-01-15 17:15:00 60.00 /min [place] en F Vipin Respiratory Rate 2022-01-15 17:15:00 18.00 /min Daren F Vipin BP Systolic 2021-08-18 15:40:00 138 mm[Hg] Step hen F Vipin BP Diastolic 2021-08-18 15:40:00 83 mm[Hg] Deangelo phen F Vipin Weight Measured 2021-08-18 15:40:00 268.60 pounds Daren F Vipin Height Measured 2021-08-18 15:40:00 64.00 inches Daren F Vipin Body Temperature 2021-08-18 15:40:00 98.30 degrees Daren F Vipin Heart Rate 2021-08-18 15:40:00 58.00 /min [place] en F Vipin Respiratory Rate 2021-08-18 15:40:00 18.00 /min Daren F Vipin BP Systolic 2021-07-17 10:37:00 142 mm[Hg] Step hen F Vipin BP Diastolic 2021-07-17 10:37:00 84 mm[Hg] Deangelo phen F Vipin Weight Measured 2021-07-17 10:37:00 274.00 pounds Daren F Vipin Height Measured 2021-07-17 10:37:00 64.00 inches Daren F Vipin Body Temperature 2021-07-17 10:37:00 98.30 degrees Daren F Vipin Heart Rate 2021-07-17 10:37:00 62.00 /min [place] en F Vipin Respiratory Rate 2021-07-17 10:37:00 18.00 /min Daren F Vipin BP Systolic 2021-03-23 10:22:00 208 mm[Hg] BP [...] Rate 2019-11-02 10:17:00 Respiratory Rate 2019-11-02 10:17:00 Procedures Procedure Date / Time Performed Performing Clinicia n Source HB ECG ROUTINE & RHYTHM STRIP 2023-11-14 20:20:13 Tawana Jara [facility] Plan of Care Planned Activity Planned Date Details Comments Source Goal Plan of Care Note [code = 94559-7] Goal Plan of Care Note [code = 42735-5] Goal Plan of Care Note [code = 38670-7] Goal Plan of Care Note [code = 83838-1] Goal Plan of Care Note [code = 15102-5] Goal Plan of Care Note [code = 99916-0] Goal Plan of Care Note [code = 47382-6] Goal Plan of Care Note [code = 28601-9] Goal Plan of Care Note [code = 40926-0] Goal Plan of Care Note [code = 02228-6] Goal Plan of Care Note [code = 98464-2] Goal Plan of Care Note [code = 42891-7] Goal Plan of Care Note [code = 43778-8] Goal Plan of Care Note [code = 31359-9] Goal Plan of Care Note [code = 71600-2] Goal Plan of Care Note [code = 40341-0] Goal Plan of Care Note [code = 44929-7] Goal Plan of Care Note [code = 74304-8] Goal Plan of Care Note [code = 36612-9] Encounters Start Date/Time End Date/Time Encounter Type Admission Type Attending [facility] Facility Care Department Encounter ID Source 2024-02-11 09:30:00 2024-02-11 09:30:00 Outpatient JANI HASKINS CRAIG [facility] [id number] [facility] 2024-01-23 19:08:00 2024-01-23 21:21:00 Emergency PHYLLIS NAM ERICCA [facility] E[facility] [id number] [facility] 2024-01-23 19:08:00 2024-01-23 21:21:00 Emergency Phyllis Farah [facility] [id number] 350.1.13.10 4.2.7.2.[id number] [facility] 2023-12-31 10:00:00 2023-12-31 10:00:00 Outpatient TAWANA WELDON [facility] [id number] [facility] 2023-12-30 00:00:00 2023-12-31 08:58:47 Telephone Joseph Marin [facility] [id number] 350.1.13.10 4.2.7.2.[id number] [facility] 2023-12-26 00:00:00 2023-12-30 09:11:49 Telephone Joseph Marin [facility] 1.2840.114 350.1.13.10 4.2.7.2.[id number] [facility] 2023-12-23 13:48:56 2023-12-23 13:48:56 Outpatient SFA [facility] [id number] Daren Snow Vipin 2023-12-20 11:15:22 2023-12-20 11:15:22 Outpatient SFA [facility] [id number] Daren Snow Vipin 2023-12-19 00:00:00 2023-12-19 09:06:37 Telephone Tawana Jara [facility] 1..840.114 350.1.13.10 4.2.7.2.[id number] [facility] 2023-12-04 09:00:00 2023-12-04 09:29:52 Outpatient R ZION JOSEPH ANDERSON ZION [facility] [id number] [facility] 2023-12-04 09:00:00 2023-12-04 09:29:52 Office Visit Zion Anderson [facility] 1.2.840.114 350.1.13.10 4.2.7.2.[id number] [facility] 2023-11-28 00:00:00 2023-11-28 12:25:34 Telephone Tawana JaraHYaakov [facility] 1..840.114 350.1.13.10 4.2.7.2.[id number] [facility] 2023-11-25 07:49:07 2023-11-25 23:59:00 Outpatient R TAWANA JARA [facility] [id number] [facility] 2023-11-25 07:49:07 2023-11-25 23:59:00 Hospital En[facility] 1.2.840.114 350.1.13.10 4.2.7.2.[id number] [facility] 2023-11-25 00:00:00 2023-11-25 00:00:00 Outpatient Visit SFA [id number] Daren Lew 2023-11-14 16:00:00 2023-11-14 23:59:00 Outpatient R JRAADARION GAMBOASEBASTIAN [facility] [id number] [facility] 2023-11-14 16:00:00 2023-11-14 23:59:00 Hospital Encounter Darion Jarasebastian YoliYaakov [facility] 1.2.840.114 350.1.13.10 4.2.7.2.[id number] [facility] 2023-11-14 15:30:00 2023-11-14 16:48:44 Office Visit JaraDarionsebastian YoliYaakov [facility] 1.2.840.114 350.1.13.10 4.2.7.2.[id number] [facility] 2023-10-15 11:18:22 2023-10-15 11:18:22 Outpatient SFA [facility] [id number] Daren Lew 2023-10-15 00:00:00 2023-10-15 00:00:00 Outpatient Visit SFA [id number] Daren Lew 2023-08-20 11:04:17 2023-08-20 11:04:17 Outpatient SFA [facility] [id number] Daren Lew 2023-08-19 11:38:56 2023-08-19 11:38:56 Outpatient SFA SFA 0617 Daren Lew 2023-08-19 00:00:00 2023-08-19 00:00:00 Outpatient Visit SFA [id number] Daren Lew 2023-07-22 13:04:21 2023-07-22 13:04:21 Outpatient SFA SFA [id number] Daren Lew 2023-04-19 16:40:16 2023-04-19 16:40:16 Outpatient SFA SFA 021 Daren Lew 2023-01-14 14:33:09 2023-01-14 14:33:09 Outpatient SFA SFA [id number] Daren Lew 2022-12-11 14:59:37 2022-12-11 14:59:37 Outpatient SFA SFA 1010 Daren Lew 2022-11-08 14:00:00 2022-11-08 14:00:00 Outpatient AP BARAJAS [id number] Norma Grimes 2022-10-15 15:59:45 2022-10-15 15:59:45 Outpatient SFA SFA 0814 Daren Lew 2022-07-26 14:50:34 2022-07-26 14:50:34 Outpatient SFA SFA 0525 Daren Snow Vipin 2022-07-12 16:21:33 2022-07-12 16:21:33 Outpatient SFA SFA 0511 Daren Snow Vipin 2022-05-11 09:13:08 2022-05-11 09:13:08 Outpatient SFA SFA [id number] Daren Lew 2022-01-15 17:07:22 2022-01-15 17:07:22 Outpatient SFA SFA [id number] Daren Lew 2021-10-20 00:00:00 2021-10-20 00:00:00 Outpatient Visit [id number] Results Test Description Test Time Test Comments Results Result Co mments Source COMPREHENSIVE METABOLIC [id number] 05:04:30* Test Item Value Reference Range Interpretation Comme nts GLUCOSE (test code = 2216) 89 MG/DL 70-99 BUN (test code = 2207) 17 MG/DL 6-20 CREATININE (test code = 2213) 0.55 MG/DL 0.60-1.30 L eGFR (2020 CKD-EPI) (test code = ) 106 ML/MIN/1.73 >60 CALC BUN/CREAT (test code = 2234) 31 RATIO 6-28 H SODIUM (test code = 2230) 138 MEQ/L 133-146 POTASSIUM (test code = 222) 4.4 MEQ/L 3.5-5.4 CHLORIDE (test code = 2214) 102 MEQ/L 95-107 CARBON DIOXIDE (test code = 2205) 23 MEQ/L 19-31 CALCIUM (test code = 2208) 9.8 MG/DL 8.5-10.5 PROTEIN, TOTAL (test code = 2228) 7.1 G/DL 6.1-8.3 ALBUMIN (test code = 2200) 4.4 G/DL 3.5-5.2 CALC GLOBULIN (test code = 2240) 2.7 G/DL 1.9-3.7 CALC A/G RATIO (test code = 2233) 1.6 RATIO 1.0-2.6 BILIRUBIN, TOTAL (test code = 2206) 0.2 MG/DL <=1.2 ALKALINE PHOSPHATASE (test code = 2203) 121 U/L 40-136 AST (test code = 2218) 21 U/L 9-40 ALT (test code = 2219) 20 U/L 5-40 HEMOGLOBIN [id number] 00:00:00* Test Item Value Reference Range Interpretation Comme nts HEMOGLOBIN A1c (test code = 88154) 5.8 % Daren F VipinCOMPREHENSIVE METABOLIC [id number] 00:00:00* Test Item Value Reference Range Interpretation Comme nts GLUCOSE (test code = 2216) 93 MG/DL BUN (test code = 2207) 17 MG/DL CREATININE (test code = 2214) 0.57 MG/DL eGFR (2020 CKD-EPI) (test code = 60328) 105 ML/MIN/1.73 CALC BUN/CREAT (test code = 2235) 30 RATIO SODIUM (test code = 2231) 140 MEQ/L POTASSIUM (test code = 2228) 3.9 MEQ/L CHLORIDE (test code = 2215) 106 MEQ/L CARBON DIOXIDE (test code = 2206) 20 MEQ/L CALCIUM (test code = 2209) 9.4 MG/DL PROTEIN, TOTAL (test code = 2229) 7.0 G/DL ALBUMIN (test code = 220) 4.2 G/DL CALC GLOBULIN (test code = 2240) 2.8 G/DL CALC A/G RATIO (test code = 2234) 1.5 RATIO BILIRUBIN, TOTAL (test code = 7) 0.3 MG/DL ALKALINE PHOSPHATASE (test code = 2203) 113 U/L AST (test code = 2218) 20 U/L ALT (test code = 2219) 20 U/L Daren LewLIPID [id number] 00:00:00* Test Item Value Reference Range Interpretation Comme nts CHOLESTEROL (test code = 2210) 162 MG/DL TRIGLYCERIDES (test code = 2232) 67 MG/DL HDL CHOLESTEROL (test code = 2220) 61 MG/DL CALC LDL CHOL (test code = 2237) 86 MG/DL RISK RATIO LDL/HDL (test cod e = 2238) 1.41 RATIO Daren LewVITAMIN D, 25 [id number] 00:00:00* Test Item Value Reference Range Interpretation Comme nts VITAMIN D, 25 OH (test code = 4958) 25 NG/ML Daren Snow VipinCBC W/AUTO [id number] 00:00:00* Test Item Value Reference Range Interpretation Comme nts WBC (test code = 1001) 6.6 K/UL RBC (test code = 1002) 4.75 M/UL HEMOGLOBIN (test code = 1003) 13.2 G/DL HEMATOCRIT (test code = 1004) 40.4 % MCV (test code = 1005) 85.1 fL MCH (test code = 1006) 27.8 PG MCHC (test code = 1007) 32.7 G/DL RDW (test code = 1038) 13.1 % NEUTROPHILS (test code = 1008) 56.0 % LYMPHOCYTES (test code = 1010) 34.7 % MONOCYTES (test code = 1011) 6.7 % EOSINOPHILS (test code = 1012) 1.7 % BASOPHILS (test code = 1013) 0.6 % IMMATURE GRANULOCYTES (test code = 1036) 0.3 % NUCLEATED RBCS (test code = 1065) 0.0 /100WBC'S PLATELET COUNT (test code = 1015) 220 K/UL ABSOLUTE NEUTROPHILS (test c ode = 1066) 3.68 K/UL ABSOLUTE LYMPHOCYTES (test c ode = 1067) 2.28 K/UL ABSOLUTE MONOCYTES (test cod e = 1068) 0.44 K/UL ABSOLUTE EOSINOPHILS (test c ode = 1040) 0.11 K/UL ABSOLUTE BASOPHILS (test cod e = 1069) 0.04 K/UL ABS IMMATURE GRANULOCYTES (t est code = 1020) 0.02 K/UL ABS NUCLEATED RBCS (test cod e = 63120) 0.00 K/UL Daren Griggs REFLEX AUTOIMMUNE AB [id number] 00:00:00* Test Item Value Reference Range Interpretation Comme nts ANTI-NUCLEAR ANTIBODIES (tom t code = 3506) NEGATIVE EBONY PATTERN (REPORTED TITER) (test code = 11116) SEE BELOW HOMOGENEOUS (test code = 42366) NEGATIVE TITER SPECKLED (test code = 746154) NEGATIVE TITER DENSE FINE SPECKLED (test co de = 12632) NEGATIVE TITER CENTROMERE (test code = 729867) NEGATIVE TITER COARSE SPECKLED (test code = 171723) NEGATIVE TITER DISCRETE NUCLEAR DOTS (test code = 410011) NEGATIVE TITER NUCLEOLAR (test code = 788145) NEGATIVE TITER NUCLEAR MEMBRANE (test code = 579843) NEGATIVE TITER CYTO. RETICULAR (ALPESH) (test code = 726297) NEGATIVE COMMENTS (test code = 019746) NONE METHOD (test code = 06893) (NOTE) Daren LewC-REACTIVE [id number] 00:00:00* Test Item Value Reference Range Interpretation Comme nts C-REACTIVE PROTEIN (test cod e = 3513) <0.3 MG/DL Daren LewCCP [id number] 00:00:00* Test Item Value Reference Range Interpretation Comme nts CCP IgG (test code = 76390) <0.5 U/ML Daren LewRHEUMATOID FACTOR, [id number] 00:00:00* Test Item Value Reference Range Interpretation Comme clarke RHEUMATOID FACTOR, QUANT (te st code = 3502) <10 IU/ML Daren LewSEDIMENTATION [id number] 00:00:00* Test Item Value Reference Range Interpretation Comme clarke SEDIMENTATION RATE (test code = 1017) TEST NOT PERFORMED MM/HOUR Daren LewHEMOGLOBIN [id number] 00:00:00* Test Item Value Reference Range Interpretation Comme clarke HEMOGLOBIN A1c (test code = 18858) 5.8 % Daren LewCOMPREHENSIVE METABOLIC [id number] 00:00:00* Test Item Value Reference Range Interpretation Comme nts GLUCOSE (test code = 2217) 93 MG/DL BUN (test code = 2208) 17 MG/DL CREATININE (test code = 2214) 0.57 MG/DL eGFR (2020 CKD-EPI) (test code = 42088) 105 ML/MIN/1.73 CALC BUN/CREAT (test code = 2235) 30 RATIO SODIUM (test code = 2231) 140 MEQ/L POTASSIUM (test code = 2228) 3.9 MEQ/L CHLORIDE (test code = 2215) 106 MEQ/L CARBON DIOXIDE (test code = 2206) 20 MEQ/L CALCIUM (test code = 2209) 9.4 MG/DL PROTEIN, TOTAL (test code = 2229) 7.0 G/DL ALBUMIN (test code = 2201) 4.2 G/DL CALC GLOBULIN (test code = 2240) 2.8 G/DL CALC A/G RATIO (test code = 2234) 1.5 RATIO BILIRUBIN, TOTAL (test code = 2207) 0.3 MG/DL ALKALINE PHOSPHATASE (test code = 2204) 113 U/L AST (test code = 2218) 20 U/L ALT (test code = 2219) 20 U/L Daren LewLIPID [id number] 00:00:00* Test Item Value Reference Range Interpretation Comme nts CHOLESTEROL (test code = 2210) 162 MG/DL TRIGLYCERIDES (test code = 2232) 67 MG/DL HDL CHOLESTEROL (test code = 2220) 61 MG/DL CALC LDL CHOL (test code = 2237) 86 MG/DL RISK RATIO LDL/HDL (test cod e = 2238) 1.41 RATIO Daren LewVITAMIN D, 25 [id number] 00:00:00* Test Item Value Reference Range Interpretation Comme nts VITAMIN D, 25 OH (test code = 4958) 25 NG/ML Daren LewCBC W/AUTO [id number] 00:00:00* Test Item Value Reference Range Interpretation Comme nts WBC (test code = 1001) 6.6 K/UL RBC (test code = 1002) 4.75 M/UL HEMOGLOBIN (test code = 1003) 13.2 G/DL HEMATOCRIT (test code = 1004) 40.4 % MCV (test code = 1005) 85.1 fL MCH (test code = 1006) 27.8 PG MCHC (test code = 1007) 32.7 G/DL RDW (test code = 1038) 13.1 % NEUTROPHILS (test code = 1008) 56.0 % LYMPHOCYTES (test code = 1010) 34.7 % MONOCYTES (test code = 1011) 6.7 % EOSINOPHILS (test code = 1012) 1.7 % BASOPHILS (test code = 1013) 0.6 % IMMATURE GRANULOCYTES (test code = 1036) 0.3 % NUCLEATED RBCS (test code = 1065) 0.0 /100WBC'S PLATELET COUNT (test code = 1015) 220 K/UL ABSOLUTE NEUTROPHILS (test c ode = 1066) 3.68 K/UL ABSOLUTE LYMPHOCYTES (test c ode = 1067) 2.28 K/UL ABSOLUTE MONOCYTES (test cod e = 1068) 0.44 K/UL ABSOLUTE EOSINOPHILS (test c ode = 1040) 0.11 K/UL ABSOLUTE BASOPHILS (test cod e = 1069) 0.04 K/UL ABS IMMATURE GRANULOCYTES (t est code = 1020) 0.02 K/UL ABS NUCLEATED RBCS (test cod e = 05654) 0.00 K/UL Daren Griggs REFLEX AUTOIMMUNE AB [id number] 00:00:00* Test Item Value Reference Range Interpretation Comme nts ANTI-NUCLEAR ANTIBODIES (tom t code = 3506) NEGATIVE EBONY PATTERN (REPORTED TITER) (test code = 20700) SEE BELOW HOMOGENEOUS (test code = 71424) NEGATIVE TITER SPECKLED (test code = 447695) NEGATIVE TITER DENSE FINE SPECKLED (test co de = 58358) NEGATIVE TITER CENTROMERE (test code = 905458) NEGATIVE TITER COARSE SPECKLED (test code = 134083) NEGATIVE TITER DISCRETE NUCLEAR DOTS (test code = 165877) NEGATIVE TITER NUCLEOLAR (test code = 061777) NEGATIVE TITER NUCLEAR MEMBRANE (test code = 363989) NEGATIVE TITER CYTO. RETICULAR (ALPESH) (test code = 924042) NEGATIVE COMMENTS (test code = 650758) NONE METHOD (test code = 59566) (NOTE) Daren LewC-REACTIVE [id number] 00:00:00* Test Item Value Reference Range Interpretation Comme nts C-REACTIVE PROTEIN (test cod e = 3513) <0.3 MG/DL Daren LewCCP [id number] 00:00:00* Test Item Value Reference Range Interpretation Comme nts CCP IgG (test code = 00442) <0.5 U/ML Daren LewRHEUMATOID FACTOR, [id number] 00:00:00* Test Item Value Reference Range Interpretation Comme nts RHEUMATOID FACTOR, QUANT (te st code = 3502) <10 IU/ML Daren Snow AustinSEDIMENTATION [id number] 00:00:00* Test Item Value Reference Range Interpretation Comme nts SEDIMENTATION RATE (test code = 1017) TEST NOT PERFORMED MM/HOUR Daren LewCOMPREHENSIVE METABOLIC [id number] 04:55:15* Test Item Value Reference Range Interpretation Comme nts GLUCOSE (test code = 2217) 114 MG/DL 70-99 H BUN (test code = 2208) 13 MG/DL 6-20 CREATININE (test code = 2214) 0.58 MG/DL 0.60-1.30 L eGFR (2020 CKD-EPI) (test code = 82524) 105 ML/MIN/1.73 >60 CALC BUN/CREAT (test code = 2235) 22 RATIO 6-28 SODIUM (test code = 2231) 144 MEQ/L 133-146 POTASSIUM (test code = 2228) 4.5 MEQ/L 3.5-5.4 CHLORIDE (test code = 2215) 107 MEQ/L 95-107 CARBON DIOXIDE (test code = 2206) 26 MEQ/L 19-31 CALCIUM (test code = 2208) 9.8 MG/DL 8.5-10.5 PROTEIN, TOTAL (test code = 2228) 7.5 G/DL 6.1-8.3 ALBUMIN (test code = 1) 4.3 G/DL 3.5-5.2 CALC GLOBULIN (test code = 0) 3.2 G/DL 1.9-3.7 CALC A/G RATIO (test code = 2233) 1.3 RATIO 1.0-2.6 BILIRUBIN, TOTAL (test code = 2206) 0.2 MG/DL See_Comment [Automated me ssage] The system which generated this result transmitted reference range: <=1.2. The reference range was not used to interpret this result as normal/abnormal. ALKALINE PHOSPHATASE (test code = 2203) 118 U/L 40-136 AST (test code = 2217) 30 U/L 9-40 ALT (test code = 2218) 35 U/L 5-40 LIPID [id number] 04:55:15* Test Item Value Reference Range Interpretation Comme nts CHOLESTEROL (test code = 0) 192 MG/DL <200 TRIGLYCERIDES (test code = 2) 352 MG/DL <150 H HDL CHOLESTEROL (test code = 2219) 50 MG/DL >39 CALC LDL CHOL (test code = 2236) 95 MG/DL <100 NOTE: CALCULATED LDL IS BASED ON HORACE-LANGE METHOD WHICHINCLUDES ADJUSTABLE TRIGLYCERIDE:VLDL CHOLESTEROL RATIO.THIS FACTOR VARIES BY MEASURED TRIGLYCERIDE AND NON-HDLCHOLESTEROL CONCENTRATIONS WITH INCREASED CALCULATED LDL SEENIN HIGHER TRIGLYCERIDE OR LOWER NON-HDL SPECIMENS. FOR MOREINFORMATION, SEE CLIENT ANNOUNCEMENT AT [email or web address] RISK RATIO LDL/HDL (test code = 2238) 1.90 RATIO <3.22 HEMOGLOBIN [id number] 03:34:22* Test Item Value Reference Range Interpretation Comme nts HEMOGLOBIN A1c (test code = 87036) 6.2 % 4.2-5.6 H [employer] GUIDELINES FOR HGB A1C: [...] INDICATED, ALL TESTING PERFORMED AT [facility] [address] [place] [id number] JOY OPERATOR HELPER: CASSANDRA GUERRA M.D. [place] NUMBER [id number] [facility] [place]. [id number] LIPID [id number] 00:00:00* Test Item Value Reference Range Interpretation Comme nts CHOLESTEROL (test code = 2210) 192 MG/DL TRIGLYCERIDES (test code = 2232) 352 MG/DL HDL CHOLESTEROL (test code = 2220) 50 MG/DL CALC LDL CHOL (test code = 2237) 95 MG/DL RISK RATIO LDL/HDL (test cod e = 2238) 1.90 RATIO Daren LewHEMOGLOBIN [id number] 00:00:00* Test Item Value Reference Range Interpretation Comme nts HEMOGLOBIN A1c (test code = 66148) 6.2 % Daren LewCOMPREHENSIVE METABOLIC [id number] 00:00:00* Test Item Value Reference Range Interpretation Comme nts GLUCOSE (test code = 2217) 114 MG/DL BUN (test code = 2208) 13 MG/DL CREATININE (test code = 2214) 0.58 MG/DL eGFR (2020 CKD-EPI) (test code = 47191) 105 ML/MIN/1.73 CALC BUN/CREAT (test code = 2235) 22 RATIO SODIUM (test code = 2231) 144 MEQ/L POTASSIUM (test code = 2228) 4.5 MEQ/L CHLORIDE (test code = 2215) 107 MEQ/L CARBON DIOXIDE (test code = 2206) 26 MEQ/L CALCIUM (test code = 2209) 9.8 MG/DL PROTEIN, TOTAL (test code = 2229) 7.5 G/DL ALBUMIN (test code = 2201) 4.3 G/DL CALC GLOBULIN (test code = 2240) 3.2 G/DL CALC A/G RATIO (test code = 2234) 1.3 RATIO BILIRUBIN, TOTAL (test code = 2207) 0.2 MG/DL ALKALINE PHOSPHATASE (test code = 2204) 118 U/L AST (test code = 2218) 30 U/L ALT (test code = 2219) 35 U/L Daren LewLIPID [id number] 00:00:00* Test Item Value Reference Range Interpretation Comme nts CHOLESTEROL (test code = 2210) 192 MG/DL TRIGLYCERIDES (test code = 2232) 352 MG/DL HDL CHOLESTEROL (test code = 2220) 50 MG/DL CALC LDL CHOL (test code = 2237) 95 MG/DL RISK RATIO LDL/HDL (test cod e = 2238) 1.90 RATIO Daren LewHEMOGLOBIN [id number] 00:00:00* Test Item Value Reference Range Interpretation Comme nts HEMOGLOBIN A1c (test code = 09528) 6.2 % Daren LewCOMPREHENSIVE METABOLIC [id number] 00:00:00* Test Item Value Reference Range Interpretation Comme nts GLUCOSE (test code = 2217) 114 MG/DL BUN (test code = 2208) 13 MG/DL CREATININE (test code = 2214) 0.58 MG/DL eGFR (2020 CKD-EPI) (test code = 62503) 105 ML/MIN/1.73 CALC BUN/CREAT (test code = 2235) 22 RATIO SODIUM (test code = 2231) 144 MEQ/L POTASSIUM (test code = 2228) 4.5 MEQ/L CHLORIDE (test code = 2215) 107 MEQ/L CARBON DIOXIDE (test code = 2206) 26 MEQ/L CALCIUM (test code = 2209) 9.8 MG/DL PROTEIN, TOTAL (test code = 2229) 7.5 G/DL ALBUMIN (test code = 2201) 4.3 G/DL CALC GLOBULIN (test code = 2240) 3.2 G/DL CALC A/G RATIO (test code = 2234) 1.3 RATIO BILIRUBIN, TOTAL (test code = 2207) 0.2 MG/DL ALKALINE PHOSPHATASE (test code = 2204) 118 U/L AST (test code = 2218) 30 U/L ALT (test code = 2219) 35 U/L Daren LewLIPID [id number] 00:00:00* Test Item Value Reference Range Interpretation Comme nts CHOLESTEROL (test code = 2210) 192 MG/DL TRIGLYCERIDES (test code = 2232) 352 MG/DL HDL CHOLESTEROL (test code = 2220) 50 MG/DL CALC LDL CHOL (test code = 2237) 95 MG/DL RISK RATIO LDL/HDL (test cod e = 2238) 1.90 RATIO Daren LewHEMOGLOBIN [id number] 00:00:00* Test Item Value Reference Range Interpretation Comme clarke HEMOGLOBIN A1c (test code = 66256) 6.2 % Daren LewCOMPREHENSIVE METABOLIC [id number] 00:00:00* Test Item Value Reference Range Interpretation Comme nts GLUCOSE (test code = 2217) 114 MG/DL BUN (test code = 2208) 13 MG/DL CREATININE (test code = 2214) 0.58 MG/DL eGFR (2020 CKD-EPI) (test code = 16638) 105 ML/MIN/1.73 CALC BUN/CREAT (test code = 2235) 22 RATIO SODIUM (test code = 2231) 144 MEQ/L POTASSIUM (test code = 2228) 4.5 MEQ/L CHLORIDE (test code = 2215) 107 MEQ/L CARBON DIOXIDE (test code = 2206) 26 MEQ/L CALCIUM (test code = 2209) 9.8 MG/DL PROTEIN, TOTAL (test code = 2229) 7.5 G/DL ALBUMIN (test code = 2201) 4.3 G/DL CALC GLOBULIN (test code = 2240) 3.2 G/DL CALC A/G RATIO (test code = 2234) 1.3 RATIO BILIRUBIN, TOTAL (test code = 2207) 0.2 MG/DL ALKALINE PHOSPHATASE (test code = 2204) 118 U/L AST (test code = 2218) 30 U/L ALT (test code = 2219) 35 U/L Daren LewTSH, THIRD [id number] 00:00:00* Test Item Value Reference Range Interpretation Comme clarke TSH, THIRD GENERATION (test code = 2821) 1.580 UIU/ML Daren LewCOMPREHENSIVE METABOLIC [id number] 00:00:00* Test Item Value Reference Range Interpretation Comme nts GLUCOSE (test code = 2217) 102 MG/DL BUN (test code = 2208) 14 MG/DL CREATININE (test code = 2214) 0.65 MG/DL eGFR (2020 CKD-EPI) (test code = 54474) 103 ML/MIN/1.73 CALC BUN/CREAT (test code = 2235) 22 RATIO SODIUM (test code = 2231) 142 MEQ/L POTASSIUM (test code = 2228) 5.0 MEQ/L CHLORIDE (test code = 2215) 106 MEQ/L CARBON DIOXIDE (test code = 2206) 22 MEQ/L CALCIUM (test code = 2209) 9.6 MG/DL PROTEIN, TOTAL (test code = 9) 7.4 G/DL ALBUMIN (test code = 2201) 4.4 G/DL CALC GLOBULIN (test code = 2240) 3.0 G/DL CALC A/G RATIO (test code = 2234) 1.5 RATIO BILIRUBIN, TOTAL (test code = 2206) <0.2 MG/DL ALKALINE PHOSPHATASE (test code = 2203) 123 U/L AST (test code = 2217) 26 U/L ALT (test code = 2218) 29 U/L Daren Gwendolyn VipinVITAMIN D, 25 [id number] 00:00:00* Test Item Value Reference Range Interpretation Comme [facility] VITAMIN D, 25 OH (test code = 4958) 25 NG/ML Daren LewVITAMIN [id number] 00:00:00* Test Item Value Reference Range Interpretation Comme [facility] VITAMIN B-12 (test code = 2840) 263 PG/ML Daren Snow VipinCBC W/AUTO DIFF WITH PLATELETS [ADDED]2022-01-17 00:00:00* Test Item Value Reference Range Interpretation Comme [facility] WBC (test code = 1001) 7.2 K/UL RBC (test code = 1002) 5.16 M/UL HEMOGLOBIN (test code = 1003) 14.1 G/DL HEMATOCRIT (test code = 1004) 43.8 % MCV (test code = 1005) 84.9 fL MCH (test code = 1006) 27.3 PG MCHC (test code = 1007) 32.2 G/DL RDW (test code = 1038) 12.8 % NEUTROPHILS (test code = 1008) 49.6 % LYMPHOCYTES (test code = 1010) 38.2 % MONOCYTES (test code = 1011) 9.4 % EOSINOPHILS (test code = 1012) 1.9 % BASOPHILS (test code = 1013) 0.8 % IMMATURE GRANULOCYTES (test code = 1036) 0.1 % NUCLEATED RBCS (test code = 1065) 0.0 /100WBC'S PLATELET COUNT (test code = 1015) 257 K/UL ABSOLUTE NEUTROPHILS (test c ode = 1066) 3.56 K/UL ABSOLUTE LYMPHOCYTES (test c ode = 1067) 2.75 K/UL ABSOLUTE MONOCYTES (test cod e = 1068) 0.68 K/UL ABSOLUTE EOSINOPHILS (test c ode = 1040) 0.14 K/UL ABSOLUTE BASOPHILS (test cod e = 1069) 0.06 K/UL ABS IMMATURE GRANULOCYTES (t est code = 1020) 0.01 K/UL ABS NUCLEATED RBCS (test cod e = 79813) 0.00 K/UL Daren LewLIPID [id number] 00:00:00* Test Item Value Reference Range Interpretation Comme nts CHOLESTEROL (test code = 2210) 168 MG/DL TRIGLYCERIDES (test code = 2232) 125 MG/DL HDL CHOLESTEROL (test code = 2220) 56 MG/DL CALC LDL CHOL (test code = 2237) 89 MG/DL RISK RATIO LDL/HDL (test cod e = 2238) 1.59 RATIO Daren LewTSH, THIRD [id number] 00:00:00* Test Item Value Reference Range Interpretation Comme nts TSH, THIRD GENERATION (test code = 2821) 1.580 UIU/ML Daren LewCOMPREHENSIVE METABOLIC [id number] 00:00:00* Test Item Value Reference Range Interpretation Comme nts GLUCOSE (test code = 2217) 102 MG/DL BUN (test code = 2208) 14 MG/DL CREATININE (test code = 2214) 0.65 MG/DL eGFR (2020 CKD-EPI) (test code = 22064) 103 ML/MIN/1.73 CALC BUN/CREAT (test code = 2235) 22 RATIO SODIUM (test code = 2231) 142 MEQ/L POTASSIUM (test code = 2228) 5.0 MEQ/L CHLORIDE (test code = 2215) 106 MEQ/L CARBON DIOXIDE (test code = 2206) 22 MEQ/L CALCIUM (test code = 2209) 9.6 MG/DL PROTEIN, TOTAL (test code = 2229) 7.4 G/DL ALBUMIN (test code = 2201) 4.4 G/DL CALC GLOBULIN (test code = 2240) 3.0 G/DL CALC A/G RATIO (test code = 2234) 1.5 RATIO BILIRUBIN, TOTAL (test code = 2207) <0.2 MG/DL ALKALINE PHOSPHATASE (test code = 2204) 123 U/L AST (test code = 2218) 26 U/L ALT (test code = 2219) 29 U/L Daren LewVITAMIN D, 25 [id number] 00:00:00* Test Item Value Reference Range Interpretation Comme [facility] VITAMIN D, 25 OH (test code = 4958) 25 NG/ML Daren LewVITAMIN [id number] 00:00:00* Test Item Value Reference Range Interpretation Comme [facility] VITAMIN B-12 (test code = 2840) 263 PG/ML Daren LewCBC W/AUTO DIFF WITH PLATELETS [ADDED]2022-01-17 00:00:00* Test Item Value Reference Range Interpretation Comme nts WBC (test code = 1001) 7.2 K/UL RBC (test code = 1002) 5.16 M/UL HEMOGLOBIN (test code = 1003) 14.1 G/DL HEMATOCRIT (test code = 1004) 43.8 % MCV (test code = 1005) 84.9 fL MCH (test code = 1006) 27.3 PG MCHC (test code = 1007) 32.2 G/DL RDW (test code = 1038) 12.8 % NEUTROPHILS (test code = 1008) 49.6 % LYMPHOCYTES (test code = 1010) 38.2 % MONOCYTES (test code = 1011) 9.4 % EOSINOPHILS (test code = 1012) 1.9 % BASOPHILS (test code = 1013) 0.8 % IMMATURE GRANULOCYTES (test code = 1036) 0.1 % NUCLEATED RBCS (test code = 1065) 0.0 /100WBC'S PLATELET COUNT (test code = 1015) 257 K/UL ABSOLUTE NEUTROPHILS (test c ode = 1066) 3.56 K/UL ABSOLUTE LYMPHOCYTES (test c ode = 1067) 2.75 K/UL ABSOLUTE MONOCYTES (test cod e = 1068) 0.68 K/UL ABSOLUTE EOSINOPHILS (test c ode = 1040) 0.14 K/UL ABSOLUTE BASOPHILS (test cod e = 1069) 0.06 K/UL ABS IMMATURE GRANULOCYTES (t est code = 1020) 0.01 K/UL ABS NUCLEATED RBCS (test cod e = 44962) 0.00 K/UL Daren LewLIPID [id number] 00:00:00* Test Item Value Reference Range Interpretation Comme nts CHOLESTEROL (test code = 2210) 168 MG/DL TRIGLYCERIDES (test code = 2232) 125 MG/DL HDL CHOLESTEROL (test code = 2220) 56 MG/DL CALC LDL CHOL (test code = 2237) 89 MG/DL RISK RATIO LDL/HDL (test cod e = 2238) 1.59 RATIO Daren LewTSH, THIRD [id number] 00:00:00* Test Item Value Reference Range Interpretation Comme nts TSH, THIRD GENERATION (test code = 2821) 1.580 UIU/ML Daren LewCOMPREHENSIVE METABOLIC [id number] 00:00:00* Test Item Value Reference Range Interpretation Comme nts GLUCOSE (test code = 2217) 102 MG/DL BUN (test code = 2208) 14 MG/DL CREATININE (test code = 2214) 0.65 MG/DL eGFR (2020 CKD-EPI) (test code = 43273) 103 ML/MIN/1.73 CALC BUN/CREAT (test code = 2235) 22 RATIO SODIUM (test code = 2231) 142 MEQ/L POTASSIUM (test code = 2228) 5.0 MEQ/L CHLORIDE (test code = 2215) 106 MEQ/L CARBON DIOXIDE (test code = 2206) 22 MEQ/L CALCIUM (test code = 2209) 9.6 MG/DL PROTEIN, TOTAL (test code = 2229) 7.4 G/DL ALBUMIN (test code = 2201) 4.4 G/DL CALC GLOBULIN (test code = 2240) 3.0 G/DL CALC A/G RATIO (test code = 2234) 1.5 RATIO BILIRUBIN, TOTAL (test code = 2207) <0.2 MG/DL ALKALINE PHOSPHATASE (test code = 2204) 123 U/L AST (test code = 2218) 26 U/L ALT (test code = 2219) 29 U/L Daren LewVITAMIN D, 25 [id number] 00:00:00* Test Item Value Reference Range Interpretation Comme nts VITAMIN D, 25 OH (test code = 4958) 25 NG/ML Daren LewVITAMIN [id number] 00:00:00* Test Item Value Reference Range Interpretation Comme nts VITAMIN B-12 (test code = 2840) 263 PG/ML Daren LewCBC W/AUTO DIFF WITH PLATELETS [ADDED]2022-01-17 00:00:00* Test Item Value Reference Range Interpretation Comme nts WBC (test code = 1001) 7.2 K/UL RBC (test code = 1002) 5.16 M/UL HEMOGLOBIN (test code = 1003) 14.1 G/DL HEMATOCRIT (test code = 1004) 43.8 % MCV (test code = 1005) 84.9 fL MCH (test code = 1006) 27.3 PG MCHC (test code = 1007) 32.2 G/DL RDW (test code = 1038) 12.8 % NEUTROPHILS (test code = 1008) 49.6 % LYMPHOCYTES (test code = 1010) 38.2 % MONOCYTES (test code = 1011) 9.4 % EOSINOPHILS (test code = 1012) 1.9 % BASOPHILS (test code = 1013) 0.8 % IMMATURE GRANULOCYTES (test code = 1036) 0.1 % NUCLEATED RBCS (test code = 1065) 0.0 /100WBC'S PLATELET COUNT (test code = 1015) 257 K/UL ABSOLUTE NEUTROPHILS (test c ode = 1066) 3.56 K/UL ABSOLUTE LYMPHOCYTES (test c ode = 1067) 2.75 K/UL ABSOLUTE MONOCYTES (test cod e = 1068) 0.68 K/UL ABSOLUTE EOSINOPHILS (test c ode = 1040) 0.14 K/UL ABSOLUTE BASOPHILS (test cod e = 1069) 0.06 K/UL ABS IMMATURE GRANULOCYTES (t est code = 1020) 0.01 K/UL ABS NUCLEATED RBCS (test cod e = 44241) 0.00 K/UL Daren LewLIPID [id number] 00:00:00* Test Item Value Reference Range Interpretation Comme nts CHOLESTEROL (test code = 2210) 168 MG/DL TRIGLYCERIDES (test code = 2232) 125 MG/DL HDL CHOLESTEROL (test code = 2220) 56 MG/DL CALC LDL CHOL (test code = 2237) 89 MG/DL RISK RATIO LDL/HDL (test cod e = 2238) 1.59 RATIO Daren LewCOMPREHENSIVE METABOLIC [id number] 00:00:23* Test Item Value Reference Range Interpretation Comme nts GLUCOSE (test code = 2217) 95 MG/DL 70-99 BUN (test code = 2207) 10 MG/DL 6-20 CREATININE (test code = 2214) 0.48 MG/DL 0.60-1.30 L eGFR (2020 CKD-EPI) (test code = 53588) 110 ML/MIN/1.73 >60 CALC BUN/CREAT (test code = 2235) 21 RATIO 6-28 SODIUM (test code = 223) 143 MEQ/L 133-146 POTASSIUM (test code = 2228) 4.8 MEQ/L 3.5-5.4 CHLORIDE (test code = 5) 108 MEQ/L 95-107 H CARBON DIOXIDE (test code = 2206) 23 MEQ/L 19-31 CALCIUM (test code = 2208) 9.3 MG/DL 8.5-10.5 PROTEIN, TOTAL (test code = 2228) 7.1 G/DL 6.1-8.3 ALBUMIN (test code = 2201) 4.4 G/DL 3.5-5.2 CALC GLOBULIN (test code = 2240) 2.7 G/DL 1.9-3.7 CALC A/G RATIO (test code = 223) 1.6 RATIO 1.0-2.6 BILIRUBIN, TOTAL (test code = 220) 0.2 MG/DL See_Comment [Automated me ssage] The system which generated this result transmitted reference range: <=1.2. The reference range was not used to interpret this result as normal/abnormal. ALKALINE PHOSPHATASE (test code = 2204) 131 U/L 40-136 AST (test code = 2218) 30 U/L 9-40 ALT (test code = 2219) 43 U/L 5-40 H UNLESS OTHERWISE INDICATED, ALL TESTING PERFORMED [facility] [employer] [address] [place] [id number] JOY OPERATOR HELPER: KRISTINE MIR M.D. CLIA NUMBER [id number] [place]. [id number] COMPREHENSIVE METABOLIC [id number] 00:00:00* Test Item Value Reference Range Interpretation Comme nts GLUCOSE (test code = 2217) 95 MG/DL BUN (test code = 2208) 10 MG/DL CREATININE (test code = 2214) 0.48 MG/DL eGFR (2020 CKD-EPI) (test code = 33004) 110 ML/MIN/1.73 CALC BUN/CREAT (test code = [...] ALT (test code = 2219) 43 U/L Daren LewCOMPREHENSIVE METABOLIC [id number] 00:00:00* Test Item Value Reference Range Interpretation Comme nts GLUCOSE (test code = 2217) 95 MG/DL BUN (test code = 2208) 10 MG/DL CREATININE (test code = 2214) 0.48 MG/DL eGFR (2020 CKD-EPI) (test code = 37861) 110 ML/MIN/1.73 CALC BUN/CREAT (test code = [...] ALT (test code = 2219) 43 U/L Daren Snow EurekaCOMPREHENSIVE METABOLIC [id number] 00:00:00* Test Item Value Reference Range Interpretation Comme nts GLUCOSE (test code = 2217) 95 MG/DL BUN (test code = 2208) 10 MG/DL CREATININE (test code = 2214) 0.48 MG/DL eGFR (2020 CKD-EPI) (test code = 13295) 110 ML/MIN/1.73 CALC BUN/CREAT (test code = [...] ALT (test code = 2219) 43 U/L Daren LewCOMPREHENSIVE METABOLIC [id number] 00:00:00* Test Item Value Reference Range Interpretation Comme nts GLUCOSE (test code = 2217) 95 MG/DL BUN (test code = 2208) 10 MG/DL CREATININE (test code = 2214) 0.48 MG/DL eGFR (2020 CKD-EPI) (test code = 09086) 110 ML/MIN/1.73 CALC BUN/CREAT (test code = [...] 1.6 RATIO BILIRUBIN, TOTAL (test code = 220) 0.2 MG/DL ALKALINE PHOSPHATASE (test code = 220) 131 U/L AST (test code = 2218) 30 U/L ALT (test code = 2219) 43 U/L COMPREHENSIVE METABOLIC [id number] 06:31:28* Test Item Value Reference Range Interpretation Comme nts GLUCOSE (test code = 2216) 106 MG/DL 70-99 H BUN (test code = 2207) 16 MG/DL 6-20 CREATININE (test code = 221) 0.57 MG/DL 0.60-1.30 L eGFR (2020 CKD-EPI) (test code = 98199) 106 ML/MIN/1.73 >60 CALC BUN/CREAT (test code = 2235) 28 RATIO 6-28 SODIUM (test code = 223) 140 MEQ/L 133-146 POTASSIUM (test code = 2228) 4.7 MEQ/L 3.5-5.4 CHLORIDE (test code = 2215) 104 MEQ/L 95-107 CARBON DIOXIDE (test code = 2206) 24 MEQ/L 19-31 CALCIUM (test code = 2209) 9.9 MG/DL 8.5-10.5 PROTEIN, TOTAL (test code = 222) 7.5 G/DL 6.1-8.3 ALBUMIN (test code = 220) 4.6 G/DL 3.5-5.2 CALC GLOBULIN (test code = 2240) 2.9 G/DL 1.9-3.7 CALC A/G RATIO (test code = 2234) 1.6 RATIO 1.0-2.6 BILIRUBIN, TOTAL (test code = 220) 0.3 MG/DL See_Comment [Automated me ssage] The system which generated this result transmitted reference range: <=1.2. The reference range was not used to interpret this result as normal/abnormal. ALKALINE PHOSPHATASE (test code = 2204) 126 U/L 40-136 AST (test code = 2218) 36 U/L 9-40 ALT (test code = 2219) 46 U/L 5-40 H UNLESS OTHERWISE INDICATED, ALL TESTING PERFORMED [facility] [address] [place] [address] JOY OPERATOR HELPER: KRISTINE MIR M.D. [place] NUMBER [id number] [facility] [place]. [id number] COMPREHENSIVE METABOLIC [id number] 00:00:00* Test Item Value Reference Range Interpretation Comme nts GLUCOSE (test code = 2217) 106 MG/DL BUN (test code = 2208) 16 MG/DL CREATININE (test code = 2214) 0.57 MG/DL eGFR (2020 CKD-EPI) (test code = 94571) 106 ML/MIN/1.73 CALC BUN/CREAT (test code = [...] ALT (test code = 2219) 46 U/L Daren LewCOMPREHENSIVE METABOLIC [id number] 00:00:00* Test Item Value Reference Range Interpretation Comme nts GLUCOSE (test code = 2217) 106 MG/DL BUN (test code = 2208) 16 MG/DL CREATININE (test code = 2214) 0.57 MG/DL eGFR (2020 CKD-EPI) (test code = 75598) 106 ML/MIN/1.73 CALC BUN/CREAT (test code = [...] ALT (test code = 2219) 46 U/L Daren Snow EurekaCOMPREHENSIVE METABOLIC [id number] 00:00:00* Test Item Value Reference Range Interpretation Comme nts GLUCOSE (test code = 2217) 106 MG/DL BUN (test code = 2208) 16 MG/DL CREATININE (test code = 2214) 0.57 MG/DL eGFR (2020 CKD-EPI) (test code = 62133) 106 ML/MIN/1.73 CALC BUN/CREAT (test code = [...] ALT (test code = 2219) 46 U/L Daren F AustinCOMPREHENSIVE METABOLIC [id number] 00:00:00* Test Item Value Reference Range Interpretation Comme nts GLUCOSE (test code = 2217) 106 MG/DL BUN (test code = 2208) 16 MG/DL CREATININE (test code = 2214) 0.57 MG/DL eGFR (2020 CKD-EPI) (test code = 06233) 106 ML/MIN/1.73 CALC BUN/CREAT (test code = [...] code = 2219) 46 U/L COMPREHENSIVE METABOLIC [id number] 00:00:00* Test Item Value Reference Range Interpretation Comme nts GLUCOSE (test code = 2217) 102 MG/DL BUN (test code = 2208) 14 MG/DL CREATININE (test code = 2214) 0.60 MG/DL eGFR AMER. (test cod e = 20146) 118 ML/MIN/1.73 eGFR NON- AMER. (test code = 45722) 102 ML/MIN/1.73 CALC BUN/CREAT (test code = [...] ALT (test code = 2219) 38 U/L [facility]MEADOW[facility] W/AUTO [id number] 00:00:00* Test Item Value Reference Range Interpretation [...] ABS NUCLEATED RBCS (test cod e = 17363) 0.00 K/UL Daren F AustinCOMPREHENSIVE METABOLIC [id number] 00:00:00* Test Item Value Reference Range Interpretation Comme nts GLUCOSE (test code = 2217) 102 MG/DL BUN (test code = 2208) 14 MG/DL CREATININE (test code = 2214) 0.60 MG/DL eGFR AMER. (test cod e = 91633) 118 ML/MIN/1.73 eGFR NON- AMER. (test code = 07204) 102 ML/MIN/1.73 CALC BUN/CREAT (test code = [...] ALT (test code = 2219) 38 U/L Daren Snow [facility]MEADOWVIEW [facility] W/AUTO [id number] 00:00:00* Test Item Value Reference Range Interpretation [...] ABS NUCLEATED RBCS (test cod e = 18349) 0.00 K/UL Daren LewCOMPREHENSIVE METABOLIC [id number] 00:00:00* Test Item Value Reference Range Interpretation Comme nts GLUCOSE (test code = 2217) 102 MG/DL BUN (test code = 2208) 14 MG/DL CREATININE (test code = 2214) 0.60 MG/DL eGFR AMER. (test cod e = 04764) 118 ML/MIN/1.73 eGFR NON- AMER. (test code = 45718) 102 ML/MIN/1.73 CALC BUN/CREAT (test code = [...] ALT (test code = 2219) 38 U/L Daren LewCBC W/AUTO [id number] 00:00:00* Test Item Value Reference Range Interpretation [...] ABS NUCLEATED RBCS (test cod e = 71017) 0.00 K/UL Daren Snow [facility] W/AUTO [id number] 00:00:00* Test Item Value Reference Range Interpretation [...] ABS NUCLEATED RBCS (test cod e = 02350) 0.00 K/UL COMPREHENSIVE METABOLIC [id number] 00:00:00* Test Item Value Reference Range Interpretation Comme nts GLUCOSE (test code = 2217) 102 MG/DL BUN (test code = 2208) 14 MG/DL CREATININE (test code = 2214) 0.60 MG/DL eGFR AMER. (test cod e = 81097) 118 ML/MIN/1.73 eGFR NON- AMER. (test code = 16319) 102 ML/MIN/1.73 CALC BUN/CREAT (test code = [...] (test code = 2219) 38 U/L CULTURE, [id number] 00:00:00* Test Item Value Reference Range Interpretation Comme nts CULTURE, URINE (test code = 65050) SPECIMEN NUMBER: [id number] Daren Mendoza, [id number] 00:00:00* Test Item Value Reference Range Interpretation Comme nts CULTURE, URINE (test code = 67007) SPECIMEN NUMBER: [id number] Daren HarrisLTCANDY, [id number] 00:00:00* Test Item Value Reference Range Interpretation Comme nts CULTURE, URINE (test code = 47548) SPECIMEN NUMBER: [id number] Daren HarrisLTCANDY, [id number] 00:00:00* Test Item Value Reference Range Interpretation Comme nts CULTURE, URINE (test code = 03498) SPECIMEN NUMBER: [id number] VAGINAL PATHOGENS DNA [id number] 00:00:00* Test Item Value Reference Range Interpretation Comme nts SPENCER SPECIES (test code = ) NEGATIVE G. VAGINALIS (test code = 91739) NEGATIVE T. VAGINALIS (test code = ) NEGATIVE Daren Snow AustinVAGINAL PATHOGENS DNA [id number] 00:00:00* Test Item Value Reference Range Interpretation Comme nts SPENCER SPECIES (test code = ) NEGATIVE G. VAGINALIS (test code = 42635) NEGATIVE T. VAGINALIS (test code = 92450) NEGATIVE Daren F AustinVAGINAL PATHOGENS DNA [id number] 00:00:00* Test Item Value Reference Range Interpretation Comme nts SPENCER SPECIES (test code = 69140) NEGATIVE G. VAGINALIS (test code = 93836) NEGATIVE T. VAGINALIS (test code = 81893) NEGATIVE Daren Snow AustinVAGINAL PATHOGENS DNA [id number] 00:00:00* Test Item Value Reference Range Interpretation Comme nts SPENCER SPECIES (test code = ) NEGATIVE G. VAGINALIS (test code = 72719) NEGATIVE T. VAGINALIS (test code = 48160) NEGATIVE LIPID [id number] 00:00:00* Test Item Value Reference Range Interpretation Comme nts CHOLESTEROL (test code = 2210) 169 MG/DL TRIGLYCERIDES (test code = 2232) 136 MG/DL HDL CHOLESTEROL (test code = 2220) 59 MG/DL CALC LDL CHOL (test code = 2237) 87 MG/DL RISK RATIO LDL/HDL (test cod e = 2238) 1.47 RATIO Daren LewHEMOGLOBIN [id number] 00:00:00* Test Item Value Reference Range Interpretation Comme nts HEMOGLOBIN A1c (test code = 07254) 6.0 % Daren Snow AustinCOMPREHENSIVE METABOLIC [id number] 00:00:00* Test Item Value Reference Range Interpretation Comme nts GLUCOSE (test code = 2217) 106 MG/DL BUN (test code = 2208) 16 MG/DL CREATININE (test code = 2214) 0.62 MG/DL eGFR AMER. (test cod e = 38979) 118 ML/MIN/1.73 eGFR NON- AMER. (test code = 14553) 102 ML/MIN/1.73 CALC BUN/CREAT (test code = [...] 2204) 110 U/L AST (test code = 221) 35 U/L ALT (test code = 2219) 44 U/L Daren Snow AustinLIPID [id number] 00:00:00* Test Item Value Reference Range Interpretation Comme nts CHOLESTEROL (test code = 2210) 169 MG/DL TRIGLYCERIDES (test code = 2232) 136 MG/DL HDL CHOLESTEROL (test code = 2220) 59 MG/DL CALC LDL CHOL (test code = 2237) 87 MG/DL RISK RATIO LDL/HDL (test cod e = 223) 1.47 RATIO Daren LewHEMOGLOBIN [id number] 00:00:00* Test Item Value Reference Range Interpretation Comme nts HEMOGLOBIN A1c (test code = 73286) 6.0 % Daren LewCOMPREHENSIVE METABOLIC [id number] 00:00:00* Test Item Value Reference Range Interpretation Comme nts GLUCOSE (test code = 2217) 106 MG/DL BUN (test code = 2208) 16 MG/DL CREATININE (test code = 2214) 0.62 MG/DL eGFR AMER. (test cod e = 52983) 118 ML/MIN/1.73 eGFR NON- AMER. (test code = 01564) 102 ML/MIN/1.73 CALC BUN/CREAT (test code = [...] ALT (test code = 2219) 44 U/L Daren LewLIPID [id number] 00:00:00* Test Item Value Reference Range Interpretation Comme nts CHOLESTEROL (test code = 2210) 169 MG/DL TRIGLYCERIDES (test code = 2232) 136 MG/DL HDL CHOLESTEROL (test code = 2220) 59 MG/DL CALC LDL CHOL (test code = 2237) 87 MG/DL RISK RATIO LDL/HDL (test cod e = 223) 1.47 RATIO Daren LewHEMOGLOBIN [id number] 00:00:00* Test Item Value Reference Range Interpretation Comme nts HEMOGLOBIN A1c (test code = 61083) 6.0 % Daren LewCOMPREHENSIVE METABOLIC [id number] 00:00:00* Test Item Value Reference Range Interpretation Comme nts GLUCOSE (test code = 2217) 106 MG/DL BUN (test code = 2207) 16 MG/DL CREATININE (test code = 2214) 0.62 MG/DL eGFR AMER. (test cod e = 19758) 118 ML/MIN/1.73 eGFR NON- AMER. (test code = 29248) 102 ML/MIN/1.73 CALC BUN/CREAT (test code = [...] ALT (test code = 2219) 44 U/L Daren LewCOMPREHENSIVE METABOLIC [id number] 00:00:00* Test Item Value Reference Range Interpretation Comme nts GLUCOSE (test code = 2217) 106 MG/DL BUN (test code = 2208) 16 MG/DL CREATININE (test code = 2214) 0.62 MG/DL eGFR AMER. (test cod e = 96500) 118 ML/MIN/1.73 eGFR NON- AMER. (test code = 99686) 102 ML/MIN/1.73 CALC BUN/CREAT (test code = [...] (test code = 2219) 44 U/L LIPID [id number] 00:00:00* Test Item Value Reference Range Interpretation Comme nts CHOLESTEROL (test code = 2210) 169 MG/DL TRIGLYCERIDES (test code = 2232) 136 MG/DL HDL CHOLESTEROL (test code = 2220) 59 MG/DL CALC LDL CHOL (test code = 2237) 87 MG/DL RISK RATIO LDL/HDL (test cod e = 2238) 1.47 RATIO HEMOGLOBIN [id number] 00:00:00* Test Item Value Reference Range Interpretation Comme nts HEMOGLOBIN A1c (test code = 08743) 6.0 % HEMOGLOBIN [id number] 00:00:00* Test Item Value Reference Range Interpretation Comme clarke HEMOGLOBIN A1c (test code = 28182) 5.8 % Daren LewHEMOGLOBIN [id number] 00:00:00* Test Item Value Reference Range Interpretation Comme clarke HEMOGLOBIN A1c (test code = 59251) 5.8 % Daren Snow AustinHEMOGLOBIN [id number] 00:00:00* Test Item Value Reference Range Interpretation Comme nts HEMOGLOBIN A1c (test code = 07774) 5.8 % Daren Snow AustinHEMOGLOBIN [id number] 00:00:00* Test Item Value Reference Range Interpretation Comme nts HEMOGLOBIN A1c (test code = 60211) 5.8 % COMPREHENSIVE METABOLIC [id number] 00:00:00* Test Item Value Reference Range Interpretation Comme nts GLUCOSE (test code = 2217) 140 MG/DL BUN (test code = 2208) 14 MG/DL CREATININE (test code = 2214) 0.62 MG/DL eGFR AMER. (test cod e = 45676) 118 ML/MIN/1.73 eGFR NON- AMER. (test code = 20610) 102 ML/MIN/1.73 CALC BUN/CREAT (test code = [...] ALT (test code = 2219) 27 U/L Daren Snow AustinLIPID [id number] 00:00:00* Test Item Value Reference Range Interpretation Comme nts CHOLESTEROL (test code = 2210) 175 MG/DL TRIGLYCERIDES (test code = 2232) 135 MG/DL HDL CHOLESTEROL (test code = 2220) 54 MG/DL CALC LDL CHOL (test code = 2237) 94 MG/DL RISK RATIO LDL/HDL (test cod e = 2238) 1.74 RATIO Daren LewCOMPREHENSIVE METABOLIC [id number] 00:00:00* Test Item Value Reference Range Interpretation Comme nts GLUCOSE (test code = 2217) 140 MG/DL BUN (test code = 2208) 14 MG/DL CREATININE (test code = 2214) 0.62 MG/DL eGFR AMER. (test cod e = 85504) 118 ML/MIN/1.73 eGFR NON- AMER. (test code = 80420) 102 ML/MIN/1.73 CALC BUN/CREAT (test code = [...] ALT (test code = 2219) 27 U/L Daren Snow AustinLIPID [id number] 00:00:00* Test Item Value Reference Range Interpretation Comme nts CHOLESTEROL (test code = 2210) 175 MG/DL TRIGLYCERIDES (test code = 2232) 135 MG/DL HDL CHOLESTEROL (test code = 2220) 54 MG/DL CALC LDL CHOL (test code = 2237) 94 MG/DL RISK RATIO LDL/HDL (test cod e = 2238) 1.74 RATIO Daren Snow AustinCOMPREHENSIVE METABOLIC [id number] 00:00:00* Test Item Value Reference Range Interpretation Comme nts GLUCOSE (test code = 2217) 140 MG/DL BUN (test code = 2208) 14 MG/DL CREATININE (test code = 2214) 0.62 MG/DL eGFR AMER. (test cod e = 73274) 118 ML/MIN/1.73 eGFR NON- AMER. (test code = 99763) 102 ML/MIN/1.73 CALC BUN/CREAT (test code = [...] ALT (test code = 2219) 27 U/L Daren Snow AustinLIPID [id number] 00:00:00* Test Item Value Reference Range Interpretation Comme nts CHOLESTEROL (test code = 2210) 175 MG/DL TRIGLYCERIDES (test code = 2232) 135 MG/DL HDL CHOLESTEROL (test code = 2220) 54 MG/DL CALC LDL CHOL (test code = 2237) 94 MG/DL RISK RATIO LDL/HDL (test cod e = 2238) 1.74 RATIO Daren F AustinLIPID [id number] 00:00:00* Test Item Value Reference Range Interpretation Comme nts CHOLESTEROL (test code = 2210) 175 MG/DL TRIGLYCERIDES (test code = 2232) 135 MG/DL HDL CHOLESTEROL (test code = 2220) 54 MG/DL CALC LDL CHOL (test code = 2237) 94 MG/DL RISK RATIO LDL/HDL (test cod e = 2238) 1.74 RATIO COMPREHENSIVE METABOLIC [id number] 00:00:00* Test Item Value Reference Range Interpretation Comme nts GLUCOSE (test code = 2217) 140 MG/DL BUN (test code = 2208) 14 MG/DL CREATININE (test code = 2214) 0.62 MG/DL eGFR AMER. (test cod e = 55646) 118 ML/MIN/1.73 eGFR NON- AMER. (test code = 80306) 102 ML/MIN/1.73 CALC BUN/CREAT (test code = 2235) 23 RATIO SODIUM (test code = 2231) 140 MEQ/L POTASSIUM (test code = 2228) 4.2 MEQ/L CHLORIDE (test code = 2215) 103 MEQ/L CARBON DIOXIDE (test code = 2206) 26 MEQ/L CALCIUM (test code = 2209) 9.2 MG/DL PROTEIN, TOTAL (test code = 222) 7.0 G/DL ALBUMIN (test code = 2201) 4.4 G/DL CALC GLOBULIN (test code = 2240) 2.6 G/DL CALC A/G RATIO (test code = 2234) 1.7 RATIO BILIRUBIN, TOTAL (test code = 2207) 0.3 MG/DL ALKALINE PHOSPHATASE (test code = 2204) 113 U/L AST (test code = 2218) 22 U/L ALT (test code = 2219) 27 U/L LIPID [id number] 00:00:00* Test Item Value Reference Range Interpretation Comme nts CHOLESTEROL (test code = 2210) 185 MG/DL TRIGLYCERIDES (test code = 2232) 228 MG/DL HDL CHOLESTEROL (test code = 2220) 58 MG/DL CALC LDL CHOL (test code = 2237) 81 MG/DL RISK RATIO LDL/HDL (test cod e = 2238) 1.40 RATIO Daren F AustinCOMPREHENSIVE METABOLIC [id number] 00:00:00* Test Item Value Reference Range Interpretation Comme nts GLUCOSE (test code = 2217) 126 MG/DL BUN (test code = 2208) 12 MG/DL CREATININE (test code = 2214) 0.56 MG/DL eGFR AMER. (test cod e = 57103) 123 ML/MIN/1.73 eGFR NON- AMER. (test code = 36647) 106 ML/MIN/1.73 CALC BUN/CREAT (test code = [...] ALT (test code = 2219) 37 U/L Daren LewLIPID [id number] 00:00:00* Test Item Value Reference Range Interpretation Comme nts CHOLESTEROL (test code = 2210) 185 MG/DL TRIGLYCERIDES (test code = 2232) 228 MG/DL HDL CHOLESTEROL (test code = 2220) 58 MG/DL CALC LDL CHOL (test code = 2237) 81 MG/DL RISK RATIO LDL/HDL (test cod e = 2238) 1.40 RATIO Daren LewCOMPREHENSIVE METABOLIC [id number] 00:00:00* Test Item Value Reference Range Interpretation Comme nts GLUCOSE (test code = 2217) 126 MG/DL BUN (test code = 2208) 12 MG/DL CREATININE (test code = 2214) 0.56 MG/DL eGFR AMER. (test cod e = 34657) 123 ML/MIN/1.73 eGFR NON- AMER. (test code = 75525) 106 ML/MIN/1.73 CALC BUN/CREAT (test code = [...] ALT (test code = 2219) 37 U/L Daren LewLIPID [id number] 00:00:00* Test Item Value Reference Range Interpretation Comme nts CHOLESTEROL (test code = 2210) 185 MG/DL TRIGLYCERIDES (test code = 2232) 228 MG/DL HDL CHOLESTEROL (test code = 2220) 58 MG/DL CALC LDL CHOL (test code = 2237) 81 MG/DL RISK RATIO LDL/HDL (test cod e = 2238) 1.40 RATIO Daren LewCOMPREHENSIVE METABOLIC [id number] 00:00:00* Test Item Value Reference Range Interpretation Comme nts GLUCOSE (test code = 2217) 126 MG/DL BUN (test code = 2208) 12 MG/DL CREATININE (test code = 2214) 0.56 MG/DL eGFR AMER. (test cod e = 84320) 123 ML/MIN/1.73 eGFR NON- AMER. (test code = 10391) 106 ML/MIN/1.73 CALC BUN/CREAT (test code = [...] ALT (test code = 2219) 37 U/L Daren LewCOMPREHENSIVE METABOLIC [id number] 00:00:00* Test Item Value Reference Range Interpretation Comme nts GLUCOSE (test code = 2217) 126 MG/DL BUN (test code = 2208) 12 MG/DL CREATININE (test code = 2214) 0.56 MG/DL eGFR AMER. (test cod e = 26621) 123 ML/MIN/1.73 eGFR NON- AMER. (test code = 28625) 106 ML/MIN/1.73 CALC BUN/CREAT (test code = [...] (test code = 2219) 37 U/L LIPID [id number] 00:00:00* Test Item Value Reference Range Interpretation Comme nts CHOLESTEROL (test code = 2210) 185 MG/DL TRIGLYCERIDES (test code = 2232) 228 MG/DL HDL CHOLESTEROL (test code = 2220) 58 MG/DL CALC LDL CHOL (test code = 2237) 81 MG/DL RISK RATIO LDL/HDL (test cod e = 2238) 1.40 RATIO COMPREHENSIVE METABOLIC [id number] 00:00:00* Test Item Value Reference Range Interpretation Comme nts GLUCOSE (test code = 2217) 98 MG/DL BUN (test code = 2208) 13 MG/DL CREATININE (test code = 2214) 0.69 MG/DL eGFR AMER. (test cod e = 29583) 116 ML/MIN/1.73 eGFR NON- AMER. (test code = 85259) 100 ML/MIN/1.73 CALC BUN/CREAT (test code = [...] ALT (test code = 2219) 44 U/L Daren Gwendolyn EurekaCOMPREHENSIVE METABOLIC [id number] 00:00:00* Test Item Value Reference Range Interpretation Comme nts GLUCOSE (test code = 2217) 98 MG/DL BUN (test code = 2208) 13 MG/DL CREATININE (test code = 2214) 0.69 MG/DL eGFR AMER. (test cod e = 89873) 116 ML/MIN/1.73 eGFR NON- AMER. (test code = 83069) 100 ML/MIN/1.73 CALC BUN/CREAT (test code = [...] ALT (test code = 2219) 44 U/L Daren F EurekaCOMPREHENSIVE METABOLIC [id number] 00:00:00* Test Item Value Reference Range Interpretation Comme nts GLUCOSE (test code = 2217) 98 MG/DL BUN (test code = 2208) 13 MG/DL CREATININE (test code = 2214) 0.69 MG/DL eGFR AMER. (test cod e = 54512) 116 ML/MIN/1.73 eGFR NON- AMER. (test code = 72817) 100 ML/MIN/1.73 CALC BUN/CREAT (test code = [...] ALT (test code = 2219) 44 U/L Daren Snow EurekaCOMPREHENSIVE METABOLIC [id number] 00:00:00* Test Item Value Reference Range Interpretation Comme nts GLUCOSE (test code = 2217) 98 MG/DL BUN (test code = 2208) 13 MG/DL CREATININE (test code = 2214) 0.69 MG/DL eGFR AMER. (test cod e = 89936) 116 ML/MIN/1.73 eGFR NON- AMER. (test code = 41123) 100 ML/MIN/1.73 CALC BUN/CREAT (test code = [...] code = 2219) 44 U/L COMPREHENSIVE METABOLIC [id number] 00:00:00* Test Item Value Reference Range Interpretation Comme nts GLUCOSE (test code = 2217) 113 MG/DL BUN (test code = 2208) 14 MG/DL CREATININE (test code = 2214) 0.63 MG/DL eGFR AMER. (test cod e = 32341) 120 ML/MIN/1.73 eGFR NON- AMER. (test code = 29004) 103 ML/MIN/1.73 CALC BUN/CREAT (test code = [...] ALT (test code = 2219) 69 U/L Daren F EurekaCOMPREHENSIVE METABOLIC [id number] 00:00:00* Test Item Value Reference Range Interpretation Comme nts GLUCOSE (test code = 2217) 113 MG/DL BUN (test code = 2208) 14 MG/DL CREATININE (test code = 2214) 0.63 MG/DL eGFR AMER. (test cod e = 36140) 120 ML/MIN/1.73 eGFR NON- AMER. (test code = 14518) 103 ML/MIN/1.73 CALC BUN/CREAT (test code = [...] ALT (test code = 2219) 69 U/L [facility] [id number] 00:00:00* Test Item Value Reference Range Interpretation Comme nts GLUCOSE (test code = 2217) 113 MG/DL BUN (test code = 2208) 14 MG/DL CREATININE (test code = 2214) 0.63 MG/DL eGFR AMER. (test cod e = 88192) 120 ML/MIN/1.73 eGFR NON- AMER. (test code = 51395) 103 ML/MIN/1.73 CALC BUN/CREAT (test code = [...] ALT (test code = 2219) 69 U/L Daren F EurekaCOMPREHENSIVE METABOLIC [id number] 00:00:00* Test Item Value Reference Range Interpretation Comme nts GLUCOSE (test code = 2217) 113 MG/DL BUN (test code = 2208) 14 MG/DL CREATININE (test code = 2214) 0.63 MG/DL eGFR AMER. (test cod e = 17876) 120 ML/MIN/1.73 eGFR NON- AMER. (test code = 61411) 103 ML/MIN/1.73 CALC BUN/CREAT (test code = [...] ALT (test code = 2219) 69 U/L HEMOGLOBIN [id number] 00:00:00* Test Item Value Reference Range Interpretation Comme [facility] HEMOGLOBIN A1c (test code = 15881) 6.0 % Daren AustinVITAMIN D, 25 [id number] 00:00:00* Test Item Value Reference Range Interpretation Comme [facility] VITAMIN D, 25 OH (test code = 4958) 11 NG/ML Daren F AustinHEMOGLOBIN [id number] 00:00:00* Test Item Value Reference Range Interpretation Comme [facility] HEMOGLOBIN A1c (test code = 62806) 6.0 % Daren AustinVITAMIN D, 25 [id number] 00:00:00* Test Item Value Reference Range Interpretation Comme [facility] VITAMIN D, 25 OH (test code = 4958) 11 NG/ML Daren F AustinHEMOGLOBIN [id number] 00:00:00* Test Item Value Reference Range Interpretation Comme [facility] HEMOGLOBIN A1c (test code = 44861) 6.0 % Daren LewVITAMIN D, 25 [id number] 00:00:00* Test Item Value Reference Range Interpretation Comme [facility] VITAMIN D, 25 OH (test code = 4958) 11 NG/ML Daren LewHEMOGLOBIN [id number] 00:00:00* Test Item Value Reference Range Interpretation Comme [facility] HEMOGLOBIN A1c (test code = 62425) 6.0 % VITAMIN D, 25 [id number] 00:00:00* Test Item Value Reference Range Interpretation Comme [facility] VITAMIN D, 25 OH (test code = 4958) 11 NG/ML LIPID [id number] 00:00:00* Test Item Value Reference Range Interpretation Comme nts CHOLESTEROL (test code = 2210) 183 MG/DL TRIGLYCERIDES (test code = 2232) 151 MG/DL HDL CHOLESTEROL (test code = 2220) 56 MG/DL CALC LDL CHOL (test code = 2237) 97 MG/DL RISK RATIO LDL/HDL (test cod e = 2238) 1.73 RATIO Daren [id number] 00:00:00* Test Item Value Reference Range Interpretation Comme [facility] TSH (test code = 2821) 1.16 UIU/ML Daren LewVITAMIN [id number] 00:00:00* Test Item Value Reference Range Interpretation Comme [facility] VITAMIN B-12 (test code = 2840) 288 PG/ML Daren LewCOMPREHENSIVE METABOLIC [id number] 00:00:00* Test Item Value Reference Range Interpretation Comme [facility] GLUCOSE (test code = 2217) 97 MG/DL BUN (test code = 2208) 12 MG/DL CREATININE (test code = 2214) 0.57 MG/DL eGFR AMER. (test cod e = 62877) 124 ML/MIN/1.73 eGFR NON- AMER. (test code = 26891) 107 ML/MIN/1.73 CALC BUN/CREAT (test code = [...] ALT (test code = 2219) 34 U/L Daren LewLIPID [id number] 00:00:00* Test Item Value Reference Range Interpretation Comme nts CHOLESTEROL (test code = 2210) 183 MG/DL TRIGLYCERIDES (test code = 2232) 151 MG/DL HDL CHOLESTEROL (test code = 2220) 56 MG/DL CALC LDL CHOL (test code = 2237) 97 MG/DL RISK RATIO LDL/HDL (test cod e = 2238) 1.73 RATIO Daren [id number] 00:00:00* Test Item Value Reference Range Interpretation Comme nts TSH (test code = 2821) 1.16 UIU/ML Daren LewVITAMIN [id number] 00:00:00* Test Item Value Reference Range Interpretation Comme nts VITAMIN B-12 (test code = 2840) 288 PG/ML Daren LewCOMPREHENSIVE METABOLIC [id number] 00:00:00* Test Item Value Reference Range Interpretation Comme nts GLUCOSE (test code = 2217) 97 MG/DL BUN (test code = 2208) 12 MG/DL CREATININE (test code = 2214) 0.57 MG/DL eGFR AMER. (test cod e = 87078) 124 ML/MIN/1.73 eGFR NON- AMER. (test code = 87578) 107 ML/MIN/1.73 CALC BUN/CREAT (test code = [...] ALT (test code = 2219) 34 U/L Daren LewLIPID [id number] 00:00:00* Test Item Value Reference Range Interpretation Comme nts CHOLESTEROL (test code = 2210) 183 MG/DL TRIGLYCERIDES (test code = 2232) 151 MG/DL HDL CHOLESTEROL (test code = 2220) 56 MG/DL CALC LDL CHOL (test code = 2237) 97 MG/DL RISK RATIO LDL/HDL (test cod e = 2238) 1.73 RATIO Daren [id number] 00:00:00* Test Item Value Reference Range Interpretation Comme nts TSH (test code = 2821) 1.16 UIU/ML Daren LewVITAMIN [id number] 00:00:00* Test Item Value Reference Range Interpretation Comme nts VITAMIN B-12 (test code = 2840) 288 PG/ML Daren LewCOMPREHENSIVE METABOLIC [id number] 00:00:00* Test Item Value Reference Range Interpretation Comme nts GLUCOSE (test code = 2217) 97 MG/DL BUN (test code = 2208) 12 MG/DL CREATININE (test code = 2214) 0.57 MG/DL eGFR AMER. (test cod e = 05425) 124 ML/MIN/1.73 eGFR NON- AMER. (test code = 63233) 107 ML/MIN/1.73 CALC BUN/CREAT (test code = [...] ALT (test code = 2219) 34 U/L Daren LewCOMPREHENSIVE METABOLIC [id number] 00:00:00* Test Item Value Reference Range Interpretation Comme nts GLUCOSE (test code = 2217) 97 MG/DL BUN (test code = 2208) 12 MG/DL CREATININE (test code = 2214) 0.57 MG/DL eGFR AMER. (test cod e = 08384) 124 ML/MIN/1.73 eGFR NON- AMER. (test code = 33121) 107 ML/MIN/1.73 CALC BUN/CREAT (test code = [...] (test code = 2219) 34 U/L LIPID [id number] 00:00:00* Test Item Value Reference Range Interpretation Comme nts CHOLESTEROL (test code = 2210) 183 MG/DL TRIGLYCERIDES (test code = 2232) 151 MG/DL HDL CHOLESTEROL (test code = 2220) 56 MG/DL CALC LDL CHOL (test code = 2237) 97 MG/DL RISK RATIO LDL/HDL (test cod e = 2238) 1.73 RATIO [id number] 00:00:00* Test Item Value Reference Range Interpretation Comme nts TSH (test code = 2821) 1.16 UIU/ML VITAMIN [id number] 00:00:00* Test Item Value Reference Range Interpretation Comme nts VITAMIN B-12 (test code = 2840) 288 PG/ML CBC W/AUTO [id number] 00:00:00* Test Item Value Reference Range Interpretation [...] COUNT (test code = 1015) 319 K/UL Daren F AustinCBC W/AUTO [id number] 00:00:00* Test Item Value Reference Range Interpretation [...] COUNT (test code = 1015) 319 K/UL Daren F AustinCBC W/AUTO [id number] 00:00:00* Test Item Value Reference Range Interpretation [...] COUNT (test code = 1015) 319 K/UL Daren Snow [facility] W/AUTO [id number] 00:00:00* Test Item Value Reference Range Interpretation [...] COUNT (test code = 1015) 319 K/UL Notes Date/Time Note Provider Source 2024-01-23 21:19:40 Pt given printed and verbal discharge instructions regarding shoulder strain, & shoulder impingement syndrome. Prescriptions provided Discussed tramadol side affects and to avoid driving/operating machinery/or engaging in activities requiring alertness while taking. Pt verbalized understanding of instructions, pt awake alert oriented, resp reg unlabored, skin w/d, color appropriate for race, moves all ext well,pt encouraged to follow up with pcp and ortho. Advised to seek medical attention for new/prolonged/worsening of symptoms. No adverse reaction to meds given in ER noted upon discharge. Awake, alert oriented, resp reg unlabored, skin w/d, pt leaving amb with steady gait, in no apparent distress. AND MAKEUP DESIGNER Yuliana Lerner RN [facility] 2024-01-23 19:07:51 UA collected in triage and labled placed in the med station. AND MAKEUP DESIGNER [facility] 2024-01-23 19:05:56 C/O right upper arm pain for 2 years. AND MAKEUP DESIGNER Ninoska De La Fuente RN [facility] 2024-01-03 10:21:15 [facility], pharmacy attempted to contact patient X2 to notify her. RX cost is $10. Spoke with patient and notified. Given number to pharmacy, she states she will contact them. NTHT Rabia Sainz RN [facility] 2024-01-02 09:03:00 Attempted to contact patient with no answer, Voicemail left at this time with clinic phone number and instructed patient to return call. 01/01/24: I spoke with pharmacy, states patient was not able to afford RX ($31.15) and they are in the process of getting her approved for medication assistance program. Will route to provider to make him aware. NTHT Rabia Sainz RN [facility] 2023-12-31 10:56:54 Attempted to contact patient with no answer, Voicemail left at this time patient notified RX was sent. Clinic phone number given and instructed patient to return call. Rabia Sainz RN [facility] 2023-12-30 08:33:15 Attempted to contact patient with no answer, Voicemail left at this time with clinic phone number and instructed patient to return call. Rabia Sainz RN [facility] 2023-12-30 08:12:55 Changed it to Eliquis 5 mg bid Joseph Marin MD IM-CLINICAL CARDIAC ELECTROPHYSIOLOGY STAFF [facility] 2023-12-30 08:05:[address] Marin at this time. T [facility] 2023-12-27 10:01:11 Images from the original note were not included. Patient states she started taking Xarelto 2 days ago and experienced dizziness and nausea. States she stopped taking the medication because of the side effects and does not wish to take it anymore. She wants to know if Dr Marin recommends an alternative medication. Her takes generic Plavix and she wants to see if this would be a good option for her. I notified her I would send message to Dr Marin for recommendations. Per [facility] 2023-12-26 13:50:43 Marzena Quintana is a 58 year old female. Pt states that rivaroxaban (XARELTO) 15 mg tablet Is making her feel ill and she wants to know if provider can prescribe her something else. Please advise. Abhishek Jaramillo [facility] 2023-12-19 09:05:00 Images from the original note were not included. Notified patient per DR Jara: Tawana Jara MD P Cardiology Nurse Shows paroxysmal atrial fibrillation. 2% burden noted. Follow-up with me as scheduled. Patient verbal understanding. Patient also stated PCP made changes to medication (Blood thinner) and will not take medication until she does lab work and will have a copy sent to Dr Jara as well. Hayde Avalos MA [facility] 2023-12-04 09:00:00 Addended by: JOSEPH MARIN on: 12/04/2023 10:08 AM Modules accepted: Orders [facility] 2023-11-28 13:50:50 Addended by: JEANETTE HDEZ RN on: 11/28/2023 01:50 PM Modules accepted: Orders Jeanette Hdez RN [facility] 2023-11-28 13:39:31 Images from the original note were not included. Patient was notified of the events/recommendations. She did report that she has been feeling bad intermittently. Was feeling short of breath this morning. She is currently asymptomatic. Discussed ER precautions. Patient confirmed that she has been taking medications as written, however, does adjust medications based upon her BP. For example, this morning BP was 113/80-120/81 and she did not take any medication. Patient education on reasoning for carvedilol in the setting of afib. Patient verbalized understanding. She was strongly encouraged to keep a BP/HR log and call the clinic so that Dr. Jara can make adjustments as necessary. Patient was also given results of echo. Tawana Jara MD to Cardiology Nurse 11/27/23 7:07 PM Note Echo with in acceptable limits. Preserved LVEF. No significant valve diease noted Elevated RVSP noted. Recommend sleep clinic evaluation to rule out sleep apnea Awaiting 30-day event monitor results. Follow-up as planned. [facility] 2023-11-28 13:10:03 Attempted to contact patient. LVM for patient to return call to [phone]. Jeanette Hdez RN [facility] 2023-11-28 12:19:50 Event monitor strips reviewed. Multiple A-fib with RVR episodes noted. Referral to EP placed. Please maira. Please verify that currently on carvedilol 6.25 mg once daily, enalapril 20 mg daily, and verapamil 120 mg daily. Please ask her to increase Coreg 12.5 mg BiD. Continue with rest of meds with no changes. BP Log in 10 days. [facility] 2023-11-28 09:41:36 Images from the original note were not included. Received call from [employer] to report atrial fibrillation with RVR HR 167-180. Auto detected recording. Attempted to contact patient. LVM advising her to call back to the clinic. Jeanette Hdez RN [facility] 2023-11-28 09:38:19 Marzena Quintana is a 58 year old female [employer] calling with serious EKG [facility] 16:00:00 [employer] 30-day event monitor applied to patient. Wear and care explained. Patient verbalized understanding. Patient given instruction on how to return monitor on 12/14/2023 to [employer] . [facility] [id number] 00:00:00 [facility]2024-06-17 00:00:00 [facility]
--- NOTE | 2024-02-04 10:45 | RAD REPORT ---
EXAMINATION: Shoulder Right 2+ Views CLINICAL INDICATION: Female, 58 years old. R shoulder injury RIGHT COMPARISON: No prior exam. FINDINGS: No acute fracture. Ossific density adjacent to the greater tuberosity. No malalignment/dislocation. Mild right AC joint degenerative changes. Other: n/a IMPRESSION: No acute osseous abnormality. Question calcific tendinitis.
--- NOTE | 2024-02-04 10:45 | RAD REPORT ---
EXAM:Scapula Right HISTORY: RUE injury COMPARISON: None IMPRESSION: No right scapular fracture identified. Right shoulder is located.
[2024-02-04] MEDS ORDERED: methocarbamoL 500 MG TAB ONE (10:50)
[2024-02-04] MEDS ORDERED: KETOROLAC 30 MG/ML INJ ONE (10:50)
[2024-02-04] MEDS ORDERED: ACETAMINOPHEN 500 MG TAB ONE (10:50)
--- NOTE | 2024-02-04 11:07 | ER ---
Nurse's Notes [facility] Name: Aimee Quintana Age: 58 yrs Sex: Female : 1965 Arrival Date: 02/04/2024 Time: 09:24 Bed 9 Private MD: Diagnosis: Tenditinitis Presentation: 02/03 09:36 Chief complaint: Patient states: right arm pain that began 1-2 weeks ago, pt reports aa5 being seen in [place] ER and prescribed "pain medicine but not helping". Coronavirus screen: At this time, the client does not indicate any symptoms associated with coronavirus-19. Ebola Screen: Patient denies travel to an Ebola-affected area in the 21 days before illness onset. Initial Sepsis Screen: Does the patient meet any 2 criteria? No. Patient's initial sepsis screen is negative. Does the patient have a suspected source of infection? No. Patient's initial sepsis screen is negative. Risk Assessment: Do you want to hurt yourself or someone else? Patient reports no desire to harm self or others. Onset of symptoms was January 2024. 09:36 Acuity: TIANNA 4 aa5 09:36 Method Of Arrival: Ambulatory aa5 Historical: - Allergies: 09:38 hydrochlorothiazide; aa5 09:38 Prednisone (Upset stomach); aa5 09:38 tramadol (Upset stomach); aa5 - Home Meds: 09:38 Eliquis, verapamil, enalapril, carvedilol [Active]; aa5 - PMHx: 09:38 Hypertension; Atrial fibrillation; aa5 - Immunization history:: Adult Immunizations unknown. - Infectious Disease History:: Denies. - Social history:: Smoking status: Patient denies any tobacco usage or history of. Screenin:24 [facility] ED Fall Risk Assessment (Adult) History of falling in the last 3 months, kb3 including since admission No falls in past 3 months (0 pts) Confusion or Disorientation No (0 pts) Intoxicated or Sedated No (0 pts) Impaired Gait No (0 pts) Mobility Assist Device Used No (0 pt) Altered Elimination No (0 pt) Score/Fall Risk Level 0 - 2 = Low Risk Oriented to surroundings. Abuse screen: Denies threats or abuse. Denies injuries from another. Nutritional screening: No deficits noted. Tuberculosis screening: No symptoms or risk factors identified. Assessment: 09:36 General: Appears uncomfortable, Behavior is calm, cooperative. Pain: Complains of pain aa5 in right scapula Pain radiates to right arm Pain currently is 8 out of 10 on a pain scale. Neuro: Level of Consciousness is awake, alert, obeys commands, Oriented to person, place, time, situation. Cardiovascular: Patient's skin is warm and dry. Respiratory: Airway is patent Respiratory effort is even, unlabored, Respiratory pattern is regular, symmetrical. GI: No signs and/or symptoms were reported involving the gastrointestinal system. : No signs and/or symptoms were reported regarding the genitourinary system. EENT: No signs and/or symptoms were reported regarding the EENT system. Derm: Skin is pink, warm \\T\\ dry. Musculoskeletal: Reports pain in right arm. 10:55 Reassessment: Patient is alert, oriented x 3, equal unlabored respirations, skin aa5 warm/dry/pink. 11:24 Pain: Complains of pain in anterior aspect of right shoulder Pain radiates to right kb3 sternocleidomastoid Pain currently is 3 out of 10 on a pain scale. Quality of pain is described as aching. Vital Signs: 09:36 BP 180 / 90; Pulse 72; Resp 18 S; Temp 97.8(TE); Pulse Ox 100% on R/A; aa5 11:14 BP 133 / 80; Pulse 63; Resp 16; Pulse Ox 100% on R/A; bc6 ED Course: 09:28 Patient arrived in ED. im 09:32 Stephon Kovacs MD is Attending Physician. ec2 09:36 Arm band placed on. aa5 09:38 Triage completed. aa5 10:22 Shoulder Right (2 View) XRAY In Process Unspecified. EDMS 10:22 Scapula Right XRAY In Process Unspecified. EDMS 10:55 Arely Schroeder, KRISTY is Primary Nurse. aa5 11:24 Patient has correct armband on for positive identification. Provided Education on: kb3 Discharge, RICE. 11:24 No provider procedures requiring assistance completed. Patient did not have IV access kb3 during this emergency room visit. Sling applied to right arm. Administered Medications: 10:55 Drug: Ketorolac IM 15 mg IM once Route: IM; Site: right deltoid; aa5 11:23 Follow up: Response: No adverse reaction; Pain is decreased kb3 10:55 Drug: Acetaminophen PO 1000 mg PO once Route: PO; aa5 11:23 Follow up: Response: No adverse reaction; Pain is decreased kb3 10:55 Drug: Methocarbamol PO 500 mg PO once Route: PO; aa5 11:23 Follow up: Response: No adverse reaction; Pain is decreased kb3 Medication: 11:25 VIS not applicable for this client. kb3 Outcome: 11:06 Discharge ordered by . ec2 11:25 Discharged to home ambulatory, kb3 11:25 Condition: stable 11:25 Discharge instructions given to patient, Instructed on discharge instructions, follow up and referral plans. medication usage, Demonstrated understanding of instructions, follow-up care, medications, Prescriptions given X 1, 11:26 Patient left the ED. kb3 Signatures: Dispatcher [employer] Arely Gomez RN RN aa5 Alise Chacon RN RN kb3 Rosalinda Nagel 6 Patricia Veras Edwin, MD MD ec2
--- NOTE | 2024-02-04 11:07 | EDPHYS ---
Physician Documentation [facility] Name: Aimee Quintana Age: 58 yrs Sex: Female : 1965 Arrival Date: 02/04/2024 Time: 09:24 Bed 9 Private MD: ED Physician Stephon Kovacs HPI: 02/03 10:04 This 58 yrs old Female presents to ER via Ambulatory with complaints of Arm ec2 Pain - right. 10:04 Patient arrives today for evaluation of right upper extremity pain. Patient reports ec2 that she has been having pain for the past couple of weeks, states she is having right shoulder and scapula pain. Reports that she had a fall approximately 1 month ago. Reports she been having pain since that time. States that she was seen previously and no underlying cause was determined.. Historical: - Allergies: 09:38 hydrochlorothiazide; aa5 09:38 Prednisone (Upset stomach); aa5 09:38 tramadol (Upset stomach); aa5 - Home Meds: 09:38 Eliquis, verapamil, enalapril, carvedilol [Active]; aa5 - PMHx: 09:38 Hypertension; Atrial fibrillation; aa5 - Immunization history:: Adult Immunizations unknown. - Infectious Disease History:: Denies. - Social history:: Smoking status: Patient denies any tobacco usage or history of. ROS: 10:04 Constitutional: as per hpi ec2 Exam: 10:04 Constitutional: GEN: NAD Head: atraumatic Eyes: EOMI Ears: External ears are ec2 normal. CV: regular rate LUNGS: no respiratory distress ABD: non-distended SKIN: no evidence of rashes MSK: Right upper extremity with TTP to the scapula and good range of motion, intact distal neurovascular status. Vital Signs: 09:36 BP 180 / 90; Pulse 72; Resp 18 S; Temp 97.8(TE); Pulse Ox 100% on R/A; aa5 11:14 BP 133 / 80; Pulse 63; Resp 16; Pulse Ox 100% on R/A; bc6 MDM: 09:57 Medical Screening Exam initiated ec2 10:05 Data reviewed: vital signs, nurses notes. ED course: Patient arrives today for right ec2 upper extremity pain. Examination remarkable for MSK findings as above. Will obtain radiographs of the scapula as well as shoulder. Suspect likely rotator cuff pathology. Doubt fracture or dislocation, doubt DVT.. 10:55 ED course: Imaging shows likely tendinitis, no fracture or acute traumatic pathology ec2 identified. Will discharge home as the patient follow-up with orthopedic surgery. Return precautions given.. 02/03 10:04 Order name: Shoulder Right (2 View) XRAY; Complete Time: 10:55 ec2 02/03 10:04 Order name: Scapula Right XRAY; Complete Time: 10:55 ec2 02/03 11:23 Order name: Sling; Complete Time: 11:23 kb3 Administered Medications: 10:55 Drug: Ketorolac IM 15 mg IM once Route: IM; Site: right deltoid; aa5 11:23 Follow up: Response: No adverse reaction; Pain is decreased kb3 10:55 Drug: Acetaminophen PO 1000 mg PO once Route: PO; aa5 11:23 Follow up: Response: No adverse reaction; Pain is decreased kb3 10:55 Drug: Methocarbamol PO 500 mg PO once Route: PO; aa5 11:23 Follow up: Response: No adverse reaction; Pain is decreased kb3 Disposition Summary: 02/04/24 11:06 Discharge Ordered Notes: Location: Home ec2 Condition: Stable ec2 Diagnosis - Tenditinitis ec2 Followup: ec2 - With: Private Physician - When: - Reason: Re-evaluation by your physician Discharge Instructions: - Discharge Summary Sheet ec2 - Rotator Cuff Tendinitis ec2 Forms: - Medication Reconciliation Form ec2 - Antibiotic Education ec2 - Prescription Opioid Use ec2 - Patient Portal Instructions ec2 - Leadership Thank You Letter ec2 Prescriptions: - Zanaflex 4 mg Oral Tablet - take 1 tablet ORAL route every 8 hours As needed; 20 tablet; Refills: 0, ec2 Product Selection Permitted Signatures: Dispatcher [employer] Arely Gomez RN RN aa5 Alise Chacon RN RN kb3 Stephon Kovacs MD MD ec2
[2024-02-04 11:30] VITALS: TEMP 97.8; O2SAT 100
[2024-02-04 11:31] VITALS: BP 133/80
== END 2024-02-04 11:26 | disposition home or self-care (01) ==
LOC: ER 09:24
DX: M77.9 Enthesopathy, unspecified (principal)
CPT/HCPCS: 73010; 96372; 99284

== ENCOUNTER 2024-02-05 17:24 | Emergency (ER) | payer OTHER, SELFPAY ==
--- OUTSIDE RECORDS SUMMARY | 2024-02-05 17:29 | XMS REPORT | Continuity of Care Document ---
Author Name Unknown Address [address] [facility] [address] [place] [address] [facility] heal[facility] Address [address] [facility]. 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 Role Phone DAREN Snow [facility], [facility] Physician Unavailable TAWANA JARA.HYaakov Attending Clinician UnavailJOSEPH Coreas Attending Clinician Unavailable JOSEPH MARIN Attending Clinician Unavailable JARROD GONZALEZ Attending Clinician UnavailJARROD Allen Attending Clinician UnavailJANI Santana Attending Clinician UnavailJANI Boles Attending Clinician UnavailPHYLLIS Milligan Attending Clinician Unavailable PHYLLIS FARAH Attending Clinician Unavailable Phyllis Willson Attending Clinician [phone] Joseph Marin MD Attending Clinician [phone] Tawana Jara MD K.HYaakov Attending Clinician AP BARAJAS Attending Clinician Unavailable TAWANA JARA.HYaakov Admitting Clinician Mulugeta rashid Payers Payer Name Policy Type Policy Number Effective Date Expirati on Date Source [facility] [id number] 2023 00:00:00 [employer] MP [employer] SIL[employer] 2: JAY HMO WHIP SAWYER 94 ON 9 [id number] 2022 00:00:00 Problems Condition Name Condition Details Condition Category Status Onset Date Resolution Date Last Treatment Date Treating Clinician Comments Source Surveillan ce of previously prescribed contracept cabrera method Surveillan ce of previously prescribed contracept cabrera method Disease Active 03-24 00:00: 00 [facility] Morbid obesity Morbid obesity Disease Active 07-17 00:00: 00 [facility] Essential hypertensi on, benign Essential hypertensi on, benign Disease Active 07-17 00:00: 00 [facility] 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 Had hyst [facility] Depression Depression Disease Resolve d 07-17 00:00: 00 2014-12-27 00:00:00 2014-12-27 12:29:23 [facility] Excessive or frequent menstruati on Excessive or frequent menstruati on Disease Resolve d 10-11 00:00: 00 2014-12-27 00:00:00 2014-12-27 12:28:58 [facility] Allergies, Adverse Reactions, Alerts Allergy Name Allergy [...] reaction s Active Swelling 07-14 00:00: 00 [facility] HYDROCHL OROTHIAZ MITZI DRUG INGREDI Active SOB 07-14 00:00: 00 [facility] Social History Social Habit Start Date Stop Date Quantity Comments Source [facility] intake 2023-11-14 00:00:00 2023-11-14 00:00:00 Current non-drinker of alcohol (finding) [facility] History of Social function 2023-11-14 00:00:00 2023-11-14 00:00:00 [facility] Tobacco use and exposure 2013-07-14 00:00:00 2013-07-14 00:00:00 Smokeless tobacco non-user [facility] Sex assigned at 1965 00:00:00 1965 00:00:00 [facility] Smoking Status Start Date Stop Date Source Never smoked tobacco [facility] Medications Ordered Medication Name Filled Medication Name Start Date Stop Date Current Medication? Ordering Clinician Indication Dosage Frequency Signature (SIG) Comments Components Source methocarbam oL (ROBAXIN) tablet 500 mg 2023-03 01:45: 00 01-23 03:09 :00 No 500mg 500 mg, Oral, ONCE, 1 dose, On [facility] 01/23/24 at 1945, [facility] HYDROcodone -acetaminop hen (NORCO 5) tablet 1 tablet 2023-03 01:45: 00 01-23 03:08 :00 No 1{tbl} 1 tablet, Oral, ONCE, 1 dose, On [facility] 01/23/24 at 1945, [facility] predniSONE (DELTASONE) tablet 10 mg 2023-03 01:45: 00 01-23 03:09 :00 No 10mg 10 mg, Oral, ONCE, 1 dose, On [facility] 01/23/24 at 1945, [facility] methocarbam oL 500 mg tablet 2023-03 00:00: 00 Yes [id number] 1000mg Take 2 tablets by mouth 2 (two) times daily as needed (muscle spasms). [facility] traMADoL 50 mg tablet 2023-03 00:00: 00 01-30 05:59 :00 Yes [id number] 100mg Take 2 tablets by mouth every 8 (eight) hours as needed for Pain (scale 7-10) for up to 7 days. Indication s: acute pain [facility] predniSONE 50 mg tablet 2023-03 00:00: 00 01-28 05:59 :00 Yes [id number] 50mg Take 1 tablet by mouth in the morning for 5 days. [facility] apixaban (ELIQUIS) 5 mg tablet 2023-03 00:00: 00 04-29 05:59 :00 Yes 1358 5mg Take 1 tablet by mouth in the morning and 1 tablet in the evening. Do all this for 120 days. Indication s: atrial fibrillati on [facility] rivaroxaban (XARELTO) 15 mg tablet 2023-03 00:00: 00 12-29 00:00 :00 No 1358 15mg Take 1 tablet by mouth in the morning. Indication s: atrial fibrillati on [facility] carvediloL 12.5 mg tablet 11-27 00:00: 00 Yes 12.5mg Take 1 tablet by mouth in the morning and 1 tablet in the evening. Take with meals. [facility] fish,bora,f lax oils-om3,6, 9no1 (OMEGA 3-6-9) 1,200 mg Cap 11-13 15:26: 05 Yes 500mg Take 500 mg by mouth. [facility] cetirizine HCl (CETIRIZINE ORAL) 11-13 15:22: 37 Yes 120mg Take by mouth. [facility] enalapril (VASOTEC) 5 mg tablet 11-13 15:22: 37 Yes 20mg Take 4 tablets by mouth in the morning. [facility] carvedilol (COREG) 6.25 mg tablet 11-13 15:10: 38 11-27 00:00 :00 No 6.25mg Take 1 tablet by mouth in the morning and 1 tablet in the evening. Take with meals. [facility] Vitamin D3 25 mcg (1,000 unit) tablet 2024-0 6-20 00:00: 00 Yes 1(1,000 unit) Daren Lew diclofenac 1 % topical gel -17 00:00: 00 Yes 1% Daren Lew verapamil ER (SR) 120 mg tablet,exte nded release -17 00:00: 00 Yes 1mg Daren Lew carvedilol 6.25 mg tablet 08-18 00:00: 00 Yes 1mg Daren Lew enalapril maleate 20 mg tablet 08-18 00:00: 00 Yes 1mg Daren Lew verapamil ER (SR) 120 mg tablet,exte nded release - 00:00: 00 Yes 1mg Daren Lew carvedilol [...] -16 00:00: 00 07-07 00:00 :00 No [id number] Daren Lew VERAPAMIL ER [id number] -12 00:00: 00 Yes 120 Daren Lew VERAPAMIL ER [id number] 2022-03- 00:00: 00 Yes 120 Daren Lew ENALAPRIL 20MG 2022-03- 00:00: 00 Yes [id number] Daren Lew CARVEDILOL 12.5MG 2022-03 00:00: 00 Yes [id number] Daren Lew TAKE 1 TABLET DAILY. 2022-03- 00:00: 00 07-07 00:00 :00 No 10 [...] 00:00: 00 Yes Daren Lew VERAPAMIL ER [id number] 10-15 00:00: 00 Yes [id number] Daren Lew ENALAPRIL 20MG - 00:00: 00 Yes Daren Lew APPLY SPARINGLY TO AFFECTED AREA(S) TWICE DAILY 07-26 00:00: 00 07-07 00:00 :00 No 2 Daren Lew TAKE 1 TABLET TWICE DAILY. 07-12 00:00: 00 07-07 00:00 :00 No 125 Daren Lew TAKE 1 TABLET TWICE DAILY WITH FOOD. - 00:00: 00 07-07 00:00 :00 No [id number] Daren Lew TAKE 1 TABLET BID NEEDED - 00:00: 00 07-07 00:00 :00 No 600 [...] 00:00: 00 No 1mg Dose Unknown 0 5-16 00:00: 00 No verapamil ER (SR) 120 mg tablet,exte nded release 0 5-16 00:00: 00 No 1mg carvedilol 12.5 mg tablet 0 4-15 00:00: 00 Yes 1mg Daren Lew verapamil ER (SR) 120 mg tablet,exte nded release -15 00:00: 00 Yes 1mg Daren Lew enalapril maleate 20 mg tablet 0 -15 00:00: 00 Yes 1mg Daren Lew verapamil ER (SR) 120 mg tablet,exte nded release -15 00:00: 00 No 1mg enalapril maleate 20 [...] release 2020-03 00:00: 00 Yes 1mg Daren Lew enalapril maleate 20 mg tablet 2020-03 0 00:00: 00 Yes 1mg Daren Lew carvedilol 12.5 mg tablet 2020-03 00:00: 00 No 1mg verapamil ER (SR) 120 mg tablet,exte nded release 2020-03 0 00:00: 00 No 1mg enalapril maleate 20 [...] Daren Lew enalapril maleate 20 mg tablet 8 00:00: 00 Yes 1mg Daren Lew verapamil ER (SR) 120 mg tablet,exte nded release 8 00:00: 00 Yes 1mg Daren Lew carvedilol 12.5 mg tablet 8 00:00: 00 No 1mg enalapril maleate 20 mg tablet 10-26 00:00: 00 No 1mg verapamil ER (SR) 120 mg tablet,exte nded release 10-26 00:00: 00 No 1mg Bactrim DS 800 mg-160 mg tablet 07-08 00:00: 00 Yes 1mg Daren Lew Bactrim DS 800 mg-160 mg tablet 5 00:00: 00 No 1mg Augmentin 875 mg-125 mg tablet 4- 00:00: 00 Yes 1mg Daren Lew Augmentin 875 mg-125 mg tablet 4- 00:00: 00 No 1mg Macrobid 100 mg capsule 3- 00:00: 00 Yes 1mg Daren Lew Macrobid [...] No 1mg enalapril maleate 20 mg tablet 2- 00:00: 00 No 1mg Bactrim DS 800 mg-160 mg tablet 1-19 00:00: 00 Yes 1mg Daren Lew [...] 2016-03 00:00: 00 Yes 2mcg/ac tuation Daren F Vipin fluticasone 50 mcg/actuati on nasal spray,suspe nsion [...] then10 mg PO QD x 5 dyas [facility] diphenhydrA MINE (BENADRYL) 25 mg capsule 08-22 00:00: 00 12-03 00:00 :00 No 25mg Take 1 capsule by mouth every 6 (six) hours as needed for Itching or Allergies for up to 20 doses. [facility] ciprofloxac in 500 mg tablet 07-09 00:00: [...] 00 No 1mg carvedilol 6.25 mg tablet 2016-06-01 00:00: 00 No 1mg Immunizations Ordered Immunization Name Filled Immunization Name Date Status Comments Source TDAP 2013-07-14 00:00:00 Completed [facility] TDAP 2013-07-14 00:00:00 Completed [facility] TDAP Unknown Completed [facility] TDAP Unknown Completed [facility] TDAP Unknown Completed [facility] TDAP Unknown Completed [facility] Vital Signs Vital Name Observation Time Observation Value Comments S ource Systolic blood pressure 2024-01-24 03:10:00 154 mm[Hg] [facility] Diastolic blood pressure 2024-01-24 03:10:00 89 mm[Hg] [facility] Heart rate 2024-01-24 03:10:00 65 /min Unive [facility] Body temperature 2024-01-24 03:10:00 36.56 Day [facility] Respiratory rate 2024-01-24 03:10:00 18 /min [facility] Oxygen saturation in Arterial blood by Pulse oximetry 2024-01-24 03:10:00 98 /min [facility] Body height 2024-01-24 01:04:00 165.1 cm [facility] Body weight 2024-01-24 01:04:00 113.399 kg [facility] BMI 2024-01-24 01:04:00 41.60 kg/m2 [facility] Systolic blood pressure 2023-12-04 13:38:00 148 mm[Hg] [facility] Diastolic blood pressure 2023-12-04 13:38:00 79 mm[Hg] [facility] Heart rate 2023-12-04 13:38:00 62 /min Unive [facility] Oxygen saturation in Arterial blood by Pulse oximetry 2023-12-04 13:38:00 95 /min [facility] Body temperature 2023-12-04 13:32:00 36.17 Day [facility] Respiratory rate 2023-12-04 13:32:00 20 /min [facility] Body height 2023-12-04 13:32:00 165.1 cm [facility] Body weight 2023-12-04 13:32:00 111.585 kg [facility] BMI 2023-12-04 13:32:00 40.94 kg/m2 [facility] Systolic blood pressure 2023-11-14 20:26:00 128 mm[Hg] [facility] Diastolic blood pressure 2023-11-14 20:26:00 69 mm[Hg] [facility] Heart rate 2023-11-14 20:26:00 67 /min [facility] Respiratory rate 2023-11-14 20:26:00 18 /min [facility] Body height 2023-11-14 20:26:00 165.1 cm [facility] Body weight 2023-11-14 20:26:00 110.859 kg [facility] BMI 2023-11-14 20:26:00 40.67 kg/m2 [facility] Oxygen saturation in Arterial blood by Pulse oximetry 2023-11-14 20:26:00 91 /min [facility] BP Systolic 2023-10-15 10:51:00 145 mm[Hg] Step [...] 2022-05-11 09:21:00 180 mm[Hg] Step hen F Ivpin BP Diastolic 2022-05-11 09:21:00 94 mm[Hg] Deangelo [...] STRIP 2023-11-14 20:20:13 Tawana Jara [facility] Plan of Care Planned Activity Planned Date Details Comments Source Goal Plan of Care Note [code = 97237-3] Goal Plan of Care Note [code = 13053-6] Goal Plan of Care Note [code = 74849-8] Goal Plan of Care Note [code = 16206-5] Goal Plan of Care Note [code = 00482-6] Goal Plan of Care Note [code = 48537-4] Goal Plan of Care Note [code = 28926-8] Goal Plan of Care Note [code = 97314-8] Goal Plan of Care Note [code = 02209-3] Goal Plan of Care Note [code = 53480-1] Goal Plan of Care Note [code = 65892-5] Goal Plan of Care Note [code = 35258-9] Goal Plan of Care Note [code = 41612-8] Goal Plan of Care Note [code = 95063-7] Goal Plan of Care Note [code = 53129-6] Goal Plan of Care Note [code = 22252-8] Goal Plan of Care Note [code = 47895-0] Goal Plan of Care Note [code = 51840-5] Goal Plan of Care Note [code = 65049-1] Encounters Start Date/Time End Date/Time Encounter Type Admission Type Attending [facility] Facility Care Department Encounter ID Source 2024-02-11 09:30:00 2024-02-11 09:30:00 Outpatient JANI HASKINS [facility]RAIG [facility] [id number] [facility] 2024-01-23 19:08:00 2024-01-23 21:21:00 Emergency PHYLLIS NAM [facility] [id number] [facility] 2024-01-23 19:08:00 2024-01-23 21:21:00 Emergency Phyllis Farah [facility] [id number] 350.1.13.10 4.2.7.2.686 [id number] [facility] 2023-12-31 10:00:00 2023-12-31 10:00:00 Outpatient TAWANA WELDON [facility] [id number] [facility] 2023-12-30 00:00:00 2023-12-31 08:58:47 Telephone Joseph Marin [facility] [id number] 350.1.13.10 4.2.7.2.686 [id number] [facility] 2023-12-26 00:00:00 2023-12-30 09:11:49 Telephone Joseph Marin [facility] [id number] 350.1.13.10 4.2.7.2.686 [id number] [facility] 2023-12-23 13:48:56 2023-12-23 13:48:[address] [facility] [id number] Daren Snow [place] 2023-12-20 11:15:22 2023-12-20 11:15:22 Outpatient [facility] [id number] Daren Lew 2023-12-19 00:00:00 2023-12-19 09:06:37 Telephone Tawana Jara [facility] 1..840.114 350.1.13.10 4.2.7.2.686 [id number] [facility] 2023-12-04 09:00:00 2023-12-04 09:29:52 Outpatient R ZION CAROLANN JOSEPH ZION CAROLANN [facility] [id number] [facility] 2023-12-04 09:00:00 2023-12-04 09:29:52 Office Visit [facility] [id number] 350.1.13.10 4.2.7.2.686 [id number] [facility] 2023-11-28 00:00:00 2023-11-28 12:25:34 Telephone Tawana JaraHYaakov [facility] [id number] 350.1.13.10 4.2.7.2.686 [id number] [facility] 2023-11-25 07:49:07 2023-11-25 23:59:00 Outpatient R TAWANA JARA [facility] [id number] [facility] 2023-11-25 07:49:07 2023-11-25 23:59:00 Hospital Encounter Tawana JaraRoderickYaakov [facility] [id number] 350.1.13.10 4.2.7.2.686 [id number] [facility] 2023-11-25 00:00:00 2023-11-25 00:00:00 Outpatient Visit SFA [id number] Daren Lew 2023-11-14 16:00:00 2023-11-14 23:59:00 Outpatient R TAWANA JARA [facility] [id number] [facility] 2023-11-14 16:00:00 2023-11-14 23:59:00 Hospital Encounter Tawana Jara [facility] 1.2.840.114 350.1.13.10 4.2.7.2.686 [id number] [facility] 2023-11-14 15:30:00 2023-11-14 16:48:44 Office Visit Tawana Jara [facility] 1.2.840.114 350.1.13.10 4.2.7.2.686 [id number] [facility] 2023-10-15 11:18:22 2023-10-15 11:18:22 Outpatient SFA [facility] [id number] Daren Lew 2023-10-15 00:00:00 2023-10-15 00:00:00 Outpatient Visit SFA [id number] Daren Lew 2023-08-20 11:04:17 2023-08-20 11:04:17 Outpatient SFA [facility] [id number] Daren Lew 2023-08-19 11:38:56 2023-08-19 11:38:56 Outpatient SFA SFA 0617 Daren Lew 2023-08-19 00:00:00 2023-08-19 00:00:00 Outpatient Visit SFA [id number] Daren Lew 2023-07-22 13:04:21 2023-07-22 13:04:21 Outpatient SFA SFA [id number] Daren Lew 2023-04-19 16:40:16 2023-04-19 16:40:16 Outpatient SFA SFA 021 Daren Lew 2023-01-14 14:33:09 2023-01-14 14:33:09 Outpatient SFA SFA [id number] Daren Lew 2022-12-11 14:59:37 2022-12-11 14:59:37 Outpatient SFA SFA [id number] Daren Lew 2022-11-08 14:00:00 2022-11-08 14:00:00 Outpatient AP BARAJAS [id number] Norma Grimes 2022-10-15 15:59:45 2022-10-15 15:59:45 Outpatient SFA SFA 0814 Daren Lew 2022-07-26 14:50:34 2022-07-26 14:50:34 Outpatient SFA SFA 0525 Daren Lew 2022-07-12 16:21:33 2022-07-12 16:21:33 Outpatient SFA SFA 0511 Daren Lew 2022-05-11 09:13:08 2022-05-11 09:13:08 Outpatient SFA SFA [id number] Daren Lew 2022-01-15 17:07:22 2022-01-15 17:07:22 Outpatient SFA SFA [id number] Daren Lew 2021-10-20 00:00:00 2021-10-20 00:00:00 Outpatient Visit [id number] Results Test Description Test Time Test Comments Results Result Co mments Source COMPREHENSIVE METABOLIC [id number] 05:04:30* Test Item Value Reference Range Interpretation Comme nts GLUCOSE (test code = 2216) 89 MG/DL 70-99 BUN (test code = 2207) 17 MG/DL 6-20 CREATININE (test code = 2213) 0.55 MG/DL 0.60-1.30 L eGFR (2020 CKD-EPI) (test code = 39717) 106 ML/MIN/1.73 >60 CALC BUN/CREAT (test code [...] 7.1 G/DL 6.1-8.3 ALBUMIN (test code = 220) 4.4 G/DL 3.5-5.2 CALC GLOBULIN (test code = 2240) 2.7 G/DL 1.9-3.7 CALC A/G RATIO (test code = 223) 1.6 RATIO 1.0-2.6 BILIRUBIN, TOTAL (test code = 2206) 0.2 MG/DL <=1.2 ALKALINE PHOSPHATASE (test code = 2203) 121 U/L 40-136 AST (test code = 2218) 21 U/L 9-40 ALT (test code = 2219) 20 U/L 5-40 HEMOGLOBIN [id number] 00:00:00* Test Item Value Reference Range Interpretation Comme nts HEMOGLOBIN A1c (test code = 72622) 5.8 % Daren Snow VipinCOMPREHENSIVE METABOLIC [id number] 00:00:00* Test Item Value Reference Range Interpretation Comme nts GLUCOSE (test code = 2216) 93 MG/DL BUN (test code = 2208) 17 MG/DL CREATININE (test code = 2214) 0.57 MG/DL eGFR (2020 CKD-EPI) (test code = 86376) 105 ML/MIN/1.73 CALC BUN/CREAT (test code = [...] code = 2219) 20 U/L Daren LewLIPID [id number] 00:00:00* Test Item Value Reference Range Interpretation Comme nts CHOLESTEROL (test code = 2210) 162 MG/DL TRIGLYCERIDES (test code = 2232) 67 MG/DL HDL CHOLESTEROL (test code = 2220) 61 MG/DL CALC LDL CHOL (test code = 2237) 86 MG/DL RISK RATIO LDL/HDL (test cod e = 2238) 1.41 RATIO Daren LewVITAMIN D, 25 [id number] 00:00:00* Test Item Value Reference Range Interpretation Comme nts VITAMIN D, 25 OH (test code = 4958) 25 NG/ML Daren LewCBC W/AUTO [id number] 00:00:00* Test Item Value Reference Range Interpretation [...] ABS NUCLEATED RBCS (test cod e = 42361) 0.00 K/UL Daren Griggs REFLEX AUTOIMMUNE AB [id number] 00:00:00* Test Item Value Reference Range Interpretation Comme nts ANTI-NUCLEAR ANTIBODIES (tom t code = 3506) NEGATIVE EBONY PATTERN (REPORTED TITER) (test code = 65156) SEE BELOW HOMOGENEOUS (test code = 94831) NEGATIVE TITER SPECKLED (test code = 024993) NEGATIVE TITER DENSE FINE SPECKLED (test co de = 06073) NEGATIVE TITER CENTROMERE (test code = 937530) NEGATIVE TITER COARSE SPECKLED (test code = 065022) NEGATIVE TITER DISCRETE NUCLEAR DOTS (test code = 517691) NEGATIVE TITER NUCLEOLAR (test code = 761233) NEGATIVE TITER NUCLEAR MEMBRANE (test code = 484357) NEGATIVE TITER CYTO. RETICULAR (ALPESH) (test code = 109659) NEGATIVE COMMENTS (test code = 018239) NONE METHOD (test code = 46641) (NOTE) Daren LewC-REACTIVE [id number] 00:00:00* Test Item Value Reference Range Interpretation Comme nts C-REACTIVE PROTEIN (test cod e = 3513) <0.3 MG/DL Daren LewCCP [id number] 00:00:00* Test Item Value Reference Range Interpretation Comme nts CCP IgG (test code = 20550) <0.5 U/ML Daren LewRHEUMATOID FACTOR, [id number] 00:00:00* Test Item Value Reference Range Interpretation Comme clarke RHEUMATOID FACTOR, QUANT (te st code = 3502) <10 IU/ML Daren Snow AustinSEDIMENTATION [id number] 00:00:00* Test Item Value Reference Range Interpretation Comme nts SEDIMENTATION RATE (test code = 1017) TEST NOT PERFORMED MM/HOUR Daren LewHEMOGLOBIN [id number] 00:00:00* Test Item Value Reference Range Interpretation Comme nts HEMOGLOBIN A1c (test code = 30602) 5.8 % Daren LewCOMPREHENSIVE METABOLIC [id number] 00:00:00* Test Item Value Reference Range Interpretation Comme nts GLUCOSE (test code = 2217) 93 MG/DL BUN (test code = 2208) 17 MG/DL CREATININE (test code = 2214) 0.57 MG/DL eGFR (2020 CKD-EPI) (test code = 88131) 105 ML/MIN/1.73 CALC BUN/CREAT (test code = [...] code = 2219) 20 U/L Daren LewLIPID [id number] 00:00:00* Test Item Value Reference Range Interpretation Comme nts CHOLESTEROL (test code = 2210) 162 MG/DL TRIGLYCERIDES (test code = 2232) 67 MG/DL HDL CHOLESTEROL (test code = 2220) 61 MG/DL CALC LDL CHOL (test code = 2237) 86 MG/DL RISK RATIO LDL/HDL (test cod e = 2238) 1.41 RATIO Daren LewVITAMIN D, 25 [id number] 00:00:00* Test Item Value Reference Range Interpretation Comme nts VITAMIN D, 25 OH (test code = 4958) 25 NG/ML Daren LewCBC W/AUTO [id number] 00:00:00* Test Item Value Reference Range Interpretation [...] ABS NUCLEATED RBCS (test cod e = 72598) 0.00 K/UL Daren Griggs REFLEX AUTOIMMUNE AB [id number] 00:00:00* Test Item Value Reference Range Interpretation Comme nts ANTI-NUCLEAR ANTIBODIES (tom t code = 3506) NEGATIVE EBONY PATTERN (REPORTED TITER) (test code = 74898) SEE BELOW HOMOGENEOUS (test code = 39835) NEGATIVE TITER SPECKLED (test code = 186354) NEGATIVE TITER DENSE FINE SPECKLED (test co de = 95366) NEGATIVE TITER CENTROMERE (test code = 646059) NEGATIVE TITER COARSE SPECKLED (test code = 665738) NEGATIVE TITER DISCRETE NUCLEAR DOTS (test code = 492234) NEGATIVE TITER NUCLEOLAR (test code = 036003) NEGATIVE TITER NUCLEAR MEMBRANE (test code = 862504) NEGATIVE TITER CYTO. RETICULAR (ALPESH) (test code = 678575) NEGATIVE COMMENTS (test code = 048623) NONE METHOD (test code = 80036) (NOTE) Daren Snow AustinC-REACTIVE [id number] 00:00:00* Test Item Value Reference Range Interpretation Comme nts C-REACTIVE PROTEIN (test cod e = 3513) <0.3 MG/DL Daren LewCCP [id number] 00:00:00* Test Item Value Reference Range Interpretation Comme nts CCP IgG (test code = 89307) <0.5 U/ML Daren LewRHEUMATOID FACTOR, [id number] 00:00:00* Test Item Value Reference Range Interpretation Comme nts RHEUMATOID FACTOR, QUANT (te st code = 3502) <10 IU/ML Daren Snow AustinSEDIMENTATION [id number] 00:00:00* Test Item Value Reference Range Interpretation Comme nts SEDIMENTATION RATE (test code = 1017) TEST NOT PERFORMED MM/HOUR Daren LewCOMPREHENSIVE METABOLIC [id number] 04:55:15* Test Item Value Reference Range Interpretation Comme nts GLUCOSE (test code = 2217) 114 MG/DL 70-99 H BUN (test code = 2208) 13 MG/DL 6-20 CREATININE (test code = 2214) 0.58 MG/DL 0.60-1.30 L eGFR (2020 CKD-EPI) (test code = 85443) 105 ML/MIN/1.73 >60 CALC BUN/CREAT (test code [...] code = 2218) 35 U/L 5-40 LIPID [id number] 04:55:15* Test Item Value Reference Range Interpretation [...] SPECIMENS. FOR MOREINFORMATION, SEE CLIENT ANNOUNCEMENT AT [email or web address] RATIO LDL/HDL (test code = 2238) 1.90 RATIO <3.22 HEMOGLOBIN [id number] 03:34:22* Test Item Value Reference Range Interpretation Comme nts HEMOGLOBIN A1c (test code = 09662) 6.2 % 4.2-5.6 H [employer] GUIDELINES FOR HGB A1C: [...] INDICATED, ALL TESTING PERFORMED AT [facility] [address] [place] [address] FISHER TROT LINE: CASSANDRA GUERRA M.D. [place] NUMBER [id number] [facility] [place]. [id number] LIPID [id number] 00:00:00* Test Item Value Reference Range Interpretation Comme nts CHOLESTEROL (test code = 2210) 192 MG/DL TRIGLYCERIDES (test code = 2232) 352 MG/DL HDL CHOLESTEROL (test code = 2220) 50 MG/DL CALC LDL CHOL (test code = 2237) 95 MG/DL RISK RATIO LDL/HDL (test cod e = 2238) 1.90 RATIO Daren LewHEMOGLOBIN [id number] 00:00:00* Test Item Value Reference Range Interpretation Comme nts HEMOGLOBIN A1c (test code = 30171) 6.2 % Daren LewCOMPREHENSIVE METABOLIC [id number] 00:00:00* Test Item Value Reference Range Interpretation Comme nts GLUCOSE (test code = 2217) 114 MG/DL BUN (test code = 2208) 13 MG/DL CREATININE (test code = 2214) 0.58 MG/DL eGFR (2020 CKD-EPI) (test code = 61048) 105 ML/MIN/1.73 CALC BUN/CREAT (test code = [...] code = 2219) 35 U/L Daren LewLIPID [id number] 00:00:00* Test Item Value Reference Range Interpretation Comme nts CHOLESTEROL (test code = 2210) 192 MG/DL TRIGLYCERIDES (test code = 2232) 352 MG/DL HDL CHOLESTEROL (test code = 2220) 50 MG/DL CALC LDL CHOL (test code = 2237) 95 MG/DL RISK RATIO LDL/HDL (test cod e = 2238) 1.90 RATIO Daren LewHEMOGLOBIN [id number] 00:00:00* Test Item Value Reference Range Interpretation Comme nts HEMOGLOBIN A1c (test code = 14410) 6.2 % Daren LewCOMPREHENSIVE METABOLIC [id number] 00:00:00* Test Item Value Reference Range Interpretation Comme nts GLUCOSE (test code = 2217) 114 MG/DL BUN (test code = 2208) 13 MG/DL CREATININE (test code = 2214) 0.58 MG/DL eGFR (2020 CKD-EPI) (test code = 42546) 105 ML/MIN/1.73 CALC BUN/CREAT (test code = [...] code = 2219) 35 U/L Daren LewLIPID [id number] 00:00:00* Test Item Value Reference Range Interpretation Comme nts CHOLESTEROL (test code = 2210) 192 MG/DL TRIGLYCERIDES (test code = 2232) 352 MG/DL HDL CHOLESTEROL (test code = 2220) 50 MG/DL CALC LDL CHOL (test code = 2237) 95 MG/DL RISK RATIO LDL/HDL (test cod e = 2238) 1.90 RATIO Daren eLwHEMOGLOBIN [id number] 00:00:00* Test Item Value Reference Range Interpretation Comme nts HEMOGLOBIN A1c (test code = 02961) 6.2 % Daren LewCOMPREHENSIVE METABOLIC [id number] 00:00:00* Test Item Value Reference Range Interpretation Comme nts GLUCOSE (test code = 2217) 114 MG/DL BUN (test code = 2208) 13 MG/DL CREATININE (test code = 2214) 0.58 MG/DL eGFR (2020 CKD-EPI) (test code = 35673) 105 ML/MIN/1.73 CALC BUN/CREAT (test code = [...] = 2219) 35 U/L Daren LewTSH, THIRD [id number] 00:00:00* Test Item Value Reference Range Interpretation Comme nts TSH, THIRD GENERATION (test code = 2821) 1.580 UIU/ML Daren LewCOMPREHENSIVE METABOLIC [id number] 00:00:00* Test Item Value Reference Range Interpretation Comme nts GLUCOSE (test code = 2217) 102 MG/DL BUN (test code = 2208) 14 MG/DL CREATININE (test code = 2214) 0.65 MG/DL eGFR (2020 CKD-EPI) (test code = 70036) 103 ML/MIN/1.73 CALC BUN/CREAT (test code = 223) 22 RATIO SODIUM (test code = 223) 142 MEQ/L POTASSIUM (test code = 2228) 5.0 MEQ/L CHLORIDE (test code = 2215) 106 MEQ/L CARBON DIOXIDE (test code = 220) 22 MEQ/L CALCIUM (test code = 2209) 9.6 MG/DL PROTEIN, TOTAL (test code = 2228) 7.4 G/DL ALBUMIN (test code = 220) 4.4 G/DL CALC GLOBULIN (test code = 2240) 3.0 G/DL CALC A/G RATIO (test code = 223) 1.5 RATIO BILIRUBIN, TOTAL (test code = 2206) <0.2 MG/DL ALKALINE PHOSPHATASE (test code = 2203) 123 U/L AST (test code = 2217) 26 U/L ALT (test code = 2218) 29 U/L Daren Gwendolyn VipinVITAMIN D, 25 [id number] 00:00:00* Test Item Value Reference Range Interpretation Comme [facility] VITAMIN D, 25 OH (test code = 4958) 25 NG/ML Daren Snow VipinVITAMIN [id number] 00:00:00* Test Item Value Reference Range Interpretation Comme [facility] VITAMIN B-12 (test code = 2840) 263 PG/ML Daren Snow VipinCBC W/AUTO DIFF WITH PLATELETS [ADDED][id number] 00:00:00* Test Item Value Reference Range Interpretation Comme [facility] WBC (test code = 1001) 7.2 K/UL [...] ABS NUCLEATED RBCS (test cod e = 22617) 0.00 K/UL Daren LewLIPID [id number] 00:00:00* Test Item Value Reference Range Interpretation Comme nts CHOLESTEROL (test code = 2210) 168 MG/DL TRIGLYCERIDES (test code = 2232) 125 MG/DL HDL CHOLESTEROL (test code = 2220) 56 MG/DL CALC LDL CHOL (test code = 2237) 89 MG/DL RISK RATIO LDL/HDL (test cod e = 2238) 1.59 RATIO Daren LewTSH, THIRD [id number] 00:00:00* Test Item Value Reference Range Interpretation Comme nts TSH, THIRD GENERATION (test code = 2821) 1.580 UIU/ML Daren LewCOMPREHENSIVE METABOLIC [id number] 00:00:00* Test Item Value Reference Range Interpretation Comme nts GLUCOSE (test code = 2217) 102 MG/DL BUN (test code = 2208) 14 MG/DL CREATININE (test code = 2214) 0.65 MG/DL eGFR (2020 CKD-EPI) (test code = 27404) 103 ML/MIN/1.73 CALC BUN/CREAT (test code = [...] 2219) 29 U/L Daren LewVITAMIN D, 25 [id number] 00:00:00* Test Item Value Reference Range Interpretation Comme [facility] VITAMIN D, 25 OH (test code = 4958) 25 NG/ML Daren LewVITAMIN [id number] 00:00:00* Test Item Value Reference Range Interpretation Comme [facility] VITAMIN B-12 (test code = 2840) 263 [...] ABS NUCLEATED RBCS (test cod e = 74784) 0.00 K/UL Daren LewLIPID [id number] 00:00:00* Test Item Value Reference Range Interpretation Comme nts CHOLESTEROL (test code = 2210) 168 MG/DL TRIGLYCERIDES (test code = 2232) 125 MG/DL HDL CHOLESTEROL (test code = 2220) 56 MG/DL CALC LDL CHOL (test code = 2237) 89 MG/DL RISK RATIO LDL/HDL (test cod e = 2238) 1.59 RATIO Daren LewTSH, THIRD [id number] 00:00:00* Test Item Value Reference Range Interpretation Comme nts TSH, THIRD GENERATION (test code = 2821) 1.580 UIU/ML Daren LewCOMPREHENSIVE METABOLIC [id number] 00:00:00* Test Item Value Reference Range Interpretation Comme nts GLUCOSE (test code = 2217) 102 MG/DL BUN (test code = 2208) 14 MG/DL CREATININE (test code = 2214) 0.65 MG/DL eGFR (2020 CKD-EPI) (test code = 23445) 103 ML/MIN/1.73 CALC BUN/CREAT (test code = [...] 2219) 29 U/L Daren LewVITAMIN D, 25 [id number] 00:00:00* Test Item Value Reference Range Interpretation Comme nts VITAMIN D, 25 OH (test code = 4958) 25 NG/ML Daren LewVITAMIN [id number] 00:00:00* Test Item Value Reference Range Interpretation [...] ABS NUCLEATED RBCS (test cod e = 95439) 0.00 K/UL Daren LewLIPID [id number] 00:00:00* Test Item Value Reference Range Interpretation Comme nts CHOLESTEROL (test code = 2210) 168 MG/DL TRIGLYCERIDES (test code = 2232) 125 MG/DL HDL CHOLESTEROL (test code = 2220) 56 MG/DL CALC LDL CHOL (test code = 2237) 89 MG/DL RISK RATIO LDL/HDL (test cod e = 2238) 1.59 RATIO Daren LewCOMPREHENSIVE METABOLIC [id number] 00:00:23* Test Item Value Reference Range Interpretation Comme nts GLUCOSE (test code = 7) 95 MG/DL 70-99 BUN (test code = 2207) 10 MG/DL 6-20 CREATININE (test code = 221) 0.48 MG/DL 0.60-1.30 L eGFR (2020 CKD-EPI) (test code = ) 110 ML/MIN/1.73 >60 CALC BUN/CREAT (test code = 2234) 21 RATIO 6-28 SODIUM (test code = 223) 143 MEQ/L 133-146 POTASSIUM (test code = 2227) 4.8 MEQ/L 3.5-5.4 CHLORIDE (test code = 2214) 108 MEQ/L 95-107 H CARBON DIOXIDE (test code = 2205) 23 [...] normal/abnormal. ALKALINE PHOSPHATASE (test code = 2203) 131 U/L 40-136 AST (test code = 2218) 30 U/L 9-40 ALT (test code = 2219) 43 U/L 5-40 H UNLESS OTHERWISE INDICATED, [facility] TESTING [facility]MED [facility] [address] [place] [address] FISHER TROT LINE: KRISTINE MIR M.D. CLIA NUMBER [id number] [place]. [id number] COMPREHENSIVE METABOLIC [id number] 00:00:00* Test Item Value Reference Range Interpretation Comme nts GLUCOSE (test code = 7) 95 MG/DL BUN (test code = 2208) 10 MG/DL CREATININE (test code = 2214) 0.48 MG/DL eGFR (2020 CKD-EPI) (test code = 55821) 110 ML/MIN/1.73 CALC BUN/CREAT (test code = [...] = 2219) 43 U/L Daren LewCOMPREHENSIVE METABOLIC [id number] 00:00:00* Test Item Value Reference Range Interpretation Comme nts GLUCOSE (test code = 2217) 95 MG/DL BUN (test code = 2208) 10 MG/DL CREATININE (test code = 2214) 0.48 MG/DL eGFR (2020 CKD-EPI) (test code = 55866) 110 ML/MIN/1.73 CALC BUN/CREAT (test code = [...] code = 2219) 43 U/L Daren Snow [place] [id number] 00:00:00* Test Item Value Reference Range Interpretation Comme nts GLUCOSE (test code = 2217) 95 MG/DL BUN (test code = 2208) 10 MG/DL CREATININE (test code = 2214) 0.48 MG/DL eGFR (2020 CKD-EPI) (test code = 68342) 110 ML/MIN/1.73 CALC BUN/CREAT (test code = [...] = 2219) 43 U/L Daren LewCOMPREHENSIVE METABOLIC [id number] 00:00:00* Test Item Value Reference Range Interpretation Comme nts GLUCOSE (test code = 2217) 95 MG/DL BUN (test code = 2208) 10 MG/DL CREATININE (test code = 2214) 0.48 MG/DL eGFR (2020 CKD-EPI) (test code = 96041) 110 ML/MIN/1.73 CALC BUN/CREAT (test code = [...] code = 2219) 43 U/L COMPREHENSIVE METABOLIC [id number] 06:31:28* Test Item Value Reference Range Interpretation Comme nts GLUCOSE (test code = 221) 106 MG/DL 70-99 H BUN (test code = 2207) 16 MG/DL 6-20 CREATININE (test code = 221) 0.57 MG/DL 0.60-1.30 L eGFR (2020 CKD-EPI) (test code = 06670) 106 ML/MIN/1.73 >60 CALC BUN/CREAT (test code [...] H UNLESS OTHERWISE INDICATED, ALL TESTING PERFORMED [facility] [address] [place] [address] FISHER TROT LINE: KRISTINE MIR M.D. [place] NUMBER [id number] [facility] [place]. [id number] COMPREHENSIVE METABOLIC [id number] 00:00:00* Test Item Value Reference Range Interpretation Comme nts GLUCOSE (test code = 2217) 106 MG/DL BUN (test code = 2208) 16 MG/DL CREATININE (test code = 2214) 0.57 MG/DL eGFR (2020 CKD-EPI) (test code = 96529) 106 ML/MIN/1.73 CALC BUN/CREAT (test code = [...] = 2219) 46 U/L Daren LewCOMPREHENSIVE METABOLIC [id number] 00:00:00* Test Item Value Reference Range Interpretation Comme nts GLUCOSE (test code = 2217) 106 MG/DL BUN (test code = 2208) 16 MG/DL CREATININE (test code = 2214) 0.57 MG/DL eGFR (2020 CKD-EPI) (test code = 07872) 106 ML/MIN/1.73 CALC BUN/CREAT (test code = [...] code = 2219) 46 U/L [facility]aren Snow [facility] [id number] 00:00:00* Test Item Value Reference Range Interpretation Comme nts GLUCOSE (test code = 2217) 106 MG/DL BUN (test code = 2208) 16 MG/DL CREATININE (test code = 2214) 0.57 MG/DL eGFR (2020 CKD-EPI) (test code = 10165) 106 ML/MIN/1.73 CALC BUN/CREAT (test code = [...] code = 2219) 46 U/L Daren Snow [place] [id number] 00:00:00* Test Item Value Reference Range Interpretation Comme nts GLUCOSE (test code = 2217) 106 MG/DL BUN (test code = 2208) 16 MG/DL CREATININE (test code = 2214) 0.57 MG/DL eGFR (2020 CKD-EPI) (test code = 44223) 106 ML/MIN/1.73 CALC BUN/CREAT (test code = [...] code = 2219) 46 U/L COMPREHENSIVE METABOLIC [id number] 00:00:00* Test Item Value Reference Range Interpretation Comme nts GLUCOSE (test code = 2217) 102 MG/DL BUN (test code = 2208) 14 MG/DL CREATININE (test code = 2214) 0.60 MG/DL eGFR AMER. (test cod e = 95813) 118 ML/MIN/1.73 eGFR NON- AMER. (test code = 27690) 102 ML/MIN/1.73 CALC BUN/CREAT (test code = [...] (test code = 2219) 38 U/L [facility] [id number] 00:00:00* Test Item Value Reference Range Interpretation [...] ABS NUCLEATED RBCS (test cod e = 13436) 0.00 K/UL Daren F AustinCOMPREHENSIVE METABOLIC [id number] 00:00:00* Test Item Value Reference Range Interpretation Comme nts GLUCOSE (test code = 2217) 102 MG/DL BUN (test code = 2208) 14 MG/DL CREATININE (test code = 2214) 0.60 MG/DL eGFR AMER. (test cod e = 68935) 118 ML/MIN/1.73 eGFR NON- AMER. (test code = 66252) 102 ML/MIN/1.73 CALC BUN/CREAT (test code = [...] (test code = 2219) 38 U/L [facility]AUTO [id number] 00:00:00* Test Item Value Reference Range Interpretation [...] ABS NUCLEATED RBCS (test cod e = 98646) 0.00 K/UL Daren LewCOMPREHENSIVE METABOLIC [id number] 00:00:00* Test Item Value Reference Range Interpretation Comme nts GLUCOSE (test code = 2217) 102 MG/DL BUN (test code = 2208) 14 MG/DL CREATININE (test code = 2214) 0.60 MG/DL eGFR AMER. (test cod e = 00941) 118 ML/MIN/1.73 eGFR NON- AMER. (test code = 75342) 102 ML/MIN/1.73 CALC BUN/CREAT (test code = [...] = 2219) 38 U/L Daren LewCBC W/AUTO [id number] 00:00:00* Test Item Value Reference Range Interpretation [...] ABS NUCLEATED RBCS (test cod e = 17891) 0.00 K/UL Daren Snow [facility] W[facility]AUTO [id number] 00:00:00* Test Item Value Reference Range Interpretation [...] ABS NUCLEATED RBCS (test cod e = 68670) 0.00 K/UL COMPREHENSIVE METABOLIC [id number] 00:00:00* Test Item Value Reference Range Interpretation Comme nts GLUCOSE (test code = 2217) 102 MG/DL BUN (test code = 2208) 14 MG/DL CREATININE (test code = 2214) 0.60 MG/DL eGFR AMER. (test cod e = 93211) 118 ML/MIN/1.73 eGFR NON- AMER. (test code = 03865) 102 ML/MIN/1.73 CALC BUN/CREAT (test code = [...] (test code = 2219) 38 U/L CULTURE, [id number] 00:00:00* Test Item Value Reference Range Interpretation Comme nts CULTURE, URINE (test code = 14191) SPECIMEN NUMBER: [id number] Daren HarrisLTURE, [id number] 00:00:00* Test Item Value Reference Range Interpretation Comme nts CULTURE, URINE (test code = 25754) SPECIMEN NUMBER: [id number] Daren LewCULTURE, [id number] 00:00:00* Test Item Value Reference Range Interpretation Comme nts CULTURE, URINE (test code = 59888) SPECIMEN NUMBER: [id number] Daren LewCULTCANDY, [id number] 00:00:00* Test Item Value Reference Range Interpretation Comme nts CULTURE, URINE (test code = 66743) SPECIMEN NUMBER: [id number] VAG[facility] PATHOGENS DNA [id number] 00:00:00* Test Item Value Reference Range Interpretation Comme nts SPENCER SPECIES (test code = ) NEGATIVE G. VAGINALIS (test code = 46014) NEGATIVE T. VAGINALIS (test code = ) NEGATIVE Daren Snow AustinVAGINAL PATHOGENS DNA [id number] 00:00:00* Test Item Value Reference Range Interpretation Comme nts SPENCER SPECIES (test code = ) NEGATIVE G. VAGINALIS (test code = 10745) NEGATIVE T. VAGINALIS (test code = 12632) NEGATIVE Daren Snow AustinVAGINAL PATHOG[facility] DNA [id number] 00:00:00* Test Item Value Reference Range Interpretation Comme nts SPENCER SPECIES (test code = 05172) NEGATIVE G. VAGINALIS (test code = 89586) NEGATIVE T. VAGINALIS (test code = 61968) NEGATIVE Daren Snow AustinVAGINAL PATHOGENS DNA [id number] 00:00:00* Test Item Value Reference Range Interpretation Comme nts SPENCER SPECIES (test code = ) NEGATIVE G. VAGINALIS (test code = 27169) NEGATIVE T. VAGINALIS (test code = 83890) NEGATIVE LIPID [id number] 00:00:00* Test Item Value Reference Range Interpretation Comme nts CHOLESTEROL (test code = 2210) 169 MG/DL TRIGLYCERIDES (test code = 2232) 136 MG/DL HDL CHOLESTEROL (test code = 2220) 59 MG/DL CALC LDL CHOL (test code = 2237) 87 MG/DL RISK RATIO LDL/HDL (test cod e = 2238) 1.47 RATIO Daren LewHEMOGLOBIN [id number] 00:00:00* Test Item Value Reference Range Interpretation Comme nts HEMOGLOBIN A1c (test code = 27213) 6.0 % Daren Snow AustinCOMPREHENSIVE METABOLIC [id number] 00:00:00* Test Item Value Reference Range Interpretation Comme nts GLUCOSE (test code = 2217) 106 MG/DL BUN (test code = 2208) 16 MG/DL CREATININE (test code = 2214) 0.62 MG/DL eGFR AMER. (test cod e = 99027) 118 ML/MIN/1.73 eGFR NON- AMER. (test code = 08035) 102 ML/MIN/1.73 CALC BUN/CREAT (test code = [...] 0.3 MG/DL ALKALINE PHOSPHATASE (test code = 220) 110 U/L AST (test code = 2218) 35 U/L ALT (test code = 2219) 44 U/L Daren eLwLIPID [id number] 00:00:00* Test Item Value Reference Range Interpretation Comme nts CHOLESTEROL (test code = 2210) 169 MG/DL TRIGLYCERIDES (test code = 2232) 136 MG/DL HDL CHOLESTEROL (test code = 2220) 59 MG/DL CALC LDL CHOL (test code = 2237) 87 MG/DL RISK RATIO LDL/HDL (test cod e = 223) 1.47 RATIO Daren LewHEMOGLOBIN [id number] 00:00:00* Test Item Value Reference Range Interpretation Comme nts HEMOGLOBIN A1c (test code = 75668) 6.0 % Daren LewCOMPREHENSIVE METABOLIC [id number] 00:00:00* Test Item Value Reference Range Interpretation Comme nts GLUCOSE (test code = 2217) 106 MG/DL BUN (test code = 2208) 16 MG/DL CREATININE (test code = 2214) 0.62 MG/DL eGFR AMER. (test cod e = 84908) 118 ML/MIN/1.73 eGFR NON- AMER. (test code = 66949) 102 ML/MIN/1.73 CALC BUN/CREAT (test code = [...] code = 2219) 44 U/L Daren LewLIPID [id number] 00:00:00* Test Item Value Reference Range Interpretation Comme nts CHOLESTEROL (test code = 2210) 169 MG/DL TRIGLYCERIDES (test code = 2232) 136 MG/DL HDL CHOLESTEROL (test code = 2220) 59 MG/DL CALC LDL CHOL (test code = 2237) 87 MG/DL RISK RATIO LDL/HDL (test cod e = 223) 1.47 RATIO Daren LewHEMOGLOBIN [id number] 00:00:00* Test Item Value Reference Range Interpretation Comme nts HEMOGLOBIN A1c (test code = 92281) 6.0 % Daren LewCOMPREHENSIVE METABOLIC [id number] 00:00:00* Test Item Value Reference Range Interpretation Comme nts GLUCOSE (test code = 2217) 106 MG/DL BUN (test code = 2208) 16 MG/DL CREATININE (test code = 2214) 0.62 MG/DL eGFR AMER. (test cod e = ) 118 ML/MIN/1.73 eGFR NON- AMER. (test code = 60483) 102 ML/MIN/1.73 CALC BUN/CREAT (test code = [...] = 2219) 44 U/L Daren LewCOMPREHENSIVE METABOLIC [id number] 00:00:00* Test Item Value Reference Range Interpretation Comme nts GLUCOSE (test code = 2217) 106 MG/DL BUN (test code = 2208) 16 MG/DL CREATININE (test code = 2214) 0.62 MG/DL eGFR AMER. (test cod e = 45505) 118 ML/MIN/1.73 eGFR NON- AMER. (test code = 40828) 102 ML/MIN/1.73 CALC BUN/CREAT (test code = [...] (test code = 2219) 44 U/L LIPID [id number] 00:00:00* Test Item Value Reference Range Interpretation Comme nts CHOLESTEROL (test code = 2210) 169 MG/DL TRIGLYCERIDES (test code = 2232) 136 MG/DL HDL CHOLESTEROL (test code = 2220) 59 MG/DL CALC LDL CHOL (test code = 2237) 87 MG/DL RISK RATIO LDL/HDL (test cod e = 2238) 1.47 RATIO HEMOGLOBIN [id number] 00:00:00* Test Item Value Reference Range Interpretation Comme nts HEMOGLOBIN A1c (test code = 56753) 6.0 % HEMOGLOBIN [id number] 00:00:00* Test Item Value Reference Range Interpretation Comme clarke HEMOGLOBIN A1c (test code = 11059) 5.8 % Daren Snow AustinHEMOGLOBIN [id number] 00:00:00* Test Item Value Reference Range Interpretation Comme nts HEMOGLOBIN A1c (test code = 82397) 5.8 % Daren Snow AustinHEMOGLOBIN [id number] 00:00:00* Test Item Value Reference Range Interpretation Comme nts HEMOGLOBIN A1c (test code = 77596) 5.8 % Daren Snow AustinHEMOGLOBIN [id number] 00:00:00* Test Item Value Reference Range Interpretation Comme nts HEMOGLOBIN A1c (test code = 33924) 5.8 % COMPREHENSIVE METABOLIC [id number] 00:00:00* Test Item Value Reference Range Interpretation Comme nts GLUCOSE (test code = 2217) 140 MG/DL BUN (test code = 2208) 14 MG/DL CREATININE (test code = 2214) 0.62 MG/DL eGFR AMER. (test cod e = 16480) 118 ML/MIN/1.73 eGFR NON- AMER. (test code = 38997) 102 ML/MIN/1.73 CALC BUN/CREAT (test code = [...] = 2219) 27 U/L Daren Snow AustinLIPID [id number] 00:00:00* Test Item Value Reference Range Interpretation Comme nts CHOLESTEROL (test code = 2210) 175 MG/DL TRIGLYCERIDES (test code = 2232) 135 MG/DL HDL CHOLESTEROL (test code = 2220) 54 MG/DL CALC LDL CHOL (test code = 2237) 94 MG/DL RISK RATIO LDL/HDL (test cod e = 2238) 1.74 RATIO Daren LewCOMPREHENSIVE METABOLIC [id number] 00:00:00* Test Item Value Reference Range Interpretation Comme nts GLUCOSE (test code = 2217) 140 MG/DL BUN (test code = 2208) 14 MG/DL CREATININE (test code = 2214) 0.62 MG/DL eGFR AMER. (test cod e = 21099) 118 ML/MIN/1.73 eGFR NON- AMER. (test code = 13711) 102 ML/MIN/1.73 CALC BUN/CREAT (test code = [...] = 2219) 27 U/L Daren Snow AustinLIPID [id number] 00:00:00* Test Item Value Reference Range Interpretation Comme nts CHOLESTEROL (test code = 2210) 175 MG/DL TRIGLYCERIDES (test code = 2232) 135 MG/DL HDL CHOLESTEROL (test code = 2220) 54 MG/DL CALC LDL CHOL (test code = 2237) 94 MG/DL RISK RATIO LDL/HDL (test cod e = 2238) 1.74 RATIO Daren LewCOMPREHENSIVE METABOLIC [id number] 00:00:00* Test Item Value Reference Range Interpretation Comme nts GLUCOSE (test code = 2217) 140 MG/DL BUN (test code = 2208) 14 MG/DL CREATININE (test code = 2214) 0.62 MG/DL eGFR AMER. (test cod e = 98306) 118 ML/MIN/1.73 eGFR NON- AMER. (test code = 70308) 102 ML/MIN/1.73 CALC BUN/CREAT (test code = [...] = 2219) 27 U/L Daren Snow AustinLIPID [id number] 00:00:00* Test Item Value Reference Range Interpretation Comme nts CHOLESTEROL (test code = 2210) 175 MG/DL TRIGLYCERIDES (test code = 2232) 135 MG/DL HDL CHOLESTEROL (test code = 2220) 54 MG/DL CALC LDL CHOL (test code = 2237) 94 MG/DL RISK RATIO LDL/HDL (test cod e = 2238) 1.74 RATIO Daren F AustinLIPID [id number] 00:00:00* Test Item Value Reference Range Interpretation Comme nts CHOLESTEROL (test code = 2210) 175 MG/DL TRIGLYCERIDES (test code = 2232) 135 MG/DL HDL CHOLESTEROL (test code = 2220) 54 MG/DL CALC LDL CHOL (test code = 2237) 94 MG/DL RISK RATIO LDL/HDL (test cod e = 2238) 1.74 RATIO COMPREHENSIVE METABOLIC [id number] 00:00:00* Test Item Value Reference Range Interpretation Comme nts GLUCOSE (test code = 2217) 140 MG/DL BUN (test code = 2208) 14 MG/DL CREATININE (test code = 2214) 0.62 MG/DL eGFR AMER. (test cod e = 21096) 118 ML/MIN/1.73 eGFR NON- AMER. (test code = 11025) 102 ML/MIN/1.73 CALC BUN/CREAT (test code = [...] (test code = 2219) 27 U/L LIPID [id number] 00:00:00* Test Item Value Reference Range Interpretation Comme nts CHOLESTEROL (test code = 2210) 185 MG/DL TRIGLYCERIDES (test code = 2232) 228 MG/DL HDL CHOLESTEROL (test code = 2220) 58 MG/DL CALC LDL CHOL (test code = 2237) 81 MG/DL RISK RATIO LDL/HDL (test cod e = 2238) 1.40 RATIO Daren F AustinCOMPREHENSIVE METABOLIC [id number] 00:00:00* Test Item Value Reference Range Interpretation Comme nts GLUCOSE (test code = 2217) 126 MG/DL BUN (test code = 2208) 12 MG/DL CREATININE (test code = 2214) 0.56 MG/DL eGFR AMER. (test cod e = 55073) 123 ML/MIN/1.73 eGFR NON- AMER. (test code = 56331) 106 ML/MIN/1.73 CALC BUN/CREAT (test code = [...] code = 2219) 37 U/L Daren LewLIPID [id number] 00:00:00* Test Item Value Reference Range Interpretation Comme nts CHOLESTEROL (test code = 2210) 185 MG/DL TRIGLYCERIDES (test code = 2232) 228 MG/DL HDL CHOLESTEROL (test code = 2220) 58 MG/DL CALC LDL CHOL (test code = 2237) 81 MG/DL RISK RATIO LDL/HDL (test cod e = 2238) 1.40 RATIO Daren LewCOMPREHENSIVE METABOLIC [id number] 00:00:00* Test Item Value Reference Range Interpretation Comme nts GLUCOSE (test code = 2217) 126 MG/DL BUN (test code = 2208) 12 MG/DL CREATININE (test code = 2214) 0.56 MG/DL eGFR AMER. (test cod e = 40873) 123 ML/MIN/1.73 eGFR NON- AMER. (test code = 73741) 106 ML/MIN/1.73 CALC BUN/CREAT (test code = [...] code = 2219) 37 U/L Daren LewLIPID [id number] 00:00:00* Test Item Value Reference Range Interpretation Comme nts CHOLESTEROL (test code = 2210) 185 MG/DL TRIGLYCERIDES (test code = 2232) 228 MG/DL HDL CHOLESTEROL (test code = 2220) 58 MG/DL CALC LDL CHOL (test code = 2237) 81 MG/DL RISK RATIO LDL/HDL (test cod e = 2238) 1.40 RATIO [place]aren [place] [id number] 00:00:00* Test Item Value Reference Range Interpretation Comme nts GLUCOSE (test code = 2217) 126 MG/DL BUN (test code = 2208) 12 MG/DL CREATININE (test code = 2214) 0.56 MG/DL eGFR AMER. (test cod e = 69422) 123 ML/MIN/1.73 eGFR NON- AMER. (test code = 98896) 106 ML/MIN/1.73 CALC BUN/CREAT (test code = [...] = 2219) 37 U/L Daren LewCOMPREHENSIVE METABOLIC [id number] 00:00:00* Test Item Value Reference Range Interpretation Comme nts GLUCOSE (test code = 2217) 126 MG/DL BUN (test code = 2208) 12 MG/DL CREATININE (test code = 2214) 0.56 MG/DL eGFR AMER. (test cod e = 52018) 123 ML/MIN/1.73 eGFR NON- AMER. (test code = 59475) 106 ML/MIN/1.73 CALC BUN/CREAT (test code = [...] (test code = 2219) 37 U/L LIPID [id number] 00:00:00* Test Item Value Reference Range Interpretation Comme nts CHOLESTEROL (test code = 2210) 185 MG/DL TRIGLYCERIDES (test code = 2232) 228 MG/DL HDL CHOLESTEROL (test code = 2220) 58 MG/DL CALC LDL CHOL (test code = 2237) 81 MG/DL RISK RATIO LDL/HDL (test cod e = 2238) 1.40 RATIO COMPREHENSIVE METABOLIC [id number] 00:00:00* Test Item Value Reference Range Interpretation Comme nts GLUCOSE (test code = 2217) 98 MG/DL BUN (test code = 2208) 13 MG/DL CREATININE (test code = 2214) 0.69 MG/DL eGFR AMER. (test cod e = 38272) 116 ML/MIN/1.73 eGFR NON- AMER. (test code = 65467) 100 ML/MIN/1.73 CALC BUN/CREAT (test code = [...] code = 2219) 44 U/L Daren F [place]PREHENSIVE [place] [id number] 00:00:00* Test Item Value Reference Range Interpretation Comme nts GLUCOSE (test code = 2217) 98 MG/DL BUN (test code = 2208) 13 MG/DL CREATININE (test code = 2214) 0.69 MG/DL eGFR AMER. (test cod e = 90817) 116 ML/MIN/1.73 eGFR NON- AMER. (test code = 73919) 100 ML/MIN/1.73 CALC BUN/CREAT (test code = [...] code = 2219) 44 U/L Daren F [place]ano[place]PREHENSIVE METAB[place] [id number] 00:00:00* Test Item Value Reference Range Interpretation Comme nts GLUCOSE (test code = 2217) 98 MG/DL BUN (test code = 2208) 13 MG/DL CREATININE (test code = 2214) 0.69 MG/DL eGFR AMER. (test cod e = 79927) 116 ML/MIN/1.73 eGFR NON- AMER. (test code = 69419) 100 ML/MIN/1.73 CALC BUN/CREAT (test code = [...] code = 2219) 44 U/L Daren Snow [place]PRE[place] [id number] 00:00:00* Test Item Value Reference Range Interpretation Comme nts GLUCOSE (test code = 2217) 98 MG/DL BUN (test code = 2208) 13 MG/DL CREATININE (test code = 2214) 0.69 MG/DL eGFR AMER. (test cod e = 24389) 116 ML/MIN/1.73 eGFR NON- AMER. (test code = 36788) 100 ML/MIN/1.73 CALC BUN/CREAT (test code = [...] code = 2219) 44 U/L COMPREHENSIVE METABOLIC [id number] 00:00:00* Test Item Value Reference Range Interpretation Comme nts GLUCOSE (test code = 2217) 113 MG/DL BUN (test code = 2208) 14 MG/DL CREATININE (test code = 2214) 0.63 MG/DL eGFR AMER. (test cod e = 02295) 120 ML/MIN/1.73 eGFR NON- AMER. (test code = 17030) 103 ML/MIN/1.73 CALC BUN/CREAT (test code = [...] code = 2219) 69 U/L Daren Snow [place]PRE[place] [id number] 00:00:00* Test Item Value Reference Range Interpretation Comme nts GLUCOSE (test code = 2217) 113 MG/DL BUN (test code = 2208) 14 MG/DL CREATININE (test code = 2214) 0.63 MG/DL eGFR AMER. (test cod e = 23458) 120 ML/MIN/1.73 eGFR NON- AMER. (test code = 66883) 103 ML/MIN/1.73 CALC BUN/CREAT (test code = [...] code = 2219) 69 U/L [facility] [id number] 00:00:00* Test Item Value Reference Range Interpretation Comme nts GLUCOSE (test code = 2217) 113 MG/DL BUN (test code = 2208) 14 MG/DL CREATININE (test code = 2214) 0.63 MG/DL eGFR AMER. (test cod e = 80886) 120 ML/MIN/1.73 eGFR NON- AMER. (test code = 21808) 103 ML/MIN/1.73 CALC BUN/CREAT (test code = [...] code = 2219) 69 U/L Daren Snow [place]PRE[place] [id number] 00:00:00* Test Item Value Reference Range Interpretation Comme nts GLUCOSE (test code = 2217) 113 MG/DL BUN (test code = 2208) 14 MG/DL CREATININE (test code = 2214) 0.63 MG/DL eGFR AMER. (test cod e = 95739) 120 ML/MIN/1.73 eGFR NON- AMER. (test code = 48131) 103 ML/MIN/1.73 CALC BUN/CREAT (test code = [...] (test code = 2219) 69 U/L HEMOGLOBIN [id number] 00:00:00* Test Item Value Reference Range Interpretation Comme [facility] HEMOGLOBIN A1c (test code = 26963) 6.0 % Daren AustinVITAMIN D, 25 [id number] 00:00:00* Test Item Value Reference Range Interpretation Comme [facility] VITAMIN D, 25 OH (test code = 4958) 11 NG/ML Daren F AustinHEMOGLOBIN [id number] 00:00:00* Test Item Value Reference Range Interpretation Comme [facility] HEMOGLOBIN A1c (test code = 32160) 6.0 % Daren AustinVITAMIN D, 25 [id number] 00:00:00* Test Item Value Reference Range Interpretation Comme [facility] VITAMIN D, 25 OH (test code = 4958) 11 NG/ML Daren AustinHEMOGLOBIN [id number] 00:00:00* Test Item Value Reference Range Interpretation Comme [facility] HEMOGLOBIN A1c (test code = 21236) 6.0 % Daren LewVITAMIN D, 25 [id number] 00:00:00* Test Item Value Reference Range Interpretation Comme [facility] VITAMIN D, 25 OH (test code = 4958) 11 NG/ML Daren LewHEMOGLOBIN [id number] 00:00:00* Test Item Value Reference Range Interpretation Comme [facility] HEMOGLOBIN A1c (test code = 49774) 6.0 % VITAMIN D, 25 [id number] 00:00:00* Test Item Value Reference Range Interpretation Comme [facility] VITAMIN D, 25 OH (test code = 4958) 11 NG/ML LIPID [id number] 00:00:00* Test Item Value Reference Range Interpretation Comme nts CHOLESTEROL (test code = 2210) 183 MG/DL TRIGLYCERIDES (test code = 2232) 151 MG/DL HDL CHOLESTEROL (test code = 2220) 56 MG/DL CALC LDL CHOL (test code = 2237) 97 MG/DL RISK RATIO LDL/HDL (test cod e = 2238) 1.73 RATIO Daren [id number] 00:00:00* Test Item Value Reference Range Interpretation Comme [facility] TSH (test code = 2821) 1.16 UIU/ML Daren LewVITAMIN [id number] 00:00:00* Test Item Value Reference Range Interpretation Comme [facility] VITAMIN B-12 (test code = 2840) 288 PG/ML Daren LewCOMPREHENSIVE METABOLIC [id number] 00:00:00* Test Item Value Reference Range Interpretation Comme [facility] GLUCOSE (test code = 2217) 97 MG/DL BUN (test code = 2208) 12 MG/DL CREATININE (test code = 2214) 0.57 MG/DL eGFR AMER. (test cod e = 24901) 124 ML/MIN/1.73 eGFR NON- AMER. (test code = 77472) 107 ML/MIN/1.73 CALC BUN/CREAT (test code = [...] code = 2219) 34 U/L Daren LewLIPID [id number] 00:00:00* Test Item Value Reference Range Interpretation Comme nts CHOLESTEROL (test code = 2210) 183 MG/DL TRIGLYCERIDES (test code = 2232) 151 MG/DL HDL CHOLESTEROL (test code = 2220) 56 MG/DL CALC LDL CHOL (test code = 2237) 97 MG/DL RISK RATIO LDL/HDL (test cod e = 2238) 1.73 RATIO Daren [id number] 00:00:00* Test Item Value Reference Range Interpretation Comme nts TSH (test code = 2821) 1.16 UIU/ML Daren LewVITAMIN [id number] 00:00:00* Test Item Value Reference Range Interpretation Comme nts VITAMIN B-12 (test code = 2840) 288 PG/ML Daren LewCOMPREHENSIVE METABOLIC [id number] 00:00:00* Test Item Value Reference Range Interpretation Comme nts GLUCOSE (test code = 2217) 97 MG/DL BUN (test code = 2208) 12 MG/DL CREATININE (test code = 2214) 0.57 MG/DL eGFR AMER. (test cod e = 88538) 124 ML/MIN/1.73 eGFR NON- AMER. (test code = 01281) 107 ML/MIN/1.73 CALC BUN/CREAT (test code = [...] code = 2219) 34 U/L Daren LewLIPID [id number] 00:00:00* Test Item Value Reference Range Interpretation Comme nts CHOLESTEROL (test code = 2210) 183 MG/DL TRIGLYCERIDES (test code = 2232) 151 MG/DL HDL CHOLESTEROL (test code = 2220) 56 MG/DL CALC LDL CHOL (test code = 2237) 97 MG/DL RISK RATIO LDL/HDL (test cod e = 2238) 1.73 RATIO Daren [id number] 00:00:00* Test Item Value Reference Range Interpretation Comme nts TSH (test code = 2821) 1.16 UIU/ML Daren LewVITAMIN [id number] 00:00:00* Test Item Value Reference Range Interpretation Comme [facility] VITAMIN B-12 (test code = 2840) 288 PG/ML Daren LewCOMPREHENSIVE METABOLIC [id number] 00:00:00* Test Item Value Reference Range Interpretation Comme nts GLUCOSE (test code = 2217) 97 MG/DL BUN (test code = 2208) 12 MG/DL CREATININE (test code = 2214) 0.57 MG/DL eGFR AMER. (test cod e = 11840) 124 ML/MIN/1.73 eGFR NON- AMER. (test code = 52076) 107 ML/MIN/1.73 CALC BUN/CREAT (test code = [...] = 2219) 34 U/L Daren LewCOMPREHENSIVE METABOLIC [id number] 00:00:00* Test Item Value Reference Range Interpretation Comme nts GLUCOSE (test code = 2217) 97 MG/DL BUN (test code = 2208) 12 MG/DL CREATININE (test code = 2214) 0.57 MG/DL eGFR AMER. (test cod e = 16597) 124 ML/MIN/1.73 eGFR NON- AMER. (test code = 97780) 107 ML/MIN/1.73 CALC BUN/CREAT (test code = [...] (test code = 2219) 34 U/L LIPID [id number] 00:00:00* Test Item Value Reference Range Interpretation Comme nts CHOLESTEROL (test code = 2210) 183 MG/DL TRIGLYCERIDES (test code = 2232) 151 MG/DL HDL CHOLESTEROL (test code = 2220) 56 MG/DL CALC LDL CHOL (test code = 2237) 97 MG/DL RISK RATIO LDL/HDL (test cod e = 2238) 1.73 RATIO [id number] 00:00:00* Test Item Value Reference Range Interpretation Comme nts TSH (test code = 2821) 1.16 UIU/ML VITAMIN [id number] 00:00:00* Test Item Value Reference Range Interpretation Comme nts VITAMIN B-12 (test code = 2840) 288 PG/ML CBC W/AUTO [id number] 00:00:00* Test Item Value Reference Range Interpretation [...] (test code = 1015) 319 K/UL Daren Gwendolyn AustinCBC W/AUTO [id number] 00:00:00* Test Item Value Reference Range Interpretation [...] 1015) 319 K/UL Daren F AustinCBC W/AUTO [id number] 00:00:00* Test Item Value Reference Range Interpretation [...] code = 1015) 319 K/UL Daren Snow [facility] W/AUTO [id number] 00:00:00* Test Item Value Reference Range Interpretation [...] with steady gait, in no apparent distress. RANCE ASSOCIATE Yuliana Lerner RN [facility] 2024-01-23 19:07:51 UA collected in triage and labled placed in the med station. RANCE ASSOCIATE [facility] 2024-01-23 19:05:56 C/O right upper arm pain for 2 years. RANCE ASSOCIATE Ninoska De La Fuente RN [facility] 2024-01-03 10:21:15 Patient was approved for the [facility] waiver, pharmacy attempted to contact patient X2 to notify her. RX cost is $10. Spoke with patient and notified. Given number to pharmacy, she states she will contact them. NTHT Rabia Sainz RN [facility] 2024-01-02 09:03:00 Attempted to contact patient with [...] make him aware. NTHT Rabia Sainz RN [facility] 2023-12-31 10:56:54 Attempted to contact patient with no answer, Voicemail left at this time patient notified RX was sent. Clinic phone number given and instructed patient to return call. Rabia Sainz RN [facility] 2023-12-30 08:33:15 Attempted to contact patient with no answer, Voicemail left at this time with clinic phone number and instructed patient to return call. Rabia Sainz RN [facility] 2023-12-30 08:12:55 Changed it to Eliquis 5 mg bid Joseph Marin MD IM-CLINICAL CARDIAC ELECTROPHYSIOLOGY STAFF [facility] 2023-12-30 08:05:[address] Marin at this time. T [facility] 2023-12-27 10:01:11 Images from the original note [...] to Dr Marin for recommendations. Per STEWART [facility] 2023-12-26 13:50:43 Marzena Quintana is a 58 year old female. Pt states that rivaroxaban (XARELTO) 15 mg tablet Is making her feel ill and she wants to know if provider can prescribe her something else. Please advise. Abhishek Jaramillo [facility] 2023-12-19 09:05:00 Images from the original note [...] Dr Jara as well. Hayde Avalos MA [facility] 2023-12-04 09:00:00 Addended by: JOSEPH MARIN on: 12/04/2023 10:08 AM Modules accepted: Orders [facility] 2023-11-28 13:50:50 Addended by: JEANETTE HDEZ RN on: 11/28/2023 01:50 PM Modules accepted: Orders Jeanette Hdez RN [facility] 2023-11-28 13:39:31 Images from the original note [...] 30-day event monitor results. Follow-up as planned. [facility] 2023-11-28 13:10:03 Attempted to contact patient. LVM for patient to return call to [phone]. Jeanette Hdez RN [facility] 2023-11-28 12:19:50 Event monitor strips reviewed. Multiple A-fib with RVR episodes noted. Referral to EP placed. Please maira. Please verify that currently on carvedilol 6.25 mg once daily, enalapril 20 mg daily, and verapamil 120 mg daily. Please ask her to increase Coreg 12.5 mg BiD. Continue with rest of meds with no changes. BP Log in 10 days. [facility] 2023-11-28 09:41:36 Images from the original note were not included. Received call from [employer] to report atrial fibrillation with RVR HR 167-180. Auto detected recording. Attempted to contact patient. LVM advising her to call back to the clinic. Jeanette Hdez RN [facility] 2023-11-28 09:38:19 Marzena Quintana is a 58 year old female [employer] calling with serious EKG [facility] 16:00:00 [employer] 30-day event monitor applied to patient. Wear and care explained. Patient verbalized understanding. Patient given instruction on how to return monitor on 12/14/2023 to [employer] . Jeanette Hdez RN[id number] 00:00:00 [facility]2024-06-17 00:00:00 [facility]
[2024-02-05] MEDS ORDERED: VALACYCLOVIR 500 MG TAB ONE (17:51)
[2024-02-05] MEDS ORDERED: predniSONE 20 MG TAB ONE (17:54)
--- NOTE | 2024-02-05 18:08 | EDPHYS ---
Physician Documentation [facility] Name: Aimee Quintana Age: 58 yrs Sex: Female : 1965 Arrival Date: 02/05/2024 Time: 17:24 Bed 3 Private MD: ED Physician Aamir Hernández HPI: 02/04 17:47 This 58 yrs old Female presents to ER via Ambulatory with complaints of S/S of pavithra Possible Stroke, Facial Droop. 17:47 The patient's problem is reported as a facial droop, on right. Onset: The pavithra symptoms/episode began/occurred just prior to arrival, this morning. Duration: The episode is continuous. Context: the episode(s) was witnessed, by family, daughter. The symptoms are alleviated by nothing. The symptoms are aggravated by nothing. Associated signs and symptoms: The patient has no apparent associated signs or symptoms. Patient's baseline: Neuro: alert and fully oriented. The patient has not experienced similar symptoms in the past. Historical: - Allergies: 17:38 hydrochlorothiazide; ko1 17:38 Prednisone (Upset stomach); ko1 17:38 tramadol (Upset stomach); ko1 - Home Meds: 17:38 Eliquis [Active]; ko1 - PMHx: 17:38 Atrial fibrillation; Hypertension; ko1 - Immunization history:: Adult Immunizations up to date. - Infectious Disease History:: Denies. - Family history:: not pertinent. - Social history:: Smoking status: Patient denies any tobacco usage or history of. ROS: 17:47 Constitutional: Negative for fever, chills, and weight loss, Eyes: Negative for injury, pavithra pain, redness, and discharge, ENT: Negative for injury, pain, and discharge, Neck: Negative for injury, pain, and swelling, Cardiovascular: Negative for chest pain, palpitations, and edema, Respiratory: Negative for shortness of breath, cough, wheezing, and pleuritic chest pain, Abdomen/GI: Negative for abdominal pain, nausea, vomiting, diarrhea, and constipation, Back: Negative for injury and pain, : Negative for injury, bleeding, discharge, and swelling, MS/Extremity: Negative for injury and deformity, Skin: Negative for injury, rash, and discoloration, Psych: Negative for depression, anxiety, suicide ideation, homicidal ideation, and hallucinations, Allergy/Immunology: Negative for hives, rash, and allergies, Endocrine: Negative for neck swelling, polydipsia, polyuria, polyphagia, and marked weight changes, Hematologic/Lymphatic: Negative for swollen nodes, abnormal bleeding, and unusual bruising, 17:47 Neuro: Positive for weakness, of the forehead, right eye, right cheek and right jaw, Exam: 17:47 Radiologist reports: neg pavithra 17:47 Constitutional: This is a well developed, well nourished patient who is awake, alert, and in no acute distress. Eyes: Pupils equal round and reactive to light, extra-ocular motions intact. Lids and lashes normal. Conjunctiva and sclera are non-icteric and not injected. Cornea within normal limits. Periorbital areas with no swelling, redness, or edema. ENT: Nares patent. No nasal discharge, no septal abnormalities noted. Tympanic membranes are normal and external auditory canals are clear. Oropharynx with no redness, swelling, or masses, exudates, or evidence of obstruction, uvula midline. Mucous membranes moist. Neck: Trachea midline, no thyromegaly or masses palpated, and no cervical lymphadenopathy. Supple, full range of motion without nuchal rigidity, or vertebral point tenderness. No Meningismus. Chest/axilla: Normal chest wall appearance and motion. Nontender with no deformity. No lesions are appreciated. Cardiovascular: Regular rate and rhythm with a normal S1 and S2. No gallops, murmurs, or rubs. Normal PMI, no JVD. No pulse deficits. Respiratory: Lungs have equal breath sounds bilaterally, clear to auscultation and percussion. No rales, rhonchi or wheezes noted. No increased work of breathing, no retractions or nasal flaring. Abdomen/GI: Soft, non-tender, with normal bowel sounds. No distension or tympany. No guarding or rebound. No evidence of tenderness throughout. Back: No spinal tenderness. No costovertebral tenderness. Full range of motion. Female : Normal external genitalia. Skin: Warm, dry with normal turgor. Normal color with no rashes, no lesions, and no evidence of cellulitis. MS/ Extremity: Pulses equal, no cyanosis. Neurovascular intact. Full, normal range of motion., bilateral aka Psych: Awake, alert, with orientation to person, place and time. Behavior, mood, and affect are within normal limits. 17:47 Head/face: Noted is right face and forehead involvement. Vital Signs: 17:40 BP 173 / 78; Pulse 77; Resp 16; Pulse Ox 99% on R/A; Weight 115.5 kg; Height 5 ft. 4 jb4 in. ; Pain 0/10; 18:16 BP 168 / 72; Pulse 72; Resp 16; Pulse Ox 99% ; ko1 17:40 Body Mass Index 43.71 (115.50 kg, 162.56 cm) jb4 17:40 Pain Scale: Adult jb4 NIH Stroke Scale Scores: 18:05 NIHSS Score: 1 pavithra MDM: 17:38 Medical Screening Exam initiated pavithra 17:58 Differential diagnosis: CVA, TIA, paralysis. Data reviewed: vital signs, nurses notes, pavithra radiologic studies, CT scan. Consideration of Admission/Observation Escalation of care including admission/observation considered. I considered the following discharge prescriptions or medication management in the emergency department Medications were administered in the Emergency Department. See MAR. Independent interpretation of the following test(s) in the Emergency Department CT Scan: My interpretation is ct brain wo neg. 18:04 TNKase (Tenecteplase) Screening: Not Applicable. Care significantly affected by the pavithra following chronic conditions: Obesity, a fib. 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) use of anticoagulants pavithra - Unspecified atrial fibrillation pavithra Followup: pavithra - With: Private Physician - When: 2 - 3 days - Reason: Recheck today's complaints, Continuance of care, Re-evaluation by your physician Followup: pavithra - With: John Hui MD - When: 2 - 3 days - Reason: Recheck today's complaints, Continuance of care, Re-evaluation by your physician Discharge Instructions: - Discharge Summary Sheet pavithra - Kaplan's Palsy, Adult [facility] Forms: - Medication Reconciliation Form [facility] - Antibiotic Education [facility] - Prescription Opioid Use [facility] - Patient Portal Instructions [facility] - Leadership Thank You Letter [facility] Prescriptions: - Valtrex 1 gram Oral tablet - take 1 tablet ORAL route 3 times per day; 21 tablet; Refills: 0, Product [facility] Selection Permitted - Artificial Eye Lubricant 83-15 % Ophthalmic ointment - instill 1 application OPHTHALMIC route 2 to 4 times per day as needed for dry [facility] eyes; 10 milliliter; Refills: 0, Product Selection Permitted - Protonix 40 mg Oral Tablet - take 1 tablet ORAL route once daily; 30 tablet; Refills: 0, Product Selection [facility] Permitted - Prednisone 20 mg Oral Tablet - take 2 tablets ORAL route once daily for 5 days; 10 tablet; Refills: 0, Product [facility] Selection Permitted NIH Stroke Scale - NIH Stroke Score Date: 02/05/2024 Time: 18:05 Total Score = 1 10. Dysarthria (speech clarity - read or repeat words) - 0(Normal) 11. Extinction and Inattention (visual/tactile/auditory/spatial/personal) - 0(No abnormality) 1a. Level of Consciousness (LOC) - 0(Alert) 1b. Level of Consciousness (LOC) (Month \T\ Age) - 0(Both) 1c. LOC Commands (Open \T\ Closes Eyes/Coal Dumping Equipment Operator) - 0(Both) 2. Best Gaze (Lateral Gaze Paresis) - 0(Normal) 3. Visual Field Loss - 0(No visual loss) 4. Facial Palsy - 1(Minor Paralysis) 5a. Left Arm: Motor (10-second hold) - 0(No drift) 5b. Right Arm: Motor (10-second hold) - 0(No drift) 6a. Left Leg: Motor (5-second hold - always test supine) - 0(No drift) 6b. Right Leg: Motor (5-second hold - always test supine) - 0(No drift) 7. Limb Ataxia (finger/nose \T\ heel/[place] - test with eyes open) - 0(Absent) 8. Sensory Loss (pinprick arms/legs/face) - 0(Normal) 9. Best Language: Aphasia (description/naming/reading) - 0(No aphasia) Initials: [facility] Signatures: Dispatcher [employer] EDMS Edgar, Aamir, MD MD pavithra Claude, Larisa, RN RN ko1
--- NOTE | 2024-02-05 18:08 | ER ---
Nurse's Notes [facility] Name: Aimee Quintana Age: 58 yrs Sex: Female : 1965 Arrival Date: 02/05/2024 Time: 17:24 Bed 3 Private MD: Diagnosis: Kaplan's palsy;MCFP (current) use of anticoagulants;Unspecified atrial fibrillation Presentation: 02/04 17:36 Chief complaint: Patient's son or daughter states: noticed her face was drooping on the ko1 right, last known normal was 0830 this morning, right eye is dry, seems to be getting worse. Coronavirus screen: At this time, the client does not indicate any symptoms associated with coronavirus-19. Ebola Screen: No symptoms or risks identified at this time. Risk Assessment:. 17:36 Method Of Arrival: Ambulatory ko1 17:40 No acute neurological deficit is noted. Initial Sepsis Screen: Does the patient meet jb4 any 2 criteria? No. Patient's initial sepsis screen is negative. Does the patient have a suspected source of infection? No. Patient's initial sepsis screen is negative. Risk Assessment: Do you want to hurt yourself or someone else? Patient reports no desire to harm self or others. Onset of symptoms was February 05, 2024 at 08:30. Transition of care: patient was not received from another setting of care. 17:40 Acuity: TIANNA 2 jb4 Triage Assessment: 17:40 The onset of the patients symptoms was February 05, 2024 at 08:30. General: Appears in jb4 no apparent distress. comfortable, Behavior is calm, cooperative, appropriate for age. Pain: Denies pain. Neuro: Level of Consciousness is awake, alert, obeys commands, Oriented to person, place, time, situation, Moves all extremities. Full function Gait is steady, Speech is normal, Facial droop on right, Reports right eye is dry.. Cardiovascular: Patient's skin is warm and dry. Respiratory: Airway is patent Respiratory effort is even, unlabored, Respiratory pattern is regular, symmetrical. Derm: Skin is intact, Skin is pink, warm \T\ dry. Musculoskeletal: Circulation, motion, and sensation intact. Range of motion: intact in all extremities. Historical: - Allergies: 17:38 hydrochlorothiazide; ko1 17:38 Prednisone (Upset stomach); ko1 17:38 tramadol (Upset stomach); ko1 - Home Meds: 17:38 Eliquis [Active]; ko1 - PMHx: 17:38 Atrial fibrillation; Hypertension; ko1 - Immunization history:: Adult Immunizations up to date. - Infectious Disease History:: Denies. - Family history:: not pertinent. - Social history:: Smoking status: Patient denies any tobacco usage or history of. Screenin:38 [facility] ED Fall Risk Assessment (Adult) History of falling in the last 3 months, ko1 including since admission No falls in past 3 months (0 pts) Confusion or Disorientation No (0 pts) Intoxicated or Sedated No (0 pts) Impaired Gait No (0 pts) Mobility Assist Device Used No (0 pt) Altered Elimination No (0 pt) Score/Fall Risk Level 0 - 2 = Low Risk Oriented to surroundings, Maintained a safe environment, Educated pt \T\ family on fall prevention, incl call for assistance when getting out of bed, Assessed \T\ reinforced patient's understanding of fall precautions, Provided non-skid footwear, Hourly rounding (assess needs \T\ fall precautionary measures) done. Abuse screen: Denies threats or abuse. Denies injuries from another. Nutritional screening: No deficits noted. Tuberculosis screening: No symptoms or risk factors identified. Assessment: 17:44 General: Appears in no apparent distress. Behavior is cooperative, appropriate for age, ko1 anxious. Pain: Denies pain. Neuro: Facial droop on right. Cardiovascular: No deficits noted. Respiratory: No deficits noted. GI: No deficits noted. : No deficits noted. EENT: No deficits noted. Derm: No deficits noted. Musculoskeletal: No deficits noted. 18:10 Reassessment: patient is in CT at the time dc was ordered. ko1 Vital Signs: 17:40 BP 173 / 78; Pulse 77; Resp 16; Pulse Ox 99% on R/A; Weight 115.5 kg; Height 5 ft. 4 jb4 in. ; Pain 0/10; 18:16 BP 168 / 72; Pulse 72; Resp 16; Pulse Ox 99% ; ko1 17:40 Body Mass Index 43.71 (115.50 kg, 162.56 cm) jb4 17:40 Pain Scale: Adult jb4 NIH Stroke Scale Scores: 18:05 NIHSS Score: 1 [facility] ED Course: 17:26 Patient arrived in ED. ra3 17:38 Aamir Hernández MD is Attending Physician. [facility] 17:38 Patient has correct armband on for positive identification. Allergy band placed. Bed in ko1 low position. Call light in reach. Side rails up X2. Provided Education on: labs. Client placed on continuous cardiac and pulse oximetry monitoring. NIBP monitoring applied. cassandra developer on. Door closed. Noise minimized. Lights dimmed. Warm blanket given. Pillow given. 17:41 Triage completed. jb4 17:42 Larisa Arce, RN is Primary Nurse. ko1 17:44 No provider procedures requiring assistance completed. Patient did not have IV access ko1 during this emergency room visit. 18:07 John Hui MD is Referral Physician. [facility] 18:10 Patient placed in an exam room. ko1 18:19 CT Head Brain wo Cont In Process Unspecified. EDMS Administered Medications: 17:57 Drug: predniSONE PO 60 mg PO once Route: PO; ko1 18:21 Follow up: Response: No adverse reaction ko1 17:57 Drug: valACYclovir PO 1000 mg PO once Route: PO; ko1 18:21 Follow up: Response: No adverse reaction ko1 Medication: 17:38 VIS not applicable for this client. ko1 Outcome: 18:08 Discharge ordered by . [facility] 18:16 Discharged to home ambulatory, with family, ko1 18:16 Condition: stable 18:16 Discharge instructions given to patient, family, Instructed on discharge instructions, follow up and referral plans. medication usage, Demonstrated understanding of instructions, follow-up care, medications, Prescriptions given X 4, 18:22 Patient left the ED. ko1 NIH Stroke Scale - NIH Stroke Score Date: 02/05/2024 Time: 18:05 Total Score = 1 10. Dysarthria (speech clarity - read or repeat words) - 0(Normal) 11. Extinction and Inattention (visual/tactile/auditory/spatial/personal) - 0(No abnormality) 1a. Level of Consciousness (LOC) - 0(Alert) 1b. Level of Consciousness (LOC) (Month \T\ Age) - 0(Both) 1c. LOC Commands (Open \T\ Closes Eyes/News Internship) - 0(Both) 2. Best Gaze (Lateral Gaze Paresis) - 0(Normal) 3. Visual Field Loss - 0(No visual loss) 4. Facial Palsy - 1(Minor Paralysis) 5a. Left Arm: Motor (10-second hold) - 0(No drift) 5b. Right Arm: Motor (10-second hold) - 0(No drift) 6a. Left Leg: Motor (5-second hold - always test supine) - 0(No drift) 6b. Right Leg: Motor (5-second hold - always test supine) - 0(No drift) 7. Limb Ataxia (finger/nose \T\ heel/[place] - test with eyes open) - 0(Absent) 8. Sensory Loss (pinprick arms/legs/face) - 0(Normal) 9. Best Language: Aphasia (description/naming/reading) - 0(No aphasia) Initials: pavithra Signatures: Dispatcher [employer] Aamir Bell MD MD cha Bryson, James RN RN jb4 Larisa Arce, RN RN ko1 Zaira Hamilton ra3
--- NOTE | 2024-02-05 18:37 | RAD REPORT ---
EXAM: CT brain without contrast HISTORY: Facial droop COMPARISON: 2018 TECHNIQUE: Multiple contiguous axial images were obtained and a CT of the brain without contrast.. Sagittal and coronal reconstruction performed. Automated exposure control, adjustment of the mA and/or kV according to patient size, and/or iterative reconstruction. Unless otherwise specified, incidental f indings do not require dedicated imaging follow-up FINDINGS: An intracranial bleed is not seen Ventricles are normal caliber No extra-axial fluid collection noted No significant hypodensity within the brain No fluid within the visualized sinuses or mastoids noted. IMPRESSION: No acute intracranial abnormality noted. If the patient continues to have symptoms to suggest an acute intracranial abnormality then MRI of th e brain would be recommended.
[2024-02-06 01:24] VITALS: O2SAT 99
[2024-02-06 01:25] VITALS: BP 168/72
== END 2024-02-05 18:22 | disposition home or self-care (01) ==
LOC: ER 17:24
DX: G51.0 Bell's palsy (principal); I48.91 Unspecified atrial fibrillation; Z79.01 Long term (current) use of anticoagulants; I10 Essential (primary) hypertension
CPT/HCPCS: 70450; 99284; J7512

== ENCOUNTER 2024-03-29 03:29 | Emergency (ER) | payer OTHER ==
--- OUTSIDE RECORDS SUMMARY | 2024-03-29 03:36 | XMS REPORT | Continuity of Care Document ---
Author Name Unknown Address [address] 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 Phone [facility] Physician Unavailable TAWANA JARA Attending Clinician JOSEPH Brothers Attending Clinician Unavailable JOSEPH MARIN Attending Clinician Unavailable Joseph Marin MD Attending Clinician [phone] CONY DEVLIN Attending Clinician UnaCONY James Attending Clinician UnaCony James MD Attending Clinician + JARROD GONZALEZ Attending Clinician UnavailJARROD Allen Attending Clinician UnavailJANI Santana Attending Clinician UnavailJANI Boles Attending Clinician UnavailPHYLLIS Milligan Attending Clinician Unavailable PHYLLIS FARAH Attending Clinician Unavailable Phyllis Willson Attending Clinician [phone] Tawana Jara MD Attending Clinician + [phone] AP BARAJAS Attending Clinician Unavailable CONY DEVLIN Admitting Clinician Unav ailTAWANA Grant Admitting Clinician Mulugeta rashid Payers Payer Name Policy Type Policy Number Effective Date Expirati on Date Source MYKE Marco A/ NORMA FERNANDEZ [id number] 2023 00:00:00 [facility] [id number] 2023 00:00:00 MYKE AGARWAL [facility] 2: 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 94 ON 9 [id number] 2022 00:00:00 Problems Condition Name Condition Details Condition Category Status Onset Date Resolution Date Last Treatment Date Treating Clinician Comments Source Surveillan ce of previously prescribed contracept cabrera method Surveillan ce of previously prescribed contracept cabrera method Disease Active 03-24 00:00: 00 [facility] Morbid obesity Morbid obesity Disease Active 07-17 00:00: 00 [facility] Essential hypertensi on, benign Essential hypertensi on, benign Disease Active 07-17 00:00: 00 [facility] 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 Had hyst [facility] Depression Depression Disease Resolve d 07-17 00:00: 00 2014-12-27 00:00:00 2014-12-27 12:29:23 [facility] Excessive or frequent menstruati on Excessive or frequent menstruati on Disease Resolve d 10-11 00:00: 00 2014-12-27 00:00:00 2014-12-27 12:28:58 [facility] Allergies, Adverse Reactions, Alerts Allergy Name Allergy Type Status Severity Reaction(s) Onset Date Inactive Date Treating Clinician Comments Source APIXABAN DRUG INGREDI Active Anaphylaxis 03-07 00:00: 00 [facility] Apixaban Propensi ty to adverse reaction s Active Anaphylaxis 03-07 00:00: 00 [facility] [place] - Intraven ous Propensi ty to adverse reaction to drug Active 07-18 00:00: 00 Daren Lew n Propensi ty to adverse reaction to drug Active 07-17 00:00: 00 Daren MaHL OROthiaz mitzi - Oral Propensi ty to adverse reaction to drug Active 19 00:00: 00 Daren Lew Predniso ne Propensi ty to adverse reaction to drug Inactiv e 6 00:00: 00 Daren Lew Hydrochl orothiaz mitzi Propensi ty to adverse reaction to drug Inactiv e 06-01 00:00: 00 Daren Lew Hydrochl orothiaz mitzi Propensi ty to adverse reaction s Active Swelling 07-14 00:00: 00 [facility] HYDROCHL OROTHIAZ MITZI DRUG INGREDI Active SOB 07-14 00:00: 00 [facility] Social History Social Habit Start Date Stop Date Quantity Comments Source [facility] Alcoholic beverage intake 2023-11-14 00:00:00 2023-11-14 00:00:00 Current non-drinker of alcohol (finding) [facility] History of Social function 2023-11-14 00:00:00 2023-11-14 00:00:00 [facility] Tobacco use and exposure 2013-07-14 00:00:00 2013-07-14 00:00:00 Smokeless tobacco non-user [facility] Sex assigned at 1965 00:00:00 1965 00:00:00 [facility] Smoking Status Start Date Stop Date Source Never smoked tobacco [facility] Medications Ordered Medication Name Filled Medication Name Start Date Stop Date Current Medication? Ordering Clinician Indication Dosage Frequency Signature (SIG) Comments Components Source ciprofloxac in 500 mg tablet 03-28 00:00: 00 Yes 1mg Daren Lew methocarbam ol 500 mg tablet 03-28 00:00: 00 Yes 1mg Daren Lew ondansetron (ZOFRAN (PF)) injection 4 mg 03-07 21:15: 00 03-07 21:53 :00 No 4mg 4 mg, Slow IV Push, ONCE, 1 dose, On 03/07/24 at 1515, Administer over 2-5 Minutes, 2 mL [facility] morpHINE (4 mg/mL) injection 4 mg 03-07 21:15: 00 03-07 21:50 :00 No 4mg 4 mg, Slow IV Push, ONCE, 1 dose, On 03/07/24 at 1515, STAT [facility] iopamidol (ISOVUE 370-500 mL) injection 85 mL 03-07 18:59: 00 03-07 19:00 :00 No [id number] 85mL 85 mL, Intravenou s, ONCE, 1 dose, On 03/07/24 at 1315, Routine [facility] traMADoL 50 mg tablet 03-07 00:00: 00 03-15 05:59 :00 Yes [id number] 50mg Take 1 tablet by mouth every 6 (six) hours as needed for Pain (scale 4-6) for up to 7 days. Indication s: acute pain [facility] rivaroxaban (XARELTO) 20 mg tablet 2023-03 00:00: 00 Yes 1358 20mg Take 1 tablet by mouth in the morning. Indication s: atrial fibrillati on [facility] methocarbam oL (ROBAXIN) tablet 500 mg 2023-03 01:45: 00 01-23 03:09 :00 No 500mg 500 mg, Oral, ONCE, 1 dose, On [place] 01/23/24 at 1945, [facility] HYDROcodone -acetaminop hen (NORCO 5) tablet 1 tablet 2023-03 01:45: 00 01-23 03:08 :00 No 1{tbl} 1 tablet, Oral, ONCE, 1 dose, On Clare 01/23/24 at 1945, [facility] predniSONE (DELTASONE) tablet 10 mg 2023-03 01:45: 00 01-23 03:09 :00 No 10mg 10 mg, Oral, ONCE, 1 dose, On Clare 01/23/24 at 1945, [facility] methocarbam oL 500 mg tablet 2023-03 00:00: 00 03-07 00:00 :00 No [id number] 1000mg Take 2 tablets by mouth 2 (two) times daily as needed (muscle spasms). [facility] traMADoL 50 mg tablet 2023-03 00:00: 00 01-30 05:59 :00 Yes [id number] 100mg Take 2 tablets by mouth every 8 (eight) hours as needed for Pain (scale 7-10) for up to 7 days. Indication s: acute pain [facility] predniSONE 50 mg tablet 2023-03 00:00: 00 01-28 05:59 :00 Yes [id number] 50mg Take 1 tablet by mouth in the morning for 5 days. [facility] apixaban (ELIQUIS) 5 mg tablet 2023-03 00:00: 00 02-11 00:00 :00 No 1358 5mg Take 1 tablet by mouth in the morning and 1 tablet in the evening. Do all this for 120 days. Indication s: atrial fibrillati on [facility] hydralazine 25 mg tablet 2023-03 00:00: 00 Yes 1mg Daren Gwendolyn Lew carvedilol 12.5 mg tablet 2023-03 00:00: 00 Yes 1mg Daren Gwendolyn Lew rivaroxaban (XARELTO) 15 mg tablet 2023-03 0 00:00: 00 12-29 00:00 :00 No 1358 15mg Take 1 tablet by mouth in the morning. Indication s: atrial fibrillati on [facility] carvediloL 12.5 mg tablet 11-27 00:00: 00 Yes 12.5mg Take 1 tablet by mouth in the morning and 1 tablet in the evening. Take with meals. [facility] verapamil ER (SR) 120 mg tablet,exte nded release 11-24 00:00: 00 Yes 1mg Daren Gwendolyn Vipin carvedilol 6.25 mg tablet 11-24 00:00: 00 Yes 1mg Daren Lew enalapril maleate 20 mg tablet 11-24 00:00: 00 Yes 1mg Daren Lew fish,bora,f lax oils-om3,6, 9no1 (OMEGA 3-6-9) 1,200 mg Cap 11-13 15:26: 05 03-07 00:00 :00 No 500mg Take 500 mg by mouth. [facility] enalapril (VASOTEC) 5 mg tablet 11-13 15:22: 37 Yes 20mg Take 4 tablets by mouth in the morning. [facility] VERAPAMIL HCL (VERAPAMIL ORAL) 11-13 15:22: 37 03-07 00:00 :00 No 120mg Take 120 mg by mouth daily. [facility] carvedilol (COREG) 6.25 mg tablet 11-13 15:10: 38 11-27 00:00 :00 No 6.25mg Take 1 tablet by mouth in the morning and 1 tablet in the evening. Take with meals. [facility] Vitamin D3 25 mcg (1,000 unit) tablet 08-21 00:00: 00 Yes 1(1,000 unit) Daren Lew [...] 1mg Daren Lew carvedilol 6.25 mg tablet 07-04 00:00: 00 Yes 1mg Daren Lew enalapril maleate 20 mg tablet 07-04 00:00: 00 Yes 1mfelicita Lew TAKE 1 TABLET BY MOUTH DAILY. 3-18 00:00: 00 Yes 625 Daren Lew 1 CAP EVERY 8 HOURS NEEDED FOR COUGH 2-16 00:00: 00 07-07 00:00 :00 No 200 Daren Lew TAKE 1 TABLET DAILY. 2-16 00:00: 00 07-07 00:00 :00 No 625 Daren Lew TAKE 10 ML EVERY 4-6 HOURS NEEDED 2-16 00:00: 00 07-07 00:00 :00 No [id number] Daren Lew VERAPAMIL ER [id number] 2-12 00:00: 00 Yes 120 Daren Lew VERAPAMIL ER [id number] 2022-03 1- 00:00: 00 Yes 120 Daren Lew ENALAPRIL 20MG 2022-03 1- 00:00: 00 Yes [id number] Daren Lew CARVEDILOL 12.5MG 2022-03 00:00: 00 Yes [id number] Daren Lew TAKE 1 TABLET DAILY. 2022-03 00:00: 00 07-07 00:00 :00 No 10 Daren Lew TAKE 1 TABLET DAILY. 2022-03 00:00: 00 07-07 00:00 :00 No 75 Daren Lew TAKE 1 CAPSULE EVERY 6 HOURS DAILY. 2022-03 0-10 00:00: 00 07-07 00:00 :00 No 300 Daren Lew TAKE 1 TABLET 3 TIMES DAILY WITH FOOD NEEDED. 2022-03 0-10 00:00: 00 07-07 00:00 :00 No 800 Daren Lew AMOXICILLIN 875MG -25 00:00: 00 Yes Daren Lew TRAMADOL HCL 50MG 9-25 00:00: 00 Yes Daren Lew TAKE ONE (1) TABLET(S) BY MOUTH EVERY EIGHT HOURS NEEDED. -24 00:00: 00 Yes Daren Lew TAKE ONE (1) TABLET(S) BY MOUTH EVERY TWELVE HOURS FOR 10 DAYS. -24 00:00: 00 Yes Daren Lew CARVEDILOL 12.5MG 0 8-14 00:00: 00 Yes Daren Lew VERAPAMIL ER [id number] 8-14 00:00: 00 Yes [id number] Daren Lew ENALAPRIL 20MG - 00:00: 00 Yes Daren Lew APPLY SPARINGLY TO AFFECTED AREA(S) TWICE DAILY 07-26 00:00: 00 07-07 00:00 :00 No 2 Daren Lew TAKE 1 TABLET TWICE DAILY. 5- 00:00: 00 07-07 00:00 :00 No 125 Daren Lew TAKE 1 TABLET TWICE DAILY WITH FOOD. - 00:00: 00 07-07 00:00 :00 No [id number] Daren Lew TAKE 1 TABLET BID NEEDED - 00:00: 00 07-07 00:00 :00 No 600 Daren Lew TAKE ONE (1) TABLET(S) BY MOUTH ONCE A DAY. - 00:00: 00 Yes Daren Lew TAKE ONE (1) TABLET(S) BY MOUTH EVERY MORNING. 04-18 00:00: 00 Yes Daren Lew TAKE ONE [...] (1) TABLET(S) BY MOUTH ONCE A DAY. - 00:00: 00 No 10 TAKE ONE (1) TABLET(S) BY MOUTH EVERY FOUR TO SIX HOURS NEEDED FOR PAIN. 08-22 00:00: 00 Yes Daren Lew TAKE ONE (1) CAPSULE(S) BY MOUTH EVERY SIX HOURS FOR 10 DAYS. - 00:00: 00 Yes Daren Lew ofloxacin 0.3 % ear drops 08-18 00:00: 00 Yes 4% Daren Lew amoxicillin 875 mg-potassiu m clavulanate 125 mg tablet 08-18 00:00: 00 Yes 1mg Daren Lew ofloxacin 0.3 % ear drops 08-18 00:00: 00 No 4% amoxicillin 875 mg-potassiu m clavulanate 125 mg tablet 08-18 00:00: 00 No 1mg carvedilol 12.5 mg tablet -16 00:00: 00 Yes 1mg Daren Lew enalapril maleate 20 mg tablet 07-17 00:00: 00 Yes 1mg Daren Lew verapamil ER (SR) 120 mg tablet,exte nded release -16 00:00: 00 Yes 1mg Daren Lew carvedilol 12.5 mg tablet -16 00:00: 00 No 1mg Dose Unknown -16 00:00: 00 No verapamil ER (SR) 120 mg tablet,exte nded release -16 00:00: 00 No 1mg carvedilol 12.5 mg tablet -15 00:00: 00 Yes 1mg Daren Lew verapamil ER (SR) 120 mg tablet,exte nded release -15 00:00: 00 Yes 1mg Daren Lew enalapril maleate 20 mg tablet -15 00:00: 00 Yes 1mg Daren Lew verapamil ER (SR) 120 mg tablet,exte nded release -15 00:00: 00 No 1mg enalapril maleate 20 mg tablet 2022-0 4-15 00:00: 00 No 1mg carvedilol 12.5 mg tablet 4-15 00:00: 00 No 1mg carvedilol 12.5 mg tablet -20 00:00: 00 Yes 1mg Daren Lew enalapril maleate 20 mg tablet 1- 00:00: 00 Yes 1mg Daren Lew verapamil ER (SR) 120 mg tablet,exte nded release 03-23 00:00: 00 Yes 1mg Daren Lew carvedilol 12.5 mg tablet 03-23 00:00: 00 No 1mg Dose Unknown 03-23 00:00: 00 No verapamil ER (SR) 120 mg tablet,exte nded release 03-23 00:00: 00 No 1mg carvedilol 12.5 mg tablet 2020-03 0- 00:00: 00 Yes 1mg Daren Lew verapamil ER (SR) 120 mg tablet,exte nded release 2020-03 0 00:00: 00 Yes 1mg Daren Lew enalapril maleate 20 mg tablet 2020-03 0 00:00: 00 Yes 1mg Daren Lew carvedilol 12.5 mg tablet 2020-03 0 00:00: 00 No 1mg verapamil ER (SR) 120 mg tablet,exte nded release 2020-03 0 00:00: 00 No 1mg enalapril maleate 20 mg tablet 2020-03 0 00:00: 00 No 1mg Singulair 10 mg [...] mg tablet 10-26 00:00: 00 No 1mg enalapril maleate 20 mg tablet 10-26 00:00: 00 No 1mg verapamil ER (SR) 120 mg tablet,exte nded release 10-26 00:00: 00 No 1mg Bactrim DS 800 mg-160 mg tablet - 00:00: 00 Yes 1mg Daren Lew Bactrim DS 800 mg-160 mg tablet 07-08 00:00: 00 No 1mg Augmentin 875 mg-125 mg tablet 4-04 00:00: 00 Yes 1mg Daren Lew Augmentin 875 mg-125 mg tablet 4-04 00:00: 00 No 1mg Macrobid 100 mg capsule 3-30 00:00: 00 Yes 1mg Daren Lew Macrobid 100 mg capsule 3 00:00: 00 No 1mg carvedilol 12.5 mg tablet 2 00:00: 00 Yes 1mg Daren Lew verapamil ER (SR) 120 mg tablet,exte nded release 2- 00:00: 00 Yes 1mg Daren Lew enalapril maleate 20 mg tablet 2 00:00: 00 Yes 1mg Daren Lew carvedilol 12.5 mg tablet 2 00:00: 00 No 1mg verapamil ER (SR) 120 mg tablet,exte nded release 04-25 00:00: 00 No 1mg enalapril maleate 20 mg tablet 04-25 00:00: 00 No 1mg Bactrim DS 800 mg-160 mg tablet 1- 00:00: 00 Yes 1mg Daren Lew Bactrim DS 800 mg-160 mg tablet 03-22 00:00: 00 No 1mg ibuprofen 600 mg [...] No 1mg permethrin 5 % topical cream 04-20 00:00: 00 Yes 1% Daren Lew carvedilol 12.5 mg tablet 04-20 00:00: 00 Yes 1mg Daren Lew verapamil ER (SR) 120 mg tablet,exte nded release 04-20 00:00: 00 Yes 1mg Daren Lew enalapril maleate 20 mg tablet 04-20 00:00: 00 Yes 1mg Daren Lew permethrin 5 % topical cream 04-20 00:00: 00 No 1% carvedilol 12.5 mg tablet 04-20 00:00: 00 No 1mg verapamil ER (SR) 120 mg tablet,exte nded release 04-20 00:00: 00 No 1mg enalapril maleate 20 mg tablet 04-20 00:00: 00 No 1mg carvedilol 12.5 mg [...] tablet 08-31 00:00: 00 Yes 1mg Daren Lwe Vistaril 25 mg capsule 08-31 00:00: 00 [...] predniSONE 20 mg tablet 08-22 00:00: 00 03-07 00:00 :00 No 40 mg PO QD x 5 days, then20 mg PO QD x 5 days, then10 mg PO QD x 5 dyas [facility] diphenhydrA MINE (BENADRYL) 25 mg capsule 08-22 00:00: 00 12-03 00:00 :00 No 25mg Take 1 capsule by mouth every 6 (six) hours as needed for Itching or Allergies for up to 20 doses. [facility] ciprofloxac in 500 mg tablet 07-09 00:00: [...] mg tablet 06-01 00:00: 00 No 1mg Immunizations Ordered Immunization Name Filled Immunization Name Date Status Comments Source TDAP 2013-07-14 00:00:00 Completed [facility] TDAP 2013-07-14 00:00:00 Completed [facility] TDAP Unknown Completed [facility] TDAP Unknown Completed [facility] TDAP Unknown Completed [facility] TDAP Unknown Completed [facility] Vital Signs Vital Name Observation Time Observation Value Comments S nyasia Systolic blood pressure 2024-03-07 22:53:38 144 mm[Hg] [facility] Diastolic blood pressure 2024-03-07 22:53:38 75 mm[Hg] [facility] Heart rate 2024-03-07 22:53:38 57 [facility] 2024-03-07 22:53:38 36.94 Day [facility] Respiratory rate 2024-03-07 22:53:38 19 /min [facility] Oxygen saturation in Arterial blood by Pulse oximetry 2024-03-07 22:53:38 100 /min [facility] Body height 2024-03-07 16:47:00 165.1 cm [facility] Body weight 2024-03-07 16:47:00 117.073 kg [facility] BMI 2024-03-07 16:47:00 42.95 kg/m2 [facility] Systolic blood pressure 2024-01-24 03:10:00 154 mm[Hg] [facility] Diastolic blood pressure 2024-01-24 03:10:00 89 mm[Hg] [facility] Heart rate 2024-01-24 03:10:00 65 /min [facility] Body temperature 2024-01-24 03:10:00 36.56 Day [facility] Respiratory rate 2024-01-24 03:10:00 18 /min [facility] Oxygen saturation in Arterial blood by Pulse oximetry 2024-01-24 03:10:00 98 /min [facility] Body height 2024-01-24 01:04:00 165.1 cm [facility] Body weight 2024-01-24 01:04:00 [facility] 2024-01-24 01:04:00 41.60 kg/m2 [facility] Systolic blood pressure 2023-12-04 13:38:00 148 mm[Hg] [facility] Diastolic blood pressure 2023-12-04 13:38:00 79 mm[Hg] [facility] Heart rate 2023-12-04 13:38:00 62 /min [facility] Oxygen saturation in Arterial blood by Pulse oximetry 2023-12-04 13:38:00 95 /min [facility] Body temperature 2023-12-04 13:32:00 36.17 Day [facility] Respiratory rate 2023-12-04 13:32:00 20 /min [facility] Body height 2023-12-04 13:32:00 165.1 cm [facility] 2023-12-04 13:32:00 111.585 [facility] BMI 2023-12-04 13:32:00 40.94 kg/m2 [facility] Systolic blood pressure 2023-11-14 20:26:00 128 mm[Hg] [facility] Diastolic blood pressure 2023-11-14 20:26:00 69 mm[Hg] [facility] Heart rate 2023-11-14 20:26:00 67 /min [facility] Res[facility] rate 2023-11-14 20:26:00 18 /min [facility] Body height 2023-11-14 20:26:00 165.1 cm [facility] Body weight 2023-11-14 20:26:00 110.859 kg [facility] BMI 2023-11-14 20:26:00 40.67 kg/m2 [facility] Oxygen saturation in Arterial blood by Pulse oximetry 2023-11-14 20:26:00 91 /min [facility] BP Systolic 2024-03-28 09:23:00 143 mm[Hg] Step hen F [facility] BP Diastolic 2024-03-28 09:23:00 84 mm[Hg] Deangelo phen F [facility] Weight Measured 2024-03-28 09:23:00 259.00 pounds Daren F [facility] Height Measured 2024-03-28 09:23:00 64.00 inches Daren F [facility] Body Temperature 2024-03-28 09:23:00 97.80 degrees Daren F [facility] Heart Rate 2024-03-28 09:23:00 67.00 /min Sangeeta en F [facility] Respiratory Rate 2024-03-28 09:23:00 16.00 /min Daren F Vipin BP Systolic 2023-12-20 11:28:00 126 mm[Hg] Step hen F [facility]ip[facility] BP Diastolic 2023-12-20 11:28:00 77 mm[Hg] Deangelo phen F [facility] Weight Measured 2023-12-20 11:28:00 242.60 pounds Daren F Vipin Height Measured 2023-12-20 11:28:00 64.00 inches Daren F [facility] Body Temperature 2023-12-20 11:28:00 98.10 degrees Daren F Vipin Heart Rate 2023-12-20 11:28:00 47.00 /min Sangeeta en F [facility] Respiratory Rate 2023-12-20 11:28:00 18.00 /min Daren F Vipin BP Systolic 2023-10-15 10:51:00 145 mm[Hg] Step [...] Respiratory Rate 2021-07-17 10:37:00 18.00 /min Daren Lew BP Systolic 2021-03-23 10:22:00 208 mm[Hg] BP [...] / Time Performed Performing Clinicia n Source TROPONIN I 2024-03-07 21:56:00 Cony Devlin [facility] CT THORAX W CONTRAST 2024-03-07 19:05:00 Cony Estrada [facility] TROPONIN I 2024-03-07 17:43:00 Cony Devlin [facility] COMP. METABOLIC PANEL ([id number]) 2024-03-07 17:43:00 Cony Devlin [facility] CBC WITH DIFF 2024-03-07 17:43:00 Cony Devlin [facility] D-DIMER 2024-03-07 17:43:00 Cony Devlin [facility] N-TERMINAL PRO-BNP 2024-03-07 17:43:00 Cony Gomez [facility] XR CHEST 1 VW 2024-03-07 17:33:53 Cony Devlin [facility] HB ECG ROUTINE & RHYTHM STRIP 2023-11-14 20:20:13 Tawana Jara [facility] Plan of Care Planned Activity Planned Date Details Comments Source Goal Plan of Care Note [code = 50878-3] Goal Plan of Care Note [code = 33945-9] Goal Plan of Care Note [code = 07389-7] Goal Plan of Care Note [code = 06622-3] Goal Plan of Care Note [code = 29436-3] Goal Plan of Care Note [code = 47670-7] Goal Plan of Care Note [code = 04527-9] Goal Plan of Care Note [code = 16437-1] Goal Plan of Care Note [code = 23116-2] Goal Plan of Care Note [code = 99203-0] Goal Plan of Care Note [code = 90298-2] Goal Plan of Care Note [code = 94375-0] Goal Plan of Care Note [code = 85845-7] Goal Plan of Care Note [code = 96029-9] Goal Plan of Care Note [code = 56390-3] Goal Plan of Care Note [code = 13351-9] Goal Plan of Care Note [code = 97705-5] Goal Plan of Care Note [code = 73103-6] Goal Plan of Care Note [code = 23710-5] Encounters Start Date/Time End Date/Time Encounter Type Admission Type Attending [facility] Care Department Encounter ID Source 2024-03-28 09:13:11 2024-03-28 09:13:[address] [facility] [id number] Daren Lew 2024-03-28 00:00:00 2024-03-28 00:00:[address] [facility] [id number] Daren Lew 2024-03-11 08:00:00 2024-03-11 08:00:00 Outpatient R JOSEPH MARIN HAIDER [facility] [id number] [facility] 2024-03-05 00:00:00 2024-03-09 15:43:03 Telephone Joseph Marin [facility] [id number] 350.1.13.10 4.2.7.2.686 [id number] [facility] 2024-03-07 10:50:00 2024-03-07 16:59:00 Emergency X CONY DEVLIN ERIN [facility] ERT [id number] [facility] 2024-03-07 10:50:00 2024-03-07 16:59:00 Emergency RivereduardoalejandraCony waller [facility] 1..840.114 350.1.13.10 4.2.7.2.686 [id number] [facility] 2024-02-10 00:00:00 2024-02-12 09:12:06 Telephone Joseph Marin [facility] 1.840.114 350.1.13.10 4.2.7.2.686 [id number] [facility] 2024-02-11 09:30:00 2024-02-11 09:30:00 Outpatient JANI HASKINS CRAIG [facility] [id number] [facility] 2024-01-23 19:08:00 2024-01-23 21:21:00 Emergency PHYLLIS NAM ERICCA [facility] ERT [id number] [facility] 2024-01-23 19:08:00 2024-01-23 21:21:00 Emergency Phyllis Farah [facility] 1.840.114 350.1.13.10 4.2.7.2.686 [id number] [facility] 2023-12-31 10:00:00 2023-12-31 10:00:00 Outpatient TAWANA WELDON [facility] [id number] [facility] 2023-12-30 00:00:00 2023-12-31 08:58:47 Telephone Zion Anderson Joseph [facility] 1.840.114 350.1.13.10 4.2.7.2.686 [id number] [facility] 2023-12-26 00:00:00 2023-12-30 09:11:49 Telephone Al Taii, [facility] [id number] 350.1.13.10 4.2.7.2.686 [id number] [facility] 2023-12-23 13:48:56 2023-12-23 13:48:[address] [facility] [id number] Daren Snow [place] 2023-12-20 11:15:22 2023-12-20 11:15:22 Outpatient [facility] [id number] Daren Snow [place] 2023-12-19 00:00:00 2023-12-19 09:06:[address] [facility] [id number] 350.1.13.10 4.2.7.2.686 [id number] [facility] 2023-12-04 09:00:00 2023-12-04 09:29:52 Outpatient R ZION CAROLANN JOSEPH ZION CAROLANN [facility] [id number] [facility] 2023-12-04 09:00:00 2023-12-04 09:29:52 Office Visit Zion Anderson [facility] 1.2.840.114 350.1.13.10 4.2.7.2.686 [id number] [facility] 2023-11-28 00:00:00 2023-11-28 12:25:[address] [facility] 1.2.840.114 350.1.13.10 4.2.7.2.686 [id number] [facility] 2023-11-25 07:49:07 2023-11-25 23:59:00 Outpatient R TAWANA JARA [facility] [id number] [facility] 2023-11-25 07:49:07 2023-11-25 23:59:00 [facility] 1.2.840.114 350.1.13.10 4.2.7.2.686 [id number] [facility] 2023-11-25 00:00:00 2023-11-25 00:00:00 Outpatient Visit SFA [id number] Daren Lew 2023-11-14 16:00:00 2023-11-14 23:59:00 Outpatient R TAWANA JARA [facility] [id number] [facility] 2023-11-14 16:00:00 2023-11-14 23:59:00 Hospital Encounter Tawana JaraYaakov [facility] [id number] [facility] 2023-11-14 15:30:00 2023-11-14 16:48:44 Office Visit Tawana JaraYaakov [facility] [id number] [id number] [facility] 2023-10-15 11:18:22 2023-10-15 11:18:[address] [facility] [id number] Daren Lew 2023-10-15 00:00:00 2023-10-15 00:00:00 Outpatient Visit SFA [id number] Daren Lew 2023-08-20 11:04:17 2023-08-20 11:04:[address] [facility] [id number] 0618 Daren Lew 2023-08-19 11:38:56 2023-08-19 11:38:[address] [facility] [id number] Daren Lew 2023-08-19 00:00:00 2023-08-19 00:00:00 Outpatient Visit SFA [id number] Daren Lew 2023-07-22 13:04:21 2023-07-22 13:04:21 Outpatient SFA SFA 0520 Daren Lew 2023-04-19 16:40:16 2023-04-19 16:40:16 Outpatient SFA SFA 021 Daren Lew 2023-01-14 14:33:09 2023-01-14 14:33:09 Outpatient SFA SFA 111 Daren Lew 2022-12-11 14:59:37 2022-12-11 14:59:37 Outpatient SFA SFA 1010 Daren Lew 2022-11-08 14:00:00 2022-11-08 14:00:00 Outpatient AP BARAJAS [id number] Norma Grimes 2022-10-15 15:59:45 2022-10-15 15:59:45 Outpatient SFA SFA 0814 Daren Lew 2022-07-26 14:50:34 2022-07-26 14:50:34 Outpatient SFA SFA 0525 Daren Lew 2022-07-12 16:21:33 2022-07-12 16:21:33 Outpatient SFA SFA 0511 Daren Snow Vipin 2022-05-11 09:13:08 2022-05-11 09:13:08 Outpatient SFA SFA 0310 Daren Lew 2022-01-15 17:07:22 2022-01-15 17:07:22 Outpatient SFA SFA 1114 Daren Lew 2021-10-20 00:00:00 2021-10-20 00:00:00 Outpatient Visit [id number] Results Test Description Test Time Test Comments Results Result Comments Source CT Thorax w contrast 20:55:39 PROCEDURE: CT CHEST WITHOUT CONTRAST - CHEST PROTOCOL CLINICAL INDICATION: Soft tissue mass, chest, US/xray nondiagnostic Aorticaneurysm, known or suspected ?Aortic infection or inflammation ? Comparison: ?None TECHNIQUE: Volumetric images of the chest were acquired (from lung apicesto bases) without contrast. Images were reconstructed at 2.5 mm slicethickness. MIP axial images, coronal and sagittal reformats were alsosubmitted for interpretation. FINDINGS: LUNGS AND PLEURA: The lungs are well-expanded and clear. No focal opacitiesare identified. No suspicious nodules. No pleural abnormality detected. LYMPH NODES: Mildly prominent bilateral axillary lymph nodes withoutabnormal enlargement or suspicious features. MEDIASTINUM AND LOWER NECK: No central airway lesions are detected. Theesophagus is within normal limits. The included thyroid gland appearsnormal. HEART AND GREAT VESSELS: The heart is normal in size. No pericardialabnormalities are identified. The RV to LV is normal. The thoracic aorta is normal in caliber with mild atherosclerotic plaque. No significant atherosclerotic calcifications of the coronary vessels. The pulmonary trunk is normal in caliber. VISUALIZED UPPER ABDOMEN: The included solid organs and hollow viscusappear within normal limits. OSSEOUS STRUCTURES AND SOFT TISSUES: No focal osseous lesions are detected.The soft tissues appear normal. [id number] 18:29:21* Test Item Value Reference Range Interpretation Comme nts NT-proBNP (test code = 55054-8) 120 pg/mL <=125 Lab Interpretation (test cod e = 90992-8) [facility] ([id number] 18:20:17* Test Item Value Reference Range Interpretation Comme nts NA (test code = 4048409531) 142 mmol/L 135-145 K (test code = 2643632646) 4.0 mmol/L 3.5-5.0 CL (test code = 8367072179) 109 mmol/L 98-108 H CO2 TOTAL (test code = 7723674053) 24 mmol/L 23-31 AGAP (test code = 6397632493) 9 2-16 BUN (test code = 7976455727) 12 mg/dL 7-23 GLUCOSE (test code = 9906672788) 128 mg/dL 70-110 H CREATININE (test code = 2160-0) 0.54 mg/dL 0.50-1.04 TOTAL BILI (test code = 4862477098) 0.4 mg/dL 0.1-1.1 CALCIUM (test code = 7743564499) 9.4 mg/dL 8.6-10.6 T PROTEIN (test code = 9002461876) 7.9 g/dL 6.3-8.2 ALBUMIN (test code = 7762379459) 4.6 g/dL 3.5-5.0 ALK PHOS (test code = 9532820269) 112 U/L 34-122 ALTv (test code = 1742-6) 28 U/L 5-35 AST(SGOT) (test code = 2123688336) 45 U/L 13-40 H eGFR (test code = 59094-4) 106.2 mL/min/1.73m2 CKD-EPI eGFR (2020). Assuming creatinine has been stable day-to-day for at least three months, the eGFR indicates Category G1 (>= 90 mL/min/1.73 m2) Lab Interpretation (test code = 33337-9) Abnormal [facility] with [id number] 18:06:16* Test Item Value Reference Range Interpretation Comme nts WBC (test code = 6690-2) 7.26 4.30-11.10 RBC (test code = 789-8) 4.86 3.93-5.25 HGB (test code = 718-7) 13.6 g/dL 11.6-15.0 HCT (test code = 4544-3) 43.0 % 35.7-45.2 MCV (test code = 787-2) 88.5 fL 80.6-95.5 MCH (test code = 785-6) 28.0 pg 25.9-32.8 MCHC (test code = 786-4) 31.6 g/dL 31.6-35.1 RDW-SD (test code = 64758-1) 42.3 fL 39.0-49.9 RDW-CV (test code = 788-0) 13.0 % 12.0-15.5 PLT (test code = 777-3) 257 166-358 MPV (test code = 84828-1) 10.3 fL 9.5-12.9 NRBC/100 WBC (test code = 5346062397) 0.0 0.0-10.0 NRBC x10^3 (test code = 0917845795) See_Comment [Automated me ssage] The system which generated this result transmitted reference range: 10*3/?L. The reference range was not used to interpret this result as normal/abnormal. GRAN MAT (NEUT) % (test code = 770-8) 53.2 % IMM GRAN % (test code = 5446637353) 0.60 % LYMPH % (test code = 736-9) 35.4 % MONO % (test code = 5905-5) 7.7 % EOS % (test code = 713-8) 2.3 % BASO % (test code = 706-2) 0.8 % GRAN MAT x10^3(ANC) (test code = 1906627714) 3.86 10*3/uL 1.88-7.09 IMM GRAN x10^3 (test code = 0487759435) 0.04 10*3/uL 0.00-0.06 LYMPH x10^3 (test code = 731-0) 2.57 10*3/uL 1.32-3.29 MONO x10^3 (test code = 742-7) 0.56 10*3/uL 0.33-0.92 EOS x10^3 (test code = 711-2) 0.17 10*3/uL 0.03-0.39 BASO x10^3 (test code = 704-7) 0.06 10*3/uL 0.01-0.07 [facility] [id number] 18:04:39ORDERING PHYSICIAN: CONY DEVLIN. CLINICAL HISTORY: chest pain . TECHNIQUE: 1 view chest TECHNICAL QUALITY: Adequate COMPARISON: None FINDINGS: Lungs are clear. No pleural abnormality. Cardiomediastinalsilhouette size is within normal limits.[facility] [id number] 06:19:13* Test Item Value Reference Range Interpretation Comme nts HEMOGLOBIN A1c (test code = 04115) 6.0 % 4.2-5.6 H CITIZEN OF [place] [employer] GUIDELINES FOR HGB A1C: [...] INDICATED, ALL TESTING PERFORMED AT [facility]IN[facility] PATHOLOGY [employer] [address] [place] [address] INFORMATICS DEVELOPER: CASSANDRA GUERRA M.D. CLIA NUMBER [id number] [facility] [place]. [id number] COMPREHENSIVE METABOLIC [id number] 05:04:30* Test Item Value Reference Range Interpretation Comme nts GLUCOSE (test code = 2216) 89 MG/DL 70-99 BUN (test code = 2207) 17 MG/DL 6-20 CREATININE (test code = 2213) 0.55 MG/DL 0.60-1.30 L eGFR (2020 CKD-EPI) (test code = 53266) 106 ML/MIN/1.73 >60 CALC BUN/CREAT (test code = 2235) 31 RATIO 6-28 H SODIUM (test code = 223) 138 MEQ/L 133-146 POTASSIUM (test code = 2228) 4.4 MEQ/L 3.5-5.4 CHLORIDE (test code = 2215) 102 MEQ/L 95-107 CARBON DIOXIDE (test code = 2206) 23 MEQ/L 19-31 CALCIUM (test code = 2209) 9.8 MG/DL 8.5-10.5 PROTEIN, TOTAL (test code = 2228) 7.1 G/DL 6.1-8.3 ALBUMIN (test code = 2200) 4.4 G/DL 3.5-5.2 CALC GLOBULIN (test code = 2240) 2.7 G/DL 1.9-3.7 CALC A/G RATIO (test code = 2233) 1.6 RATIO 1.0-2.6 BILIRUBIN, TOTAL (test code = 2206) 0.2 MG/DL <=1.2 ALKALINE PHOSPHATASE (test code = 2204) 121 U/L 40-136 AST (test code = 2218) 21 U/L 9-40 ALT (test code = 2219) 20 U/L 5-40 COMPREHENSIVE METABOLIC [id number] 00:00:00* Test Item Value Reference Range Interpretation Comme nts GLUCOSE (test code = 2217) 89 MG/DL BUN (test code = 2208) 17 MG/DL CREATININE (test code = 2214) 0.55 MG/DL eGFR (2020 CKD-EPI) (test code = 59793) 106 ML/MIN/1.73 CALC BUN/CREAT (test code = 2235) 31 RATIO SODIUM (test code = 2231) 138 MEQ/L POTASSIUM (test code = 2228) 4.4 MEQ/L CHLORIDE (test code = 2215) 102 MEQ/L CARBON DIOXIDE (test code = 2206) 23 MEQ/L CALCIUM (test code = 2209) 9.8 MG/DL PROTEIN, TOTAL (test code = 2229) 7.1 G/DL ALBUMIN (test code = 2201) 4.4 G/DL CALC GLOBULIN (test code = 2240) 2.7 G/DL CALC A/G RATIO (test code = 2234) 1.6 RATIO BILIRUBIN, TOTAL (test code = 2207) 0.2 MG/DL ALKALINE PHOSPHATASE (test code = 2204) 121 U/L AST (test code = 2218) 21 U/L ALT (test code = 2219) 20 U/L Daren LewHEMOGLOBIN [id number] 00:00:00* Test Item Value Reference Range Interpretation Comme nts HEMOGLOBIN A1c (test code = 17582) 6.0 % Daren Snow AustinHEMOGLOBIN [id number] 00:00:00* Test Item Value Reference Range Interpretation Comme nts HEMOGLOBIN A1c (test code = 61924) 5.8 % Daren Snow AustinCOMPREHENSIVE METABOLIC [id number] 00:00:00* Test Item Value Reference Range Interpretation Comme nts GLUCOSE (test code = 2217) 93 MG/DL BUN (test code = 2208) 17 MG/DL CREATININE (test code = 2214) 0.57 MG/DL eGFR (2020 CKD-EPI) (test code = 28062) 105 ML/MIN/1.73 CALC BUN/CREAT (test code = [...] code = 2219) 20 U/L Daren LewLIPID [id number] 00:00:00* Test Item Value Reference Range Interpretation Comme nts CHOLESTEROL (test code = 2210) 162 MG/DL TRIGLYCERIDES (test code = 2232) 67 MG/DL HDL CHOLESTEROL (test code = 2220) 61 MG/DL CALC LDL CHOL (test code = 2237) 86 MG/DL RISK RATIO LDL/HDL (test cod e = 2238) 1.41 RATIO Daren LewVITAMIN D, 25 [id number] 00:00:00* Test Item Value Reference Range Interpretation Comme [facility] VITAMIN D, 25 OH (test code = 4958) 25 NG/ML Daren LewCBC W/AUTO [id number] 00:00:00* Test Item Value Reference Range Interpretation Comme [facility] WBC (test code = 1001) 6.6 K/UL [...] ABS NUCLEATED RBCS (test cod e = 20244) 0.00 K/UL Daren Griggs REFLEX AUTOIMMUNE AB [id number] 00:00:00* Test Item Value Reference Range Interpretation Comme nts ANTI-NUCLEAR ANTIBODIES (tom t code = 3506) NEGATIVE EBONY PATTERN (REPORTED TITER) (test code = 40640) SEE BELOW HOMOGENEOUS (test code = 49727) NEGATIVE TITER SPECKLED (test code = 660726) NEGATIVE TITER DENSE FINE SPECKLED (test co de = 37457) NEGATIVE TITER CENTROMERE (test code = 293283) NEGATIVE TITER COARSE SPECKLED (test code = 762240) NEGATIVE TITER DISCRETE NUCLEAR DOTS (test code = 755342) NEGATIVE TITER NUCLEOLAR (test code = 298951) NEGATIVE TITER NUCLEAR MEMBRANE (test code = 046874) NEGATIVE TITER CYTO. RETICULAR (ALPESH) (test code = 384567) NEGATIVE COMMENTS (test code = 422309) NONE METHOD (test code = 94383) (NOTE) Daren LewC-REACTIVE [id number] 00:00:00* Test Item Value Reference Range Interpretation Comme nts C-REACTIVE PROTEIN (test cod e = 3513) <0.3 MG/DL Daren LewCCP [id number] 00:00:00* Test Item Value Reference Range Interpretation Comme nts CCP IgG (test code = 43798) <0.5 U/ML Daren LewRHEUMATOID FACTOR, [id number] 00:00:00* Test Item Value Reference Range Interpretation Comme nts RHEUMATOID FACTOR, QUANT (te st code = 3502) <10 IU/ML Daren LewSEDIMENTATION [id number] 00:00:00* Test Item Value Reference Range Interpretation Comme [facility] SEDIMENTATION RATE (test code = 1017) TEST NOT PERFORMED MM/HOUR Daren LewHEMOGLOBIN [id number] 00:00:00* Test Item Value Reference Range Interpretation Comme [facility] HEMOGLOBIN A1c (test code = 51913) 5.8 % Daren LewCOMPREHENSIVE METABOLIC [id number] 00:00:00* Test Item Value Reference Range Interpretation Comme nts GLUCOSE (test code = 2217) 93 MG/DL BUN (test code = 2208) 17 MG/DL CREATININE (test code = 2214) 0.57 MG/DL eGFR (2020 CKD-EPI) (test code = 19262) 105 ML/MIN/1.73 CALC BUN/CREAT (test code = [...] code = 2219) 20 U/L Daren LewLIPID [id number] 00:00:00* Test Item Value Reference Range Interpretation Comme nts CHOLESTEROL (test code = 2210) 162 MG/DL TRIGLYCERIDES (test code = 2232) 67 MG/DL HDL CHOLESTEROL (test code = 2220) 61 MG/DL CALC LDL CHOL (test code = 2237) 86 MG/DL RISK RATIO LDL/HDL (test cod e = 2238) 1.41 RATIO Daren LewVITAMIN D, 25 [id number] 00:00:00* Test Item Value Reference Range Interpretation Comme nts VITAMIN D, 25 OH (test code = 4958) 25 NG/ML Daren LewCBC W/AUTO [id number] 00:00:00* Test Item Value Reference Range Interpretation [...] ABS NUCLEATED RBCS (test cod e = 56974) 0.00 K/UL Daren Griggs REFLEX AUTOIMMUNE AB [id number] 00:00:00* Test Item Value Reference Range Interpretation Comme nts ANTI-NUCLEAR ANTIBODIES (tom t code = 3506) NEGATIVE EBONY PATTERN (REPORTED TITER) (test code = 10613) SEE BELOW HOMOGENEOUS (test code = 97785) NEGATIVE TITER SPECKLED (test code = 801465) NEGATIVE TITER DENSE FINE SPECKLED (test co de = 44406) NEGATIVE TITER CENTROMERE (test code = 043748) NEGATIVE TITER COARSE SPECKLED (test code = 574464) NEGATIVE TITER DISCRETE NUCLEAR DOTS (test code = 318544) NEGATIVE TITER NUCLEOLAR (test code = 236915) NEGATIVE TITER NUCLEAR MEMBRANE (test code = 658798) NEGATIVE TITER CYTO. RETICULAR (ALPESH) (test code = 764447) NEGATIVE COMMENTS (test code = 753775) NONE METHOD (test code = 59124) (NOTE) Daren LewC-REACTIVE [id number] 00:00:00* Test Item Value Reference Range Interpretation Comme nts C-REACTIVE PROTEIN (test cod e = 3513) <0.3 MG/DL Daren LewCCP [id number] 00:00:00* Test Item Value Reference Range Interpretation Comme nts CCP IgG (test code = 25864) <0.5 U/ML Daren LewRHEUMATOID FACTOR, [id number] 00:00:00* Test Item Value Reference Range Interpretation Comme clarke RHEUMATOID FACTOR, QUANT (te st code = 3502) <10 IU/ML Daren LewSEDIMENTATION [id number] 00:00:00* Test Item Value Reference Range Interpretation Comme nts SEDIMENTATION RATE (test code = 1017) TEST NOT PERFORMED MM/HOUR Daren LewHEMOGLOBIN [id number] 00:00:00* Test Item Value Reference Range Interpretation Comme clarke HEMOGLOBIN A1c (test code = 66258) 5.8 % Daren LewCOMPREHENSIVE METABOLIC [id number] 00:00:00* Test Item Value Reference Range Interpretation Comme nts GLUCOSE (test code = 2217) 93 MG/DL BUN (test code = 2208) 17 MG/DL CREATININE (test code = 2214) 0.57 MG/DL eGFR (2020 CKD-EPI) (test code = 46636) 105 ML/MIN/1.73 CALC BUN/CREAT (test code = [...] code = 2219) 20 U/L Daren LewLIPID [id number] 00:00:00* Test Item Value Reference Range Interpretation Comme nts CHOLESTEROL (test code = 2210) 162 MG/DL TRIGLYCERIDES (test code = 2232) 67 MG/DL HDL CHOLESTEROL (test code = 2220) 61 MG/DL CALC LDL CHOL (test code = 2237) 86 MG/DL RISK RATIO LDL/HDL (test cod e = 2238) 1.41 RATIO Daren LewVITAMIN D, 25 [id number] 00:00:00* Test Item Value Reference Range Interpretation Comme nts VITAMIN D, 25 OH (test code = 4958) 25 NG/ML Daren LewCBC W/AUTO [id number] 00:00:00* Test Item Value Reference Range Interpretation [...] ABS NUCLEATED RBCS (test cod e = 35555) 0.00 K/UL Daren LewANA REFLEX AUTOIMMUNE AB [id number] 00:00:00* Test Item Value Reference Range Interpretation Comme nts ANTI-NUCLEAR ANTIBODIES (tom t code = 3506) NEGATIVE EBONY PATTERN (REPORTED TITER) (test code = 11038) SEE BELOW HOMOGENEOUS (test code = 99300) NEGATIVE TITER SPECKLED (test code = 868921) NEGATIVE TITER DENSE FINE SPECKLED (test co de = 96110) NEGATIVE TITER CENTROMERE (test code = 254483) NEGATIVE TITER COARSE SPECKLED (test code = 235787) NEGATIVE TITER DISCRETE NUCLEAR DOTS (test code = 878381) NEGATIVE TITER NUCLEOLAR (test code = 678585) NEGATIVE TITER NUCLEAR MEMBRANE (test code = 596257) NEGATIVE TITER CYTO. RETICULAR (ALPESH) (test code = 871397) NEGATIVE COMMENTS (test code = 424056) NONE METHOD (test code = 06187) (NOTE) Daren LewC-REACTIVE [id number] 00:00:00* Test Item Value Reference Range Interpretation Comme nts C-REACTIVE PROTEIN (test cod e = 3513) <0.3 MG/DL Daren LewCCP [id number] 00:00:00* Test Item Value Reference Range Interpretation Comme clarke CCP IgG (test code = 28183) <0.5 U/ML Daren LewRHEUMATOID FACTOR, [id number] 00:00:00* Test Item Value Reference Range Interpretation Comme clarke RHEUMATOID FACTOR, QUANT (te st code = 3502) <10 IU/ML Daren LewSEDIMENTATION [id number] 00:00:00* Test Item Value Reference Range Interpretation Comme nts SEDIMENTATION RATE (test code = 1017) TEST NOT PERFORMED MM/HOUR Daren LewCOMPREHENSIVE METABOLIC [id number] 04:55:15* Test Item Value Reference Range Interpretation Comme nts GLUCOSE (test code = 2217) 114 MG/DL 70-99 H BUN (test code = 2207) 13 MG/DL 6-20 CREATININE (test code = 2213) 0.58 MG/DL 0.60-1.30 L eGFR (2020 CKD-EPI) (test code = ) 105 ML/MIN/1.73 >60 CALC BUN/CREAT (test code = 2234) 22 RATIO 6-28 SODIUM (test code = 2230) 144 MEQ/L 133-146 POTASSIUM (test code = 2227) 4.5 MEQ/L 3.5-5.4 CHLORIDE (test code = 2214) 107 MEQ/L 95-107 CARBON DIOXIDE (test code = 2205) 26 MEQ/L 19-31 CALCIUM (test code = 2208) 9.8 MG/DL 8.5-10.5 PROTEIN, TOTAL (test code = 2228) 7.5 G/DL 6.1-8.3 ALBUMIN (test code = 2200) 4.3 G/DL 3.5-5.2 CALC GLOBULIN (test code = 2239) 3.2 G/DL 1.9-3.7 CALC A/G RATIO (test [...] code = 2218) 35 U/L 5-40 LIPID [id number] 04:55:15* Test Item Value Reference Range Interpretation [...] SPECIMENS. FOR MOREINFORMATION, SEE CLIENT ANNOUNCEMENT AT [email or web address] RISK RATIO LDL/HDL (test code = 2238) 1.90 RATIO <3.22 HEMOGLOBIN [id number] 03:34:22* Test Item Value Reference Range Interpretation Comme nts HEMOGLOBIN A1c (test code = 72356) 6.2 % 4.2-5.6 H CITIZEN OF [place] GUIDELINES FOR HGB A1C: [...] TESTING PERFORMED AT [facility] [address] [place] [address] INFORMATICS DEVELOPER: CASSANDRA GUERRA M.D. [place] NUMBER [id number] [facility] [place]. [id number] LIPID [id number] 00:00:00* Test Item Value Reference Range Interpretation Comme nts CHOLESTEROL (test code = 2210) 192 MG/DL TRIGLYCERIDES (test code = 2232) 352 MG/DL HDL CHOLESTEROL (test code = 2220) 50 MG/DL CALC LDL CHOL (test code = 2237) 95 MG/DL RISK RATIO LDL/HDL (test cod e = 2238) 1.90 RATIO Daren Snow AustinHEMOGLOBIN [id number] 00:00:00* Test Item Value Reference Range Interpretation Comme nts HEMOGLOBIN A1c (test code = 49799) 6.2 % Daren Snow AustinCOMPREHENSIVE METABOLIC [id number] 00:00:00* Test Item Value Reference Range Interpretation Comme nts GLUCOSE (test code = 2217) 114 MG/DL BUN (test code = 2208) 13 MG/DL CREATININE (test code = 2214) 0.58 MG/DL eGFR (2020 CKD-EPI) (test code = 76973) 105 ML/MIN/1.73 CALC BUN/CREAT (test code = [...] code = 2219) 35 U/L Daren LewLIPID [id number] 00:00:00* Test Item Value Reference Range Interpretation Comme nts CHOLESTEROL (test code = 2210) 192 MG/DL TRIGLYCERIDES (test code = 2232) 352 MG/DL HDL CHOLESTEROL (test code = 2220) 50 MG/DL CALC LDL CHOL (test code = 2237) 95 MG/DL RISK RATIO LDL/HDL (test cod e = 2238) 1.90 RATIO Daren LewHEMOGLOBIN [id number] 00:00:00* Test Item Value Reference Range Interpretation Comme nts HEMOGLOBIN A1c (test code = 42675) 6.2 % Daren LewCOMPREHENSIVE METABOLIC [id number] 00:00:00* Test Item Value Reference Range Interpretation Comme nts GLUCOSE (test code = 2217) 114 MG/DL BUN (test code = 2208) 13 MG/DL CREATININE (test code = 2214) 0.58 MG/DL eGFR (2020 CKD-EPI) (test code = 35831) 105 ML/MIN/1.73 CALC BUN/CREAT (test code = [...] code = 2219) 35 U/L Daren LewLIPID [id number] 00:00:00* Test Item Value Reference Range Interpretation Comme nts CHOLESTEROL (test code = 2210) 192 MG/DL TRIGLYCERIDES (test code = 2232) 352 MG/DL HDL CHOLESTEROL (test code = 2220) 50 MG/DL CALC LDL CHOL (test code = 2237) 95 MG/DL RISK RATIO LDL/HDL (test cod e = 2238) 1.90 RATIO Daren LewHEMOGLOBIN [id number] 00:00:00* Test Item Value Reference Range Interpretation Comme clarke HEMOGLOBIN A1c (test code = 69417) 6.2 % Daren LewCOMPREHENSIVE METABOLIC [id number] 00:00:00* Test Item Value Reference Range Interpretation Comme nts GLUCOSE (test code = 2217) 114 MG/DL BUN (test code = 2208) 13 MG/DL CREATININE (test code = 2214) 0.58 MG/DL eGFR (2020 CKD-EPI) (test code = 03809) 105 ML/MIN/1.73 CALC BUN/CREAT (test code = [...] code = 2219) 35 U/L Daren LewLIPID [id number] 00:00:00* Test Item Value Reference Range Interpretation Comme nts CHOLESTEROL (test code = 2210) 192 MG/DL TRIGLYCERIDES (test code = 2232) 352 MG/DL HDL CHOLESTEROL (test code = 2220) 50 MG/DL CALC LDL CHOL (test code = 2237) 95 MG/DL RISK RATIO LDL/HDL (test cod e = 2238) 1.90 RATIO Daren LewHEMOGLOBIN [id number] 00:00:00* Test Item Value Reference Range Interpretation Comme nts HEMOGLOBIN A1c (test code = 54867) 6.2 % Daren LewCOMPREHENSIVE METABOLIC [id number] 00:00:00* Test Item Value Reference Range Interpretation Comme nts GLUCOSE (test code = 2217) 114 MG/DL BUN (test code = 2208) 13 MG/DL CREATININE (test code = 2214) 0.58 MG/DL eGFR (2020 CKD-EPI) (test code = 22066) 105 ML/MIN/1.73 CALC BUN/CREAT (test code = [...] = 2219) 35 U/L Daren LewTSH, THIRD [id number] 00:00:00* Test Item Value Reference Range Interpretation Comme nts TSH, THIRD GENERATION (test code = 2821) 1.580 UIU/ML Daren LewCOMPREHENSIVE METABOLIC [id number] 00:00:00* Test Item Value Reference Range Interpretation Comme nts GLUCOSE (test code = 2216) 102 MG/DL BUN (test code = 2207) 14 MG/DL CREATININE (test code = 4) 0.65 MG/DL eGFR (2020 CKD-EPI) (test code = ) 103 ML/MIN/1.73 CALC BUN/CREAT (test code = 2235) 22 RATIO SODIUM (test code = 223) 142 MEQ/L POTASSIUM (test code = 2228) 5.0 MEQ/L CHLORIDE (test code = 2215) 106 MEQ/L CARBON DIOXIDE (test code = 2206) 22 MEQ/L CALCIUM (test code = 2209) 9.6 MG/DL PROTEIN, TOTAL (test code = 2228) 7.4 G/DL ALBUMIN (test code = 2200) 4.4 G/DL CALC GLOBULIN (test code = 0) 3.0 G/DL CALC A/G RATIO (test code = 223) 1.5 RATIO BILIRUBIN, TOTAL (test code = 2206) <0.2 MG/DL ALKALINE PHOSPHATASE (test code = 2203) 123 U/L AST (test code = 8) 26 U/L ALT (test code = 9) 29 U/L Daren Gwendolyn VipinVITAMIN D, 25 [id number] 00:00:00* Test Item Value Reference Range Interpretation Comme [facility] VITAMIN D, 25 OH (test code = 4958) 25 NG/ML Daren Snow VipinVITAMIN [id number] 00:00:00* Test Item Value Reference Range Interpretation Comme [facility] VITAMIN B-12 (test code = 2840) 263 PG/ML Daren Snow VipinCBC W/AUTO DIFF WITH PLATELETS [ADDED][id number] 00:00:00* Test Item Value Reference Range Interpretation Comme [facility] WBC (test code = 1001) 7.2 [...] ABS NUCLEATED RBCS (test cod e = 99000) 0.00 K/UL Daren LewLIPID [id number] 00:00:00* Test Item Value Reference Range Interpretation Comme nts CHOLESTEROL (test code = 2210) 168 MG/DL TRIGLYCERIDES (test code = 2232) 125 MG/DL HDL CHOLESTEROL (test code = 2220) 56 MG/DL CALC LDL CHOL (test code = 2237) 89 MG/DL RISK RATIO LDL/HDL (test cod e = 2238) 1.59 RATIO Daren LewH, THIRD [id number] 00:00:00* Test Item Value Reference Range Interpretation Comme nts TSH, THIRD GENERATION (test code = 2821) 1.580 UIU/ML Daren LewCOMPREHENSIVE METABOLIC [id number] 00:00:00* Test Item Value Reference Range Interpretation Comme nts GLUCOSE (test code = 2217) 102 MG/DL BUN (test code = 2208) 14 MG/DL CREATININE (test code = 2214) 0.65 MG/DL eGFR (2020 CKD-EPI) (test code = 56567) 103 ML/MIN/1.73 CALC BUN/CREAT (test code = [...] 2203) 123 U/L AST (test code = 8) 26 U/L ALT (test code = 2218) 29 U/L Daren LewVITAMIN D, 25 [id number] 00:00:00* Test Item Value Reference Range Interpretation Comme [facility] VITAMIN D, 25 OH (test code = 4958) 25 NG/ML Daren LewVITAMIN [id number] 00:00:00* Test Item Value Reference Range Interpretation Comme [facility] VITAMIN B-12 (test code = 2840) [...] ABS NUCLEATED RBCS (test cod e = 05306) 0.00 K/UL Daren LewLIPID [id number] 00:00:00* Test Item Value Reference Range Interpretation Comme nts CHOLESTEROL (test code = 2210) 168 MG/DL TRIGLYCERIDES (test code = 2232) 125 MG/DL HDL CHOLESTEROL (test code = 2220) 56 MG/DL CALC LDL CHOL (test code = 2237) 89 MG/DL RISK RATIO LDL/HDL (test cod e = 2238) 1.59 RATIO Daren LewTSH, THIRD [id number] 00:00:00* Test Item Value Reference Range Interpretation Comme nts TSH, THIRD GENERATION (test code = 2821) 1.580 UIU/ML Daren LewCOMPREHENSIVE METABOLIC [id number] 00:00:00* Test Item Value Reference Range Interpretation Comme nts GLUCOSE (test code = 2217) 102 MG/DL BUN (test code = 2208) 14 MG/DL CREATININE (test code = 2214) 0.65 MG/DL eGFR (2020 CKD-EPI) (test code = 66953) 103 ML/MIN/1.73 CALC BUN/CREAT (test code = [...] 2219) 29 U/L Daren LewVITAMIN D, 25 [id number] 00:00:00* Test Item Value Reference Range Interpretation Comme [facility] VITAMIN D, 25 OH (test code = 4958) 25 NG/ML Daren LewVITAMIN [id number] 00:00:00* Test Item Value Reference Range Interpretation Comme [facility] VITAMIN B-12 (test code = 2840) [...] ABS NUCLEATED RBCS (test cod e = 98115) 0.00 K/UL Daren LewLIPID [id number] 00:00:00* Test Item Value Reference Range Interpretation Comme nts CHOLESTEROL (test code = 2210) 168 MG/DL TRIGLYCERIDES (test code = 2232) 125 MG/DL HDL CHOLESTEROL (test code = 2220) 56 MG/DL CALC LDL CHOL (test code = 2237) 89 MG/DL RISK RATIO LDL/HDL (test cod e = 2238) 1.59 RATIO Daren WoodruffH, THIRD [id number] 00:00:00* Test Item Value Reference Range Interpretation Comme [facility] TSH, THIRD GENERATION (test code = 2821) 1.580 UIU/ML Daren LewCOMPREHENSIVE METABOLIC [id number] 00:00:00* Test Item Value Reference Range Interpretation Comme nts GLUCOSE (test code = 2217) 102 MG/DL BUN (test code = 2208) 14 MG/DL CREATININE (test code = 2214) 0.65 MG/DL eGFR (2020 CKD-EPI) (test code = 08265) 103 ML/MIN/1.73 CALC BUN/CREAT (test code = [...] 2219) 29 U/L Daren LewVITAMIN D, 25 [id number] 00:00:00* Test Item Value Reference Range Interpretation Comme [facility] VITAMIN D, 25 OH (test code = 4958) 25 NG/ML Daren LewVITAMIN [id number] 00:00:00* Test Item Value Reference Range Interpretation Comme [facility] VITAMIN B-12 (test code = 2840) [...] ABS NUCLEATED RBCS (test cod e = 15769) 0.00 K/UL Daren eLwLIPID [id number] 00:00:00* Test Item Value Reference Range Interpretation Comme nts CHOLESTEROL (test code = 2210) 168 MG/DL TRIGLYCERIDES (test code = 2232) 125 MG/DL HDL CHOLESTEROL (test code = 2220) 56 MG/DL CALC LDL CHOL (test code = 2237) 89 MG/DL RISK RATIO LDL/HDL (test cod e = 2238) 1.59 RATIO Daren LewCOMPREHENSIVE METABOLIC [id number] 00:00:23* Test Item Value Reference Range Interpretation Comme nts GLUCOSE (test code = 2217) 95 MG/DL 70-99 BUN (test code = 2208) 10 MG/DL 6-20 CREATININE (test code = 2214) 0.48 MG/DL 0.60-1.30 L eGFR (2020 CKD-EPI) (test code = 10307) 110 ML/MIN/1.73 >60 CALC BUN/CREAT (test code = 2235) 21 RATIO 6-28 SODIUM (test code = 223) 143 MEQ/L 133-146 POTASSIUM (test code = 2228) 4.8 MEQ/L 3.5-5.4 CHLORIDE (test code = 2215) 108 MEQ/L 95-107 H CARBON DIOXIDE (test code = 2206) 23 MEQ/L 19-31 CALCIUM (test code = 220) 9.3 MG/DL 8.5-10.5 PROTEIN, TOTAL (test code [...] as normal/abnormal. ALKALINE PHOSPHATASE (test code = 4) 131 U/L 40-136 AST (test code = 2218) 30 U/L 9-40 ALT (test code = 2219) 43 U/L 5-40 H UNLESS OTHERWISE INDICATED, ALL TESTING PERFORMED [facility] [address] [place] [id number] INFORMATICS DEVELOPER: KRISTINE MIR M.D. CLIA NUMBER [id number] [facility] [place]. [id number] COMPREHENSIVE METABOLIC [id number] 00:00:00* Test Item Value Reference Range Interpretation Comme nts GLUCOSE (test code = 2217) 95 MG/DL BUN (test code = 2208) 10 MG/DL CREATININE (test code = 2214) 0.48 MG/DL eGFR (2020 CKD-EPI) (test code = 97255) 110 ML/MIN/1.73 CALC BUN/CREAT (test code = [...] code = 2219) 43 U/L Daren Snow [facility] [id number] 00:00:00* Test Item Value Reference Range Interpretation Comme nts GLUCOSE (test code = 2217) 95 MG/DL BUN (test code = 2208) 10 MG/DL CREATININE (test code = 2214) 0.48 MG/DL eGFR (2020 CKD-EPI) (test code = 61518) 110 ML/MIN/1.73 CALC BUN/CREAT (test code = [...] code = 2219) 43 U/L Daren Snow [facility] [id number] 00:00:00* Test Item Value Reference Range Interpretation Comme nts GLUCOSE (test code = 2217) 95 MG/DL BUN (test code = 2208) 10 MG/DL CREATININE (test code = 2214) 0.48 MG/DL eGFR (2020 CKD-EPI) (test code = 99318) 110 ML/MIN/1.73 CALC BUN/CREAT (test code = [...] code = 2219) 43 U/L Daren Snow [facility]PRE[facility] [id number] 00:00:00* Test Item Value Reference Range Interpretation Comme nts GLUCOSE (test code = 2217) 95 MG/DL BUN (test code = 2208) 10 MG/DL CREATININE (test code = 2214) 0.48 MG/DL eGFR (2020 CKD-EPI) (test code = 29710) 110 ML/MIN/1.73 CALC BUN/CREAT (test code = [...] = 2219) 43 U/L Daren LewCOMPREHENSIVE METABOLIC [id number] 00:00:00* Test Item Value Reference Range Interpretation Comme nts GLUCOSE (test code = 2217) 95 MG/DL BUN (test code = 2208) 10 MG/DL CREATININE (test code = 2214) 0.48 MG/DL eGFR (2020 CKD-EPI) (test code = 12206) 110 ML/MIN/1.73 CALC BUN/CREAT (test code = [...] code = 2219) 43 U/L COMPREHENSIVE METABOLIC [id number] 06:31:28* Test Item Value Reference Range Interpretation Comme nts GLUCOSE (test code = 2217) 106 MG/DL 70-99 H BUN (test code = 2208) 16 MG/DL 6-20 CREATININE (test code = 2214) 0.57 MG/DL 0.60-1.30 L eGFR (2020 CKD-EPI) (test code = 17776) 106 ML/MIN/1.73 >60 CALC BUN/CREAT (test code = 2235) 28 RATIO 6-28 SODIUM (test code = 2231) 140 MEQ/L 133-146 POTASSIUM (test code = 2228) 4.7 MEQ/L 3.5-5.4 CHLORIDE (test code = 2215) 104 MEQ/L 95-107 CARBON DIOXIDE (test code = 220) 24 MEQ/L 19-31 CALCIUM (test code = 220) 9.9 MG/DL 8.5-10.5 PROTEIN, TOTAL (test code = 2229) 7.5 G/DL 6.1-8.3 ALBUMIN (test code = [...] normal/abnormal. ALKALINE PHOSPHATASE (test code = 2203) 126 U/L 40-136 AST (test code = 2218) 36 U/L 9-40 ALT (test code = 221) 46 U/L 5-40 H UNLESS OTHERWISE INDICATED, ALL TESTING PERFORMED ATCLINICAL [facility] [address] [place] [address] INFORMATICS DEVELOPER: KRISTINE MIR M.D. CLIA NUMBER [id number] [facility] [place]. [id number] COMPREHENSIVE METABOLIC [id number] 00:00:00* Test Item Value Reference Range Interpretation Comme nts GLUCOSE (test code = 7) 106 MG/DL BUN (test code = 8) 16 MG/DL CREATININE (test code = 2214) 0.57 MG/DL eGFR (2020 CKD-EPI) (test code = 92898) 106 ML/MIN/1.73 CALC BUN/CREAT (test code = 2235) 28 RATIO SODIUM (test code = 223) 140 MEQ/L POTASSIUM (test code = 2228) 4.7 MEQ/L CHLORIDE (test code = 2215) 104 MEQ/L CARBON DIOXIDE (test code = 6) 24 MEQ/L CALCIUM (test code = 2209) [...] code = 2219) 46 U/L Daren Snow [facility]anticCOMPREHENSIVE MET[facility] [id number] 00:00:00* Test Item Value Reference Range Interpretation Comme nts GLUCOSE (test code = 2217) 106 MG/DL BUN (test code = 2208) 16 MG/DL CREATININE (test code = 2214) 0.57 MG/DL eGFR (2020 CKD-EPI) (test code = 96217) 106 ML/MIN/1.73 CALC BUN/CREAT (test code = [...] code = 2219) 46 U/L Daren Snow [place]anticCOMPREHENSIVE MET[facility]OLIC [id number] 00:00:00* Test Item Value Reference Range Interpretation Comme nts GLUCOSE (test code = 2217) 106 MG/DL BUN (test code = 2208) 16 MG/DL CREATININE (test code = 2214) 0.57 MG/DL eGFR (2020 CKD-EPI) (test code = 41418) 106 ML/MIN/1.73 CALC BUN/CREAT (test code = [...] code = 2219) 46 U/L Daren F [facility]anticCOMPREHENSIVE MET[facility]IC [id number] 00:00:00* Test Item Value Reference Range Interpretation Comme nts GLUCOSE (test code = 7) 106 MG/DL BUN (test code = 2208) 16 MG/DL CREATININE (test code = 2214) 0.57 MG/DL eGFR (2020 CKD-EPI) (test code = 39307) 106 ML/MIN/1.73 CALC BUN/CREAT (test code = [...] code = 2219) 46 U/L Daren F [facility]imanticCOMPREHENSIVE METABOLIC [id number] 00:00:00* Test Item Value Reference Range Interpretation Comme nts GLUCOSE (test code = 2217) 106 MG/DL BUN (test code = 2208) 16 MG/DL CREATININE (test code = 2214) 0.57 MG/DL eGFR (2020 CKD-EPI) (test code = 91259) 106 ML/MIN/1.73 CALC BUN/CREAT (test code = [...] code = 2219) 46 U/L COMPREHENSIVE METABOLIC [id number] 00:00:00* Test Item Value Reference Range Interpretation Comme nts GLUCOSE (test code = 2217) 102 MG/DL BUN (test code = 2208) 14 MG/DL CREATININE (test code = 2214) 0.60 MG/DL eGFR AMER. (test cod e = 66535) 118 ML/MIN/1.73 eGFR NON- AMER. (test code = 15126) 102 ML/MIN/1.73 CALC BUN/CREAT (test code = [...] = 2219) 38 U/L Daren LewCBC W/AUTO [id number] 00:00:00* Test Item Value Reference Range Interpretation [...] ABS NUCLEATED RBCS (test cod e = 02084) 0.00 K/UL Daren LewCOMPREHENSIVE METABOLIC [id number] 00:00:00* Test Item Value Reference Range Interpretation Comme nts GLUCOSE (test code = 2217) 102 MG/DL BUN (test code = 2208) 14 MG/DL CREATININE (test code = 2214) 0.60 MG/DL eGFR AMER. (test cod e = 11216) 118 ML/MIN/1.73 eGFR NON- AMER. (test code = 32893) 102 ML/MIN/1.73 CALC BUN/CREAT (test code = [...] (test code = 2219) 38 U/L [facility]aren [facility] [id number] 00:00:00* Test Item Value Reference Range Interpretation [...] ABS NUCLEATED RBCS (test cod e = 06046) 0.00 K/UL Daren LewCOMPREHENSIVE METABOLIC [id number] 00:00:00* Test Item Value Reference Range Interpretation Comme nts GLUCOSE (test code = 2217) 102 MG/DL BUN (test code = 2208) 14 MG/DL CREATININE (test code = 2214) 0.60 MG/DL eGFR AMER. (test cod e = 42307) 118 ML/MIN/1.73 eGFR NON- AMER. (test code = 40317) 102 ML/MIN/1.73 CALC BUN/CREAT (test code = [...] = 2219) 38 U/L Daren LewCBC W/AUTO [id number] 00:00:00* Test Item Value Reference Range Interpretation [...] ABS NUCLEATED RBCS (test cod e = 11301) 0.00 K/UL Daren LewCOMPREHENSIVE METABOLIC [id number] 00:00:00* Test Item Value Reference Range Interpretation Comme nts GLUCOSE (test code = 2217) 102 MG/DL BUN (test code = 2208) 14 MG/DL CREATININE (test code = 2214) 0.60 MG/DL eGFR AMER. (test cod e = 24087) 118 ML/MIN/1.73 eGFR NON- AMER. (test code = 97241) 102 ML/MIN/1.73 CALC BUN/CREAT (test code = [...] = 2219) 38 U/L Daren LewCBC W/AUTO [id number] 00:00:00* Test Item Value Reference Range Interpretation [...] ABS NUCLEATED RBCS (test cod e = 54295) 0.00 K/UL [facility] W/AUTO [id number] 00:00:00* Test Item Value Reference Range Interpretation [...] ABS NUCLEATED RBCS (test cod e = 25452) 0.00 K/UL COMPREHENSIVE METABOLIC [id number] 00:00:00* Test Item Value Reference Range Interpretation Comme nts GLUCOSE (test code = 2217) 102 MG/DL BUN (test code = 2208) 14 MG/DL CREATININE (test code = 2214) 0.60 MG/DL eGFR AMER. (test cod e = 63365) 118 ML/MIN/1.73 eGFR NON- AMER. (test code = 41985) 102 ML/MIN/1.73 CALC BUN/CREAT (test code = [...] (test code = 2219) 38 U/L CULTURE, [id number] 00:00:00* Test Item Value Reference Range Interpretation Comme nts CULTURE, URINE (test code = 33389) SPECIMEN NUMBER: [id number] Daren LewCULTURE, [id number] 00:00:00* Test Item Value Reference Range Interpretation Comme nts CULTURE, URINE (test code = 86226) SPECIMEN NUMBER: [id number] Daren LewCULTURE, [id number] 00:00:00* Test Item Value Reference Range Interpretation Comme nts CULTURE, URINE (test code = 94566) SPECIMEN NUMBER: [id number] Daren LewCULTURE, [id number] 00:00:00* Test Item Value Reference Range Interpretation Comme nts CULTURE, URINE (test code = 37980) SPECIMEN NUMBER: [id number] Daren LewCULTURE, [id number] 00:00:00* Test Item Value Reference Range Interpretation Comme nts CULTURE, URINE (test code = 16313) SPECIMEN NUMBER: [id number] VAGINAL PATHOGENS DNA [id number] 00:00:00* Test Item Value Reference Range Interpretation Comme nts SPENCER SPECIES (test code = ) NEGATIVE G. VAGINALIS (test code = 74435) NEGATIVE T. VAGINALIS (test code = 91365) NEGATIVE Daren Snow AustinVAGINAL PATHOGENS DNA [id number] 00:00:00* Test Item Value Reference Range Interpretation Comme nts SPENCER SPECIES (test code = 09584) NEGATIVE G. VAGINALIS (test code = 87807) NEGATIVE T. VAGINALIS (test code = 41557) NEGATIVE Daren Snow AustinVAGINAL PATHOGENS DNA [id number] 00:00:00* Test Item Value Reference Range Interpretation Comme nts SPENCER SPECIES (test code = 27845) NEGATIVE G. VAGINALIS (test code = 76792) NEGATIVE T. VAGINALIS (test code = 67714) NEGATIVE Daren Snow AustinVAGINAL PATHOGENS DNA [id number] 00:00:00* Test Item Value Reference Range Interpretation Comme nts SPENCER SPECIES (test code = 79978) NEGATIVE G. VAGINALIS (test code = 44765) NEGATIVE T. VAGINALIS (test code = 32131) NEGATIVE Daren F AustinVAGINAL PATHOGENS DNA [id number] 00:00:00* Test Item Value Reference Range Interpretation Comme nts SPNECER SPECIES (test code = ) NEGATIVE G. VAGINALIS (test code = ) NEGATIVE T. VAGINALIS (test code = ) NEGATIVE LIPID [id number] 00:00:00* Test Item Value Reference Range Interpretation Comme nts CHOLESTEROL (test code = 2210) 169 MG/DL TRIGLYCERIDES (test code = 2232) 136 MG/DL HDL CHOLESTEROL (test code = 2220) 59 MG/DL CALC LDL CHOL (test code = 2237) 87 MG/DL RISK RATIO LDL/HDL (test cod e = 2238) 1.47 RATIO Daren LewHEMOGLOBIN [id number] 00:00:00* Test Item Value Reference Range Interpretation Comme nts HEMOGLOBIN A1c (test code = 77394) 6.0 % Daren LewCOMPREHENSIVE METABOLIC [id number] 00:00:00* Test Item Value Reference Range Interpretation Comme nts GLUCOSE (test code = 7) 106 MG/DL BUN (test code = 2208) 16 MG/DL CREATININE (test code = 2214) 0.62 MG/DL eGFR AMER. (test cod e = 88260) 118 ML/MIN/1.73 eGFR NON- AMER. (test code = 96068) 102 ML/MIN/1.73 CALC BUN/CREAT (test code = [...] code = 2219) 44 U/L Daren F AustinLIPID [id number] 00:00:00* Test Item Value Reference Range Interpretation Comme nts CHOLESTEROL (test code = 2210) 169 MG/DL TRIGLYCERIDES (test code = 2232) 136 MG/DL HDL CHOLESTEROL (test code = 2220) 59 MG/DL CALC LDL CHOL (test code = 2237) 87 MG/DL RISK RATIO LDL/HDL (test cod e = 2238) 1.47 RATIO Daren LewHEMOGLOBIN [id number] 00:00:00* Test Item Value Reference Range Interpretation Comme nts HEMOGLOBIN A1c (test code = 08179) 6.0 % Daren LewCOMPREHENSIVE METABOLIC [id number] 00:00:00* Test Item Value Reference Range Interpretation Comme nts GLUCOSE (test code = 2217) 106 MG/DL BUN (test code = 2208) 16 MG/DL CREATININE (test code = 2214) 0.62 MG/DL eGFR AMER. (test cod e = 44728) 118 ML/MIN/1.73 eGFR NON- AMER. (test code = 40269) 102 ML/MIN/1.73 CALC BUN/CREAT (test code = [...] code = 2219) 44 U/L Daren LewLIPID [id number] 00:00:00* Test Item Value Reference Range Interpretation Comme nts CHOLESTEROL (test code = 2210) 169 MG/DL TRIGLYCERIDES (test code = 2232) 136 MG/DL HDL CHOLESTEROL (test code = 2220) 59 MG/DL CALC LDL CHOL (test code = 2237) 87 MG/DL RISK RATIO LDL/HDL (test cod e = 2238) 1.47 RATIO Daren LewHEMOGLOBIN [id number] 00:00:00* Test Item Value Reference Range Interpretation Comme nts HEMOGLOBIN A1c (test code = 10315) 6.0 % Daren LewCOMPREHENSIVE METABOLIC [id number] 00:00:00* Test Item Value Reference Range Interpretation Comme nts GLUCOSE (test code = 2217) 106 MG/DL BUN (test code = 2208) 16 MG/DL CREATININE (test code = 2214) 0.62 MG/DL eGFR AMER. (test cod e = 73515) 118 ML/MIN/1.73 eGFR NON- AMER. (test code = 44291) 102 ML/MIN/1.73 CALC BUN/CREAT (test code = [...] code = 2219) 44 U/L Daren LewLIPID [id number] 00:00:00* Test Item Value Reference Range Interpretation Comme nts CHOLESTEROL (test code = 2210) 169 MG/DL TRIGLYCERIDES (test code = 2232) 136 MG/DL HDL CHOLESTEROL (test code = 2220) 59 MG/DL CALC LDL CHOL (test code = 2237) 87 MG/DL RISK RATIO LDL/HDL (test cod e = 2238) 1.47 RATIO Daren LewHEMOGLOBIN [id number] 00:00:00* Test Item Value Reference Range Interpretation Comme nts HEMOGLOBIN A1c (test code = 07579) 6.0 % Daren Snow [place]imanticCOMPREHENSIVE METABOLIC [id number] 00:00:00* Test Item Value Reference Range Interpretation Comme nts GLUCOSE (test code = 2217) 106 MG/DL BUN (test code = 2208) 16 MG/DL CREATININE (test code = 2214) 0.62 MG/DL eGFR AMER. (test cod e = 85972) 118 ML/MIN/1.73 eGFR NON- AMER. (test code = 70021) 102 ML/MIN/1.73 CALC BUN/CREAT (test code = [...] (test code = 2219) 44 U/L Daren LewFREEMAN HEALTH SYSTEMPREHENSIVE METABOLIC [id number] 00:00:00* Test Item Value Reference Range Interpretation Comme nts GLUCOSE (test code = 2217) 106 MG/DL BUN (test code = 2208) 16 MG/DL CREATININE (test code = 2214) 0.62 MG/DL eGFR AMER. (test cod e = 41074) 118 ML/MIN/1.73 eGFR NON- AMER. (test code = 70333) 102 ML/MIN/1.73 CALC BUN/CREAT (test code = [...] (test code = 2219) 44 U/L LIPID [id number] 00:00:00* Test Item Value Reference Range Interpretation Comme nts CHOLESTEROL (test code = 2210) 169 MG/DL TRIGLYCERIDES (test code = 2232) 136 MG/DL HDL CHOLESTEROL (test code = 2220) 59 MG/DL CALC LDL CHOL (test code = 2237) 87 MG/DL RISK RATIO LDL/HDL (test cod e = 2238) 1.47 RATIO HEMOGLOBIN [id number] 00:00:00* Test Item Value Reference Range Interpretation Comme nts HEMOGLOBIN A1c (test code = 99526) 6.0 % HEMOGLOBIN [id number] 00:00:00* Test Item Value Reference Range Interpretation Comme nts HEMOGLOBIN A1c (test code = 34333) 5.8 % Daren F AustinHEMOGLOBIN [id number] 00:00:00* Test Item Value Reference Range Interpretation Comme nts HEMOGLOBIN A1c (test code = 99366) 5.8 % Daren F AustinHEMOGLOBIN [id number] 00:00:00* Test Item Value Reference Range Interpretation Comme nts HEMOGLOBIN A1c (test code = 65903) 5.8 % Daren F AustinHEMOGLOBIN [id number] 00:00:00* Test Item Value Reference Range Interpretation Comme nts HEMOGLOBIN A1c (test code = 73427) 5.8 % Daren F AustinHEMOGLOBIN [id number] 00:00:00* Test Item Value Reference Range Interpretation Comme nts HEMOGLOBIN A1c (test code = 02782) 5.8 % COMPREHENSIVE METABOLIC [id number] 00:00:00* Test Item Value Reference Range Interpretation Comme nts GLUCOSE (test code = 2217) 140 MG/DL BUN (test code = 2208) 14 MG/DL CREATININE (test code = 2214) 0.62 MG/DL eGFR AMER. (test cod e = 63220) 118 ML/MIN/1.73 eGFR NON- AMER. (test code = 26620) 102 ML/MIN/1.73 CALC BUN/CREAT (test code = [...] (test code = 2219) 27 U/L Daren F WillimanticLIPID [id number] 00:00:00* Test Item Value Reference Range Interpretation Comme nts CHOLESTEROL (test code = 2210) 175 MG/DL TRIGLYCERIDES (test code = 2232) 135 MG/DL HDL CHOLESTEROL (test code = 2220) 54 MG/DL CALC LDL CHOL (test code = 2237) 94 MG/DL RISK RATIO LDL/HDL (test cod e = 2238) 1.74 RATIO Daren Snow VipinCOMPREHENSIVE METABOLIC [id number] 00:00:00* Test Item Value Reference Range Interpretation Comme nts GLUCOSE (test code = 2217) 140 MG/DL BUN (test code = 2208) 14 MG/DL CREATININE (test code = 2214) 0.62 MG/DL eGFR AMER. (test cod e = 29547) 118 ML/MIN/1.73 eGFR NON- AMER. (test code = 89476) 102 ML/MIN/1.73 CALC BUN/CREAT (test code = [...] (test code = 2219) 27 U/L Daren LewLIPID [id number] 00:00:00* Test Item Value Reference Range Interpretation Comme nts CHOLESTEROL (test code = 2210) 175 MG/DL TRIGLYCERIDES (test code = 2232) 135 MG/DL HDL CHOLESTEROL (test code = 2220) 54 MG/DL CALC LDL CHOL (test code = 2237) 94 MG/DL RISK RATIO LDL/HDL (test cod e = 2238) 1.74 RATIO Daren LewCOMPREHENSIVE METABOLIC [id number] 00:00:00* Test Item Value Reference Range Interpretation Comme nts GLUCOSE (test code = 2217) 140 MG/DL BUN (test code = 8) 14 MG/DL CREATININE (test code = 2214) 0.62 MG/DL eGFR AMER. (test cod e = 69894) 118 ML/MIN/1.73 eGFR NON- AMER. (test code = 60039) 102 ML/MIN/1.73 CALC BUN/CREAT (test code = [...] (test code = 2219) 27 U/L Daren LewLIPID [id number] 00:00:00* Test Item Value Reference Range Interpretation Comme nts CHOLESTEROL (test code = 2210) 175 MG/DL TRIGLYCERIDES (test code = 2232) 135 MG/DL HDL CHOLESTEROL (test code = 2220) 54 MG/DL CALC LDL CHOL (test code = 2237) 94 MG/DL RISK RATIO LDL/HDL (test cod e = 2238) 1.74 RATIO Daren LewCOMPREHENSIVE METABOLIC [id number] 00:00:00* Test Item Value Reference Range Interpretation Comme nts GLUCOSE (test code = 2217) 140 MG/DL BUN (test code = 2208) 14 MG/DL CREATININE (test code = 2214) 0.62 MG/DL eGFR AMER. (test cod e = 95278) 118 ML/MIN/1.73 eGFR NON- AMER. (test code = 52092) 102 ML/MIN/1.73 CALC BUN/CREAT (test code = [...] = 2219) 27 U/L Daren Snow AustinLIPID [id number] 00:00:00* Test Item Value Reference Range Interpretation Comme nts CHOLESTEROL (test code = 2210) 175 MG/DL TRIGLYCERIDES (test code = 2232) 135 MG/DL HDL CHOLESTEROL (test code = 2220) 54 MG/DL CALC LDL CHOL (test code = 2237) 94 MG/DL RISK RATIO LDL/HDL (test cod e = 2238) 1.74 RATIO Daren Snow AustinLIPID [id number] 00:00:00* Test Item Value Reference Range Interpretation Comme nts CHOLESTEROL (test code = 2210) 175 MG/DL TRIGLYCERIDES (test code = 2232) 135 MG/DL HDL CHOLESTEROL (test code = 2220) 54 MG/DL CALC LDL CHOL (test code = 2237) 94 MG/DL RISK RATIO LDL/HDL (test cod e = 2238) 1.74 RATIO COMPREHENSIVE METABOLIC [id number] 00:00:00* Test Item Value Reference Range Interpretation Comme nts GLUCOSE (test code = 2217) 140 MG/DL BUN (test code = 2208) 14 MG/DL CREATININE (test code = 2214) 0.62 MG/DL eGFR AMER. (test cod e = 56249) 118 ML/MIN/1.73 eGFR NON- AMER. (test code = 74304) 102 ML/MIN/1.73 CALC BUN/CREAT (test code = [...] (test code = 2219) 27 U/L LIPID [id number] 00:00:00* Test Item Value Reference Range Interpretation Comme nts CHOLESTEROL (test code = 2210) 185 MG/DL TRIGLYCERIDES (test code = 2232) 228 MG/DL HDL CHOLESTEROL (test code = 2220) 58 MG/DL CALC LDL CHOL (test code = 2237) 81 MG/DL RISK RATIO LDL/HDL (test cod e = 2238) 1.40 RATIO Daren LewCOMPREHENSIVE METABOLIC [id number] 00:00:00* Test Item Value Reference Range Interpretation Comme nts GLUCOSE (test code = 2217) 126 MG/DL BUN (test code = 2208) 12 MG/DL CREATININE (test code = 2214) 0.56 MG/DL eGFR AMER. (test cod e = 15758) 123 ML/MIN/1.73 eGFR NON- AMER. (test code = 63849) 106 ML/MIN/1.73 CALC BUN/CREAT (test code = [...] (test code = 2219) 37 U/L Daren Snow AustinLIPID [id number] 00:00:00* Test Item Value Reference Range Interpretation Comme nts CHOLESTEROL (test code = 2210) 185 MG/DL TRIGLYCERIDES (test code = 2232) 228 MG/DL HDL CHOLESTEROL (test code = 2220) 58 MG/DL CALC LDL CHOL (test code = 2237) 81 MG/DL RISK RATIO LDL/HDL (test cod e = 2238) 1.40 RATIO Daren Snow AustinCOMPREHENSIVE METABOLIC [id number] 00:00:00* Test Item Value Reference Range Interpretation Comme nts GLUCOSE (test code = 2217) 126 MG/DL BUN (test code = 2208) 12 MG/DL CREATININE (test code = 2214) 0.56 MG/DL eGFR AMER. (test cod e = 62084) 123 ML/MIN/1.73 eGFR NON- AMER. (test code = 33626) 106 ML/MIN/1.73 CALC BUN/CREAT (test code = [...] (test code = 2219) 37 U/L Daren F [place] [id number] 00:00:00* Test Item Value Reference Range Interpretation Comme nts CHOLESTEROL (test code = 2210) 185 MG/DL TRIGLYCERIDES (test code = 2232) 228 MG/DL HDL CHOLESTEROL (test code = 2220) 58 MG/DL CALC LDL CHOL (test code = 2237) 81 MG/DL RISK RATIO LDL/HDL (test cod e = 2238) 1.40 RATIO Daren Snow [place]imanticCOMPREHENSIVE METABOLIC [id number] 00:00:00* Test Item Value Reference Range Interpretation Comme nts GLUCOSE (test code = 2217) 126 MG/DL BUN (test code = 2208) 12 MG/DL CREATININE (test code = 2214) 0.56 MG/DL eGFR AMER. (test cod e = 18667) 123 ML/MIN/1.73 eGFR NON- AMER. (test code = 10147) 106 ML/MIN/1.73 CALC BUN/CREAT (test code = [...] code = 2219) 37 U/L Daren LewLIPID [id number] 00:00:00* Test Item Value Reference Range Interpretation Comme nts CHOLESTEROL (test code = 2210) 185 MG/DL TRIGLYCERIDES (test code = 2232) 228 MG/DL HDL CHOLESTEROL (test code = 2220) 58 MG/DL CALC LDL CHOL (test code = 2237) 81 MG/DL RISK RATIO LDL/HDL (test cod e = 2238) 1.40 RATIO Daren LewCOMPREHENSIVE METABOLIC [id number] 00:00:00* Test Item Value Reference Range Interpretation Comme nts GLUCOSE (test code = 2217) 126 MG/DL BUN (test code = 2208) 12 MG/DL CREATININE (test code = 2214) 0.56 MG/DL eGFR AMER. (test cod e = 85299) 123 ML/MIN/1.73 eGFR NON- AMER. (test code = 47620) 106 ML/MIN/1.73 CALC BUN/CREAT (test code = [...] = 2219) 37 U/L Daren LewCOMPREHENSIVE METABOLIC [id number] 00:00:00* Test Item Value Reference Range Interpretation Comme nts GLUCOSE (test code = 2217) 126 MG/DL BUN (test code = 2208) 12 MG/DL CREATININE (test code = 2214) 0.56 MG/DL eGFR AMER. (test cod e = 54040) 123 ML/MIN/1.73 eGFR NON- AMER. (test code = 13317) 106 ML/MIN/1.73 CALC BUN/CREAT (test code = [...] (test code = 2219) 37 U/L LIPID [id number] 00:00:00* Test Item Value Reference Range Interpretation Comme nts CHOLESTEROL (test code = 2210) 185 MG/DL TRIGLYCERIDES (test code = 2232) 228 MG/DL HDL CHOLESTEROL (test code = 2220) 58 MG/DL CALC LDL CHOL (test code = 2237) 81 MG/DL RISK RATIO LDL/HDL (test cod e = 2238) 1.40 RATIO COMPREHENSIVE METABOLIC [id number] 00:00:00* Test Item Value Reference Range Interpretation Comme nts GLUCOSE (test code = 2217) 98 MG/DL BUN (test code = 2208) 13 MG/DL CREATININE (test code = 2214) 0.69 MG/DL eGFR AMER. (test cod e = 76777) 116 ML/MIN/1.73 eGFR NON- AMER. (test code = 16186) 100 ML/MIN/1.73 CALC BUN/CREAT (test code = [...] = 2219) 44 U/L Daren LewCOMPREHENSIVE METABOLIC [id number] 00:00:00* Test Item Value Reference Range Interpretation Comme nts GLUCOSE (test code = 2217) 98 MG/DL BUN (test code = 2208) 13 MG/DL CREATININE (test code = 2214) 0.69 MG/DL eGFR AMER. (test cod e = 40898) 116 ML/MIN/1.73 eGFR NON- AMER. (test code = 13159) 100 ML/MIN/1.73 CALC BUN/CREAT (test code = [...] code = 2219) 44 U/L [facility] Snow [facility] [id number] 00:00:00* Test Item Value Reference Range Interpretation Comme nts GLUCOSE (test code = 2217) 98 MG/DL BUN (test code = 2208) 13 MG/DL CREATININE (test code = 2214) 0.69 MG/DL eGFR AMER. (test cod e = 28231) 116 ML/MIN/1.73 eGFR NON- AMER. (test code = 92221) 100 ML/MIN/1.73 CALC BUN/CREAT (test code = [...] code = 2219) 44 U/L Daren Snow [facility] [id number] 00:00:00* Test Item Value Reference Range Interpretation Comme nts GLUCOSE (test code = 2217) 98 MG/DL BUN (test code = 2208) 13 MG/DL CREATININE (test code = 2214) 0.69 MG/DL eGFR AMER. (test cod e = 55211) 116 ML/MIN/1.73 eGFR NON- AMER. (test code = 02723) 100 ML/MIN/1.73 CALC BUN/CREAT (test code = [...] code = 2219) 44 U/L Daren Snow [facility]COMPREHENSIVE MET[facility]OLIC [id number] 00:00:00* Test Item Value Reference Range Interpretation Comme nts GLUCOSE (test code = 2217) 98 MG/DL BUN (test code = 2208) 13 MG/DL CREATININE (test code = 2214) 0.69 MG/DL eGFR AMER. (test cod e = 03332) 116 ML/MIN/1.73 eGFR NON- AMER. (test code = 12952) 100 ML/MIN/1.73 CALC BUN/CREAT (test code = [...] code = 2219) 44 U/L COMPREHENSIVE METABOLIC [id number] 00:00:00* Test Item Value Reference Range Interpretation Comme nts GLUCOSE (test code = 2217) 113 MG/DL BUN (test code = 2208) 14 MG/DL CREATININE (test code = 2214) 0.63 MG/DL eGFR AMER. (test cod e = 08040) 120 ML/MIN/1.73 eGFR NON- AMER. (test code = 00321) 103 ML/MIN/1.73 CALC BUN/CREAT (test code = [...] code = 2219) 69 U/L Daren Snow [facility] [id number] 00:00:00* Test Item Value Reference Range Interpretation Comme nts GLUCOSE (test code = 2217) 113 MG/DL BUN (test code = 2208) 14 MG/DL CREATININE (test code = 2214) 0.63 MG/DL eGFR AMER. (test cod e = 95214) 120 ML/MIN/1.73 eGFR NON- AMER. (test code = 51181) 103 ML/MIN/1.73 CALC BUN/CREAT (test code = [...] code = 2219) 69 U/L Daren Snow [facility] [id number] 00:00:00* Test Item Value Reference Range Interpretation Comme nts GLUCOSE (test code = 2217) 113 MG/DL BUN (test code = 2208) 14 MG/DL CREATININE (test code = 2214) 0.63 MG/DL eGFR AMER. (test cod e = 98545) 120 ML/MIN/1.73 eGFR NON- AMER. (test code = 88102) 103 ML/MIN/1.73 CALC BUN/CREAT (test code = [...] code = 2219) 69 U/L Daren Snow [facility] [id number] 00:00:00* Test Item Value Reference Range Interpretation Comme nts GLUCOSE (test code = 2217) 113 MG/DL BUN (test code = 2208) 14 MG/DL CREATININE (test code = 2214) 0.63 MG/DL eGFR AMER. (test cod e = 60968) 120 ML/MIN/1.73 eGFR NON- AMER. (test code = 05445) 103 ML/MIN/1.73 CALC BUN/CREAT (test code = [...] code = 2219) 69 U/L Daren F VipinCOMPREHENSIVE METABOLIC [id number] 00:00:00* Test Item Value Reference Range Interpretation Comme nts GLUCOSE (test code = 2217) 113 MG/DL BUN (test code = 2208) 14 MG/DL CREATININE (test code = 2214) 0.63 MG/DL eGFR AMER. (test cod e = 07870) 120 ML/MIN/1.73 eGFR NON- AMER. (test code = 15162) 103 ML/MIN/1.73 CALC BUN/CREAT (test code = [...] (test code = 2219) 69 U/L HEMOGLOBIN [id number] 00:00:00* Test Item Value Reference Range Interpretation Comme nts HEMOGLOBIN A1c (test code = 83826) 6.0 % Daren Snow [place] D, 25 [id number] 00:00:00* Test Item Value Reference Range Interpretation Comme nts VITAMIN D, 25 OH (test code = 4958) 11 NG/ML Daren Snow [place]HEMOGLOBIN [id number] 00:00:00* Test Item Value Reference Range Interpretation Comme nts HEMOGLOBIN A1c (test code = 33431) 6.0 % Daren Snow [place] D, 25 [id number] 00:00:00* Test Item Value Reference Range Interpretation Comme nts VITAMIN D, 25 OH (test code = 4958) 11 NG/ML Daren Snow [place]HEMOGLOBIN [id number] 00:00:00* Test Item Value Reference Range Interpretation Comme nts HEMOGLOBIN A1c (test code = 50301) 6.0 % Daren Snow [place] D, 25 [id number] 00:00:00* Test Item Value Reference Range Interpretation Comme nts VITAMIN D, 25 OH (test code = 4958) 11 NG/ML Daren Snow [place]HEMOGLOBIN [id number] 00:00:00* Test Item Value Reference Range Interpretation Comme nts HEMOGLOBIN A1c (test code = 48169) 6.0 % Daren Snow [place] D, 25 [id number] 00:00:00* Test Item Value Reference Range Interpretation Comme nts VITAMIN D, 25 OH (test code = 4958) 11 NG/ML Daren Snow [place]HEMOGLOBIN [id number] 00:00:00* Test Item Value Reference Range Interpretation Comme nts HEMOGLOBIN A1c (test code = 37312) 6.0 % VITAMIN D, 25 [id number] 00:00:00* Test Item Value Reference Range Interpretation Comme nts VITAMIN D, 25 OH (test code = 4958) 11 NG/ML LIPID [id number] 00:00:00* Test Item Value Reference Range Interpretation Comme nts CHOLESTEROL (test code = 2210) 183 MG/DL TRIGLYCERIDES (test code = 2232) 151 MG/DL HDL CHOLESTEROL (test code = 2220) 56 MG/DL CALC LDL CHOL (test code = 2237) 97 MG/DL RISK RATIO LDL/HDL (test cod e = 2238) 1.73 RATIO Daren [id number] 00:00:00* Test Item Value Reference Range Interpretation Comme clarke TSH (test code = 2821) 1.16 UIU/ML Daren LewVITAMIN [id number] 00:00:00* Test Item Value Reference Range Interpretation Comme clarke VITAMIN B-12 (test code = 2840) 288 PG/ML Daren LewCOMPREHENSIVE METABOLIC [id number] 00:00:00* Test Item Value Reference Range Interpretation Comme nts GLUCOSE (test code = 2217) 97 MG/DL BUN (test code = 2208) 12 MG/DL CREATININE (test code = 2214) 0.57 MG/DL eGFR AMER. (test cod e = 54302) 124 ML/MIN/1.73 eGFR NON- AMER. (test code = 90978) 107 ML/MIN/1.73 CALC BUN/CREAT (test code = [...] code = 2219) 34 U/L Daren LewLIPID [id number] 00:00:00* Test Item Value Reference Range Interpretation Comme nts CHOLESTEROL (test code = 2210) 183 MG/DL TRIGLYCERIDES (test code = 2232) 151 MG/DL HDL CHOLESTEROL (test code = 2220) 56 MG/DL CALC LDL CHOL (test code = 2237) 97 MG/DL RISK RATIO LDL/HDL (test cod e = 2238) 1.73 RATIO Daren [id number] 00:00:00* Test Item Value Reference Range Interpretation Comme clarke TSH (test code = 2821) 1.16 UIU/ML Daren LewVITAMIN [id number] 00:00:00* Test Item Value Reference Range Interpretation Comme clarke VITAMIN B-12 (test code = 2840) 288 PG/ML Daren LewCOMPREHENSIVE METABOLIC [id number] 00:00:00* Test Item Value Reference Range Interpretation Comme nts GLUCOSE (test code = 2217) 97 MG/DL BUN (test code = 2208) 12 MG/DL CREATININE (test code = 2214) 0.57 MG/DL eGFR AMER. (test cod e = 04127) 124 ML/MIN/1.73 eGFR NON- AMER. (test code = 91574) 107 ML/MIN/1.73 CALC BUN/CREAT (test code = [...] code = 2219) 34 U/L Daren LewLIPID [id number] 00:00:00* Test Item Value Reference Range Interpretation Comme nts CHOLESTEROL (test code = 2210) 183 MG/DL TRIGLYCERIDES (test code = 2232) 151 MG/DL HDL CHOLESTEROL (test code = 2220) 56 MG/DL CALC LDL CHOL (test code = 2237) 97 MG/DL RISK RATIO LDL/HDL (test cod e = 2238) 1.73 RATIO Daren [id number] 00:00:00* Test Item Value Reference Range Interpretation Comme nts TSH (test code = 2821) 1.16 UIU/ML Daren LewVITAMIN [id number] 00:00:00* Test Item Value Reference Range Interpretation Comme nts VITAMIN B-12 (test code = 2840) 288 PG/ML Daren LewCOMPREHENSIVE METABOLIC [id number] 00:00:00* Test Item Value Reference Range Interpretation Comme nts GLUCOSE (test code = 2217) 97 MG/DL BUN (test code = 2208) 12 MG/DL CREATININE (test code = 2214) 0.57 MG/DL eGFR AMER. (test cod e = 70256) 124 ML/MIN/1.73 eGFR NON- AMER. (test code = 61428) 107 ML/MIN/1.73 CALC BUN/CREAT (test code = [...] code = 2219) 34 U/L Daren LewLIPID [id number] 00:00:00* Test Item Value Reference Range Interpretation Comme nts CHOLESTEROL (test code = 2210) 183 MG/DL TRIGLYCERIDES (test code = 2232) 151 MG/DL HDL CHOLESTEROL (test code = 2220) 56 MG/DL CALC LDL CHOL (test code = 2237) 97 MG/DL RISK RATIO LDL/HDL (test cod e = 2238) 1.73 RATIO Daren [id number] 00:00:00* Test Item Value Reference Range Interpretation Comme nts TSH (test code = 2821) 1.16 UIU/ML Daren LewVITAMIN [id number] 00:00:00* Test Item Value Reference Range Interpretation Comme nts VITAMIN B-12 (test code = 2840) 288 PG/ML D[facility] LewFREEM[facility] SYSTEMPREHENSIVE METABOLIC [id number] 00:00:00* Test Item Value Reference Range Interpretation Comme nts GLUCOSE (test code = 2217) 97 MG/DL BUN (test code = 2208) 12 MG/DL CREATININE (test code = 2214) 0.57 MG/DL eGFR AMER. (test cod e = 27362) 124 ML/MIN/1.73 eGFR NON- AMER. (test code = 83065) 107 ML/MIN/1.73 CALC BUN/CREAT (test code = [...] (test code = 2219) 34 U/L Daren LewFREEMAN HEALTH SYSTEMPREHENSIVE METABOLIC [id number] 00:00:00* Test Item Value Reference Range Interpretation Comme nts GLUCOSE (test code = 2217) 97 MG/DL BUN (test code = 2208) 12 MG/DL CREATININE (test code = 2214) 0.57 MG/DL eGFR AMER. (test cod e = 55108) 124 ML/MIN/1.73 eGFR NON- AMER. (test code = 15679) 107 ML/MIN/1.73 CALC BUN/CREAT (test code = [...] (test code = 2219) 34 U/L LIPID [id number] 00:00:00* Test Item Value Reference Range Interpretation Comme nts CHOLESTEROL (test code = 2210) 183 MG/DL TRIGLYCERIDES (test code = 2232) 151 MG/DL HDL CHOLESTEROL (test code = 2220) 56 MG/DL CALC LDL CHOL (test code = 2237) 97 MG/DL RISK RATIO LDL/HDL (test cod e = 2238) 1.73 RATIO [id number] 00:00:00* Test Item Value Reference Range Interpretation Comme nts TSH (test code = 2821) 1.16 UIU/ML VITAMIN [id number] 00:00:00* Test Item Value Reference Range Interpretation Comme nts VITAMIN B-12 (test code = 2840) 288 PG/ML CBC W/AUTO [id number] 00:00:00* Test Item Value Reference Range Interpretation [...] code = 1015) 319 K/UL Daren Snow [facility] W/AUTO [id number] 00:00:00* Test Item Value Reference Range Interpretation [...] code = 1015) 319 K/UL Daren Snow [facility] W/AUTO [id number] 00:00:00* Test Item Value Reference Range Interpretation [...] code = 1015) 319 K/UL Daren Snow [facility] W/AUTO [id number] 00:00:00* Test Item Value Reference Range Interpretation [...] code = 1015) 319 K/UL Daren Snow [facility] W/AUTO [id number] 00:00:00* Test Item Value Reference Range Interpretation [...]
[2024-03-29] MEDS ORDERED: ONDANSETRON 4 MG/2 ML VIAL ONE (03:58)
[2024-03-29] MEDS ORDERED: KETOROLAC 30 MG/ML INJ ONE (03:58)
[2024-03-29] MEDS ORDERED: MORPHINE 4 MG/ML SYR ONE (03:59)
[2024-03-29] MEDS ORDERED: NA CHLORIDE 0.9% 500 ML ONE (03:59)
[2024-03-29 04:07] LABS: Absolute Basophils 0.1 K/uL (0-0.5); Absolute Eosinophils 0.2 K/uL (0-0.5); Absolute Lymphocytes (CBC) 2.6 K/uL (0.7-4.9); Absolute Monocytes 0.6 K/uL (0.1-1.3); Absolute Neutrophil 4.3 K/uL (1.8-8.0); Basophils % 0.8 % (0-1.3); Hematocrit 40.6 % (36.0-45.0); Hemoglobin 13.7 g/dL (12.0-15.0); MCH 27.9 pg (27.0-35.0); MCHC 33.6 g/dL (32.0-36.0); MCV 82.9 fL (80-100); MPV 8.4 fL (7.6-11.3); Monocytes % 7.2 % (3.3-12.3); Nucleated Red Blood Cells % 0.1 % (0-0); Platelets 257 thou/uL (152-406); Red Cell Distribution Width 13.8 % (12.1-15.2)
[2024-03-29 04:23] LABS: Sqamous Epithelial <5 /HPF (None Seen); Urine Bacteria <20 /HPF (<20); Urine Bilirubin NEGATIVE (Negative); Urine Blood Negative (Negative); Urine Clarity Turbid (Clear); Urine Color Colorless (Yellow); Urine Culture Reflex Order REFLEXED; Urine Glucose NEGATIVE (Negative); Urine Ketones NEGATIVE (Negative); Urine Microscopic Reflex YN ORDER UMIC; Urine Mucus Slight /HPF (None Seen); Urine Nitrite NEGATIVE (Negative); Urine Protein NEGATIVE (Negative); Urine RBC <5 /HPF (None Seen); Urine Urobilinogen Normal (Normal); Urine WBC 20-50 /HPF (<5); Urine pH 7.5 (5.0-7.0)
[2024-03-29 04:30] LABS: Albumin 3.8 g/dL (3.4-5.0); Bilirubin Total 0.4 mg/dL (0.2-1.0); Globulin 3.7 g/dL (2.3-3.5); Protein, Total 7.5 g/dL (6.4-8.2)
--- NOTE | 2024-03-29 06:17 | ER ---
Nurse's Notes [facility] Name: Aimee Quintana Age: 58 yrs Sex: Female : 1965 Arrival Date: 03/29/2024 Time: 03:29 Bed 7 Private MD: Diagnosis: Zoster without complications;UTI/ Urinary tract infection, site not specified Presentation: 03/29 03:49 Chief complaint: Patient states: left sided back pain radiating to left abdomen with lg3 new onset rash. Coronavirus screen: Client denies travel out of the [place] in the last 14 days. At this time, the client does not indicate any symptoms associated with coronavirus-19. Ebola Screen: No symptoms or risks identified at this time. Risk Assessment: Do you want to hurt yourself or someone else? Patient reports no desire to harm self or others. Onset of symptoms was March 27, 2024. 03:49 Method Of Arrival: Ambulatory lg3 03:49 Acuity: TIANNA 3 lg3 04:16 Initial Sepsis Screen: Does the patient meet any 2 criteria? No. Patient's initial ha1 sepsis screen is negative. Does the patient have a suspected source of infection? No. Patient's initial sepsis screen is negative. Triage Assessment: 03:50 General: Appears in no apparent distress. uncomfortable, Behavior is calm, cooperative. lg3 Pain: Complains of pain in back Pain radiates to abdomen. EENT: No deficits noted. No signs and/or symptoms were reported regarding the EENT system. Neuro: No deficits noted. Aguilera Agitation-Sedation Scale (RASS): 0 - Alert and Calm Level of Consciousness is awake, alert, obeys commands, Oriented to person, place, time, situation. Cardiovascular: No deficits noted. Denies chest pain, shortness of breath, Capillary refill < 3 seconds Clubbing of nail beds is absent JVD is absent Patient's skin is warm and dry. Respiratory: No deficits noted. Airway is patent Respiratory effort is even, unlabored, Respiratory pattern is regular, symmetrical. GI: Abdomen is round non-distended, Reports upper abdominal pain, nausea. : No signs and/or symptoms were reported regarding the genitourinary system. Derm: Skin is intact, is healthy with good turgor, Skin is dry, Skin is normal, Skin temperature is warm Rash noted that is papular, red. Musculoskeletal: No deficits noted. Circulation, motion, and sensation intact. Range of motion: intact in all extremities. Historical: - Allergies: 03:50 hydrochlorothiazide; lg3 03:50 Prednisone (Upset stomach); lg3 03:50 tramadol (Upset stomach); lg3 03:50 Eliquis; lg3 - Home Meds: 03:50 Verapamil Oral [Active]; Enalapril Oral [Active]; Xarelto oral [Active]; carvedilol lg3 oral [Active]; - PMHx: 03:50 Atrial fibrillation; Hypertension; lg3 - PSHx: 03:50 Cholecystectomy; Total abdominal hysterectomy; lg3 - Immunization history:: Adult Immunizations up to date. - Infectious Disease History:: Denies. - Social history:: Smoking status: Patient denies any tobacco usage or history of. Patient/guardian denies using alcohol, street drugs. Screenin:15 [facility] ED Fall Risk Assessment (Adult) History of falling in the last 3 months, ha1 including since admission No falls in past 3 months (0 pts) Confusion or Disorientation No (0 pts) Intoxicated or Sedated No (0 pts) Impaired Gait No (0 pts) Mobility Assist Device Used No (0 pt) Altered Elimination No (0 pt) Score/Fall Risk Level 0 - 2 = Low Risk Oriented to surroundings, Maintained a safe environment, Educated pt \T\ family on fall prevention, incl call for assistance when getting out of bed, Hourly rounding (assess needs \T\ fall precautionary measures) done. Abuse screen: Denies threats or abuse. Denies injuries from another. Nutritional screening: No deficits noted. Tuberculosis screening: No symptoms or risk factors identified. Assessment: 03:35 General: Appears uncomfortable, Behavior is anxious, crying. Pain: Complains of pain in ha1 posterior aspect of left lateral abdomen and anterior aspect of left lateral abdomen Pain does not radiate. Pain currently is 10 out of 10 on a pain scale. Quality of pain is described as aching, shooting, throbbing, Pain began gradually, 1 day ago. Neuro: Level of Consciousness is awake, alert, obeys commands, Oriented to person, place, time, situation. Cardiovascular: Capillary refill < 3 seconds Patient's skin is warm and dry. Respiratory: Airway is patent Respiratory effort is even, unlabored, Respiratory pattern is regular, symmetrical. GI: Abdomen is round non-distended, obese, Bowel sounds present X 4 quads. Abd is soft and non tender X 4 quads. Reports burning sensation on the left side of abdomen. 04:30 Reassessment: Patient and/or family updated on plan of care and expected duration. Pain ha1 level reassessed. Patient is alert, oriented x 3, equal unlabored respirations, skin warm/dry/pink. pain 5/10 Patient states feeling better. Patient states symptoms have improved. 05:16 Reassessment: Patient and/or family updated on plan of care and expected duration. Pain ha1 level reassessed. Patient is alert, oriented x 3, equal unlabored respirations, skin warm/dry/pink. Patient denies pain at this time. Patient states feeling better. Patient states symptoms have improved. 06:20 Reassessment: Patient and/or family updated on plan of care and expected duration. Pain ha1 level reassessed. Patient is alert, oriented x 3, equal unlabored respirations, skin warm/dry/pink. Patient denies pain at this time. Patient states feeling better. Patient states symptoms have improved. Vital Signs: 03:54 BP 213 / 107; Pulse 105; Resp 20 S; Temp 98.9(T); Pulse Ox 97% on R/A; Weight 117.48 ha1 kg; Height 5 ft. 5 in. ; Pain 10/10; 04:24 BP 139 / 57; Pulse 61; Resp 16; Pulse Ox 95% on R/A; al5 04:30 BP 154 / 64; Pulse 62; Resp 16; Pulse Ox 93% on R/A; al5 05:16 BP 154 / 70; Pulse 80; Resp 18 S; Pulse Ox 95% on R/A; ha1 05:30 BP 155 / 68; Pulse 60; Resp 16; Pulse Ox 98% on R/A; al5 06:20 BP 150 / 77; Pulse 78; Resp 19 S; Pulse Ox 96% on R/A; ha1 03:54 Body Mass Index 43.10 (117.48 kg, 165.1 cm) ha1 03:54 Pain Scale: Adult ha1 ED Course: 03/28 03:53 Inserted saline lock: 20 gauge in right antecubital area, using aseptic technique. ha1 Blood collected. Flushed with 10 mL NS. 03/29 03:31 Patient arrived in ED. jj6 03:35 Aamir Dickson PA is PHCP. cp 03:35 Aamir Hernández MD is Attending Physician. cp 03:35 Patient has correct armband on for positive identification. Placed in gown. Bed in low ha1 position. Call light in reach. Side rails up X 1. Adult w/ patient. 03:35 Provided Education on: plan of care . ha1 03:50 Triage completed. lg3 03:50 Arm band placed on right wrist. lg3 03:53 CBC with Diff Sent. ha1 03:53 CMP Sent. ha1 03:53 Lipase Sent. ha1 03:53 Urinalysis w/ reflexes Sent. ha1 04:19 CT Stone Protocol In Process Unspecified. EDMS 05:14 Iliana Mendoza, RN is Primary Nurse. ha1 06:45 No provider procedures requiring assistance completed. IV discontinued, intact, ha1 bleeding controlled, No redness/swelling at site. Pressure dressing applied. Administered Medications: 04:14 Drug: TORadol - Ketorolac IVP 15 mg IVP once Route: IVP; Site: right wrist; al5 04:30 Follow up: Response: No adverse reaction; Marked relief of symptoms; Pain is decreased ha1 04:14 Drug: Ondansetron IVP 4 mg IVP once; over 2 minutes Route: IVP; Site: right wrist; al5 04:30 Follow up: Response: No adverse reaction ha1 04:14 Drug: morphine IVP or IV 4 mg IVP once over 4 mins Route: IVP; Infused Over: 4 mins; al5 Site: right wrist; 04:30 Follow up: Response: No adverse reaction; Marked relief of symptoms; Pain is decreased; ha1 RASS: Alert and Calm (0) 04:15 Drug: NS 0.9% IV 500 ml IV at bolus once; to be given as a bolus over 30 minutes Route: al5 IV; Rate: bolus; Site: right wrist; 06:47 Follow up: Response: No adverse reaction; IV Status: Completed infusion; IV Intake: ha1 500ml Medication: 04:16 VIS not applicable for this client. ha1 Intake: 06:47 IV: 500ml; Total: 500ml. ha1 Outcome: 06:16 Discharge ordered by . cp 06:46 Discharged to home ambulatory, with family, ha1 06:46 Condition: stable 06:46 Discharge instructions given to patient, family, Instructed on discharge instructions, follow up and referral plans. medication usage, Demonstrated understanding of instructions, follow-up care, medications, Prescriptions given X 2, 06:48 Patient left the ED. ha1 Signatures: Dispatcher [employer] EDMS Aamir Dickson PA PA cp Able, Lacie RN RN lg3 Debi Hillmanj6 Iliana Mendoza RN RN ha1 Yuliana Barr RN RN al5 Corrections: (The following items were deleted from the chart) 05:18 05:16 Reassessment: Patient and/or family updated on plan of care and expected ha1 duration. Pain level reassessed. Patient is alert, oriented x 3, equal unlabored respirations, skin warm/dry/pink. ha1 06:47 06:47 Response: No adverse reaction ha1 ha1
--- NOTE | 2024-03-29 06:17 | EDPHYS ---
Physician Documentation [facility] Name: Aimee Quintana Age: 58 yrs Sex: Female : 1965 Arrival Date: 03/29/2024 Time: 03:29 Bed 7 Private MD: ED Physician Aamir Hernández HPI: 03/29 03:40 This 58 yrs old Female presents to ER via Ambulatory with complaints of Low cp Back Pain, Abdominal Pain, Pain With Urination. 03:40 The patient presents with pain that is acute, with no known mechanism of injury. The cp symptoms are located in the left flank. The pain radiates to the left mid back, to the left upper abdomen. 03:40 Onset: The symptoms/episode began/occurred 2 day(s) ago. cp 03:40 Associated signs and symptoms: Pertinent positives: dysuria, nausea. cp 03:42 Currently taking prescribed Ciprofloxacin for uti prescribed by pcp. cp Historical: - Allergies: 03:50 hydrochlorothiazide; lg3 03:50 Prednisone (Upset stomach); lg3 03:50 tramadol (Upset stomach); lg3 03:50 Eliquis; lg3 - Home Meds: 03:50 Verapamil Oral [Active]; Enalapril Oral [Active]; Xarelto oral [Active]; carvedilol lg3 oral [Active]; - PMHx: 03:50 Atrial fibrillation; Hypertension; lg3 - PSHx: 03:50 Cholecystectomy; Total abdominal hysterectomy; lg3 - Immunization history:: Adult Immunizations up to date. - Infectious Disease History:: Denies. - Social history:: Smoking status: Patient denies any tobacco usage or history of. Patient/guardian denies using alcohol, street drugs. ROS: 03:45 Eyes: Negative for injury, pain, redness, and discharge, cp 03:45 Constitutional: Negative for body aches, chills, fever, poor PO intake, 03:45 Cardiovascular: Negative for chest pain, edema, palpitations, 03:45 Abdomen/GI: Positive for abdominal pain, of the left upper abdomen, 03:45 Back: Positive for flank pain, on the left, left mid back pain, 03:45 Skin: Positive for rash, of the left mid back and left flank and left upper abdomen, 03:45 Neuro: Negative for altered mental status, dizziness, headache, weakness, 03:45 : Positive for burning with urination, cp Exam: 03:50 Constitutional: The patient appears in no acute distress, alert, awake, cp non-diaphoretic, non-toxic, well developed, well nourished, obese, uncomfortable, 03:50 Head/Face: Normocephalic, atraumatic. cp 03:50 Eyes: Periorbital structures: appear normal, Conjunctiva: normal, no exudate, no injection, Sclera: no appreciated abnormality, Lids and lashes: appear normal, bilaterally, 03:50 ENT: External ear(s): are unremarkable, Nose: is normal, Posterior pharynx: Airway: no evidence of obstruction, patent, 03:50 Cardiovascular: Rate: tachycardic, JVD: is not appreciated, 03:50 Respiratory: the patient does not display signs of respiratory distress, Respirations: normal, no use of accessory muscles, no retractions, labored breathing, is not present, Breath sounds: are clear throughout, no decreased breath sounds, no stridor, no wheezing, 03:50 Abdomen/GI: Inspection: erythematous, papular rash noted left upper abdomen, Bowel sounds: active, all quadrants, Palpation: soft, in all quadrants, moderate abdominal tenderness, in the left upper quadrant, 03:50 Back: pain, that is severe, of the left mid back and right flank, 03:50 Skin: rash can be described as grouped erythematous papules, on the left mid back and left flank and left upper abdomen, 03:50 Neuro: Orientation: to person, place \T\ time. Mentation: is normal, Motor: moves all fours, strength is normal, Gait: is steady, Vital Signs: 03:54 BP 213 / 107; Pulse 105; Resp 20 S; Temp 98.9(T); Pulse Ox 97% on R/A; Weight 117.48 ha1 kg; Height 5 ft. 5 in. ; Pain 10/10; 04:24 BP 139 / 57; Pulse 61; Resp 16; Pulse Ox 95% on R/A; al5 04:30 BP 154 / 64; Pulse 62; Resp 16; Pulse Ox 93% on R/A; al5 05:16 BP 154 / 70; Pulse 80; Resp 18 S; Pulse Ox 95% on R/A; ha1 05:30 BP 155 / 68; Pulse 60; Resp 16; Pulse Ox 98% on R/A; al5 06:20 BP 150 / 77; Pulse 78; Resp 19 S; Pulse Ox 96% on R/A; ha1 03:54 Body Mass Index 43.10 (117.48 kg, 165.1 cm) ha1 03:54 Pain Scale: Adult ha1 MDM: 03:35 Medical Screening Exam initiated cp 04:00 Differential diagnosis: sciatica, Herniated disc UTI, pyelonephritis, shingles. cp 06:15 Data reviewed: vital signs, nurses notes, lab test result(s), radiologic studies, and cp as a result, I will discharge patient. 06:15 I considered the following discharge prescriptions or medication management in the emergency department Medications were administered in the Emergency Department. See MAR. Care significantly affected by the following chronic conditions: Hypertension. Counseling: I had a detailed discussion with the patient and/or guardian regarding the historical points, exam findings, and any diagnostic results supporting the discharge/admit diagnosis, lab results, radiology results, the need for outpatient follow up, a family practitioner. Response to treatment: the patient's symptoms have markedly improved after treatment, and as a result, I will discharge patient. 03/29 03:36 Order name: Urinalysis w/ reflexes; Complete Time: 04:34 cp 03/29 04:35 Interpretation: Normal except: [facility] Turbid; UPH 7.5; UESTR 250; UWBC 20-50. cp 03/29 03:48 Order name: CBC with Diff; Complete Time: 04:34 cp 03/29 04:35 Interpretation: Normal except: RBC 4.90. cp 03/29 03:48 Order name: CMP; Complete Time: 04:34 cp 03/29 03:48 Order name: Lipase; Complete Time: 04:34 cp 03/29 04:26 Order name: Urine Culture EDMS 03/29 03:48 Order name: CT Stone Protocol 03/29 03:48 Order name: IV Saline Lock; Complete Time: 03:53 cp 03/29 03:48 Order name: Labs collected and sent; Complete Time: 03:53 cp Administered Medications: 04:14 Drug: TORadol - Ketorolac IVP 15 mg IVP once Route: IVP; Site: right wrist; al5 04:30 Follow up: Response: No adverse reaction; Marked relief of symptoms; Pain is decreased ha1 04:14 Drug: Ondansetron IVP 4 mg IVP once; over 2 minutes Route: IVP; Site: right wrist; al5 04:30 Follow up: Response: No adverse reaction ha1 04:14 Drug: morphine IVP or IV 4 mg IVP once over 4 mins Route: IVP; Infused Over: 4 mins; al5 Site: right wrist; 04:30 Follow up: Response: No adverse reaction; Marked relief of symptoms; Pain is decreased; ha1 RASS: Alert and Calm (0) 04:15 Drug: NS 0.9% IV 500 ml IV at bolus once; to be given as a bolus over 30 minutes Route: al5 IV; Rate: bolus; Site: right wrist; 06:47 Follow up: Response: No adverse reaction; IV Status: Completed infusion; IV Intake: ha1 500ml Disposition Summary: 03/29/24 06:16 Discharge Ordered Notes: Location: Home cp Problem: new cp Symptoms: have improved cp Condition: Stable cp Diagnosis - Zoster without complications cp - UTI/ Urinary tract infection, site not specified cp Followup: cp - With: Private Physician - When: 2 - 3 days - Reason: Recheck today's complaints Discharge Instructions: - Discharge Summary Sheet cp - Neuropathic Pain cp - Shingles cp - Urinary Tract Infection, Adult cp Forms: - Medication Reconciliation Form cp - Antibiotic Education cp - Prescription Opioid Use cp - Patient Portal Instructions cp - Leadership Thank You Letter cp Prescriptions: - Valtrex 1 gram Oral tablet - take 1 tablet ORAL route every 8 hours for 7 days; 21 tablet; Refills: 0, cp Product Selection Permitted - acetaminophen-codeine 300-30 mg Oral tablet - take 2 tablet ORAL route every 8 hours as needed for pain; 16 tablet; Refills: cp 0, Product Selection Permitted - Neurontin 300 mg Oral Capsule - take 1 capsule ORAL route every 8 hours; 30 capsule; Refills: 0, Product cp Selection Permitted Addendum: 03/31/2024 14:18 Co-signature as Attending Physician, Aamir Hernández MD I agree with the assessment and c mcduffie plan of care. Signatures: Dispatcher [employer] Aamir Bell MD MD cha Page, Corey, PA PA Keara Martinez RN RN lg3 Yuliana Barr RN RN al5 Iliana Mendoza RN ha1 Corrections: (The following items were deleted from the chart) 03/29 03:49 03:49 CBC+H.LAB.BRZ ordered. EDMS EDMS 03:49 03:49 COMPREHENSIVE METABOLIC PANEL+C.LAB.BRZ ordered. EDMS EDMS 03:49 03:49 LIPASE+C.LAB.BRZ ordered. EDMS EDMS 03:49 03:49 Stone Protocol+CT.RAD.BRZ ordered. EDMS EDMS 05:09 03:35 Back: Positive for flank pain, on the left, left mid back pain, cp cp 05:09 03:35 Abdomen/GI: Positive for abdominal pain, of the left upper abdomen, cp cp 05:09 03:35 Constitutional: Negative for body aches, chills, fever, poor PO intake, cp cp 05:09 03:35 Cardiovascular: Negative for chest pain, edema, palpitations, cp cp 05:09 03:35 Skin: Positive for rash, of the left mid back and left flank and left upper cp abdomen, cp 05:09 03:35 : Positive for burning with urination, cp cp 05:09 03:35 Eyes: Negative for injury, pain, redness, and discharge, cp cp 05:09 03:35 Neuro: Negative for altered mental status, dizziness, headache, weakness, cp cp 05:09 03:35 All other systems are negative, cp cp
--- NOTE | 2024-03-29 06:20 | RAD REPORT ---
CT abdomen and pelvis without contrast TECHNIQUE: Axial images were taken through the abdomen and pelvis.All CT scans at this facility use d ose modulation, iterative reconstruction, and/or weight based dosing when appropriate to reduce radiation dose to as low as reasonably achievable HISTORY: left flank pain COMPARISON: one FINDINGS: Lung bases: The lung bases appear unremarkable. ABDOMEN: The liver appears unremarkable. There is no evidence for mass or intrahepatic biliary ductal dilatati on. The gallbladder has been been surgically removed. The adrenal glands are normal. The pancreas is unremarkable without ductal dilatation. The spleen is unremarkable. Lower pole simple cyst. There is no evidence for hydronephrosis or stone. Multiple diverticuli seen extending off portions of the descending colon and sigmoid colon, there is no evidence for diverticulitis. There is no bowel obstruction. The appendix is identified and is normal. Pelvis: There is atherosclerotic disease seen within the aorta. There is no aneurysm or dissection. There is no pathologically enlarged adenopathy. The bladder appears unremarkable. There is no free air or free fluid. Status post hysterectomy. There are degenerative changes seen within the lumbar spine. Grade 1 anterolisthesis of L4 on L5. Ost eopenia. There are no acute bony abnormalities. Soft tissues are normal. Impression: 1. No acute intra-abdominal or pelvic process. No hydronephrosis or nephrolithiasis 2. Diverticulosis without evidence of diverticulitis. Electronically signed by: Song Nix MD 03/29/2024 06:11 AM [facility] Due to temporary technical issues with the PACS/[employer] reporting system, reports are being nanda d by the in-house radiologist without review as a courtesy to ensure prompt reporting the interpreting radiologist is fully responsible for the content of the report. Transcribed Date/Time: 03/29/2024 6:20 AM
[2024-03-29 08:01] VITALS: TEMP 98.9
[2024-03-29 08:06] VITALS: BP 150/77; O2SAT 96
== END 2024-03-29 06:48 | disposition home or self-care (01) ==
LOC: ER 03:29
DX: N39.0 Urinary tract infection, site not specified (principal); B02.9 Zoster without complications
CPT/HCPCS: 96361; 87088; 85025; 81001; 87086; 36415; 83690; 80053; 76377; 74176; 96375; 96374; 99284; J2405; J7040

== ENCOUNTER 2024-07-24 16:13 | Emergency (ER) | payer OTHER, SELFPAY ==
--- OUTSIDE RECORDS SUMMARY | 2024-07-24 16:29 | XMS REPORT | Continuity of Care Document ---
Author Name Unknown Address [address] [facility]. [address] [place] [address] [facility] Address [address] [facility] [address] [place] [address] Care Team Providers Care Alignment Mechanic Name Role Phone [facility] Physician Unavailable EMMA PRESLEY Attending Clinician Unavailable EMMA PRESLEY Attending Clinician Unavailable Emma Presley MD Attending Clinician [phone] Joseph Marin MD Attending Clinician [phone] MAREK SENDSADIQ K.H. Attending Clinician UnavailJOSEPH Coreas Attending Clinician Unavailable JOSEPH MARIN Attending Clinician Unavailable JEANETTE DEVLIN Attending Clinician UnaJEANETTE Zamora Attending Clinician Unav ailJeanette Mcgraw MD Attending Clinician + JARROD GONZALEZ Attending Clinician UnavailJARROD Allen Attending Clinician Unavaila JANI Pal Attending Clinician UnavailJANI Boles Attending Clinician UnavailPHYLLIS Milligan Attending Clinician Unavailable PHYLLIS FARAH Attending Clinician Unavailable Phyllis Willson Attending Clinician [phone] Marek GUTIERREZ, Sendsadiq K.H. Attending Clinician + [phone] AP BARAJAS Attending Clinician Unavailable EMMA PRESLEY Admitting Clinician Unavailable JEANETTE DEVLIN Admitting Clinician DORI Fox Admitting Clinician Mulugeta ble Payers Payer Name Policy Type Policy Number Effective Date Expirati on Date Source [facility] [id number] 2023 00:00:00 [employer] [facility] 2: JAY O QUARRYMAN 94 ON 9 [id number] 2022 00:00:00 Problems Condition Name Condition Details Condition Category Status Onset Date Resolution Date Last Treatment Date Treating Clinician Comments Source Surveillan ce of previously prescribed contracept cabrera method Surveillan ce of previously prescribed contracept cabrera method Disease Active 03-24 00:00: 00 [facility] Morbid obesity Morbid obesity Disease Active 07-17 00:00: 00 [facility] Essential hypertensi on, benign Essential hypertensi on, benign Disease Active 07-17 00:00: 00 [facility] 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 Had hyst [facility] Depression Depression Disease Resolve d 07-17 00:00: 00 2014-12-27 00:00:00 2014-12-27 12:29:23 [facility] Excessive or frequent menstruati on Excessive or frequent menstruati on Disease Resolve d 10-11 00:00: 00 2014-12-27 00:00:00 2014-12-27 12:28:58 [facility] Allergies, Adverse Reactions, Alerts Allergy Name Allergy Type Status Severity Reaction(s) Onset Date Inactive Date Treating Clinician Comments Source tramadol Propensi ty to adverse reaction to drug Active 04-13 00:00: 00 Daren Lew APIXABAN DRUG INGREDI Active Anaphylaxis 03-07 00:00: 00 [facility] Apixaban Propensi ty to adverse reaction s Active Anaphylaxis 03-07 00:00: 00 [facility] [place] - Intraven ous Propensi ty to adverse reaction to drug Active 07-18 00:00: 00 Daren Lew n Propensi ty to adverse reaction to drug Active 07-17 00:00: 00 Daren Lew hydroCHL OROthiaz sridhar - Oral Propensi ty to adverse reaction to drug Active 06-20 00:00: 00 Daren Lew Predniso ne Propensi ty to adverse reaction to drug Inactiv e 08-31 00:00: 00 Daren Lew Hydrochl orothiaz sridhar Propensi ty to adverse reaction to drug Inactiv e 06-01 00:00: 00 Daren Lew Hydrochl orothiaz sridhar Propensi ty to adverse reaction s Active Swelling 07-14 00:00: 00 [facility] HYDROCHL OROTHIAZ SRIDHAR DRUG INGREDI Active SOB 07-14 00:00: 00 [facility] Social History Social Habit Start Date Stop Date Quantity Comments Source [facility] Alcoholic beverage intake 2023-11-14 00:00:00 2023-11-14 00:00:00 Current non-drinker of alcohol (finding) [facility] History of Social function 2023-11-14 00:00:00 2023-11-14 00:00:00 [facility] Tobacco use and exposure 2013-07-14 00:00:00 2013-07-14 00:00:00 Smokeless tobacco non-user [facility] Sex assigned at 1965 00:00:00 1965 00:00:00 [facility] Smoking Status Start Date Stop Date Source Never smoked tobacco [facility] Medications Ordered Medication Name Filled Medication Name Start Date Stop Date Current Medication? Ordering Clinician Indication Dosage Frequency Signature (SIG) Comments Components Source azithromyci n (ZITHROMAX Z-HANY) 250 mg tablet 06-17 00:00: 00 Yes [id number] Take 2 Tablets (500 mg) first day, then 1 Tablet (250 mg) daily for 4 days [facility] benzonatate 100 mg capsule 06-17 00:00: 00 Yes [id number] 100mg Take 1 capsule by mouth every 8 (eight) hours. [facility] rivaroxaban (XARELTO) 20 mg tablet rivaroxaban (XARELTO) 20 mg tablet 4-08 00:00: 00 Yes [id number] 20mg Take 1 tablet by mouth in the morning. Indication s: atrial fibrillati on [facility] verapamil ER (SR) 120 mg tablet,exte nded release 3- 00:00: 00 Yes 1mg Daren Lew carvedilol 12.5 mg tablet 3- 00:00: 00 Yes 1mg Daren Lew enalapril maleate 20 mg tablet 3- 00:00: 00 Yes 1mg Daren Lew capsaicin 0.1 % topical cream 2- 00:00: 00 Yes 1% Daren Lew Flonase Allergy Relief 50 mcg/actuati on nasal spray,suspe nsion 2-10 00:00: 00 Yes 1mcg/ac tuation Daren Lew duloxetine 60 mg capsule,del ayed release 2-10 00:00: 00 Yes 1mg Daren Lew ZTlido 1.8 % topical patch 2-07 00:00: 00 Yes % Daren Lew gabapentin 300 mg capsule 2-05 00:00: 00 Yes 13mg Daren Lew carvedilol 6.25 mg tablet 2-03 00:00: 00 Yes 1mg Daren Lew verapamil ER (SR) 120 mg tablet,exte nded release - 00:00: 00 Yes 1mg Daren Lew enalapril maleate 20 mg tablet - 00:00: 00 Yes 1mg Daren Lew gabapentin 300 mg capsule 1- 00:00: 00 Yes mg Daren Lew ciprofloxac in 500 mg tablet 1- 00:00: 00 Yes 1mg Daren Lew methocarbam ol 500 mg tablet 1- 00:00: 00 Yes 1mg Daren Lew ondansetron (ZOFRAN (PF)) injection 4 mg 1-04 21:15: 00 03-07 21:53 :00 No 4mg 4 mg, Slow IV Push, ONCE, 1 dose, On 03/07/24 at 1515, Administer over 2-5 Minutes, 2 mL [facility] morpHINE (4 mg/mL) injection 4 mg 03-07 21:15: 00 03-07 21:50 :00 No 4mg 4 mg, Slow IV Push, ONCE, 1 dose, On 03/07/24 at 1515, STAT [facility] iopamidol (ISOVUE 370-500 mL) injection 85 mL 03-07 18:59: 00 03-07 19:00 :00 No [id number] 85mL 85 mL, Intravenou s, ONCE, 1 dose, On 03/07/24 at 1315, Routine [facility] traMADoL 50 mg tablet 03-07 00:00: 00 03-15 05:59 :00 No [id number] 50mg Take 1 tablet by mouth every 6 (six) hours as needed for Pain (scale 4-6) for up to 7 days. Indication s: acute pain [facility] rivaroxaban (XARELTO) 20 mg tablet 2023-03 00:00: 00 06-09 00:00 :00 No 1358 20mg Take 1 tablet by mouth in the morning. Indication s: atrial fibrillati on [facility] methocarbam oL (ROBAXIN) tablet 500 mg 2023-03 01:45: 00 01-23 03:09 :00 No 500mg 500 mg, Oral, ONCE, 1 dose, On [place] 01/23/24 at 1945, [facility] HYDROcodone -acetaminop hen (NORCO 5) tablet 1 tablet 2023-03 01:45: 00 01-23 03:08 :00 No 1{tbl} 1 tablet, Oral, ONCE, 1 dose, On [place] 01/23/24 at 1945, [facility] predniSONE (DELTASONE) tablet 10 mg 2023-03 01:45: 00 01-23 03:09 :00 No 10mg 10 mg, Oral, ONCE, 1 dose, On [place] 01/23/24 at 1945, [facility] methocarbam oL 500 mg tablet 2023-03 00:00: 00 03-07 00:00 :00 No [id number] 1000mg Take 2 tablets by mouth 2 (two) times daily as needed (muscle spasms). [facility] traMADoL 50 mg tablet 2023-03 00:00: 00 01-30 05:59 :00 No [id number] 100mg Take 2 tablets by mouth every 8 (eight) hours as needed for Pain (scale 7-10) for up to 7 days. Indication s: acute pain [facility] predniSONE 50 mg tablet 2023-03 00:00: 00 01-28 05:59 :00 No [id number] 50mg Take 1 tablet by mouth in the morning for 5 days. [facility] apixaban (ELIQUIS) 5 mg tablet 2023-03 00:00: 00 02-11 00:00 :00 No 1358 5mg Take 1 tablet by mouth in the morning and 1 tablet in the evening. Do all this for 120 days. Indication s: atrial fibrillati on [facility] hydralazine 25 mg tablet 2023-03 00:00: 00 Yes 1mg Daren Lew carvedilol 12.5 mg tablet 2023-03 00:00: 00 Yes 1mg Daren Lew rivaroxaban (XARELTO) 15 mg tablet 2023-03 0- 00:00: 00 12-29 00:00 :00 No 1358 15mg Take 1 tablet by mouth in the morning. Indication s: atrial fibrillati on [facility] carvediloL 12.5 mg tablet 11-27 00:00: 00 Yes 12.5mg Take 1 tablet by mouth in the morning and 1 tablet in the evening. Take with meals. [facility] verapamil ER (SR) 120 mg tablet,exte nded release 11-24 00:00: 00 Yes 1mg Daren Lew carvedilol 6.25 mg tablet 11-24 00:00: 00 Yes 1mg Daren Lew enalapril maleate 20 mg tablet 11-24 00:00: 00 Yes 1mg Daren Lew fish,bora,gwendolyn lax oils-om3,6, 9no1 (OMEGA 3-6-9) 1,200 mg Cap 11-13 15:26: 05 03-07 00:00 :00 No 500mg Take 500 mg by mouth. [facility] enalapril (VASOTEC) 5 mg tablet 11-13 15:22: 37 Yes 20mg Take 4 tablets by mouth in the morning. [facility] VERAPAMIL HCL (VERAPAMIL ORAL) 11-13 15:22: 37 03-07 00:00 :00 No 120mg Take 120 mg by mouth daily. [facility] carvedilol (COREG) 6.25 mg tablet 11-13 15:10: 38 11-27 00:00 :00 No 6.25mg Take 1 tablet by mouth in the morning and 1 tablet in the evening. Take with meals. [facility] Vitamin D3 25 mcg (1,000 unit) tablet [...] Daren Lew enalapril maleate 20 mg tablet 5-03 00:00: 00 Yes 1mg Daren Lew TAKE [...] 2-16 00:00: 00 07-07 00:00 :00 No [id number] Daren Lew VERAPAMIL ER [id number] 2-12 00:00: 00 Yes 120 Daren Lew VERAPAMIL ER [id number] 2022-03- 00:00: 00 Yes 120 Daren Lew ENALAPRIL 20MG 2022-03- 00:00: 00 Yes [id number] Daren Lew CARVEDILOL 12.5MG 2022-03 00:00: 00 Yes [id number] Daren Lew TAKE 1 TABLET DAILY. 2022-03 00:00: 00 07-07 00:00 :00 No 10 Daren Lew TAKE 1 TABLET DAILY. 2022-03- 00:00: 00 07-07 00:00 :00 No 75 Daren Lew TAKE 1 CAPSULE EVERY 6 HOURS DAILY. 2022-03 0- 00:00: 00 07-07 00:00 :00 No 300 Daren Lew TAKE 1 TABLET 3 TIMES DAILY WITH FOOD NEEDED. 2022-03 0-10 00:00: 00 07-07 00:00 :00 No 800 Daren Lew AMOXICILLIN 875MG 11-26 00:00: 00 Yes Daren Lew TRAMADOL HCL 50MG - 00:00: 00 Yes Daren Lew TAKE ONE (1) TABLET(S) BY MOUTH EVERY EIGHT HOURS NEEDED. -24 00:00: 00 Yes Daren Lew TAKE ONE (1) TABLET(S) BY MOUTH EVERY TWELVE HOURS FOR 10 DAYS. -24 00:00: 00 Yes Daren Lew CARVEDILOL 12.5MG -14 00:00: 00 Yes Daren Lew VERAPAMIL ER [id number] - 00:00: 00 Yes [id number] Daren Lew ENALAPRIL 20MG 10-15 00:00: 00 Yes Daren Lew APPLY SPARINGLY TO AFFECTED AREA(S) TWICE DAILY 07-26 00:00: 00 07-07 00:00 :00 No 2 Daren Lew TAKE 1 TABLET TWICE DAILY. - 00:00: 00 07-07 00:00 :00 No 125 Daren Lew TAKE 1 TABLET TWICE DAILY WITH FOOD. - 00:00: 00 07-07 00:00 :00 No [id number] Daren Lew TAKE 1 TABLET BID NEEDED - 00:00: 00 07-07 00:00 :00 No 600 Daren Lew TAKE ONE (1) TABLET(S) BY MOUTH ONCE A DAY. -15 00:00: 00 Yes Daren Lew TAKE ONE (1) TABLET(S) BY MOUTH EVERY MORNING. 04-18 00:00: 00 Yes Daren Lew TAKE ONE (1) TABLET(S) BY MOUTH TWICE A DAY. 2021-0317 00:00: 00 Yes Daren Lew TAKE ONE [...] 10 TAKE ONE (1) TABLET(S) BY MOUTH ONCE [...] mg tablet 08-18 00:00: 00 No 1mg ofloxacin 0.3 % ear drops 08-18 00:00: 00 Yes 4% Daren Lew amoxicillin 875 mg-potassiu m clavulanate 125 mg tablet 08-18 00:00: 00 Yes 1mg Daren Lew carvedilol 12.5 mg tablet 07-17 00:00: 00 No 1mg Dose Unknown -16 00:00: 00 No verapamil ER (SR) 120 mg tablet,exte nded release -16 00:00: 00 No 1mg carvedilol 12.5 mg tablet -16 00:00: 00 Yes 1mg Daren Lew enalapril maleate 20 mg tablet -16 00:00: 00 Yes 1mg Daren Lew verapamil ER (SR) 120 mg tablet,exte nded release -16 00:00: 00 Yes 1mg Daren Lew verapamil ER (SR) 120 mg tablet,exte nded release -15 00:00: 00 No 1mg enalapril maleate 20 mg tablet -15 00:00: 00 No 1mg carvedilol 12.5 mg tablet 4-15 00:00: 00 No 1mg carvedilol 12.5 mg tablet 15 00:00: 00 Yes 1mg Daren Lew verapamil ER (SR) 120 mg tablet,exte nded release -15 00:00: 00 Yes 1mg Daren Lew enalapril maleate 20 mg tablet 06-16 00:00: 00 Yes 1mg Daren Lew carvedilol 12.5 mg tablet - 00:00: 00 No 1mg Dose Unknown 03-23 00:00: 00 No verapamil ER (SR) 120 mg tablet,exte nded release 03-23 00:00: 00 No 1mg carvedilol 12.5 mg tablet 03-23 00:00: 00 Yes 1mg Daren Lew enalapril maleate 20 mg tablet 03-23 00:00: 00 Yes 1mg Daren Lew verapamil ER (SR) 120 mg tablet,exte nded release 03-23 00:00: 00 Yes 1mg Daren Lew carvedilol 12.5 mg tablet 2020-03 0- 00:00: 00 No 1mg verapamil ER (SR) 120 mg tablet,exte nded release 2020-03 0 00:00: 00 No 1mg enalapril maleate 20 mg tablet 2020-03 0 00:00: 00 No 1mg carvedilol 12.5 mg tablet 2020-03 0- 00:00: 00 Yes 1mg Daren Lew verapamil ER (SR) 120 mg tablet,exte nded release 2020-03 0- 00:00: 00 Yes 1mg Daren Lew enalapril maleate 20 mg tablet 2020-03- 00:00: 00 Yes 1mg Daren Lew Singulair 10 mg tablet 11-21 00:00: 00 No 1mg carvedilol 12.5 mg tablet - 00:00: 00 No 1mg ibuprofen 600 mg tablet - 00:00: 00 No 1mg verapamil ER (SR) 120 mg tablet,exte nded release 11-21 00:00: 00 No 1mg enalapril maleate 20 mg tablet 11-21 00:00: 00 No 1mg Singulair 10 mg [...] 11-21 00:00: 00 Yes 1mg Daren Lew neomycin-po lymyxin-hyd rocort 3.5 mg-10,000 unit/mL-1 % ear drops,susp 11-11 00:00: 00 No 4mg/mL- unit/mL -% neomycin-po lymyxin-hyd rocort 3.5 mg-10,000 unit/mL-1 % ear drops,susp 11-11 00:00: 00 Yes 4mg/mL- unit/mL -% Daren Lew carvedilol 12.5 mg tablet 10-26 00:00: 00 No 1mg enalapril maleate 20 mg tablet 10-26 00:00: 00 No 1mg verapamil ER (SR) 120 mg tablet,exte nded release 10-26 00:00: 00 No 1mg carvedilol 12.5 mg tablet 10-26 00:00: 00 Yes 1mg Daren Lew enalapril maleate 20 mg tablet 10-26 00:00: 00 Yes 1mg Daren Lew verapamil ER (SR) 120 mg tablet,exte nded release 10-26 00:00: 00 Yes 1mg Daren Lew Bactrim DS 800 mg-160 mg tablet 07-08 00:00: 00 No 1mg Bactrim DS 800 mg-160 mg tablet 2021-0 5-07 00:00: 00 Yes 1mg Daren Lew Augmentin 875 mg-125 mg tablet 0 4-04 00:00: 00 No 1mg Augmentin 875 mg-125 mg tablet 4-04 00:00: 00 Yes 1mg Daren Lew Macrobid 100 mg capsule 0 3-30 00:00: 00 No 1mg Macrobid 100 mg capsule 3-30 00:00: 00 Yes 1mg Daren Lew carvedilol 12.5 mg tablet 0 2- 00:00: 00 No 1mg verapamil ER (SR) 120 mg tablet,exte nded release 2- 00:00: 00 No 1mg enalapril maleate 20 mg tablet 2- 00:00: 00 No 1mg carvedilol 12.5 mg tablet 2- 00:00: 00 Yes 1mg Daren Lew verapamil ER (SR) 120 mg tablet,exte nded release 2- 00:00: 00 Yes 1mg Daren Lew enalapril maleate 20 mg tablet 0 2- 00:00: 00 Yes 1mg Daren Lew Bactrim DS 800 mg-160 mg tablet 1-19 00:00: 00 No 1mg Bactrim DS 800 mg-160 mg tablet 1-19 00:00: 00 Yes 1mg Daren Lew ibuprofen 600 mg tablet 0 8- 00:00: 00 No 1mg cyclobenzap rine 10 mg tablet 8- 00:00: 00 No 1mg ibuprofen 600 mg tablet 11-01 00:00: 00 Yes 1mg Daren Lew cyclobenzap rine 10 mg tablet 8- 00:00: 00 Yes 1mg Daren Lew carvedilol 12.5 mg tablet 8- 00:00: 00 No 1mg verapamil ER (SR) 120 mg tablet,exte nded release 8- 00:00: 00 No 1mg enalapril maleate 20 mg tablet 0 8- 00:00: 00 No 1mg carvedilol 12.5 mg tablet 10-26 00:00: 00 Yes 1mg Daren Lew verapamil ER (SR) 120 mg tablet,exte nded release 10-26 00:00: 00 Yes 1mg Daren Lew enalapril maleate 20 mg tablet 10-26 00:00: 00 Yes 1mg Daren Lew permethrin 5 % topical cream 04-20 00:00: 00 No 1% carvedilol 12.5 mg tablet 04-20 00:00: 00 No 1mg verapamil ER (SR) 120 mg tablet,exte nded release 04-20 00:00: 00 No 1mg enalapril maleate 20 mg tablet 04-20 00:00: 00 No 1mg permethrin 5 % topical cream 04-20 00:00: 00 Yes 1% Daren Lew carvedilol 12.5 mg tablet 04-20 00:00: 00 Yes 1mg Daren Lew verapamil ER (SR) 120 mg tablet,exte nded release 04-20 00:00: 00 Yes 1mg Daren Lew enalapril maleate 20 mg tablet 04-20 00:00: 00 Yes 1mg aDren Lew carvedilol 12.5 mg tablet 10-27 00:00: 00 No 1mg enalapril maleate 20 mg tablet 10-27 00:00: 00 No 1mg verapamil ER (SR) 120 mg tablet,exte nded release 10-27 00:00: 00 No 1mg carvedilol 12.5 mg tablet 10-27 00:00: 00 Yes 1mg Daren Lew enalapril maleate 20 mg tablet 10-27 00:00: 00 Yes 1mg Daren Lew verapamil ER (SR) 120 mg tablet,exte nded release 10-27 00:00: 00 Yes 1mg Daren Lew amoxicillin 875 mg-potassiu m clavulanate 125 mg tablet 10-02 00:00: 00 No 1mg promethazin e-DM 6.25 mg-15 mg/5 mL oral syrup 10-02 00:00: 00 No 10mg/5 mL amoxicillin 875 mg-tracyu haylee clavulanate 125 mg tablet 10-02 00:00: 00 Yes 1mg Daren Lew promethazin e-DM 6.25 mg-15 mg/5 mL oral syrup 10-02 00:00: 00 Yes 10mg/5 mL Daren Lew carvedilol 12.5 mg tablet 09-29 00:00: 00 No 1mg enalapril maleate 20 mg tablet 09-29 00:00: 00 No 1mg verapamil ER (SR) 120 mg tablet,exte nded release 09-29 00:00: 00 No 1mg carvedilol 12.5 mg tablet 09-29 00:00: 00 [...] nded release 07-31 00:00: 00 No 1mg carvedilol 6.25 mg tablet 07-31 00:00: 00 Yes 1mg Daren Lew enalapril maleate 20 mg tablet 07-31 00:00: 00 Yes 1mg Daren Lew verapamil ER (SR) 120 mg tablet,exte nded release 07-31 00:00: 00 Yes 1mg Daren Lew cyclobenzap rine 5 mg tablet 07-10 00:00: 00 No 12mg cyclobenzap rine 5 mg tablet 07-10 00:00: 00 Yes 12mg Daren Lew carvedilol 6.25 mg tablet 06-24 00:00: 00 No 1mg verapamil ER (SR) 120 mg tablet,exte nded release 06-24 00:00: 00 No 1mg enalapril maleate 20 mg tablet 06-24 00:00: 00 No 1mg carvedilol 6.25 mg tablet 06-24 00:00: 00 Yes 1mg Daren Lew verapamil ER (SR) 120 mg tablet,exte nded release 06-24 00:00: 00 Yes 1mg Daren Lew enalapril maleate 20 mg tablet 06-24 00:00: 00 Yes 1mg Daren Lew amoxicillin 875 mg tablet 06-14 00:00: 00 No 1mg amoxicillin 875 mg tablet 06-14 00:00: 00 Yes 1mg Daren Lew carvedilol 6.25 mg tablet 04-01 00:00: 00 No 1mg enalapril maleate 20 mg tablet 04-01 00:00: 00 No 1mg verapamil ER (SR) 120 mg tablet,exte nded release 04-01 00:00: 00 No 1mg carvedilol 6.25 mg tablet 04-01 00:00: 00 Yes 1mg Daren Lew enalapril maleate 20 mg tablet 04-01 00:00: 00 Yes 1mg Daren Lew verapamil ER (SR) 120 mg tablet,exte nded release 04-01 00:00: 00 Yes 1mg Daren Lew fluticasone 50 mcg/actuati on nasal spray,suspe nsion 2016-03 00:00: 00 No 2mcg/ac tuation fluticasone 50 mcg/actuati on nasal spray,suspe nsion 2016-03 00:00: 00 Yes 2mcg/ac tuation Daren Lew azithromyci n 250 mg tablet 2016-03 00:00: 00 No mg azithromyci n 250 mg tablet 2016-03 00:00: 00 Yes mg Daren Lew carvedilol 6.25 mg tablet 2016-03 00:00: 00 No 1mg enalapril maleate 20 mg tablet 2016-03 00:00: 00 No 1mg verapamil ER (SR) 120 mg tablet,exte nded release 2016-03 00:00: 00 No 1mg carvedilol 6.25 mg tablet 2016-03 00:00: 00 Yes 1mg Daren Lew enalapril maleate 20 mg tablet 2016-03 00:00: 00 Yes 1mg Daren Lew verapamil ER (SR) 120 mg tablet,exte nded release 2016-03 00:00: 00 Yes 1mg Daren Lew naproxen 500 mg tablet 2016-03 00:00: 00 No 1mg Robaxin 500 mg tablet 2016-03 00:00: 00 No 1mg naproxen 500 mg tablet 2016-03 00:00: 00 Yes 1mg Daren Lew Robaxin 500 mg tablet 2016-03 00:00: 00 Yes 1mg Daren Lew Caladryl 1 %-8 % lotion 09-06 00:00: 00 No 1% Caladryl 1 %-8 % lotion 09-06 00:00: 00 Yes 1% Daren Lew Caladryl 1 %-8 % lotion 08-31 00:00: 00 No 1% carvedilol 6.25 mg tablet 08-31 00:00: 00 No 1mg verapamil ER (SR) 120 mg tablet,exte nded release 08-31 00:00: 00 No 1mg enalapril maleate 20 mg tablet 08-31 00:00: 00 No 1mg Vistaril 25 mg capsule 08-31 00:00: 00 No 1mg Caladryl 1 %-8 % lotion 08-31 00:00: 00 Yes 1% Daren Lew carvedilol 6.25 mg tablet 08-31 00:00: 00 Yes 1mg Daren Lew verapamil ER (SR) 120 mg tablet,exte nded release 08-31 00:00: 00 Yes 1mg Daren Lew enalapril maleate 20 mg tablet 08-31 00:00: 00 Yes 1mg Daren Lew Vistaril 25 mg capsule 08-31 00:00: 00 Yes 1mg Daren Lew predniSONE 20 mg tablet 08-22 00:00: 00 2024- 03-07 00:00 :00 No 40 mg PO QD x 5 days, then20 mg PO QD x 5 days, then10 mg PO QD x 5 dyas [facility] diphenhydrA MINE (BENADRYL) 25 mg capsule 08-22 00:00: 00 12-03 00:00 :00 No 25mg Take 1 capsule by mouth every 6 (six) hours as needed for Itching or Allergies for up to 20 doses. [facility] ciprofloxac in 500 mg tablet 07-09 00:00: 00 No 1mg cyclobenzap rine 10 mg tablet 07-09 00:00: 00 No 1mg ciprofloxac in 500 mg tablet 07-09 00:00: 00 Yes 1mg Daren Lew cyclobenzap rine 10 mg tablet 07-09 00:00: 00 Yes 1mg Daren Lew enalapril maleate 20 mg tablet 06-01 00:00: 00 No 1mg verapamil ER (SR) 120 mg tablet,exte nded release 06-01 00:00: 00 No 1mg carvedilol 6.25 mg tablet 06-01 00:00: 00 No 1mg carvedilol 6.25 mg tablet 06-01 00:00: 00 Yes 1mg Daren Lew enalapril maleate 20 mg tablet 06-01 00:00: 00 Yes 1mg Daren Lew verapamil ER (SR) 120 mg tablet,exte nded release 06-01 00:00: 00 Yes 1mg Daren Lew Immunizations Ordered Immunization Name Filled Immunization Name Date Status Comments Source TDAP 2013-07-14 00:00:00 Completed [facility] TDAP 2013-07-14 00:00:00 Completed [facility] TDAP Unknown Completed [facility] TDAP Unknown Completed [facility] TDAP Unknown Completed [facility] TDAP Unknown Completed [facility] Vital Signs Vital Name Observation Time Observation Value Comments S nyasia Systolic blood pressure 2024-06-18 00:33:00 170 mm[Hg] [facility] Diastolic blood pressure 2024-06-18 00:33:00 96 mm[Hg] [facility] Heart rate 2024-06-18 00:33:00 64 /min [facility] Body temperature 2024-06-18 00:33:00 36.72 Day [facility] Respiratory rate 2024-06-18 00:33:00 20 /min [facility] Oxygen saturation in Arterial blood by Pulse oximetry 2024-06-18 00:33:00 100 /min [facility] Body height 2024-06-17 21:56:00 165.1 cm [facility] Body weight 2024-06-17 21:56:00 122.471 kg [facility] BMI 2024-06-17 21:56:00 44.93 kg/m2 [facility] Systolic blood pressure 2024-03-07 22:53:38 144 mm[Hg] [facility] Diastolic blood pressure 2024-03-07 22:53:38 75 mm[Hg] [facility] Heart rate 2024-03-07 22:53:38 57 /min [facility] Body temperature 2024-03-07 22:53:38 36.94 Day [facility] Respiratory rate 2024-03-07 22:53:38 19 /min [facility] Oxygen saturation in Arterial blood by Pulse oximetry 2024-03-07 22:53:38 100 /min [facility] Body height 2024-03-07 16:47:00 165.1 cm [facility] Body weight 2024-03-07 16:47:00 117.073 kg [facility] BMI 2024-03-07 16:47:00 42.95 kg/m2 [facility] Systolic blood pressure 2024-01-24 03:10:00 154 mm[Hg] [facility] Diastolic blood pressure 2024-01-24 03:10:00 89 mm[Hg] [facility] Heart rate 2024-01-24 03:10:00 65 /min [facility] Body temperature 2024-01-24 03:10:00 36.56 Day [facility] Respiratory rate 2024-01-24 03:10:00 18 /min [facility] Oxygen saturation in Arterial blood by Pulse oximetry 2024-01-24 03:10:00 98 /min [facility] Body height 2024-01-24 01:04:00 165.1 cm [facility] Body weight 2024-01-24 01:04:00 113.399 kg [facility] BMI 2024-01-24 01:04:00 41.60 kg/m2 [facility] Systolic blood pressure 2023-12-04 13:38:00 148 mm[Hg] [facility] Diastolic blood pressure 2023-12-04 13:38:00 79 mm[Hg] [facility] Heart rate 2023-12-04 13:38:00 62 /min [facility] Oxygen saturation in Arterial blood by Pulse oximetry 2023-12-04 13:38:00 95 /min [facility] Body temperature 2023-12-04 13:32:00 36.17 Day [facility] [facility] 2023-12-04 13:32:00 20 /min [facility] Body height 2023-12-04 13:32:00 165.1 cm [facility] acute hospital Body weight 2023-12-04 13:32:00 111.585 kg [facility] acute hospital BMI 2023-12-04 13:32:00 40.94 kg/m2 General acute hospital Systolic blood pressure 2023-11-14 20:26:00 128 mm[Hg] [facility] Diastolic blood pressure 2023-11-14 20:26:00 69 mm[Hg] [facility] Heart rate 2023-11-14 20:26:00 67 /[facility] 2023-11-14 20:26:00 18 /min [facility] Body height 2023-11-14 20:26:00 165.1 cm [facility] Body weight 2023-11-14 20:26:00 110.859 kg General acute hospital BMI 2023-11-14 20:26:00 40.67 kg/m2 General acute hospital Oxygen saturation in Arterial blood by Pulse oximetry 2023-11-14 20:26:00 91 /min [facility] BP Systolic 2024-04-13 09:24:00 138 mm[Hg] Step hen F Vipin BP Diastolic 2024-04-13 09:24:00 81 mm[Hg] Deangelo phen F Vipin Weight Measured 2024-04-13 09:24:00 253.20 pounds Daren F Vipin Height Measured 2024-04-13 09:24:00 64.00 inches Daren F Vipin Body Temperature 2024-04-13 09:24:00 97.80 degrees Daren F Vipin Heart Rate 2024-04-13 09:24:00 70.00 /min Sangeeta en F Vipin Respiratory Rate 2024-04-13 09:24:00 17.00 /min Daren F Vipin BP Systolic 2024-04-08 08:47:00 130 mm[Hg] Step hen F Vipin BP Diastolic 2024-04-08 08:47:00 80 mm[Hg] Deangelo phen F Vipin Weight Measured 2024-04-08 08:47:00 255.00 pounds Daren F Vipin Height Measured 2024-04-08 08:47:00 64.00 inches Daren F Vipin Body Temperature 2024-04-08 08:47:00 98.20 degrees Daren F Vipin Heart Rate 2024-04-08 08:47:00 67.00 /min Sangeeta en F Vipin Respiratory Rate 2024-04-08 08:47:00 18.00 /min Daren F Vipin Heart Rate 2024-03-28 09:23:00 67.00 /min Sangeeta en F [facility]ipin Respiratory Rate 2024-03-28 09:23:00 16.00 /min Daren F Vipin BP Systolic 2024-03-28 09:23:00 143 mm[Hg] Step hen F Vipin BP Diastolic 2024-03-28 09:23:00 84 mm[Hg] Deangelo phen F Vipin Weight Measured 2024-03-28 09:23:00 259.00 pounds Daren F Vipin Height Measured 2024-03-28 09:23:00 64.00 inches Daren F Vipin Body Temperature 2024-03-28 09:23:00 97.80 degrees Daren F Vipin BP Systolic 2023-12-20 11:28:00 [...] Measured 2023-10-15 10:51:00 64.00 inches Daren F Viipn Body Temperature 2023-10-15 10:51:00 Daren F Ivpin Heart Rate 2023-10-15 10:51:00 Sangeeta en F [...] Weight Measured 2021-07-17 10:37:00 274.00 pounds Daren Lew Height Measured 2021-07-17 10:37:00 64.00 inches Daren Lew Body Temperature 2021-07-17 10:37:00 98.30 degrees Daren Gwendolyn Lew Heart Rate 2021-07-17 10:37:00 62.00 /min Sangeeta en F Vipin Respiratory Rate 2021-07-17 10:37:00 18.00 /min Daren Gwendolyn Lew BP Systolic 2021-03-23 10:22:00 208 mm[Hg] [...] / Time Performed Performing Clinicia n Source XR CHEST 2 VW 2024-06-17 22:34:51 Lorena Ibarra [facility] RAPID STREP SCREEN FOR GROUP A 2024-06-17 22:25:00 Lorena Ibarra [facility] INFLUENZA A/B RSV COVID NAAT 2024-06-17 22:25:00 Lorena Ibarra [facility] TROPONIN I 2024-03-07 21:56:00 Jeanette Devlin [facility] CT THORAX W CONTRAST 2024-03-07 19:05:00 Jeanette Estrada [facility] TROPONIN I 2024-03-07 17:43:00 Jeanette Devlin [facility] COMP. METABOLIC PANEL (92695) 2024-03-07 17:43:00 Jeanette Devlin [facility] CBC WITH DIFF 2024-03-07 17:43:00 Jeanette Devlin [facility] D-DIMER 2024-03-07 17:43:00 Jeanette Devlin [facility] N-TERMINAL PRO-BNP 2024-03-07 17:43:00 Jeanette Gomez [facility] XR CHEST 1 VW 2024-03-07 17:33:53 Jeanette Devlin [facility] HB ECG ROUTINE & RHYTHM STRIP 2023-11-14 20:20:13 Dori Jara [facility] Plan of Care Planned Activity Planned Date Details Comments Source Goal Plan of Care Note [code = 33865-5] Goal Plan of Care Note [code = 49638-5] Goal Plan of Care Note [code = 65640-1] Goal Plan of Care Note [code = 27634-3] Goal Plan of Care Note [code = 45622-5] Goal Plan of Care Note [code = 87147-1] Goal Plan of Care Note [code = 63498-9] Goal Plan of Care Note [code = 04447-1] Goal Plan of Care Note [code = 03912-2] Goal Plan of Care Note [code = 69529-8] Goal Plan of Care Note [code = 18851-8] Goal Plan of Care Note [code = 61715-7] Goal Plan of Care Note [code = 33477-6] Goal Plan of Care Note [code = 20908-3] Goal Plan of Care Note [code = 03786-6] Goal Plan of Care Note [code = 09197-2] Goal Plan of Care Note [code = 09494-9] Goal Plan of Care Note [code = 64144-2] Goal Plan of Care Note [code = 75727-4] Encounters Start Date/Time End Date/Time Encounter Type Admission Type Attending Clinicians Care Facility Care Department Encounter ID Source 2024-06-17 16:58:00 2024-06-17 19:38:00 Emergency X EMMA PRESLEY DONNELL [facility] E[facility] [id number] [facility] 2024-06-17 16:58:00 2024-06-17 19:38:00 Emergency Emma Presley AT [facility] 1.2.840.114 350.1.13.10 4.2.7.2.686 [id number] [facility] 2024-06-08 00:00:00 2024-06-09 08:56:26 Telephone Zion Anderson [facility] 1.2840.114 350.1.13.10 4.2.7.2.686 [id number] [facility] 2024-05-02 00:00:00 2024-05-02 00:00:00 Outpatient Visit [facility] [id number] Daren Lew 2024-04-13 09:10:30 2024-04-13 09:10:30 Outpatient SFA [facility] [id number] Daren Lew 2024-04-13 00:00:00 2024-04-13 00:00:00 Outpatient Visit [facility] [id number] Daren Snow Vipin 2024-04-08 08:40:41 2024-04-08 08:40:41 Outpatient SFA [facility] [id number] Daren Snow Vipin 2024-04-08 00:00:00 2024-04-08 00:00:00 Outpatient Visit [facility] [id number] Daren Lew 2024-03-31 00:00:00 2024-04-03 10:54:52 Telephone Zion Anderson [facility] 1.2.840.114 350.1.13.10 4.2.7.2.686 [id number] [facility] 2024-03-28 09:13:11 2024-03-28 09:13:11 Outpatient SFA [facility] [id number] Daren Snow Vipin 2024-03-28 00:00:00 2024-03-28 00:00:00 Outpatient Visit [facility] [id number] Daren Lew 2024-03-11 08:00:00 2024-03-11 08:00:00 Outpatient R JOSEPH MARIN JOSEPH [facility] [id number] [facility] 2024-03-05 00:00:00 2024-03-09 15:43:03 Telephone Zion Anderson [facility] 1.2.840.114 350.1.13.10 4.2.7.2.686 [id number] [facility] 2024-03-07 10:50:00 2024-03-07 16:59:00 Emergency X JEANETTE DEVLIN ERIN [facility] ERT [id number] [facility] 2024-03-07 10:50:00 2024-03-07 16:59:00 Emergency Jeanette Devlin [facility] AT [facility] 1.2.840.114 350.1.13.10 4.2.7.2.686 [id number] [facility] 2024-02-10 00:00:00 2024-02-12 09:12:06 Telephone Zion Anderson [facility] 1.2.840.114 350.1.13.10 4.2.7.2.686 [id number] [facility] 2024-02-11 09:30:00 2024-02-11 09:30:00 Outpatient R JANI LOUIS CRAIG [facility] [id number] [facility] 2024-01-23 19:08:00 2024-01-23 21:21:00 Emergency X PHYLLIS FARAH ERICCA [facility] ERT [id number] [facility] 2024-01-23 19:08:00 2024-01-23 21:21:00 Emergency Phyllis Farah Benny [facility] AT [facility] 1.2.840.114 350.1.13.10 4.2.7.2.686 [id number] [facility] 2023-12-31 10:00:00 2023-12-31 10:00:00 Outpatient R DORI JARA [facility] [id number] [facility] 2023-12-30 00:00:00 2023-12-31 08:58:47 Telephone Joseph Marin [facility] 1..840.114 350.1.13.10 4.2.7.2.686 [id number] [facility] 2023-12-26 00:00:00 2023-12-30 09:11:49 Telephone Joseph Marin [facility] 1.2.840.114 350.1.13.10 4.2.7.2.686 [id number] [facility] 2023-12-23 13:48:56 2023-12-23 13:48:56 Outpatient [facility] 1021 Daren Lew 2023-12-20 11:15:22 2023-12-20 11:15:22 Outpatient [facility] 1018 Daren Lew 2023-12-19 00:00:00 2023-12-19 09:06:37 Telephone Dori Jara [facility] 1.2.840.114 350.1.13.10 4.2.7.2.686 [id number] [facility] 2023-12-04 09:00:00 2023-12-04 09:29:52 Outpatient R JOSEPH MAIRN HAIDER [facility] [id number] [facility] 2023-12-04 09:00:00 2023-12-04 09:29:52 Office Visit Joseph Marin [facility] 1.2.840.114 350.1.13.10 4.2.7.2.686 [id number] [facility] 2023-11-28 00:00:00 2023-11-28 12:25:34 Telephone Dori Jara [facility] 1.2.840.114 350.1.13.10 4.2.7.2.686 [id number] [facility] 2023-11-25 07:49:07 2023-11-25 23:59:00 Outpatient R DORI JARA [facility] [id number] [facility] 2023-11-25 07:49:07 2023-11-25 23:59:00 Hospital Encounter Dori Jara [facility] 1.2.840.114 350.1.13.10 4.2.7.2.686 [id number] [facility] 2023-11-25 00:00:00 2023-11-25 00:00:00 Outpatient Visit ZOHAIB [id number] Daren Lew 2023-11-14 16:00:00 2023-11-14 23:59:00 Outpatient R DORI JARA [facility] [id number] [facility] 2023-11-14 16:00:00 2023-11-14 23:59:00 Hospital Encounter Dori Jara [facility] 1.2.840.114 350.1.13.10 4.2.7.2.686 [id number] [facility] 2023-11-14 15:30:00 2023-11-14 16:48:44 Office Visit Dori Jara [facility] 1.2.840.114 350.1.13.10 4.2.7.2.686 [id number] [facility] 2023-10-15 11:18:22 2023-10-15 11:18:22 Outpatient SFA SFA 0813 Daren Lew 2023-10-15 00:00:00 2023-10-15 00:00:00 Outpatient Visit SFA [id number] Daren Lew 2023-08-20 11:04:17 2023-08-20 11:04:17 Outpatient SFA SFA 18 Daren Lew 2023-08-19 11:38:56 2023-08-19 11:38:56 Outpatient SFA SFA 17 Daren Lew 2023-08-19 00:00:00 2023-08-19 00:00:00 Outpatient Visit SFA [id number] Daren Lew 2023-07-22 13:04:21 2023-07-22 13:04:21 Outpatient SFA SFA [id number] Daren Lew 2023-04-19 16:40:16 2023-04-19 16:40:16 Outpatient SFA SFA 0216 Daren Lew 2023-01-14 14:33:09 2023-01-14 14:33:09 Outpatient SFA SFA 1113 Daren Lew 2022-12-11 14:59:37 2022-12-11 14:59:37 Outpatient SFA SFA 1010 Daren Lew 2022-11-08 14:00:00 2022-11-08 14:00:00 Outpatient AP BARAJAS [id number] Norma Grimes 2022-10-15 15:59:45 2022-10-15 15:59:45 Outpatient SFA SFA 0814 Daren Lew 2022-07-26 14:50:34 2022-07-26 14:50:34 Outpatient [facility] 0525 Daren Lew 2022-07-12 16:21:33 2022-07-12 16:21:33 Outpatient [facility] 0511 Daren Lew 2022-05-11 09:13:08 2022-05-11 09:13:08 Outpatient [facility] [id number] Daren Lew 2022-01-15 17:07:22 2022-01-15 17:07:22 Outpatient [facility] 1114 Daren Lew 2021-10-20 00:00:00 2021-10-20 00:00:00 Outpatient Visit [id number] Results Test Description Test Time Test Comments Results Result Comments Source XR Chest 2 23:56:37 Chest X-Ray Indication: Cough ? Technique: Frontal and lateral views of the chest are submitted forinterpretation. Comparison: March 07, 2024 RL: 31505 Ordering Clinician: EMMA PRESLEY Technical Quality: Adequate Findings:No acute consolidation or effusion. ?Normal mediastinal contours. ?No acutefracture deformity. [facility] CT Thorax w contrast 20:55:39 PROCEDURE: CT [...] lesions are detected.The soft tissues appear normal. [id number] 18:29:21* Test Item Value Reference Range Interpretation Comme nts NT-proBNP (test code = 17397-5) 120 pg/mL <=125 Lab Interpretation (test cod e = 61989-0) Normal [facility] (04199)2024-03-07 18:20:17* Test Item Value Reference Range Interpretation Comme nts NA (test code = 5711115947) 142 mmol/L 135-145 K (test code = 8836047571) 4.0 mmol/L 3.5-5.0 CL (test code = 8245159821) 109 mmol/L 98-108 H CO2 TOTAL (test code = 0509072509) 24 mmol/L 23-31 AGAP (test code = 6155624350) 9 2-16 BUN (test code = 3732041166) 12 mg/dL 7-23 GLUCOSE (test code = 8620260810) 128 mg/dL 70-110 H CREATININE (test code = 2160-0) 0.54 mg/dL 0.50-1.04 TOTAL BILI (test code = 6403836180) 0.4 mg/dL 0.1-1.1 CALCIUM (test code = 1639833065) 9.4 mg/dL 8.6-10.6 T PROTEIN (test code = 2718070765) 7.9 g/dL 6.3-8.2 ALBUMIN (test code = 6595026924) 4.6 g/dL 3.5-5.0 ALK PHOS (test code = 0621122513) 112 U/L 34-122 ALTv (test code = 1742-6) 28 U/L 5-35 AST(SGOT) (test code = 1898221099) 45 U/L 13-40 H eGFR (test code = 57666-1) 106.2 mL/min/1.73m2 CKD-EPI eGFR (2020). Assuming creatinine has been stable day-to-day for at least three months, the eGFR indicates Category G1 (>= 90 mL/min/1.73 m2) Lab Interpretation (test code = 91274-9) Abnormal [facility] with [id number] 18:06:16* Test Item Value Reference Range Interpretation [...] 31.6 g/dL 31.6-35.1 RDW-SD (test code = 02079-9) 42.3 fL 39.0-49.9 RDW-CV (test code = 788-0) 13.0 % 12.0-15.5 PLT (test code = 777-3) 257 166-358 MPV (test code = 08492-1) 10.3 fL 9.5-12.9 NRBC/100 WBC (test code = 5145289745) 0.0 0.0-10.0 NRBC x10^3 (test code = 5881623438) See_Comment [Automated me ssage] The system which generated this result transmitted reference range: 10*3/?L. The reference range was not used to interpret this result as normal/abnormal. GRAN MAT (NEUT) % (test code = 770-8) 53.2 % IMM GRAN % (test code = 3884581652) 0.60 % LYMPH % (test code = 736-9) 35.4 % MONO % (test code = 5905-5) 7.7 % EOS % (test code = 713-8) 2.3 % BASO % (test code = 706-2) 0.8 % GRAN MAT x10^3(ANC) (test code = 5706810450) 3.86 10*3/uL 1.88-7.09 IMM GRAN x10^3 (test code = 6043692434) 0.04 10*3/uL 0.00-0.06 LYMPH x10^3 (test code = 731-0) 2.57 10*3/uL 1.32-3.29 MONO x10^3 (test code = 742-7) 0.56 10*3/uL 0.33-0.92 EOS x10^3 (test code = 711-2) 0.17 10*3/uL 0.03-0.39 BASO x10^3 (test code = 704-7) 0.06 10*3/uL 0.01-0.07 [facility] [id number] 18:04:39ORDERING PHYSICIAN: JEANETTE DEVLIN. CLINICAL HISTORY: chest pain . TECHNIQUE: 1 view chest TECHNICAL QUALITY: Adequate COMPARISON: None FINDINGS: Lungs are clear. No pleural abnormality. Cardiomediastinalsilhouette size is within normal limits.[facility] [id number] 06:19:13* Test Item Value Reference Range Interpretation Comme nts HEMOGLOBIN A1c (test code = 86889) 6.0 % 4.2-5.6 H [facility] [...] TESTING PERFORMED AT [facility] [address] [place] [address] DATABASE REPORTING CONSULTANT: CASSANDRA GUERRA M.D. CLIA NUMBER [id number] [place]. [id number] COMPREHENSIVE METABOLIC [id number] 05:04:30* Test Item Value Reference Range Interpretation Comme nts GLUCOSE (test code = 2217) 89 MG/DL 70-99 BUN (test code = 2208) 17 MG/DL 6-20 CREATININE (test code = 2214) 0.55 MG/DL 0.60-1.30 L eGFR (2020 CKD-EPI) (test code = 12150) 106 ML/MIN/1.73 >60 CALC BUN/CREAT (test code = 2235) 31 RATIO 6-28 H SODIUM (test code = 223) 138 MEQ/L 133-146 POTASSIUM (test code = 2228) 4.4 MEQ/L 3.5-5.4 CHLORIDE (test code = 2215) 102 MEQ/L 95-107 CARBON DIOXIDE (test code = 2206) 23 MEQ/L 19-31 CALCIUM (test code = 2209) 9.8 MG/DL 8.5-10.5 PROTEIN, TOTAL (test code = 2229) 7.1 G/DL 6.1-8.3 ALBUMIN (test code = [...] = 2219) 20 U/L 5-40 COMPREHENSIVE METABOLIC [id number] 00:00:00* Test Item Value Reference Range Interpretation Comme nts GLUCOSE (test code = 7) 89 MG/DL BUN (test code = 2208) 17 MG/DL CREATININE (test code = 2214) 0.55 MG/DL eGFR (2020 CKD-EPI) (test code = 42964) 106 ML/MIN/1.73 CALC BUN/CREAT (test code = [...] ALT (test code = 2219) 20 U/L Draen Snow AustinHEMOGLOBIN [id number] 00:00:00* Test Item Value Reference Range Interpretation Comme nts HEMOGLOBIN A1c (test code = 42010) 6.0 % Daren Snow AustinCOMPREHENSIVE METABOLIC [id number] 00:00:00* Test Item Value Reference Range Interpretation Comme nts GLUCOSE (test code = 2217) 89 MG/DL BUN (test code = 2208) 17 MG/DL CREATININE (test code = 2214) 0.55 MG/DL eGFR (2020 CKD-EPI) (test code = 33636) 106 ML/MIN/1.73 CALC BUN/CREAT (test code = [...] (test code = 2219) 20 U/L Daren Snow [place] [id number] 00:00:00* Test Item Value Reference Range Interpretation Comme nts HEMOGLOBIN A1c (test code = 01078) 6.0 % Daren Snow AustinCOMPREHENSIVE METABOLIC [id number] 00:00:00* Test Item Value Reference Range Interpretation Comme nts GLUCOSE (test code = 2217) 89 MG/DL BUN (test code = 2208) 17 MG/DL CREATININE (test code = 2214) 0.55 MG/DL eGFR (2020 CKD-EPI) (test code = 46137) 106 ML/MIN/1.73 CALC BUN/CREAT (test code = [...] code = 2219) 20 U/L Daren LewHEMOGLOBIN [id number] 00:00:00* Test Item Value Reference Range Interpretation Comme clarke HEMOGLOBIN A1c (test code = 79343) 6.0 % Daren LewCOMPREHENSIVE METABOLIC [id number] 00:00:00* Test Item Value Reference Range Interpretation Comme nts GLUCOSE (test code = 2217) 89 MG/DL BUN (test code = 2208) 17 MG/DL CREATININE (test code = 2214) 0.55 MG/DL eGFR (2020 CKD-EPI) (test code = 79119) 106 ML/MIN/1.73 CALC BUN/CREAT (test code = [...] code = 2219) 20 U/L Daren LewHEMOGLOBIN [id number] 00:00:00* Test Item Value Reference Range Interpretation Comme [facility] HEMOGLOBIN A1c (test code = 52118) 6.0 % Daren Snow [place]HEMOGLOBIN [id number] 00:00:00* Test Item Value Reference Range Interpretation Comme nts HEMOGLOBIN A1c (test code = 78511) 5.8 % Daren LewCOMPREHENSIVE METABOLIC [id number] 00:00:00* Test Item Value Reference Range Interpretation Comme nts GLUCOSE (test code = 221) 93 MG/DL BUN (test code = 2208) 17 MG/DL CREATININE (test code = 2214) 0.57 MG/DL eGFR (2020 CKD-EPI) (test code = 93709) 105 ML/MIN/1.73 CALC BUN/CREAT (test code = [...] code = 2219) 20 U/L Daren LewLIPID [id number] 00:00:00* Test Item Value Reference Range Interpretation Comme nts CHOLESTEROL (test code = 2210) 162 MG/DL TRIGLYCERIDES (test code = 2232) 67 MG/DL HDL CHOLESTEROL (test code = 2220) 61 MG/DL CALC LDL CHOL (test code = 2237) 86 MG/DL RISK RATIO LDL/HDL (test cod e = 2238) 1.41 RATIO Daren LewVITAMIN D, 25 [id number] 00:00:00* Test Item Value Reference Range Interpretation Comme nts VITAMIN D, 25 OH (test code = 4958) 25 NG/ML Daren LewCBC W/AUTO [id number] 00:00:00* Test Item Value Reference Range Interpretation [...] ABS NUCLEATED RBCS (test cod e = 75523) 0.00 K/UL Daren LewEBONY REFLEX AUTOIMMUNE AB [id number] 00:00:00* Test Item Value Reference Range Interpretation Comme nts ANTI-NUCLEAR ANTIBODIES (tom t code = 3506) NEGATIVE EBONY PATTERN (REPORTED TITER) (test code = 33147) SEE BELOW HOMOGENEOUS (test code = 79763) NEGATIVE TITER SPECKLED (test code = 478897) NEGATIVE TITER DENSE FINE SPECKLED (test co de = 56967) NEGATIVE TITER CENTROMERE (test code = 283538) NEGATIVE TITER COARSE SPECKLED (test code = 538762) NEGATIVE TITER DISCRETE NUCLEAR DOTS (test code = 917255) NEGATIVE TITER NUCLEOLAR (test code = 597375) NEGATIVE TITER NUCLEAR MEMBRANE (test code = 990867) NEGATIVE TITER CYTO. RETICULAR (ALPESH) (test code = 807525) NEGATIVE COMMENTS (test code = 947577) NONE METHOD (test code = 52132) (NOTE) Daren LewC-REACTIVE [id number] 00:00:00* Test Item Value Reference Range Interpretation Comme nts C-REACTIVE PROTEIN (test cod e = 3513) <0.3 MG/DL Daren LewCCP [id number] 00:00:00* Test Item Value Reference Range Interpretation Comme nts CCP IgG (test code = 77938) <0.5 U/ML Daren LewRHEUMATOID FACTOR, [id number] 00:00:00* Test Item Value Reference Range Interpretation Comme nts RHEUMATOID FACTOR, QUANT (te st code = 3502) <10 IU/ML Daren Snow AustinSEDIMENTATION [id number] 00:00:00* Test Item Value Reference Range Interpretation Comme nts SEDIMENTATION RATE (test code = 1017) TEST NOT PERFORMED MM/HOUR Daren LewHEMOGLOBIN [id number] 00:00:00* Test Item Value Reference Range Interpretation Comme nts HEMOGLOBIN A1c (test code = 42277) 5.8 % Daren LewCOMPREHENSIVE METABOLIC [id number] 00:00:00* Test Item Value Reference Range Interpretation Comme nts GLUCOSE (test code = 2217) 93 MG/DL BUN (test code = 2208) 17 MG/DL CREATININE (test code = 2214) 0.57 MG/DL eGFR (2020 CKD-EPI) (test code = 89891) 105 ML/MIN/1.73 CALC BUN/CREAT (test code = [...] code = 2219) 20 U/L Daren LewLIPID [id number] 00:00:00* Test Item Value Reference Range Interpretation Comme nts CHOLESTEROL (test code = 2210) 162 MG/DL TRIGLYCERIDES (test code = 2232) 67 MG/DL HDL CHOLESTEROL (test code = 2220) 61 MG/DL CALC LDL CHOL (test code = 2237) 86 MG/DL RISK RATIO LDL/HDL (test cod e = 2238) 1.41 RATIO Daren LewVITAMIN D, 25 [id number] 00:00:00* Test Item Value Reference Range Interpretation Comme [facility] VITAMIN D, 25 OH (test code = 4958) 25 NG/ML Daren LewCBC W/AUTO [id number] 00:00:00* Test Item Value Reference Range Interpretation [...] ABS NUCLEATED RBCS (test cod e = 22396) 0.00 K/UL Daren LewANA REFLEX AUTOIMMUNE AB [id number] 00:00:00* Test Item Value Reference Range Interpretation Comme nts ANTI-NUCLEAR ANTIBODIES (tom t code = 3506) NEGATIVE EBONY PATTERN (REPORTED TITER) (test code = 15777) SEE BELOW HOMOGENEOUS (test code = 72039) NEGATIVE TITER SPECKLED (test code = 557885) NEGATIVE TITER DENSE FINE SPECKLED (test co de = 62936) NEGATIVE TITER CENTROMERE (test code = 120564) NEGATIVE TITER COARSE SPECKLED (test code = 006728) NEGATIVE TITER DISCRETE NUCLEAR DOTS (test code = 611689) NEGATIVE TITER NUCLEOLAR (test code = 349203) NEGATIVE TITER NUCLEAR MEMBRANE (test code = 189015) NEGATIVE TITER CYTO. RETICULAR (ALPESH) (test code = 019762) NEGATIVE COMMENTS (test code = 538241) NONE METHOD (test code = 43604) (NOTE) Daren LewC-REACTIVE [id number] 00:00:00* Test Item Value Reference Range Interpretation Comme nts C-REACTIVE PROTEIN (test cod e = 3513) <0.3 MG/DL Daren LewCCP [id number] 00:00:00* Test Item Value Reference Range Interpretation Comme nts CCP IgG (test code = 72134) <0.5 U/ML Daren LewRHEUMATOID FACTOR, [id number] 00:00:00* Test Item Value Reference Range Interpretation Comme nts RHEUMATOID FACTOR, QUANT (te st code = 6862) <10 IU/ML Daren LewSEDIMENTATION [id number] 00:00:00* Test Item Value Reference Range Interpretation Comme [facility] SEDIMENTATION RATE (test code = 1017) TEST NOT PERFORMED MM/HOUR Daren LewHEMOGLOBIN [id number] 00:00:00* Test Item Value Reference Range Interpretation Comme [facility] HEMOGLOBIN A1c (test code = 92274) 5.8 % Daren LewCOMPREHENSIVE METABOLIC [id number] 00:00:00* Test Item Value Reference Range Interpretation Comme nts GLUCOSE (test code = 2217) 93 MG/DL BUN (test code = 2208) 17 MG/DL CREATININE (test code = 2214) 0.57 MG/DL eGFR (2020 CKD-EPI) (test code = 66249) 105 ML/MIN/1.73 CALC BUN/CREAT (test code = [...] code = 2219) 20 U/L Daren LewLIPID [id number] 00:00:00* Test Item Value Reference Range Interpretation Comme nts CHOLESTEROL (test code = 2210) 162 MG/DL TRIGLYCERIDES (test code = 2232) 67 MG/DL HDL CHOLESTEROL (test code = 2220) 61 MG/DL CALC LDL CHOL (test code = 2237) 86 MG/DL RISK RATIO LDL/HDL (test cod e = 2238) 1.41 RATIO Daren LewVITAMIN D, 25 [id number] 00:00:00* Test Item Value Reference Range Interpretation Comme clarke VITAMIN D, 25 OH (test code = 4958) 25 NG/ML Daren LewCBC W/AUTO [id number] 00:00:00* Test Item Value Reference Range Interpretation [...] ABS NUCLEATED RBCS (test cod e = 04851) 0.00 K/UL Daren Griggs REFLEX AUTOIMMUNE AB [id number] 00:00:00* Test Item Value Reference Range Interpretation Comme nts ANTI-NUCLEAR ANTIBODIES (tom t code = 3506) NEGATIVE EBONY PATTERN (REPORTED TITER) (test code = 32765) SEE BELOW HOMOGENEOUS (test code = 38514) NEGATIVE TITER SPECKLED (test code = 128553) NEGATIVE TITER DENSE FINE SPECKLED (test co de = 55157) NEGATIVE TITER CENTROMERE (test code = 415212) NEGATIVE TITER COARSE SPECKLED (test code = 347738) NEGATIVE TITER DISCRETE NUCLEAR DOTS (test code = 388919) NEGATIVE TITER NUCLEOLAR (test code = 197588) NEGATIVE TITER NUCLEAR MEMBRANE (test code = 137430) NEGATIVE TITER CYTO. RETICULAR (ALPESH) (test code = 418239) NEGATIVE COMMENTS (test code = 346072) NONE METHOD (test code = 33381) (NOTE) Daren LewC-REACTIVE [id number] 00:00:00* Test Item Value Reference Range Interpretation Comme nts C-REACTIVE PROTEIN (test cod e = 3513) <0.3 MG/DL Daren LewCCP [id number] 00:00:00* Test Item Value Reference Range Interpretation Comme nts CCP IgG (test code = 80121) <0.5 U/ML Daren LewRHEUMATOID FACTOR, [id number] 00:00:00* Test Item Value Reference Range Interpretation Comme clarke RHEUMATOID FACTOR, QUANT (te st code = 3502) <10 IU/ML Daren LewSEDIMENTATION [id number] 00:00:00* Test Item Value Reference Range Interpretation Comme nts SEDIMENTATION RATE (test code = 1017) TEST NOT PERFORMED MM/HOUR Daren LewHEMOGLOBIN [id number] 00:00:00* Test Item Value Reference Range Interpretation Comme clarke HEMOGLOBIN A1c (test code = 69292) 5.8 % Daren LewCOMPREHENSIVE METABOLIC [id number] 00:00:00* Test Item Value Reference Range Interpretation Comme nts GLUCOSE (test code = 2217) 93 MG/DL BUN (test code = 2208) 17 MG/DL CREATININE (test code = 2214) 0.57 MG/DL eGFR (2020 CKD-EPI) (test code = 67715) 105 ML/MIN/1.73 CALC BUN/CREAT (test code = [...] code = 2219) 20 U/L Daren LewLIPID [id number] 00:00:00* Test Item Value Reference Range Interpretation Comme nts CHOLESTEROL (test code = 2210) 162 MG/DL TRIGLYCERIDES (test code = 2232) 67 MG/DL HDL CHOLESTEROL (test code = 2220) 61 MG/DL CALC LDL CHOL (test code = 2237) 86 MG/DL RISK RATIO LDL/HDL (test cod e = 2238) 1.41 RATIO Daren LewVITAMIN D, 25 [id number] 00:00:00* Test Item Value Reference Range Interpretation Comme nts VITAMIN D, 25 OH (test code = 4958) 25 NG/ML Daren LewCBC W/AUTO [id number] 00:00:00* Test Item Value Reference Range Interpretation [...] ABS NUCLEATED RBCS (test cod e = 94216) 0.00 K/UL Daren LewANA REFLEX AUTOIMMUNE AB [id number] 00:00:00* Test Item Value Reference Range Interpretation Comme nts ANTI-NUCLEAR ANTIBODIES (tom t code = 3506) NEGATIVE EBONY PATTERN (REPORTED TITER) (test code = 39395) SEE BELOW HOMOGENEOUS (test code = 18949) NEGATIVE TITER SPECKLED (test code = 490014) NEGATIVE TITER DENSE FINE SPECKLED (test co de = 05076) NEGATIVE TITER CENTROMERE (test code = 450068) NEGATIVE TITER COARSE SPECKLED (test code = 433340) NEGATIVE TITER DISCRETE NUCLEAR DOTS (test code = 303434) NEGATIVE TITER NUCLEOLAR (test code = 349171) NEGATIVE TITER NUCLEAR MEMBRANE (test code = 875749) NEGATIVE TITER CYTO. RETICULAR (ALPESH) (test code = 009175) NEGATIVE COMMENTS (test code = 654817) NONE METHOD (test code = 36547) (NOTE) Daren LewC-REACTIVE [id number] 00:00:00* Test Item Value Reference Range Interpretation Comme nts C-REACTIVE PROTEIN (test cod e = 3513) <0.3 MG/DL Daren LewCCP [id number] 00:00:00* Test Item Value Reference Range Interpretation Comme clarke CCP IgG (test code = 20366) <0.5 U/ML Daren LewRHEUMATOID FACTOR, [id number] 00:00:00* Test Item Value Reference Range Interpretation Comme clarke RHEUMATOID FACTOR, QUANT (te st code = 3502) <10 IU/ML Daren LewSEDIMENTATION [id number] 00:00:00* Test Item Value Reference Range Interpretation Comme nts SEDIMENTATION RATE (test code = 1017) TEST NOT PERFORMED MM/HOUR Daren LewHEMOGLOBIN [id number] 00:00:00* Test Item Value Reference Range Interpretation Comme nts HEMOGLOBIN A1c (test code = 67479) 5.8 % Daren LewCOMPREHENSIVE METABOLIC [id number] 00:00:00* Test Item Value Reference Range Interpretation Comme nts GLUCOSE (test code = 2217) 93 MG/DL BUN (test code = 2208) 17 MG/DL CREATININE (test code = 2214) 0.57 MG/DL eGFR (2020 CKD-EPI) (test code = 83619) 105 ML/MIN/1.73 CALC BUN/CREAT (test code = [...] (test code = 2219) 20 U/L Daren Snow VipinLIPID [id number] 00:00:00* Test Item Value Reference Range Interpretation Comme nts CHOLESTEROL (test code = 2210) 162 MG/DL TRIGLYCERIDES (test code = 2232) 67 MG/DL HDL CHOLESTEROL (test code = 2220) 61 MG/DL CALC LDL CHOL (test code = 2237) 86 MG/DL RISK RATIO LDL/HDL (test cod e = 2238) 1.41 RATIO Daren LewVITAMIN D, 25 [id number] 00:00:00* Test Item Value Reference Range Interpretation Comme [facility] VITAMIN D, 25 OH (test code = 4958) 25 NG/ML Daren F VipinCBC W/AUTO [id number] 00:00:00* Test Item Value Reference Range Interpretation [...] ABS NUCLEATED RBCS (test cod e = 01379) 0.00 K/UL Daren Griggs REFLEX AUTOIMMUNE AB [id number] 00:00:00* Test Item Value Reference Range Interpretation Comme nts ANTI-NUCLEAR ANTIBODIES (tom t code = 3506) NEGATIVE EBONY PATTERN (REPORTED TITER) (test code = 30436) SEE BELOW HOMOGENEOUS (test code = 19888) NEGATIVE TITER SPECKLED (test code = 202700) NEGATIVE TITER DENSE FINE SPECKLED (test co de = 46500) NEGATIVE TITER CENTROMERE (test code = 329384) NEGATIVE TITER COARSE SPECKLED (test code = 951589) NEGATIVE TITER DISCRETE NUCLEAR DOTS (test code = 151304) NEGATIVE TITER NUCLEOLAR (test code = 287128) NEGATIVE TITER NUCLEAR MEMBRANE (test code = 087921) NEGATIVE TITER CYTO. RETICULAR (ALPESH) (test code = 966727) NEGATIVE COMMENTS (test code = 325281) NONE METHOD (test code = 66950) (NOTE) Daren LewC-REACTIVE [id number] 00:00:00* Test Item Value Reference Range Interpretation Comme nts C-REACTIVE PROTEIN (test cod e = 3513) <0.3 MG/DL Daren LewCCP [id number] 00:00:00* Test Item Value Reference Range Interpretation Comme clarke CCP IgG (test code = 76286) <0.5 U/ML Daren LewRHEUMATOID FACTOR, [id number] 00:00:00* Test Item Value Reference Range Interpretation Comme clarke RHEUMATOID FACTOR, QUANT (te st code = 3502) <10 IU/ML Daren Snow AustinSEDIMENTATION [id number] 00:00:00* Test Item Value Reference Range Interpretation Comme nts SEDIMENTATION RATE (test code = 1017) TEST NOT PERFORMED MM/HOUR Daren LewHEMOGLOBIN [id number] 00:00:00* Test Item Value Reference Range Interpretation Comme nts HEMOGLOBIN A1c (test code = 62609) 5.8 % Daren LewCOMPREHENSIVE METABOLIC [id number] 00:00:00* Test Item Value Reference Range Interpretation Comme nts GLUCOSE (test code = 2217) 93 MG/DL BUN (test code = 2208) 17 MG/DL CREATININE (test code = 2214) 0.57 MG/DL eGFR (2020 CKD-EPI) (test code = 21059) 105 ML/MIN/1.73 CALC BUN/CREAT (test code = [...] code = 2219) 20 U/L Daren LewLIPID [id number] 00:00:00* Test Item Value Reference Range Interpretation Comme nts CHOLESTEROL (test code = 2210) 162 MG/DL TRIGLYCERIDES (test code = 2232) 67 MG/DL HDL CHOLESTEROL (test code = 2220) 61 MG/DL CALC LDL CHOL (test code = 2237) 86 MG/DL RISK RATIO LDL/HDL (test cod e = 2238) 1.41 RATIO Daren LewVITAMIN D, 25 [id number] 00:00:00* Test Item Value Reference Range Interpretation Comme nts VITAMIN D, 25 OH (test code = 4958) 25 NG/ML Daren LewCBC W/AUTO [id number] 00:00:00* Test Item Value Reference Range Interpretation [...] ABS NUCLEATED RBCS (test cod e = 01451) 0.00 K/UL Daren Griggs REFLEX AUTOIMMUNE AB [id number] 00:00:00* Test Item Value Reference Range Interpretation Comme nts ANTI-NUCLEAR ANTIBODIES (tom t code = 3506) NEGATIVE EBONY PATTERN (REPORTED TITER) (test code = 04819) SEE BELOW HOMOGENEOUS (test code = 82867) NEGATIVE TITER SPECKLED (test code = 506666) NEGATIVE TITER DENSE FINE SPECKLED (test co de = 07257) NEGATIVE TITER CENTROMERE (test code = 889700) NEGATIVE TITER COARSE SPECKLED (test code = 190076) NEGATIVE TITER DISCRETE NUCLEAR DOTS (test code = 666596) NEGATIVE TITER NUCLEOLAR (test code = 164205) NEGATIVE TITER NUCLEAR MEMBRANE (test code = 428850) NEGATIVE TITER CYTO. RETICULAR (ALPESH) (test code = 344453) NEGATIVE COMMENTS (test code = 423213) NONE METHOD (test code = 64837) (NOTE) Daren Snow AustinC-REACTIVE [id number] 00:00:00* Test Item Value Reference Range Interpretation Comme nts C-REACTIVE PROTEIN (test cod e = 3513) <0.3 MG/DL Daren Snow AustinCCP [id number] 00:00:00* Test Item Value Reference Range Interpretation Comme nts CCP IgG (test code = 14951) <0.5 U/ML Daren Snow AustinRHEUMATOID FACTOR, [id number] 00:00:00* Test Item Value Reference Range Interpretation Comme nts RHEUMATOID FACTOR, QUANT (te st code = 3502) <10 IU/ML Daren Snow AustinSEDIMENTATION [id number] 00:00:00* Test Item Value Reference Range Interpretation Comme nts SEDIMENTATION RATE (test code = 1017) TEST NOT PERFORMED MM/HOUR Daren Snow [place] FallsCOMPREHENSIVE METABOLIC [id number] 04:55:15* Test Item Value Reference Range Interpretation Comme nts GLUCOSE (test code = 2217) 114 MG/DL 70-99 H BUN (test code = 2208) 13 MG/DL 6-20 CREATININE (test code = 2214) 0.58 MG/DL 0.60-1.30 L eGFR (2020 CKD-EPI) (test code = 47059) 105 ML/MIN/1.73 >60 CALC BUN/CREAT (test code = 2235) 22 RATIO 6-28 SODIUM (test code = 2231) 144 MEQ/L 133-146 POTASSIUM (test code = 2228) 4.5 MEQ/L 3.5-5.4 CHLORIDE (test code = 5) 107 MEQ/L 95-107 CARBON DIOXIDE (test code [...] code = 2218) 35 U/L 5-40 LIPID [id number] 04:55:15* Test Item Value Reference Range Interpretation Comme nts CHOLESTEROL (test code = 2209) 192 MG/DL <200 TRIGLYCERIDES (test code = 2231) 352 MG/DL <150 H HDL CHOLESTEROL (test code = 2219) 50 MG/DL >39 CALC LDL CHOL (test code = 2236) 95 MG/DL <100 NOTE: CALCULATED LDL IS BASED ON HORACE-LANGE METHOD WHICHINCLUDES ADJUSTABLE TRIGLYCERIDE:VLDL CHOLESTEROL RATIO.THIS FACTOR VARIES BY MEASURED TRIGLYCERIDE AND NON-HDLCHOLESTEROL CONCENTRATIONS WITH INCREASED CALCULATED LDL SEENIN HIGHER TRIGLYCERIDE OR LOWER NON-HDL SPECIMENS. FOR MOREINFORMATION, SEE CLIENT ANNOUNCEMENT AT [email or web address] RISK RATIO LDL/HDL (test code = 2237) 1.90 RATIO <3.22 HEMOGLOBIN [id number] 03:34:22* Test Item Value Reference Range Interpretation Comme nts HEMOGLOBIN A1c (test code = 14342) 6.2 % 4.2-5.6 H [facility] [...] INDICATED, ALL TESTING PERFORMED AT [facility] [employer] [address] [place] [address] DATABASE REPORTING CONSULTANT: CASSANDRA GUERRA M.D. [facility] NUMBER [id number] [facility] [place] [place]. [id number] LIPID [id number] 00:00:00* Test Item Value Reference Range Interpretation Comme nts CHOLESTEROL (test code = 2210) 192 MG/DL TRIGLYCERIDES (test code = 2232) 352 MG/DL HDL CHOLESTEROL (test code = 2220) 50 MG/DL CALC LDL CHOL (test code = 2237) 95 MG/DL RISK RATIO LDL/HDL (test cod e = 2238) 1.90 RATIO Daren LewHEMOGLOBIN [id number] 00:00:00* Test Item Value Reference Range Interpretation Comme nts HEMOGLOBIN A1c (test code = 97957) 6.2 % Daren LewCOMPREHENSIVE METABOLIC [id number] 00:00:00* Test Item Value Reference Range Interpretation Comme nts GLUCOSE (test code = 2217) 114 MG/DL BUN (test code = 2208) 13 MG/DL CREATININE (test code = 2214) 0.58 MG/DL eGFR (2020 CKD-EPI) (test code = 15072) 105 ML/MIN/1.73 CALC BUN/CREAT (test code = [...] code = 2219) 35 U/L Daren LewLIPID [id number] 00:00:00* Test Item Value Reference Range Interpretation Comme nts CHOLESTEROL (test code = 2210) 192 MG/DL TRIGLYCERIDES (test code = 2232) 352 MG/DL HDL CHOLESTEROL (test code = 2220) 50 MG/DL CALC LDL CHOL (test code = 2237) 95 MG/DL RISK RATIO LDL/HDL (test cod e = 2238) 1.90 RATIO Daren LewHEMOGLOBIN [id number] 00:00:00* Test Item Value Reference Range Interpretation Comme nts HEMOGLOBIN A1c (test code = 13193) 6.2 % Daren LewCOMPREHENSIVE METABOLIC [id number] 00:00:00* Test Item Value Reference Range Interpretation Comme nts GLUCOSE (test code = 2217) 114 MG/DL BUN (test code = 2208) 13 MG/DL CREATININE (test code = 2214) 0.58 MG/DL eGFR (2020 CKD-EPI) (test code = 03599) 105 ML/MIN/1.73 CALC BUN/CREAT (test code = [...] code = 2219) 35 U/L Daren LewLIPID [id number] 00:00:00* Test Item Value Reference Range Interpretation Comme nts CHOLESTEROL (test code = 2210) 192 MG/DL TRIGLYCERIDES (test code = 2232) 352 MG/DL HDL CHOLESTEROL (test code = 2220) 50 MG/DL CALC LDL CHOL (test code = 2237) 95 MG/DL RISK RATIO LDL/HDL (test cod e = 2238) 1.90 RATIO Daren LewHEMOGLOBIN [id number] 00:00:00* Test Item Value Reference Range Interpretation Comme nts HEMOGLOBIN A1c (test code = 41462) 6.2 % Daren LewCOMPREHENSIVE METABOLIC [id number] 00:00:00* Test Item Value Reference Range Interpretation Comme nts GLUCOSE (test code = 2217) 114 MG/DL BUN (test code = 2208) 13 MG/DL CREATININE (test code = 2214) 0.58 MG/DL eGFR (2020 CKD-EPI) (test code = 26058) 105 ML/MIN/1.73 CALC BUN/CREAT (test code = [...] (test code = 2219) 35 U/L Daren Snow AustinLIPID [id number] 00:00:00* Test Item Value Reference Range Interpretation Comme nts CHOLESTEROL (test code = 2210) 192 MG/DL TRIGLYCERIDES (test code = 2232) 352 MG/DL HDL CHOLESTEROL (test code = 2220) 50 MG/DL CALC LDL CHOL (test code = 2237) 95 MG/DL RISK RATIO LDL/HDL (test cod e = 2238) 1.90 RATIO Daren Snow AustinHEMOGLOBIN [id number] 00:00:00* Test Item Value Reference Range Interpretation Comme nts HEMOGLOBIN A1c (test code = 88933) 6.2 % Daren Snow AustinCOMPREHENSIVE METABOLIC [id number] 00:00:00* Test Item Value Reference Range Interpretation Comme nts GLUCOSE (test code = 2217) 114 MG/DL BUN (test code = 2208) 13 MG/DL CREATININE (test code = 2214) 0.58 MG/DL eGFR (2020 CKD-EPI) (test code = 34697) 105 ML/MIN/1.73 CALC BUN/CREAT (test code = [...] (test code = 2219) 35 U/L Daren Snow AustinLIPID [id number] 00:00:00* Test Item Value Reference Range Interpretation Comme nts CHOLESTEROL (test code = 2210) 192 MG/DL TRIGLYCERIDES (test code = 2232) 352 MG/DL HDL CHOLESTEROL (test code = 2220) 50 MG/DL CALC LDL CHOL (test code = 2237) 95 MG/DL RISK RATIO LDL/HDL (test cod e = 2238) 1.90 RATIO Daren Snow AustinHEMOGLOBIN [id number] 00:00:00* Test Item Value Reference Range Interpretation Comme nts HEMOGLOBIN A1c (test code = 03835) 6.2 % Daren Snow AustinCOMPREHENSIVE METABOLIC [id number] 00:00:00* Test Item Value Reference Range Interpretation Comme nts GLUCOSE (test code = 2217) 114 MG/DL BUN (test code = 2208) 13 MG/DL CREATININE (test code = 2214) 0.58 MG/DL eGFR (2020 CKD-EPI) (test code = 46402) 105 ML/MIN/1.73 CALC BUN/CREAT (test code = [...] code = 2219) 35 U/L Daren LewLIPID [id number] 00:00:00* Test Item Value Reference Range Interpretation Comme nts CHOLESTEROL (test code = 2210) 192 MG/DL TRIGLYCERIDES (test code = 2232) 352 MG/DL HDL CHOLESTEROL (test code = 2220) 50 MG/DL CALC LDL CHOL (test code = 2237) 95 MG/DL RISK RATIO LDL/HDL (test cod e = 2238) 1.90 RATIO Daren LewHEMOGLOBIN [id number] 00:00:00* Test Item Value Reference Range Interpretation Comme nts HEMOGLOBIN A1c (test code = 56732) 6.2 % Daren LewCOMPREHENSIVE METABOLIC [id number] 00:00:00* Test Item Value Reference Range Interpretation Comme nts GLUCOSE (test code = 2217) 114 MG/DL BUN (test code = 2208) 13 MG/DL CREATININE (test code = 2214) 0.58 MG/DL eGFR (2020 CKD-EPI) (test code = 12059) 105 ML/MIN/1.73 CALC BUN/CREAT (test code = [...] code = 2219) 35 U/L Daren LewLIPID [id number] 00:00:00* Test Item Value Reference Range Interpretation Comme nts CHOLESTEROL (test code = 2210) 192 MG/DL TRIGLYCERIDES (test code = 2232) 352 MG/DL HDL CHOLESTEROL (test code = 2220) 50 MG/DL CALC LDL CHOL (test code = 2237) 95 MG/DL RISK RATIO LDL/HDL (test cod e = 2238) 1.90 RATIO Daren LewHEMOGLOBIN [id number] 00:00:00* Test Item Value Reference Range Interpretation Comme nts HEMOGLOBIN A1c (test code = 20337) 6.2 % Daren LewCOMPREHENSIVE METABOLIC [id number] 00:00:00* Test Item Value Reference Range Interpretation Comme nts GLUCOSE (test code = 2217) 114 MG/DL BUN (test code = 2208) 13 MG/DL CREATININE (test code = 2214) 0.58 MG/DL eGFR (2020 CKD-EPI) (test code = 58387) 105 ML/MIN/1.73 CALC BUN/CREAT (test code = [...] = 2219) 35 U/L Daren LewTSH, THIRD [id number] 00:00:00* Test Item Value Reference Range Interpretation Comme [facility] TSH, THIRD GENERATION (test code = 2821) 1.580 UIU/ML Daren LewCOMPREHENSIVE METABOLIC [id number] 00:00:00* Test Item Value Reference Range Interpretation Comme nts GLUCOSE (test code = 2217) 102 MG/DL BUN (test code = 2208) 14 MG/DL CREATININE (test code = 2214) 0.65 MG/DL eGFR (2020 CKD-EPI) (test code = 64111) 103 ML/MIN/1.73 CALC BUN/CREAT (test code = [...] 2219) 29 U/L Daren LewVITAMIN D, 25 [id number] 00:00:00* Test Item Value Reference Range Interpretation Comme [facility] VITAMIN D, 25 OH (test code = 4958) 25 NG/ML Daren LewVITAMIN [id number] 00:00:00* Test Item Value Reference Range Interpretation [...] ABS NUCLEATED RBCS (test cod e = 52331) 0.00 K/UL Daren LewLIPID [id number] 00:00:00* Test Item Value Reference Range Interpretation Comme nts CHOLESTEROL (test code = 2210) 168 MG/DL TRIGLYCERIDES (test code = 2232) 125 MG/DL HDL CHOLESTEROL (test code = 2220) 56 MG/DL CALC LDL CHOL (test code = 2237) 89 MG/DL RISK RATIO LDL/HDL (test cod e = 2238) 1.59 RATIO Daren Snow [facility] [id number] 00:00:00* Test Item Value Reference Range Interpretation Comme nts TSH, THIRD GENERATION (test code = 2821) 1.580 UIU/ML Daren LewCOMPREHENSIVE METABOLIC [id number] 00:00:00* Test Item Value Reference Range Interpretation Comme nts GLUCOSE (test code = 2217) 102 MG/DL BUN (test code = 2208) 14 MG/DL CREATININE (test code = 2214) 0.65 MG/DL eGFR (2020 CKD-EPI) (test code = 43470) 103 ML/MIN/1.73 CALC BUN/CREAT (test code = [...] 2219) 29 U/L Daren LewVITAMIN D, 25 [id number] 00:00:00* Test Item Value Reference Range Interpretation Comme [facility] VITAMIN D, 25 OH (test code = 4958) 25 NG/ML Daren LewVITAMIN [id number] 00:00:00* Test Item Value Reference Range Interpretation Comme [facility] VITAMIN B-12 (test code = 2840) 263 PG/ML Daren LewCBC W/AUTO DIFF WITH PLATELETS [ADDED]2022-01-17 00:00:00* Test Item Value Reference Range Interpretation Comme [facility] WBC (test code = 1001) 7.2 [...] ABS NUCLEATED RBCS (test cod e = 32291) 0.00 K/UL Daren LewLIPID [id number] 00:00:00* Test Item Value Reference Range Interpretation Comme nts CHOLESTEROL (test code = 2210) 168 MG/DL TRIGLYCERIDES (test code = 2232) 125 MG/DL HDL CHOLESTEROL (test code = 2220) 56 MG/DL CALC LDL CHOL (test code = 2237) 89 MG/DL RISK RATIO LDL/HDL (test cod e = 2238) 1.59 RATIO Daren Snow RanjanH, THIRD [id number] 00:00:00* Test Item Value Reference Range Interpretation Comme nts TSH, THIRD GENERATION (test code = 2821) 1.580 UIU/ML Daren LewCOMPREHENSIVE METABOLIC [id number] 00:00:00* Test Item Value Reference Range Interpretation Comme nts GLUCOSE (test code = 2217) 102 MG/DL BUN (test code = 2208) 14 MG/DL CREATININE (test code = 2214) 0.65 MG/DL eGFR (2020 CKD-EPI) (test code = 17796) 103 ML/MIN/1.73 CALC BUN/CREAT (test code = 2235) 22 RATIO SODIUM (test code = 223) 142 MEQ/L POTASSIUM (test code = 2228) 5.0 MEQ/L CHLORIDE (test code = 2215) 106 MEQ/L CARBON DIOXIDE (test code = 2206) 22 MEQ/L CALCIUM (test code = 2209) 9.6 MG/DL PROTEIN, TOTAL (test code = 2228) 7.4 G/DL ALBUMIN (test code = 2201) 4.4 G/DL CALC GLOBULIN (test code = 2240) 3.0 G/DL CALC A/G RATIO (test code = 2234) 1.5 RATIO BILIRUBIN, TOTAL (test code = 2206) <0.2 MG/DL ALKALINE PHOSPHATASE (test code = 2203) 123 U/L AST (test code = 2217) 26 U/L ALT (test code = 2218) 29 U/L Daren Gwendolyn VipinVITAMIN D, 25 [id number] 00:00:00* Test Item Value Reference Range Interpretation Comme [facility] VITAMIN D, 25 OH (test code = 4958) 25 NG/ML Daren Snow VipinVITAMIN [id number] 00:00:00* Test Item Value Reference Range Interpretation Comme [facility] VITAMIN B-12 (test code = 2840) 263 PG/ML Daren Snow VipinCBC W/AUTO DIFF WITH PLATELETS [ADDED]2022-01-17 00:00:00* Test Item Value Reference Range Interpretation Comme [facility] WBC (test code = 1001) 7.2 [...] ABS NUCLEATED RBCS (test cod e = 07981) 0.00 K/UL Daren LewLIPID [id number] 00:00:00* Test Item Value Reference Range Interpretation Comme nts CHOLESTEROL (test code = 2210) 168 MG/DL TRIGLYCERIDES (test code = 2232) 125 MG/DL HDL CHOLESTEROL (test code = 2220) 56 MG/DL CALC LDL CHOL (test code = 2237) 89 MG/DL RISK RATIO LDL/HDL (test cod e = 2238) 1.59 RATIO Daren LewTSH, THIRD [id number] 00:00:00* Test Item Value Reference Range Interpretation Comme nts TSH, THIRD GENERATION (test code = 2821) 1.580 UIU/ML Daren LewCOMPREHENSIVE METABOLIC [id number] 00:00:00* Test Item Value Reference Range Interpretation Comme nts GLUCOSE (test code = 2217) 102 MG/DL BUN (test code = 2208) 14 MG/DL CREATININE (test code = 2214) 0.65 MG/DL eGFR (2020 CKD-EPI) (test code = 02226) 103 ML/MIN/1.73 CALC BUN/CREAT (test code = [...] 2219) 29 U/L Daren LewVITAMIN D, 25 [id number] 00:00:00* Test Item Value Reference Range Interpretation Comme [facility] VITAMIN D, 25 OH (test code = 4958) 25 NG/ML Daren LewVITAMIN [id number] 00:00:00* Test Item Value Reference Range Interpretation Comme [facility] VITAMIN B-12 (test code = 2840) [...] ABS NUCLEATED RBCS (test cod e = 31869) 0.00 K/UL Daren LewLIPID [id number] 00:00:00* Test Item Value Reference Range Interpretation Comme nts CHOLESTEROL (test code = 2210) 168 MG/DL TRIGLYCERIDES (test code = 2232) 125 MG/DL HDL CHOLESTEROL (test code = 2220) 56 MG/DL CALC LDL CHOL (test code = 2237) 89 MG/DL RISK RATIO LDL/HDL (test cod e = 2238) 1.59 RATIO Daren LewTSH, THIRD [id number] 00:00:00* Test Item Value Reference Range Interpretation Comme clarke TSH, THIRD GENERATION (test code = 2821) 1.580 UIU/ML Daren LewCOMPREHENSIVE METABOLIC [id number] 00:00:00* Test Item Value Reference Range Interpretation Comme nts GLUCOSE (test code = 2217) 102 MG/DL BUN (test code = 2208) 14 MG/DL CREATININE (test code = 2214) 0.65 MG/DL eGFR (2020 CKD-EPI) (test code = 83506) 103 ML/MIN/1.73 CALC BUN/CREAT (test code = [...] 2219) 29 U/L Daren LewVITAMIN D, 25 [id number] 00:00:00* Test Item Value Reference Range Interpretation Comme clarke VITAMIN D, 25 OH (test code = 4958) 25 NG/ML Daren LewVITAMIN [id number] 00:00:00* Test Item Value Reference Range Interpretation Comme nts VITAMIN B-12 (test code = 2840) 263 PG/ML Daren LweCBC W/AUTO DIFF WITH PLATELETS [ADDED]2022-01-17 00:00:00* Test [...] ABS NUCLEATED RBCS (test cod e = 63102) 0.00 K/UL Daren LewLIPID [id number] 00:00:00* Test Item Value Reference Range Interpretation Comme nts CHOLESTEROL (test code = 2210) 168 MG/DL TRIGLYCERIDES (test code = 2232) 125 MG/DL HDL CHOLESTEROL (test code = 2220) 56 MG/DL CALC LDL CHOL (test code = 2237) 89 MG/DL RISK RATIO LDL/HDL (test cod e = 2238) 1.59 RATIO Daren Ponce, THIRD [id number] 00:00:00* Test Item Value Reference Range Interpretation Comme nts TSH, THIRD GENERATION (test code = 2821) 1.580 UIU/ML Daren LewCOMPREHENSIVE METABOLIC [id number] 00:00:00* Test Item Value Reference Range Interpretation Comme nts GLUCOSE (test code = 2217) 102 MG/DL BUN (test code = 2208) 14 MG/DL CREATININE (test code = 2214) 0.65 MG/DL eGFR (2020 CKD-EPI) (test code = 54059) 103 ML/MIN/1.73 CALC BUN/CREAT (test code = [...] 2219) 29 U/L Daren LewVITAMIN D, 25 [id number] 00:00:00* Test Item Value Reference Range Interpretation Comme [facility] VITAMIN D, 25 OH (test code = 4958) 25 NG/ML Daren LewVITAMIN [id number] 00:00:00* Test Item Value Reference Range Interpretation Comme [facility] VITAMIN B-12 (test code = 2840) [...] ABS NUCLEATED RBCS (test cod e = 92392) 0.00 K/UL Daren Snow VipinLIPID [id number] 00:00:00* Test Item Value Reference Range Interpretation Comme nts CHOLESTEROL (test code = 2210) 168 MG/DL TRIGLYCERIDES (test code = 2232) 125 MG/DL HDL CHOLESTEROL (test code = 2220) 56 MG/DL CALC LDL CHOL (test code = 2237) 89 MG/DL RISK RATIO LDL/HDL (test cod e = 2238) 1.59 RATIO Daren LewTSH, THIRD [id number] 00:00:00* Test Item Value Reference Range Interpretation Comme nts TSH, THIRD GENERATION (test code = 2821) 1.580 UIU/ML Daren Snow VipinCOMPREHENSIVE METABOLIC [id number] 00:00:00* Test Item Value Reference Range Interpretation Comme nts GLUCOSE (test code = 2217) 102 MG/DL BUN (test code = 2208) 14 MG/DL CREATININE (test code = 2214) 0.65 MG/DL eGFR (2020 CKD-EPI) (test code = 36487) 103 ML/MIN/1.73 CALC BUN/CREAT (test code = 2235) 22 RATIO SODIUM (test code = 2231) 142 MEQ/L POTASSIUM (test code = 2228) 5.0 MEQ/L CHLORIDE (test code = 2215) 106 MEQ/L CARBON DIOXIDE (test code = 2206) 22 MEQ/L CALCIUM (test code = 2209) 9.6 MG/DL PROTEIN, TOTAL (test code = 222) 7.4 G/DL ALBUMIN (test code = 2201) 4.4 G/DL CALC GLOBULIN (test code = 2240) 3.0 G/DL CALC A/G RATIO (test code = 2234) 1.5 RATIO BILIRUBIN, TOTAL (test code = 2206) <0.2 MG/DL ALKALINE PHOSPHATASE (test code = 2203) 123 U/L AST (test code = 221) 26 U/L ALT (test code = 221) 29 U/L Daren Snow VipinVITAMIN D, 25 [id number] 00:00:00* Test Item Value Reference Range Interpretation Comme [facility] VITAMIN D, 25 OH (test code = 4958) 25 NG/ML Daren LewVITAMIN [id number] 00:00:00* Test Item Value Reference Range Interpretation Comme [facility] VITAMIN B-12 (test code = 2840) 263 PG/ML Daren LewCBC W/AUTO DIFF WITH PLATELETS [ADDED][id number] 00:00:00* Test Item Value Reference Range Interpretation Comme [facility] WBC (test code = 1001) 7.2 [...] ABS NUCLEATED RBCS (test cod e = 23400) 0.00 K/UL Daren Snow VipinLIPID [id number] 00:00:00* Test Item Value Reference Range Interpretation Comme nts CHOLESTEROL (test code = 2210) 168 MG/DL TRIGLYCERIDES (test code = 2232) 125 MG/DL HDL CHOLESTEROL (test code = 2220) 56 MG/DL CALC LDL CHOL (test code = 2237) 89 MG/DL RISK RATIO LDL/HDL (test cod e = 2238) 1.59 RATIO Daren LewCOMPREHENSIVE METABOLIC [id number] 00:00:23* Test Item Value Reference Range Interpretation Comme nts GLUCOSE (test code = 2217) 95 MG/DL 70-99 BUN (test code = 2208) 10 MG/DL 6-20 CREATININE (test code = 2214) 0.48 MG/DL 0.60-1.30 L eGFR (2020 CKD-EPI) (test code = 15883) 110 ML/MIN/1.73 >60 CALC BUN/CREAT (test code [...] H UNLESS OTHERWISE INDICATED, ALL TESTING PERFORMED [facility] [employer] [address] [place] [address] DATABASE REPORTING CONSULTANT: KRISTINE MIR M.D. CLIA NUMBER [id number] [facility] [place]. [id number] COMPREHENSIVE METABOLIC [id number] 00:00:00* Test Item Value Reference Range Interpretation Comme nts GLUCOSE (test code = 2217) 95 MG/DL BUN (test code = 2208) 10 MG/DL CREATININE (test code = 2214) 0.48 MG/DL eGFR (2020 CKD-EPI) (test code = 80088) 110 ML/MIN/1.73 CALC BUN/CREAT (test code = [...] code = 2219) 43 U/L COMPREHENSIVE METABOLIC [id number] 00:00:00* Test Item Value Reference Range Interpretation Comme nts GLUCOSE (test code = 2217) 95 MG/DL BUN (test code = 2208) 10 MG/DL CREATININE (test code = 2214) 0.48 MG/DL eGFR (2020 CKD-EPI) (test code = 89173) 110 ML/MIN/1.73 CALC BUN/CREAT (test code = [...] code = 2219) 43 U/L Daren Snow VipinCOMPREHENSIVE METABOLIC [id number] 00:00:00* Test Item Value Reference Range Interpretation Comme nts GLUCOSE (test code = 2217) 95 MG/DL BUN (test code = 2208) 10 MG/DL CREATININE (test code = 2214) 0.48 MG/DL eGFR (2020 CKD-EPI) (test code = 39026) 110 ML/MIN/1.73 CALC BUN/CREAT (test code = [...] (test code = 2219) 43 U/L Daren nSow [facility] [id number] 00:00:00* Test Item Value Reference Range Interpretation Comme nts GLUCOSE (test code = 2217) 95 MG/DL BUN (test code = 2208) 10 MG/DL CREATININE (test code = 2214) 0.48 MG/DL eGFR (2020 CKD-EPI) (test code = 65979) 110 ML/MIN/1.73 CALC BUN/CREAT (test code = [...] code = 2219) 43 U/L Daren Snow [place]PREHENSIVE MET[place] [id number] 00:00:00* Test Item Value Reference Range Interpretation Comme nts GLUCOSE (test code = 2217) 95 MG/DL BUN (test code = 2208) 10 MG/DL CREATININE (test code = 2214) 0.48 MG/DL eGFR (2020 CKD-EPI) (test code = 51226) 110 ML/MIN/1.73 CALC BUN/CREAT (test code = [...] (test code = 2219) 43 U/L Daren F AustinCOMPREHENSIVE METABOLIC [id number] 00:00:00* Test Item Value Reference Range Interpretation Comme nts GLUCOSE (test code = 2217) 95 MG/DL BUN (test code = 2208) 10 MG/DL CREATININE (test code = 2214) 0.48 MG/DL eGFR (2020 CKD-EPI) (test code = 41172) 110 ML/MIN/1.73 CALC BUN/CREAT (test code = [...] (test code = 2219) 43 U/L Daren F AustinCOMPREHENSIVE METABOLIC [id number] 00:00:00* Test Item Value Reference Range Interpretation Comme nts GLUCOSE (test code = 2217) 95 MG/DL BUN (test code = 2208) 10 MG/DL CREATININE (test code = 2214) 0.48 MG/DL eGFR (2020 CKD-EPI) (test code = 54684) 110 ML/MIN/1.73 CALC BUN/CREAT (test code = [...] code = 2219) 43 U/L Daren Snow [facility] [id number] 00:00:00* Test Item Value Reference Range Interpretation Comme nts GLUCOSE (test code = 2217) 95 MG/DL BUN (test code = 2208) 10 MG/DL CREATININE (test code = 2214) 0.48 MG/DL eGFR (2020 CKD-EPI) (test code = 04527) 110 ML/MIN/1.73 CALC BUN/CREAT (test code = [...] (test code = 2219) 43 U/L Daren F [place] FallsCOMPREHENSIVE METABOLIC [id number] 06:31:28* Test Item Value Reference Range Interpretation Comme nts GLUCOSE (test code = 2217) 106 MG/DL 70-99 H BUN (test code = 2208) 16 MG/DL 6-20 CREATININE (test code = 2214) 0.57 MG/DL 0.60-1.30 L eGFR (2020 CKD-EPI) (test code = 97201) 106 ML/MIN/1.73 >60 CALC BUN/CREAT (test code [...] H UNLESS OTHERWISE INDICATED, ALL TESTING PERFORMED [facility] [address] [place] [id number] DATABASE REPORTING CONSULTANT: KRISTINE MIR M.D. CLIA NUMBER [id number] [place]. [id number] COMPREHENSIVE METABOLIC [id number] 00:00:00* Test Item Value Reference Range Interpretation Comme nts GLUCOSE (test code = 2217) 106 MG/DL BUN (test code = 2208) 16 MG/DL CREATININE (test code = 2214) 0.57 MG/DL eGFR (2020 CKD-EPI) (test code = 94299) 106 ML/MIN/1.73 CALC BUN/CREAT (test code = [...] code = 2219) 46 U/L COMPREHENSIVE METABOLIC [id number] 00:00:00* Test Item Value Reference Range Interpretation Comme nts GLUCOSE (test code = 2217) 106 MG/DL BUN (test code = 2208) 16 MG/DL CREATININE (test code = 2214) 0.57 MG/DL eGFR (2020 CKD-EPI) (test code = 39378) 106 ML/MIN/1.73 CALC BUN/CREAT (test code = [...] code = 2219) 46 U/L Daren Snow [facility] [id number] 00:00:00* Test Item Value Reference Range Interpretation Comme nts GLUCOSE (test code = 2217) 106 MG/DL BUN (test code = 2208) 16 MG/DL CREATININE (test code = 2214) 0.57 MG/DL eGFR (2020 CKD-EPI) (test code = 92418) 106 ML/MIN/1.73 CALC BUN/CREAT (test code = [...] (test code = 2219) 46 U/L D[facility] LewSA[facility] LU[facility] ROADPREHENSIVE METABOLIC [id number] 00:00:00* Test Item Value Reference Range Interpretation Comme nts GLUCOSE (test code = 2217) 106 MG/DL BUN (test code = 2208) 16 MG/DL CREATININE (test code = 2214) 0.57 MG/DL eGFR (2020 CKD-EPI) (test code = 98082) 106 ML/MIN/1.73 CALC BUN/CREAT (test code = [...] code = 2219) 46 U/L Daren Snow [place]COMPREHENSIVE METABOL[place] [id number] 00:00:00* Test Item Value Reference Range Interpretation Comme nts GLUCOSE (test code = 2217) 106 MG/DL BUN (test code = 2208) 16 MG/DL CREATININE (test code = 2214) 0.57 MG/DL eGFR (2020 CKD-EPI) (test code = 62269) 106 ML/MIN/1.73 CALC BUN/CREAT (test code = [...] code = 2219) 46 U/L Daren Snow [facility] [id number] 00:00:00* Test Item Value Reference Range Interpretation Comme nts GLUCOSE (test code = 2217) 106 MG/DL BUN (test code = 2208) 16 MG/DL CREATININE (test code = 2214) 0.57 MG/DL eGFR (2020 CKD-EPI) (test code = 47215) 106 ML/MIN/1.73 CALC BUN/CREAT (test code = [...] code = 2219) 46 U/L Daren F [place] FallsCOMPREHENSIVE METABOLIC [id number] 00:00:00* Test Item Value Reference Range Interpretation Comme nts GLUCOSE (test code = 2217) 106 MG/DL BUN (test code = 2208) 16 MG/DL CREATININE (test code = 2214) 0.57 MG/DL eGFR (2020 CKD-EPI) (test code = 18781) 106 ML/MIN/1.73 CALC BUN/CREAT (test code = [...] 2219) 46 U/L Daren F AustinCOMPREHENSIVE METABOLIC [id number] 00:00:00* Test Item Value Reference Range Interpretation Comme nts GLUCOSE (test code = 2217) 106 MG/DL BUN (test code = 2208) 16 MG/DL CREATININE (test code = 2214) 0.57 MG/DL eGFR (2020 CKD-EPI) (test code = 18652) 106 ML/MIN/1.73 CALC BUN/CREAT (test code = [...] (test code = 2219) 46 U/L [facility] [id number] 00:00:00* Test Item Value Reference Range Interpretation [...] ABS NUCLEATED RBCS (test cod e = 17207) 0.00 K/UL COMPREHENSIVE METABOLIC [id number] 00:00:00* Test Item Value Reference Range Interpretation Comme nts GLUCOSE (test code = 2217) 102 MG/DL BUN (test code = 2208) 14 MG/DL CREATININE (test code = 2214) 0.60 MG/DL eGFR AMER. (test cod e = 57002) 118 ML/MIN/1.73 eGFR NON- AMER. (test code = 05989) 102 ML/MIN/1.73 CALC BUN/CREAT (test code = [...] code = 2219) 38 U/L COMPREHENSIVE METABOLIC [id number] 00:00:00* Test Item Value Reference Range Interpretation Comme nts GLUCOSE (test code = 2217) 102 MG/DL BUN (test code = 2208) 14 MG/DL CREATININE (test code = 2214) 0.60 MG/DL eGFR AMER. (test cod e = 73426) 118 ML/MIN/1.73 eGFR NON- AMER. (test code = 63109) 102 ML/MIN/1.73 CALC BUN/CREAT (test code = [...] code = 2219) 38 U/L Daren Snow [facility] W/AUTO [id number] 00:00:00* Test Item Value Reference Range Interpretation [...] ABS NUCLEATED RBCS (test cod e = 84661) 0.00 K/UL Daren LewCOMPREHENSIVE METABOLIC [id number] 00:00:00* Test Item Value Reference Range Interpretation Comme nts GLUCOSE (test code = 2217) 102 MG/DL BUN (test code = 2208) 14 MG/DL CREATININE (test code = 2214) 0.60 MG/DL eGFR AMER. (test cod e = 66008) 118 ML/MIN/1.73 eGFR NON- AMER. (test code = 63025) 102 ML/MIN/1.73 CALC BUN/CREAT (test code = [...] = 2219) 38 U/L Daren LewCBC W/AUTO [id number] 00:00:00* Test Item Value Reference Range Interpretation [...] ABS NUCLEATED RBCS (test cod e = 10054) 0.00 K/UL Daren LewCOMPREHENSIVE METABOLIC [id number] 00:00:00* Test Item Value Reference Range Interpretation Comme nts GLUCOSE (test code = 2217) 102 MG/DL BUN (test code = 2208) 14 MG/DL CREATININE (test code = 2214) 0.60 MG/DL eGFR AMER. (test cod e = 31380) 118 ML/MIN/1.73 eGFR NON- AMER. (test code = 89518) 102 ML/MIN/1.73 CALC BUN/CREAT (test code = [...] = 2219) 38 U/L Daren LewCBC W/AUTO [id number] 00:00:00* Test Item Value Reference Range Interpretation [...] ABS NUCLEATED RBCS (test cod e = 09494) 0.00 K/UL Daren LewCOMPREHENSIVE METABOLIC [id number] 00:00:00* Test Item Value Reference Range Interpretation Comme nts GLUCOSE (test code = 2217) 102 MG/DL BUN (test code = 2208) 14 MG/DL CREATININE (test code = 2214) 0.60 MG/DL eGFR AMER. (test cod e = 50910) 118 ML/MIN/1.73 eGFR NON- AMER. (test code = 47368) 102 ML/MIN/1.73 CALC BUN/CREAT (test code = [...] code = 2219) 38 U/L Daren Snow [facility] [id number] 00:00:00* Test Item Value Reference Range Interpretation [...] ABS NUCLEATED RBCS (test cod e = 76230) 0.00 K/UL Daren LewCOMPREHENSIVE METABOLIC [id number] 00:00:00* Test Item Value Reference Range Interpretation Comme nts GLUCOSE (test code = 2217) 102 MG/DL BUN (test code = 2208) 14 MG/DL CREATININE (test code = 2214) 0.60 MG/DL eGFR AMER. (test cod e = 47319) 118 ML/MIN/1.73 eGFR NON- AMER. (test code = 70750) 102 ML/MIN/1.73 CALC BUN/CREAT (test code = [...] = 2219) 38 U/L Daren LewCBC W/AUTO [id number] 00:00:00* Test Item Value Reference Range Interpretation [...] ABS NUCLEATED RBCS (test cod e = 78653) 0.00 K/UL Daren LewCOMPREHENSIVE METABOLIC [id number] 00:00:00* Test Item Value Reference Range Interpretation Comme nts GLUCOSE (test code = 2217) 102 MG/DL BUN (test code = 2208) 14 MG/DL CREATININE (test code = 2214) 0.60 MG/DL eGFR AMER. (test cod e = 27849) 118 ML/MIN/1.73 eGFR NON- AMER. (test code = 06433) 102 ML/MIN/1.73 CALC BUN/CREAT (test code = [...] = 2219) 38 U/L Daren LewCBC W/AUTO [id number] 00:00:00* Test Item Value Reference Range Interpretation [...] ABS NUCLEATED RBCS (test cod e = 80034) 0.00 K/UL Daren F AustinCOMPREHENSIVE METABOLIC [id number] 00:00:00* Test Item Value Reference Range Interpretation Comme nts GLUCOSE (test code = 2217) 102 MG/DL BUN (test code = 2208) 14 MG/DL CREATININE (test code = 2214) 0.60 MG/DL eGFR AMER. (test cod e = 37590) 118 ML/MIN/1.73 eGFR NON- AMER. (test code = 13739) 102 ML/MIN/1.73 CALC BUN/CREAT (test code = [...] (test code = 2219) 38 U/L [facility]O [id number] 00:00:00* Test Item Value Reference Range Interpretation [...] ABS NUCLEATED RBCS (test cod e = 64796) 0.00 K/UL Daren Mendoza, [id number] 00:00:00* Test Item Value Reference Range Interpretation Comme nts CULTURE, URINE (test code = 03233) SPECIMEN NUMBER: [id number] CULTURE, [id number] 00:00:00* Test Item Value Reference Range Interpretation Comme nts CULTURE, URINE (test code = 84845) SPECIMEN NUMBER: [id number] Daren Mendoza, [id number] 00:00:00* Test Item Value Reference Range Interpretation Comme nts CULTURE, URINE (test code = 44051) SPECIMEN NUMBER: [id number] Daren Mendoza, [id number] 00:00:00* Test Item Value Reference Range Interpretation Comme nts CULTURE, URINE (test code = 30352) SPECIMEN NUMBER: [id number] Daren Mendoza, [id number] 00:00:00* Test Item Value Reference Range Interpretation Comme nts CULTURE, URINE (test code = 10548) SPECIMEN NUMBER: [id number] Daren HarrisLTCANDY, [id number] 00:00:00* Test Item Value Reference Range Interpretation Comme nts CULTURE, URINE (test code = 31365) SPECIMEN NUMBER: [id number] Daren HarrisLTCANDY, [id number] 00:00:00* Test Item Value Reference Range Interpretation Comme nts CULTURE, URINE (test code = 65238) SPECIMEN NUMBER: [id number] Daren Mendoza, [id number] 00:00:00* Test Item Value Reference Range Interpretation Comme nts CULTURE, URINE (test code = 98846) SPECIMEN NUMBER: [id number] Daren LewVAGINAL PATHOGENS DNA [id number] 00:00:00* Test Item Value Reference Range Interpretation Comme nts SPENCER SPECIES (test code = ) NEGATIVE G. VAGINALIS (test code = 66787) NEGATIVE T. VAGINALIS (test code = ) NEGATIVE VAGINAL PATHOGENS DNA [id number] 00:00:00* Test Item Value Reference Range Interpretation Comme nts SPENCER SPECIES (test code = 91774) NEGATIVE G. VAGINALIS (test code = 47604) NEGATIVE T. VAGINALIS (test code = 10917) NEGATIVE Daren F AustinVAGINAL PATHOGENS DNA [id number] 00:00:00* Test Item Value Reference Range Interpretation Comme nts SPENCER SPECIES (test code = 71825) NEGATIVE G. VAGINALIS (test code = 59182) NEGATIVE T. VAGINALIS (test code = 84653) NEGATIVE Daren F AustinVAGINAL PATHOGENS DNA [id number] 00:00:00* Test Item Value Reference Range Interpretation Comme nts SPENCER SPECIES (test code = 48258) NEGATIVE G. VAGINALIS (test code = 65859) NEGATIVE T. VAGINALIS (test code = 22182) NEGATIVE Daren F AustinVAGINAL PATHOGENS DNA [id number] 00:00:00* Test Item Value Reference Range Interpretation Comme nts SPENCER SPECIES (test code = 65326) NEGATIVE G. VAGINALIS (test code = 70039) NEGATIVE T. VAGINALIS (test code = 28134) NEGATIVE Daren F AustinVAGINAL PATHOGENS DNA [id number] 00:00:00* Test Item Value Reference Range Interpretation Comme nts SPENCER SPECIES (test code = 20252) NEGATIVE G. VAGINALIS (test code = 53695) NEGATIVE T. VAGINALIS (test code = 79369) NEGATIVE Daren F AustinVAGINAL PATHOGENS DNA [id number] 00:00:00* Test Item Value Reference Range Interpretation Comme nts SPENCER SPECIES (test code = 48292) NEGATIVE G. VAGINALIS (test code = 17499) NEGATIVE T. VAGINALIS (test code = 72156) NEGATIVE Daren F AustinVAGINAL PATHOGENS DNA [id number] 00:00:00* Test Item Value Reference Range Interpretation Comme nts SPENCER SPECIES (test code = 88969) NEGATIVE G. VAGINALIS (test code = 26355) NEGATIVE T. VAGINALIS (test code = 21062) NEGATIVE Daren F AustinCOMPREHENSIVE METABOLIC [id number] 00:00:00* Test Item Value Reference Range Interpretation Comme nts GLUCOSE (test code = 2217) 106 MG/DL BUN (test code = 2208) 16 MG/DL CREATININE (test code = 2214) 0.62 MG/DL eGFR AMER. (test cod e = 89358) 118 ML/MIN/1.73 eGFR NON- AMER. (test code = 97210) 102 ML/MIN/1.73 CALC BUN/CREAT (test code = [...] (test code = 2219) 44 U/L LIPID [id number] 00:00:00* Test Item Value Reference Range Interpretation Comme nts CHOLESTEROL (test code = 2210) 169 MG/DL TRIGLYCERIDES (test code = 2232) 136 MG/DL HDL CHOLESTEROL (test code = 2220) 59 MG/DL CALC LDL CHOL (test code = 2237) 87 MG/DL RISK RATIO LDL/HDL (test cod e = 2238) 1.47 RATIO HEMOGLOBIN [id number] 00:00:00* Test Item Value Reference Range Interpretation Comme nts HEMOGLOBIN A1c (test code = 05966) 6.0 % LIPID [id number] 00:00:00* Test Item Value Reference Range Interpretation Comme nts CHOLESTEROL (test code = 2210) 169 MG/DL TRIGLYCERIDES (test code = 2232) 136 MG/DL HDL CHOLESTEROL (test code = 2220) 59 MG/DL CALC LDL CHOL (test code = 2237) 87 MG/DL RISK RATIO LDL/HDL (test cod e = 2238) 1.47 RATIO Daren Gwendolyn VipinHEMOGLOBIN [id number] 00:00:00* Test Item Value Reference Range Interpretation Comme nts HEMOGLOBIN A1c (test code = 47201) 6.0 % Daren LewCOMPREHENSIVE METABOLIC [id number] 00:00:00* Test Item Value Reference Range Interpretation Comme nts GLUCOSE (test code = 2217) 106 MG/DL BUN (test code = 2207) 16 MG/DL CREATININE (test code = 2214) 0.62 MG/DL eGFR AMER. (test cod e = 16679) 118 ML/MIN/1.73 eGFR NON- AMER. (test code = 85072) 102 ML/MIN/1.73 CALC BUN/CREAT (test code = 2235) 26 RATIO SODIUM (test code = 2231) 139 MEQ/L POTASSIUM (test code = 2228) 4.7 MEQ/L CHLORIDE (test code = 2215) 105 MEQ/L CARBON DIOXIDE (test code = 2206) 25 MEQ/L CALCIUM (test code = 2209) 9.6 MG/DL PROTEIN, TOTAL (test code = 222) 7.2 G/DL ALBUMIN (test code = 2201) 4.3 G/DL CALC GLOBULIN (test code = 2240) 2.9 G/DL CALC A/G RATIO (test code = 2234) 1.5 RATIO BILIRUBIN, TOTAL (test code = 2207) 0.3 MG/DL ALKALINE PHOSPHATASE (test code = 220) 110 U/L AST (test code = 2218) 35 U/L ALT (test code = 2219) 44 U/L Daren Snow [place] FallsLIPID [id number] 00:00:00* Test Item Value Reference Range Interpretation Comme nts CHOLESTEROL (test code = 2210) 169 MG/DL TRIGLYCERIDES (test code = 2232) 136 MG/DL HDL CHOLESTEROL (test code = 2220) 59 MG/DL CALC LDL CHOL (test code = 2237) 87 MG/DL RISK RATIO LDL/HDL (test cod e = 223) 1.47 RATIO Daren LewHEMOGLOBIN [id number] 00:00:00* Test Item Value Reference Range Interpretation Comme nts HEMOGLOBIN A1c (test code = 55328) 6.0 % Daren LewCOMPREHENSIVE METABOLIC [id number] 00:00:00* Test Item Value Reference Range Interpretation Comme nts GLUCOSE (test code = 2217) 106 MG/DL BUN (test code = 8) 16 MG/DL CREATININE (test code = 2214) 0.62 MG/DL eGFR AMER. (test cod e = 13510) 118 ML/MIN/1.73 eGFR NON- AMER. (test code = 97406) 102 ML/MIN/1.73 CALC BUN/CREAT (test code = [...] = 2219) 44 U/L Daren Snow AustinLIPID [id number] 00:00:00* Test Item Value Reference Range Interpretation Comme nts CHOLESTEROL (test code = 2210) 169 MG/DL TRIGLYCERIDES (test code = 2232) 136 MG/DL HDL CHOLESTEROL (test code = 2220) 59 MG/DL CALC LDL CHOL (test code = 2237) 87 MG/DL RISK RATIO LDL/HDL (test cod e = 2238) 1.47 RATIO Daren LewHEMOGLOBIN [id number] 00:00:00* Test Item Value Reference Range Interpretation Comme nts HEMOGLOBIN A1c (test code = 24995) 6.0 % Daren LewCOMPREHENSIVE METABOLIC [id number] 00:00:00* Test Item Value Reference Range Interpretation Comme nts GLUCOSE (test code = 2217) 106 MG/DL BUN (test code = 2208) 16 MG/DL CREATININE (test code = 2214) 0.62 MG/DL eGFR AMER. (test cod e = 58572) 118 ML/MIN/1.73 eGFR NON- AMER. (test code = 13783) 102 ML/MIN/1.73 CALC BUN/CREAT (test code = [...] code = 2219) 44 U/L Daren LewLIPID [id number] 00:00:00* Test Item Value Reference Range Interpretation Comme nts CHOLESTEROL (test code = 2210) 169 MG/DL TRIGLYCERIDES (test code = 2232) 136 MG/DL HDL CHOLESTEROL (test code = 2220) 59 MG/DL CALC LDL CHOL (test code = 2237) 87 MG/DL RISK RATIO LDL/HDL (test cod e = 223) 1.47 RATIO Draen LewHEMOGLOBIN [id number] 00:00:00* Test Item Value Reference Range Interpretation Comme nts HEMOGLOBIN A1c (test code = 90893) 6.0 % Daren LewCOMPREHENSIVE METABOLIC [id number] 00:00:00* Test Item Value Reference Range Interpretation Comme nts GLUCOSE (test code = 2217) 106 MG/DL BUN (test code = 8) 16 MG/DL CREATININE (test code = 2214) 0.62 MG/DL eGFR AMER. (test cod e = 71872) 118 ML/MIN/1.73 eGFR NON- AMER. (test code = 13562) 102 ML/MIN/1.73 CALC BUN/CREAT (test code = [...] code = 2219) 44 U/L Daren LewLIPID [id number] 00:00:00* Test Item Value Reference Range Interpretation Comme nts CHOLESTEROL (test code = 2210) 169 MG/DL TRIGLYCERIDES (test code = 2232) 136 MG/DL HDL CHOLESTEROL (test code = 2220) 59 MG/DL CALC LDL CHOL (test code = 223) 87 MG/DL RISK RATIO LDL/HDL (test cod e = 2237) 1.47 RATIO Daren LewHEMOGLOBIN [id number] 00:00:00* Test Item Value Reference Range Interpretation Comme nts HEMOGLOBIN A1c (test code = 42004) 6.0 % Daren [place] [id number] 00:00:00* Test Item Value Reference Range Interpretation Comme nts GLUCOSE (test code = 2216) 106 MG/DL BUN (test code = 2207) 16 MG/DL CREATININE (test code = 2214) 0.62 MG/DL eGFR AMER. (test cod e = ) 118 ML/MIN/1.73 eGFR NON- AMER. (test code = 57400) 102 ML/MIN/1.73 CALC BUN/CREAT (test code = 223) 26 RATIO SODIUM (test code = 2231) [...] code = 2219) 44 U/L Daren LewLIPID [id number] 00:00:00* Test Item Value Reference Range Interpretation Comme nts CHOLESTEROL (test code = 2210) 169 MG/DL TRIGLYCERIDES (test code = 2232) 136 MG/DL HDL CHOLESTEROL (test code = 2220) 59 MG/DL CALC LDL CHOL (test code = 2237) 87 MG/DL RISK RATIO LDL/HDL (test cod e = 2238) 1.47 RATIO Daren LewHEMOGLOBIN [id number] 00:00:00* Test Item Value Reference Range Interpretation Comme nts HEMOGLOBIN A1c (test code = 73089) 6.0 % Daren LewCOMPREHENSIVE METABOLIC [id number] 00:00:00* Test Item Value Reference Range Interpretation Comme nts GLUCOSE (test code = 2217) 106 MG/DL BUN (test code = 2208) 16 MG/DL CREATININE (test code = 2214) 0.62 MG/DL eGFR AMER. (test cod e = 59914) 118 ML/MIN/1.73 eGFR NON- AMER. (test code = 16085) 102 ML/MIN/1.73 CALC BUN/CREAT (test code = [...] code = 2219) 44 U/L Daren LewLIPID [id number] 00:00:00* Test Item Value Reference Range Interpretation Comme nts CHOLESTEROL (test code = 2210) 169 MG/DL TRIGLYCERIDES (test code = 2232) 136 MG/DL HDL CHOLESTEROL (test code = 2220) 59 MG/DL CALC LDL CHOL (test code = 2237) 87 MG/DL RISK RATIO LDL/HDL (test cod e = 2238) 1.47 RATIO Daren Snow [place] [id number] 00:00:00* Test Item Value Reference Range Interpretation Comme clarke HEMOGLOBIN A1c (test code = 64701) 6.0 % Daren LewCOMPREHENSIVE METABOLIC [id number] 00:00:00* Test Item Value Reference Range Interpretation Comme nts GLUCOSE (test code = 2217) 106 MG/DL BUN (test code = 2208) 16 MG/DL CREATININE (test code = 2214) 0.62 MG/DL eGFR AMER. (test cod e = 60233) 118 ML/MIN/1.73 eGFR NON- AMER. (test code = 69418) 102 ML/MIN/1.73 CALC BUN/CREAT (test code = [...] (test code = 2219) 44 U/L Daren LewHEMOGLOBIN [id number] 00:00:00* Test Item Value Reference Range Interpretation Comme clarke HEMOGLOBIN A1c (test code = 35417) 5.8 % HEMOGLOBIN [id number] 00:00:00* Test Item Value Reference Range Interpretation Comme clarke HEMOGLOBIN A1c (test code = 92825) 5.8 % Daren Snow [place] [id number] 00:00:00* Test Item Value Reference Range Interpretation Comme clarke HEMOGLOBIN A1c (test code = 75590) 5.8 % Daren Snow AustinHEMOGLOBIN [id number] 00:00:00* Test Item Value Reference Range Interpretation Comme nts HEMOGLOBIN A1c (test code = 83650) 5.8 % Daren Snow AustinHEMOGLOBIN [id number] 00:00:00* Test Item Value Reference Range Interpretation Comme nts HEMOGLOBIN A1c (test code = 48553) 5.8 % Daren Snow AustinHEMOGLOBIN [id number] 00:00:00* Test Item Value Reference Range Interpretation Comme clarke HEMOGLOBIN A1c (test code = 62204) 5.8 % Daren Snow AustinHEMOGLOBIN [id number] 00:00:00* Test Item Value Reference Range Interpretation Comme clarke HEMOGLOBIN A1c (test code = 84981) 5.8 % Daren Snow AustinHEMOGLOBIN [id number] 00:00:00* Test Item Value Reference Range Interpretation Comme clarke HEMOGLOBIN A1c (test code = 23424) 5.8 % Daren Snow AustinLIPID [id number] 00:00:00* Test Item Value Reference Range Interpretation Comme nts CHOLESTEROL (test code = 2210) 175 MG/DL TRIGLYCERIDES (test code = 2232) 135 MG/DL HDL CHOLESTEROL (test code = 2220) 54 MG/DL CALC LDL CHOL (test code = 2237) 94 MG/DL RISK RATIO LDL/HDL (test cod e = 2238) 1.74 RATIO COMPREHENSIVE METABOLIC [id number] 00:00:00* Test Item Value Reference Range Interpretation Comme nts GLUCOSE (test code = 2217) 140 MG/DL BUN (test code = 2208) 14 MG/DL CREATININE (test code = 2214) 0.62 MG/DL eGFR AMER. (test cod e = 46240) 118 ML/MIN/1.73 eGFR NON- AMER. (test code = 42962) 102 ML/MIN/1.73 CALC BUN/CREAT (test code = [...] code = 2219) 27 U/L COMPREHENSIVE METABOLIC [id number] 00:00:00* Test Item Value Reference Range Interpretation Comme nts GLUCOSE (test code = 2217) 140 MG/DL BUN (test code = 2208) 14 MG/DL CREATININE (test code = 2214) 0.62 MG/DL eGFR AMER. (test cod e = 54082) 118 ML/MIN/1.73 eGFR NON- AMER. (test code = 91268) 102 ML/MIN/1.73 CALC BUN/CREAT (test code = [...] = 2219) 27 U/L Daren Snow AustinLIPID [id number] 00:00:00* Test Item Value Reference Range Interpretation Comme nts CHOLESTEROL (test code = 2210) 175 MG/DL TRIGLYCERIDES (test code = 2232) 135 MG/DL HDL CHOLESTEROL (test code = 2220) 54 MG/DL CALC LDL CHOL (test code = 2237) 94 MG/DL RISK RATIO LDL/HDL (test cod e = 2238) 1.74 RATIO Daren LewCOMPREHENSIVE METABOLIC [id number] 00:00:00* Test Item Value Reference Range Interpretation Comme nts GLUCOSE (test code = 2217) 140 MG/DL BUN (test code = 2208) 14 MG/DL CREATININE (test code = 2214) 0.62 MG/DL eGFR AMER. (test cod e = 26646) 118 ML/MIN/1.73 eGFR NON- AMER. (test code = 42944) 102 ML/MIN/1.73 CALC BUN/CREAT (test code = [...] = 2219) 27 U/L Daren Snow AustinLIPID [id number] 00:00:00* Test Item Value Reference Range Interpretation Comme nts CHOLESTEROL (test code = 2210) 175 MG/DL TRIGLYCERIDES (test code = 2232) 135 MG/DL HDL CHOLESTEROL (test code = 2220) 54 MG/DL CALC LDL CHOL (test code = 2237) 94 MG/DL RISK RATIO LDL/HDL (test cod e = 2238) 1.74 RATIO Daren LewCOMPREHENSIVE METABOLIC [id number] 00:00:00* Test Item Value Reference Range Interpretation Comme nts GLUCOSE (test code = 2217) 140 MG/DL BUN (test code = 2208) 14 MG/DL CREATININE (test code = 2214) 0.62 MG/DL eGFR AMER. (test cod e = 73390) 118 ML/MIN/1.73 eGFR NON- AMER. (test code = 02278) 102 ML/MIN/1.73 CALC BUN/CREAT (test code = [...] (test code = 2219) 27 U/L Daren Gwendolyn [place] FallsL[place] [id number] 00:00:00* Test Item Value Reference Range Interpretation Comme nts CHOLESTEROL (test code = 2210) 175 MG/DL TRIGLYCERIDES (test code = 2232) 135 MG/DL HDL CHOLESTEROL (test code = 2220) 54 MG/DL CALC LDL CHOL (test code = 2237) 94 MG/DL RISK RATIO LDL/HDL (test cod e = 2238) 1.74 RATIO Daren F VipinCOMPREHENSIVE METABOLIC [id number] 00:00:00* Test Item Value Reference Range Interpretation Comme nts GLUCOSE (test code = 2217) 140 MG/DL BUN (test code = 2208) 14 MG/DL CREATININE (test code = 2214) 0.62 MG/DL eGFR AMER. (test cod e = 84545) 118 ML/MIN/1.73 eGFR NON- AMER. (test code = 17741) 102 ML/MIN/1.73 CALC BUN/CREAT (test code = [...] code = 2219) 27 U/L Daren LewLIPID [id number] 00:00:00* Test Item Value Reference Range Interpretation Comme nts CHOLESTEROL (test code = 2210) 175 MG/DL TRIGLYCERIDES (test code = 2232) 135 MG/DL HDL CHOLESTEROL (test code = 2220) 54 MG/DL CALC LDL CHOL (test code = 2237) 94 MG/DL RISK RATIO LDL/HDL (test cod e = 2238) 1.74 RATIO Daren LewCOMPREHENSIVE METABOLIC [id number] 00:00:00* Test Item Value Reference Range Interpretation Comme nts GLUCOSE (test code = 2217) 140 MG/DL BUN (test code = 2208) 14 MG/DL CREATININE (test code = 2214) 0.62 MG/DL eGFR AMER. (test cod e = 62555) 118 ML/MIN/1.73 eGFR NON- AMER. (test code = 94379) 102 ML/MIN/1.73 CALC BUN/CREAT (test code = [...] code = 2219) 27 U/L Daren LewLIPID [id number] 00:00:00* Test Item Value Reference Range Interpretation Comme nts CHOLESTEROL (test code = 2210) 175 MG/DL TRIGLYCERIDES (test code = 2232) 135 MG/DL HDL CHOLESTEROL (test code = 2220) 54 MG/DL CALC LDL CHOL (test code = 2237) 94 MG/DL RISK RATIO LDL/HDL (test cod e = 2238) 1.74 RATIO Daren LewCOMPREHENSIVE METABOLIC [id number] 00:00:00* Test Item Value Reference Range Interpretation Comme nts GLUCOSE (test code = 2217) 140 MG/DL BUN (test code = 2208) 14 MG/DL CREATININE (test code = 2214) 0.62 MG/DL eGFR AMER. (test cod e = 47117) 118 ML/MIN/1.73 eGFR NON- AMER. (test code = 19087) 102 ML/MIN/1.73 CALC BUN/CREAT (test code = [...] = 2219) 27 U/L Daren Snow AustinLIPID [id number] 00:00:00* Test Item Value Reference Range Interpretation Comme nts CHOLESTEROL (test code = 2210) 175 MG/DL TRIGLYCERIDES (test code = 2232) 135 MG/DL HDL CHOLESTEROL (test code = 2220) 54 MG/DL CALC LDL CHOL (test code = 2237) 94 MG/DL RISK RATIO LDL/HDL (test cod e = 2238) 1.74 RATIO Daren LewCOMPREHENSIVE METABOLIC [id number] 00:00:00* Test Item Value Reference Range Interpretation Comme nts GLUCOSE (test code = 2217) 140 MG/DL BUN (test code = 2208) 14 MG/DL CREATININE (test code = 2214) 0.62 MG/DL eGFR AMER. (test cod e = 99901) 118 ML/MIN/1.73 eGFR NON- AMER. (test code = 32553) 102 ML/MIN/1.73 CALC BUN/CREAT (test code = [...] = 2219) 27 U/L Daren Snow AustinLIPID [id number] 00:00:00* Test Item Value Reference Range Interpretation Comme nts CHOLESTEROL (test code = 2210) 175 MG/DL TRIGLYCERIDES (test code = 2232) 135 MG/DL HDL CHOLESTEROL (test code = 2220) 54 MG/DL CALC LDL CHOL (test code = 2237) 94 MG/DL RISK RATIO LDL/HDL (test cod e = 2238) 1.74 RATIO Daren LewCOMPREHENSIVE METABOLIC [id number] 00:00:00* Test Item Value Reference Range Interpretation Comme nts GLUCOSE (test code = 2217) 126 MG/DL BUN (test code = 2208) 12 MG/DL CREATININE (test code = 2214) 0.56 MG/DL eGFR AMER. (test cod e = 59454) 123 ML/MIN/1.73 eGFR NON- AMER. (test code = 75151) 106 ML/MIN/1.73 CALC BUN/CREAT (test code = [...] (test code = 2219) 37 U/L LIPID [id number] 00:00:00* Test Item Value Reference Range Interpretation Comme nts CHOLESTEROL (test code = 2210) 185 MG/DL TRIGLYCERIDES (test code = 2232) 228 MG/DL HDL CHOLESTEROL (test code = 2220) 58 MG/DL CALC LDL CHOL (test code = 2237) 81 MG/DL RISK RATIO LDL/HDL (test cod e = 2238) 1.40 RATIO LIPID [id number] 00:00:00* Test Item Value Reference Range Interpretation Comme nts CHOLESTEROL (test code = 2210) 185 MG/DL TRIGLYCERIDES (test code = 2232) 228 MG/DL HDL CHOLESTEROL (test code = 2220) 58 MG/DL CALC LDL CHOL (test code = 2237) 81 MG/DL RISK RATIO LDL/HDL (test cod e = 2238) 1.40 RATIO Daren F AustinCOMPREHENSIVE METABOLIC [id number] 00:00:00* Test Item Value Reference Range Interpretation Comme nts GLUCOSE (test code = 2217) 126 MG/DL BUN (test code = 2208) 12 MG/DL CREATININE (test code = 2214) 0.56 MG/DL eGFR AMER. (test cod e = 55101) 123 ML/MIN/1.73 eGFR NON- AMER. (test code = 87123) 106 ML/MIN/1.73 CALC BUN/CREAT (test code = [...] code = 2219) 37 U/L Daren Snow [place] [id number] 00:00:00* Test Item Value Reference Range Interpretation Comme nts CHOLESTEROL (test code = 2210) 185 MG/DL TRIGLYCERIDES (test code = 2232) 228 MG/DL HDL CHOLESTEROL (test code = 2220) 58 MG/DL CALC LDL CHOL (test code = 2237) 81 MG/DL RISK RATIO LDL/HDL (test cod e = 2238) 1.40 RATIO Daren F VipinCOMPREHENSIVE METABOLIC [id number] 00:00:00* Test Item Value Reference Range Interpretation Comme nts GLUCOSE (test code = 2217) 126 MG/DL BUN (test code = 2208) 12 MG/DL CREATININE (test code = 2214) 0.56 MG/DL eGFR AMER. (test cod e = 60954) 123 ML/MIN/1.73 eGFR NON- AMER. (test code = 61032) 106 ML/MIN/1.73 CALC BUN/CREAT (test code = [...] code = 2219) 37 U/L Daren LewLIPID [id number] 00:00:00* Test Item Value Reference Range Interpretation Comme nts CHOLESTEROL (test code = 2210) 185 MG/DL TRIGLYCERIDES (test code = 2232) 228 MG/DL HDL CHOLESTEROL (test code = 2220) 58 MG/DL CALC LDL CHOL (test code = 2237) 81 MG/DL RISK RATIO LDL/HDL (test cod e = 2238) 1.40 RATIO Daren LewCOMPREHENSIVE METABOLIC [id number] 00:00:00* Test Item Value Reference Range Interpretation Comme nts GLUCOSE (test code = 2217) 126 MG/DL BUN (test code = 2208) 12 MG/DL CREATININE (test code = 2214) 0.56 MG/DL eGFR AMER. (test cod e = 75174) 123 ML/MIN/1.73 eGFR NON- AMER. (test code = 24013) 106 ML/MIN/1.73 CALC BUN/CREAT (test code = [...] code = 2219) 37 U/L Daren LewLIPID [id number] 00:00:00* Test Item Value Reference Range Interpretation Comme nts CHOLESTEROL (test code = 2210) 185 MG/DL TRIGLYCERIDES (test code = 2232) 228 MG/DL HDL CHOLESTEROL (test code = 2220) 58 MG/DL CALC LDL CHOL (test code = 2237) 81 MG/DL RISK RATIO LDL/HDL (test cod e = 2238) 1.40 RATIO Daren LewCOMPREHENSIVE METABOLIC [id number] 00:00:00* Test Item Value Reference Range Interpretation Comme nts GLUCOSE (test code = 2217) 126 MG/DL BUN (test code = 2208) 12 MG/DL CREATININE (test code = 2214) 0.56 MG/DL eGFR AMER. (test cod e = 65038) 123 ML/MIN/1.73 eGFR NON- AMER. (test code = 69850) 106 ML/MIN/1.73 CALC BUN/CREAT (test code = [...] = 2219) 37 U/L Daren Snow AustinLIPID [id number] 00:00:00* Test Item Value Reference Range Interpretation Comme nts CHOLESTEROL (test code = 2210) 185 MG/DL TRIGLYCERIDES (test code = 2232) 228 MG/DL HDL CHOLESTEROL (test code = 2220) 58 MG/DL CALC LDL CHOL (test code = 2237) 81 MG/DL RISK RATIO LDL/HDL (test cod e = 2238) 1.40 RATIO Daren LewCOMPREHENSIVE METABOLIC [id number] 00:00:00* Test Item Value Reference Range Interpretation Comme nts GLUCOSE (test code = 2217) 126 MG/DL BUN (test code = 2208) 12 MG/DL CREATININE (test code = 2214) 0.56 MG/DL eGFR AMER. (test cod e = 20038) 123 ML/MIN/1.73 eGFR NON- AMER. (test code = 64409) 106 ML/MIN/1.73 CALC BUN/CREAT (test code = [...] = 2219) 37 U/L Daren Snow AustinLIPID [id number] 00:00:00* Test Item Value Reference Range Interpretation Comme nts CHOLESTEROL (test code = 2210) 185 MG/DL TRIGLYCERIDES (test code = 2232) 228 MG/DL HDL CHOLESTEROL (test code = 2220) 58 MG/DL CALC LDL CHOL (test code = 2237) 81 MG/DL RISK RATIO LDL/HDL (test cod e = 2238) 1.40 RATIO Daren LewCOMPREHENSIVE METABOLIC [id number] 00:00:00* Test Item Value Reference Range Interpretation Comme nts GLUCOSE (test code = 2217) 126 MG/DL BUN (test code = 2208) 12 MG/DL CREATININE (test code = 2214) 0.56 MG/DL eGFR AMER. (test cod e = 26155) 123 ML/MIN/1.73 eGFR NON- AMER. (test code = 34578) 106 ML/MIN/1.73 CALC BUN/CREAT (test code = [...] code = 2219) 37 U/L Daren Snow [place] [id number] 00:00:00* Test Item Value Reference Range Interpretation Comme nts CHOLESTEROL (test code = 2210) 185 MG/DL TRIGLYCERIDES (test code = 2232) 228 MG/DL HDL CHOLESTEROL (test code = 2220) 58 MG/DL CALC LDL CHOL (test code = 2237) 81 MG/DL RISK RATIO LDL/HDL (test cod e = 2238) 1.40 RATIO Daren Snow [place] FallsCOMPREHENSIVE METABOL[place] [id number] 00:00:00* Test Item Value Reference Range Interpretation Comme nts GLUCOSE (test code = 2217) 126 MG/DL BUN (test code = 2208) 12 MG/DL CREATININE (test code = 2214) 0.56 MG/DL eGFR AMER. (test cod e = 69681) 123 ML/MIN/1.73 eGFR NON- AMER. (test code = 51628) 106 ML/MIN/1.73 CALC BUN/CREAT (test code = [...] code = 2219) 37 U/L Daren Snow VipinCOMPREHENSIVE METABOLIC [id number] 00:00:00* Test Item Value Reference Range Interpretation Comme nts GLUCOSE (test code = 2217) 98 MG/DL BUN (test code = 2208) 13 MG/DL CREATININE (test code = 2214) 0.69 MG/DL eGFR AMER. (test cod e = 22804) 116 ML/MIN/1.73 eGFR NON- AMER. (test code = 32435) 100 ML/MIN/1.73 CALC BUN/CREAT (test code = [...] code = 2219) 44 U/L COMPREHENSIVE METABOLIC [id number] 00:00:00* Test Item Value Reference Range Interpretation Comme nts GLUCOSE (test code = 2217) 98 MG/DL BUN (test code = 2208) 13 MG/DL CREATININE (test code = 2214) 0.69 MG/DL eGFR AMER. (test cod e = 47096) 116 ML/MIN/1.73 eGFR NON- AMER. (test code = 06518) 100 ML/MIN/1.73 CALC BUN/CREAT (test code = [...] = 2219) 44 U/L Daren LewCOMPREHENSIVE METABOLIC [id number] 00:00:00* Test Item Value Reference Range Interpretation Comme nts GLUCOSE (test code = 2217) 98 MG/DL BUN (test code = 2208) 13 MG/DL CREATININE (test code = 2214) 0.69 MG/DL eGFR AMER. (test cod e = 72181) 116 ML/MIN/1.73 eGFR NON- AMER. (test code = 57524) 100 ML/MIN/1.73 CALC BUN/CREAT (test code = [...] (test code = 2219) 44 U/L [facility] LewSA[facility]ADPREHENSIVE METABOLIC [id number] 00:00:00* Test Item Value Reference Range Interpretation Comme nts GLUCOSE (test code = 2217) 98 MG/DL BUN (test code = 2208) 13 MG/DL CREATININE (test code = 2214) 0.69 MG/DL eGFR AMER. (test cod e = 79940) 116 ML/MIN/1.73 eGFR NON- AMER. (test code = 34673) 100 ML/MIN/1.73 CALC BUN/CREAT (test code = [...] code = 2219) 44 U/L [facility] [id number] 00:00:00* Test Item Value Reference Range Interpretation Comme nts GLUCOSE (test code = 2217) 98 MG/DL BUN (test code = 2208) 13 MG/DL CREATININE (test code = 2214) 0.69 MG/DL eGFR AMER. (test cod e = 75963) 116 ML/MIN/1.73 eGFR NON- AMER. (test code = 01107) 100 ML/MIN/1.73 CALC BUN/CREAT (test code = [...] = 2219) 44 U/L Daren LewCOMPREHENSIVE METABOLIC [id number] 00:00:00* Test Item Value Reference Range Interpretation Comme nts GLUCOSE (test code = 2217) 98 MG/DL BUN (test code = 2208) 13 MG/DL CREATININE (test code = 2214) 0.69 MG/DL eGFR AMER. (test cod e = 85922) 116 ML/MIN/1.73 eGFR NON- AMER. (test code = 32056) 100 ML/MIN/1.73 CALC BUN/CREAT (test code = [...] code = 2219) 44 U/L Daren Gwendolyn [place] FallsCOMPREHENSIVE METABOLIC [id number] 00:00:00* Test Item Value Reference Range Interpretation Comme nts GLUCOSE (test code = 2217) 98 MG/DL BUN (test code = 2208) 13 MG/DL CREATININE (test code = 2214) 0.69 MG/DL eGFR AMER. (test cod e = 17076) 116 ML/MIN/1.73 eGFR NON- AMER. (test code = 60921) 100 ML/MIN/1.73 CALC BUN/CREAT (test code = [...] code = 2219) 44 U/L Daren Snow [place] FallsCOMPREHENSIVE METABOLIC [id number] 00:00:00* Test Item Value Reference Range Interpretation Comme nts GLUCOSE (test code = 2217) 98 MG/DL BUN (test code = 2208) 13 MG/DL CREATININE (test code = 2214) 0.69 MG/DL eGFR AMER. (test cod e = 60105) 116 ML/MIN/1.73 eGFR NON- AMER. (test code = 84909) 100 ML/MIN/1.73 CALC BUN/CREAT (test code = [...] = 2219) 44 U/L Daren LewCOMPREHENSIVE METABOLIC [id number] 00:00:00* Test Item Value Reference Range Interpretation Comme nts GLUCOSE (test code = 2217) 113 MG/DL BUN (test code = 2208) 14 MG/DL CREATININE (test code = 2214) 0.63 MG/DL eGFR AMER. (test cod e = 35267) 120 ML/MIN/1.73 eGFR NON- AMER. (test code = 54096) 103 ML/MIN/1.73 CALC BUN/CREAT (test code = [...] code = 2219) 69 U/L COMPREHENSIVE METABOLIC [id number] 00:00:00* Test Item Value Reference Range Interpretation Comme nts GLUCOSE (test code = 2217) 113 MG/DL BUN (test code = 2208) 14 MG/DL CREATININE (test code = 2214) 0.63 MG/DL eGFR AMER. (test cod e = 90581) 120 ML/MIN/1.73 eGFR NON- AMER. (test code = 47471) 103 ML/MIN/1.73 CALC BUN/CREAT (test code = [...] (test code = 2219) 69 U/L Daren HuizarPREHENSIVE METABOLIC [id number] 00:00:00* Test Item Value Reference Range Interpretation Comme nts GLUCOSE (test code = 2217) 113 MG/DL BUN (test code = 2208) 14 MG/DL CREATININE (test code = 2214) 0.63 MG/DL eGFR AMER. (test cod e = 20458) 120 ML/MIN/1.73 eGFR NON- AMER. (test code = 64603) 103 ML/MIN/1.73 CALC BUN/CREAT (test code = [...] code = 2219) 69 U/L Daren F AustinCOMPREHENSIVE METABOLIC [id number] 00:00:00* Test Item Value Reference Range Interpretation Comme nts GLUCOSE (test code = 2217) 113 MG/DL BUN (test code = 2208) 14 MG/DL CREATININE (test code = 2214) 0.63 MG/DL eGFR AMER. (test cod e = 30955) 120 ML/MIN/1.73 eGFR NON- AMER. (test code = 20309) 103 ML/MIN/1.73 CALC BUN/CREAT (test code = [...] (test code = 2219) 69 U/L [facility] LewSA[facility]ADPREHENSIVE METABOLIC [id number] 00:00:00* Test Item Value Reference Range Interpretation Comme nts GLUCOSE (test code = 2217) 113 MG/DL BUN (test code = 2208) 14 MG/DL CREATININE (test code = 2214) 0.63 MG/DL eGFR AMER. (test cod e = 39052) 120 ML/MIN/1.73 eGFR NON- AMER. (test code = 57206) 103 ML/MIN/1.73 CALC BUN/CREAT (test code = [...] code = 2219) 69 U/L Daren Snow [place] FallsCOMPREHENSIVE METAB[place] [id number] 00:00:00* Test Item Value Reference Range Interpretation Comme nts GLUCOSE (test code = 2217) 113 MG/DL BUN (test code = 2208) 14 MG/DL CREATININE (test code = 2214) 0.63 MG/DL eGFR AMER. (test cod e = 34192) 120 ML/MIN/1.73 eGFR NON- AMER. (test code = 19216) 103 ML/MIN/1.73 CALC BUN/CREAT (test code = [...] code = 2219) 69 U/L Daren Snow [place] FallsCOMPREHENSIVE METABOLIC [id number] 00:00:00* Test Item Value Reference Range Interpretation Comme nts GLUCOSE (test code = 2217) 113 MG/DL BUN (test code = 2208) 14 MG/DL CREATININE (test code = 2214) 0.63 MG/DL eGFR AMER. (test cod e = 67397) 120 ML/MIN/1.73 eGFR NON- AMER. (test code = 44889) 103 ML/MIN/1.73 CALC BUN/CREAT (test code = [...] (test code = 2219) 69 U/L Daren LewCOMPREHENSIVE METABOLIC [id number] 00:00:00* Test Item Value Reference Range Interpretation Comme nts GLUCOSE (test code = 2217) 113 MG/DL BUN (test code = 2208) 14 MG/DL CREATININE (test code = 2214) 0.63 MG/DL eGFR AMER. (test cod e = 51110) 120 ML/MIN/1.73 eGFR NON- AMER. (test code = 07271) 103 ML/MIN/1.73 CALC BUN/CREAT (test code = [...] (test code = 2219) 69 U/L Daren LewHEMOGLOBIN [id number] 00:00:00* Test Item Value Reference Range Interpretation Comme nts HEMOGLOBIN A1c (test code = 05248) 6.0 % VITAMIN D, 25 [id number] 00:00:00* Test Item Value Reference Range Interpretation Comme nts VITAMIN D, 25 OH (test code = 4958) 11 NG/ML HEMOGLOBIN [id number] 00:00:00* Test Item Value Reference Range Interpretation Comme nts HEMOGLOBIN A1c (test code = 13165) 6.0 % Daren Snow AustinVITAMIN D, 25 [id number] 00:00:00* Test Item Value Reference Range Interpretation Comme nts VITAMIN D, 25 OH (test code = 4958) 11 NG/ML Daren Snow AustinHEMOGLOBIN [id number] 00:00:00* Test Item Value Reference Range Interpretation Comme nts HEMOGLOBIN A1c (test code = 19373) 6.0 % Daren Snow AustinVITAMIN D, 25 [id number] 00:00:00* Test Item Value Reference Range Interpretation Comme nts VITAMIN D, 25 OH (test code = 4958) 11 NG/ML Daren Snow AustinHEMOGLOBIN [id number] 00:00:00* Test Item Value Reference Range Interpretation Comme nts HEMOGLOBIN A1c (test code = 63265) 6.0 % Daren Snow AustinVITAMIN D, 25 [id number] 00:00:00* Test Item Value Reference Range Interpretation Comme nts VITAMIN D, 25 OH (test code = 4958) 11 NG/ML Daren Snow AustinHEMOGLOBIN [id number] 00:00:00* Test Item Value Reference Range Interpretation Comme nts HEMOGLOBIN A1c (test code = 11614) 6.0 % Draen Snow AustinVITAMIN D, 25 [id number] 00:00:00* Test Item Value Reference Range Interpretation Comme nts VITAMIN D, 25 OH (test code = 4958) 11 NG/ML Daren Snow AustinHEMOGLOBIN [id number] 00:00:00* Test Item Value Reference Range Interpretation Comme nts HEMOGLOBIN A1c (test code = 44496) 6.0 % Daren Snow AustinVITAMIN D, 25 [id number] 00:00:00* Test Item Value Reference Range Interpretation Comme nts VITAMIN D, 25 [place] (test code = 4958) 11 NG/ML Daren LewHEMOGLOBIN [id number] 00:00:00* Test Item Value Reference Range Interpretation Comme nts HEMOGLOBIN A1c (test code = 96009) 6.0 % Daren Snow AustinVITAMIN D, 25 [id number] 00:00:00* Test Item Value Reference Range Interpretation Comme nts VITAMIN D, 25 [place] (test code = 4958) 11 NG/ML Daren LewHEMOGLOBIN [id number] 00:00:00* Test Item Value Reference Range Interpretation Comme nts HEMOGLOBIN A1c (test code = 97109) 6.0 % Daren LewVITAMIN D, 25 [id number] 00:00:00* Test Item Value Reference Range Interpretation Comme nts VITAMIN D, 25 [place] (test code = 4958) 11 NG/ML Daren LewCOMPREHENSIVE METABOLIC [id number] 00:00:00* Test Item Value Reference Range Interpretation Comme nts GLUCOSE (test code = 2217) 97 MG/DL BUN (test code = 2208) 12 MG/DL CREATININE (test code = 2214) 0.57 MG/DL eGFR AMER. (test cod e = 17741) 124 ML/MIN/1.73 eGFR NON- AMER. (test code = 22179) 107 ML/MIN/1.73 CALC BUN/CREAT (test code = [...] (test code = 2219) 34 U/L LIPID [id number] 00:00:00* Test Item Value Reference Range Interpretation Comme nts CHOLESTEROL (test code = 2210) 183 MG/DL TRIGLYCERIDES (test code = 2232) 151 MG/DL HDL CHOLESTEROL (test code = 2220) 56 MG/DL CALC LDL CHOL (test code = 2237) 97 MG/DL RISK RATIO LDL/HDL (test cod e = 2238) 1.73 RATIO [id number] 00:00:00* Test Item Value Reference Range Interpretation Comme nts TSH (test code = 2821) 1.16 UIU/ML VITAMIN [id number] 00:00:00* Test Item Value Reference Range Interpretation Comme nts VITAMIN B-12 (test code = 2840) 288 PG/ML LIPID [id number] 00:00:00* Test Item Value Reference Range Interpretation Comme nts CHOLESTEROL (test code = 2210) 183 MG/DL TRIGLYCERIDES (test code = 2232) 151 MG/DL HDL CHOLESTEROL (test code = 2220) 56 MG/DL CALC LDL CHOL (test code = 2237) 97 MG/DL RISK RATIO LDL/HDL (test cod e = 2238) 1.73 RATIO Daren [id number] 00:00:00* Test Item Value Reference Range Interpretation Comme nts TSH (test code = 2821) 1.16 UIU/ML Daren LewVITAMIN [id number] 00:00:00* Test Item Value Reference Range Interpretation Comme nts VITAMIN B-12 (test code = 2840) 288 PG/ML Daren LewCOMPREHENSIVE METABOLIC [id number] 00:00:00* Test Item Value Reference Range Interpretation Comme nts GLUCOSE (test code = 2217) 97 MG/DL BUN (test code = 2208) 12 MG/DL CREATININE (test code = 2214) 0.57 MG/DL eGFR AMER. (test cod e = 20096) 124 ML/MIN/1.73 eGFR NON- AMER. (test code = 77822) 107 ML/MIN/1.73 CALC BUN/CREAT (test code = [...] code = 2219) 34 U/L Daren LewLIPID [id number] 00:00:00* Test Item Value Reference Range Interpretation Comme nts CHOLESTEROL (test code = 2210) 183 MG/DL TRIGLYCERIDES (test code = 2232) 151 MG/DL HDL CHOLESTEROL (test code = 2220) 56 MG/DL CALC LDL CHOL (test code = 2237) 97 MG/DL RISK RATIO LDL/HDL (test cod e = 2238) 1.73 RATIO Daren [id number] 00:00:00* Test Item Value Reference Range Interpretation Comme nts TSH (test code = 2821) 1.16 UIU/ML Daren LewVITAMIN [id number] 00:00:00* Test Item Value Reference Range Interpretation Comme nts VITAMIN B-12 (test code = 2840) 288 PG/ML Daren LewCOMPREHENSIVE METABOLIC [id number] 00:00:00* Test Item Value Reference Range Interpretation Comme nts GLUCOSE (test code = 2217) 97 MG/DL BUN (test code = 2208) 12 MG/DL CREATININE (test code = 2214) 0.57 MG/DL eGFR AMER. (test cod e = 22059) 124 ML/MIN/1.73 eGFR NON- AMER. (test code = 41824) 107 ML/MIN/1.73 CALC BUN/CREAT (test code = [...] code = 2219) 34 U/L Daren LewLIPID [id number] 00:00:00* Test Item Value Reference Range Interpretation Comme nts CHOLESTEROL (test code = 2210) 183 MG/DL TRIGLYCERIDES (test code = 2232) 151 MG/DL HDL CHOLESTEROL (test code = 2220) 56 MG/DL CALC LDL CHOL (test code = 2237) 97 MG/DL RISK RATIO LDL/HDL (test cod e = 2238) 1.73 RATIO Daren [id number] 00:00:00* Test Item Value Reference Range Interpretation Comme nts TSH (test code = 2821) 1.16 UIU/ML Daren LewVITAMIN [id number] 00:00:00* Test Item Value Reference Range Interpretation Comme [facility] VITAMIN B-12 (test code = 2840) 288 PG/ML Daren LewCOMPREHENSIVE METABOLIC [id number] 00:00:00* Test Item Value Reference Range Interpretation Comme nts GLUCOSE (test code = 2217) 97 MG/DL BUN (test code = 2208) 12 MG/DL CREATININE (test code = 2214) 0.57 MG/DL eGFR AMER. (test cod e = 06431) 124 ML/MIN/1.73 eGFR NON- AMER. (test code = 44526) 107 ML/MIN/1.73 CALC BUN/CREAT (test code = [...] code = 2219) 34 U/L Daren LewLIPID [id number] 00:00:00* Test Item Value Reference Range Interpretation Comme nts CHOLESTEROL (test code = 2210) 183 MG/DL TRIGLYCERIDES (test code = 2232) 151 MG/DL HDL CHOLESTEROL (test code = 2220) 56 MG/DL CALC LDL CHOL (test code = 2237) 97 MG/DL RISK RATIO LDL/HDL (test cod e = 2238) 1.73 RATIO Daren [id number] 00:00:00* Test Item Value Reference Range Interpretation Comme nts TSH (test code = 2821) 1.16 UIU/ML Daren LewVITAMIN [id number] 00:00:00* Test Item Value Reference Range Interpretation Comme [facility] VITAMIN B-12 (test code = 2840) 288 PG/ML Daren LewCOMPREHENSIVE METABOLIC [id number] 00:00:00* Test Item Value Reference Range Interpretation Comme nts GLUCOSE (test code = 2217) 97 MG/DL BUN (test code = 2208) 12 MG/DL CREATININE (test code = 2214) 0.57 MG/DL eGFR AMER. (test cod e = 54964) 124 ML/MIN/1.73 eGFR NON- AMER. (test code = 01258) 107 ML/MIN/1.73 CALC BUN/CREAT (test code = [...] code = 2219) 34 U/L Daren LewLIPID [id number] 00:00:00* Test Item Value Reference Range Interpretation Comme nts CHOLESTEROL (test code = 2210) 183 MG/DL TRIGLYCERIDES (test code = 2232) 151 MG/DL HDL CHOLESTEROL (test code = 2220) 56 MG/DL CALC LDL CHOL (test code = 2237) 97 MG/DL RISK RATIO LDL/HDL (test cod e = 2238) 1.73 RATIO Daren [id number] 00:00:00* Test Item Value Reference Range Interpretation Comme clarke TSH (test code = 2821) 1.16 UIU/ML Daren LewVITAMIN [id number] 00:00:00* Test Item Value Reference Range Interpretation Comme clarke VITAMIN B-12 (test code = 2840) 288 PG/ML Daren LewCOMPREHENSIVE METABOLIC [id number] 00:00:00* Test Item Value Reference Range Interpretation Comme nts GLUCOSE (test code = 2217) 97 MG/DL BUN (test code = 2208) 12 MG/DL CREATININE (test code = 2214) 0.57 MG/DL eGFR AMER. (test cod e = 63473) 124 ML/MIN/1.73 eGFR NON- AMER. (test code = 06603) 107 ML/MIN/1.73 CALC BUN/CREAT (test code = [...] code = 2219) 34 U/L Daren LewLIPID [id number] 00:00:00* Test Item Value Reference Range Interpretation Comme nts CHOLESTEROL (test code = 2210) 183 MG/DL TRIGLYCERIDES (test code = 2232) 151 MG/DL HDL CHOLESTEROL (test code = 2220) 56 MG/DL CALC LDL CHOL (test code = 2237) 97 MG/DL RISK RATIO LDL/HDL (test cod e = 2238) 1.73 RATIO Daren [id number] 00:00:00* Test Item Value Reference Range Interpretation Comme clarke TSH (test code = 2821) 1.16 UIU/ML Daren LewVITAMIN [id number] 00:00:00* Test Item Value Reference Range Interpretation Comme clarke VITAMIN B-12 (test code = 2840) 288 PG/ML Daren LewCOMPREHENSIVE METABOLIC [id number] 00:00:00* Test Item Value Reference Range Interpretation Comme nts GLUCOSE (test code = 2217) 97 MG/DL BUN (test code = 2208) 12 MG/DL CREATININE (test code = 2214) 0.57 MG/DL eGFR AMER. (test cod e = 52115) 124 ML/MIN/1.73 eGFR NON- AMER. (test code = 48231) 107 ML/MIN/1.73 CALC BUN/CREAT (test code = [...] code = 2219) 34 U/L Daren LewLIPID [id number] 00:00:00* Test Item Value Reference Range Interpretation Comme nts CHOLESTEROL (test code = 2210) 183 MG/DL TRIGLYCERIDES (test code = 2232) 151 MG/DL HDL CHOLESTEROL (test code = 2220) 56 MG/DL CALC LDL CHOL (test code = 2237) 97 MG/DL RISK RATIO LDL/HDL (test cod e = 2238) 1.73 RATIO Daren [id number] 00:00:00* Test Item Value Reference Range Interpretation Comme nts TSH (test code = 2821) 1.16 UIU/ML Daren LewVITAMIN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
[2024-07-24] MEDS ORDERED: HYDROCODONE/APAP 5/325 MG TAB ONE (17:18)
[2024-07-24] MEDS ORDERED: DIAZEPAM 5 MG TABLET ONE (17:18)
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
== END 2024-07-24 18:30 | disposition home or self-care (01) ==
LOC: ER 16:13
DX: M54.2 Cervicalgia (principal); M54.9 Dorsalgia, unspecified; V59.49XA Driver of pick-up truck or van injured in collision with other motor vehicles in traffic accident, initial encounter
CPT/HCPCS: 70450; 72125; 99283